=== PATIENT | female | born 1995 | race Caucasian/White ===

== ENCOUNTER 2023-10-18 13:50 | Outpatient (REF) | payer MEDICAID, SELFPAY ==
[2023-10-18 14:55] LABS: Abs Immature Grans 0.14 10^3/uL (0.0-0.06); Absolute Basophil Count 0.05 10^3/uL (0.0-0.2); Absolute Eosinophil Count 0.24 10^3/uL (0.0-0.7); Absolute Lymphocyte Count 2.06 10^3/uL (1.2-3.4); Absolute Monocyte Count 0.42 10^3/uL (0.1-0.8); Absolute Neutrophil Count 3.86 10^3/uL (1.2-6.7); Basophils % 0.7; Eosinophils % 3.5; HCT 40.3 % (36.0-46.0); HGB 13.1 g/dL (11.2-15.7); Immature Grans % 2.1; Lymphocytes % 30.4; MCH 28.1 pg (27.0-33.0); MCHC 32.5 % (32.0-36.0); MCV 86 fL (80-95); MPV 10.6 fL (8.0-11.0); Monocytes % 6.2; Neutrophils % 57.1; Platelet Count 255 10^3/uL (130-400); RBC 4.67 10^6/uL (3.93-5.22); RDW 13.3 % (11.7-14.6); RDW-SD 41.4 fL; WBC 6.77 10^3/uL (4.4-10.8)
[2023-10-18 15:30] LABS: ALT 28 U/L (14-59); AST 14 U/L (15-37); Albumin 3.7 g/dL (3.4-5.0); Alkaline Phosphatase 90 U/L (46-116); Anion Gap 14.3 mmol/L (3-11); BUN 15 mg/dL (7-18); Bilirubin, Total 0.5 mg/dL (0.2-1.0); CO2 19.7 mmol/L (21.0-32.0); CREATININE 0.8 mg/dL (0.55-1.02); Calcium 8.7 mg/dL (8.5-10.1); Chloride 107 mmol/L (98-107); Estimated GFR 104.15 (mL/min/1.73m2); FREE T4 0.91 ng/dL (0.76-1.46); Glucose 108 mg/dL (74-106); Potassium 4.5 mmol/L (3.5-5.1); Sodium 141 mmol/L (136-145); TSH 1.89 uIU/Ml (0.36-3.74); Total Protein 7.5 g/dL (6.4-8.2)
[2023-10-18 15:52] LABS: Hemoglobin A1C 5.4 % (<5.7)
[2023-10-20 23:11] LABS: Anaplasma phagocytophilum Negative (Negative); B. miyamotoi PCR Negative (Negative); Babesia divergens/MO-1 Negative (Negative); Babesia duncani Negative (Negative); Babesia microti Negative (Negative); Ehrlichia chaffeensis Negative (Negative); Ehrlichia ewingii/canis Negative (Negative); Ehrlichia muris eauclairensis Negative (Negative)
[2023-10-21 11:24] LABS: Lyme Ab w Rflx to Lyme Confirm Negative (Negative)
== END 2023-10-18 13:51 | disposition home or self-care (01) ==
LOC: NCHCN 13:50
PROVIDERS: Referring Provider Student in an Organized Health Care Education/Training Program; Visit Provider Student in an Organized Health Care Education/Training Program
DX: R53.83 Other fatigue (principal); E66.8 Other obesity; Z68.41 Body mass index [BMI] 40.0-44.9, adult; R73.09 Other abnormal glucose
CPT/HCPCS: 80053; 87798; 83036; 84439; 84443; 85025; 86618

== ENCOUNTER → 2023-10-18 14:07 | Outpatient (CLI) | payer MEDICAID, SELFPAY ==
--- NOTE | 2023-10-18 13:45 | DI.RAD_ITS ---
Exam(s) XR CERVICAL SPINE COMP 4-5V EXAM: XR CERVICAL SPINE COMP 4-5V CLINICAL HISTORY: CERVICALGIA, m54.2. TECHNIQUE: 2D digital imaging was performed. Five views were performed. COMPARISON: No exams were available for comparison FINDINGS: BONES: No fracture or destructive lesion. Vertebral bodies are unremarkable. DISKS: Intervertebral disc spaces are maintained. ALIGNMENT: Cervical spinal alignment is within normal limits. The odontoid and atlantoaxial articulat ions are normal. SOFT TISSUE: Normal. The lung apices are clear. IMPRESSION: Unremarkable radiographs of the cervical spine. DATA REPOSITORY: RADIATION DOSE DELIVERED:
== END ==
PROVIDERS: Visit Provider Student in an Organized Health Care Education/Training Program
DX: M54.2 Cervicalgia (principal)
CPT/HCPCS: 72050

== ENCOUNTER 2023-11-10 15:30 | Emergency (ER) | payer MEDICAID, SELFPAY ==
[2023-11-10 15:35] VITALS: BP 152/95; PULSE 96; RESP 16; TEMP 37; O2SAT 99
--- NOTE | 2023-11-10 15:47 | W.ED.GENAD ---
Discharge Plan Disposition Patient Disposition: Home Discharge Details Clinical Impression: UTI (urinary tract infection) Primary Care Provider: Cody Galarza ED Provider: Luis Lundberg Home Meds and New Rx's Prescriptions: New cephalexin 500 mg capsule 500 mg PO QID 7 Days Qty: 28 0RF Discharge Instructions Instructions: Urinary Tract Infection in Women (ED) Additional Instructions: You were seen in the emergency department for urinary symptoms. We performed labs that were unremarkable. Your urine is consistent with a possible infection. We gave you a dose antibiotics here through your IV. You were okay for picking up your antibiotics tomorrow as these antibiotics will cover you overnight. Take Tylenol and ibuprofen per bottle directions for any discomfort. Please return to the emergency department for any worsening symptoms. Follow-up with your primary care doctor. HPI General Date/Time Provider Initiated Documentation: 11/10/23 15:38. HPI Narrative: 28-year-old female presents with urinary symptoms and flank pain. Started 3 days ago. Urinary frequency and dysuria. Bladder spasming. Now having pain in the left flank and left back. Constant in nature. Subjective fevers and chills and malaise. Some nausea and vomiting. Related Data Home Medications Medication Instructions Recorded Confirmed cephalexin 500 mg capsule 500 mg PO QID 7 days #28 caps 11/10/23 Previous Rx's Medication Instructions Recorded cephalexin 500 mg capsule 500 mg PO QID 7 days #28 caps 11/10/23 Allergies Allergy/AdvReac Type Severity Reaction Status Date / Time No Known Allergies Allergy Unverified 11/10/23 15:34 General Stated Complaint: Urinary KASSANDRA: 4 Review of Systems Constitutional Constitutional: Reports chills, Reports fatigue, Reports fever(s) and Reports malaise Eyes Eyes: Denies change in vision ENT Ears, Nose, Mouth, and Throat: Denies odynophagia Cardiovascular Cardiovascular: Denies chest pain and Denies dyspnea Respiratory Respiratory: Denies dyspnea Gastrointestinal Gastrointestinal: Denies abdominal pain, Denies diarrhea, Reports nausea, Denies odynophagia and Reports vomiting Genitourinary Genitourinary: Denies abnormal vaginal bleeding, Reports dysuria, Denies pelvic pain, Reports urinary urgency and Denies vaginal discharge Musculoskeletal Musculoskeletal: Denies myalgias Integumentary/Breasts Skin/Breast: Denies changing lesions Neurologic Neurologic: Denies behavioral changes Psychiatric Psychiatric: Denies behavioral changes Endocrine Endocrine: Reports fatigue and Denies heat intolerance Hematologic/Lymphatic Hematologic/Lymphatic: Denies lymphadenopathy Exam Const General: cooperative Nutritional Appearance: average body habitus Orientation: alert, awake and oriented x3 HENOH Head: normal to inspection Ears: external ears normal Mouth: moist mucous membranes Eyes Pupils: PERRL EOM: EOM intact bilaterally and No nystagmus Neck Neck: full ROM and no tracheal deviation Chest Chest: normal inspection of the chest Resp Auscultation: clear to auscultation bilaterally Cardio Rate: regular rate Rhythm: regular rhythm GI Inspection: normal to inspection Palpation: soft, no guarding, not rigid and nontender Other: Left CVA tenderness. Back/Spine/Pelvis Back: No no CVA tenderness Thoracic/Lumbar Spine: thoracic and lumbar spine normal to inspection Skin General skin exam: no rashes or lesions noted Neuro General: patient alert, patient awake and patient oriented x3 Cranial Nerves: CN's II-XI intact bilaterally, PERRL and no nystagmus Cognition: normal cognition Motor: muscle tone normal throughout and strength 5/5 throughout Sensory Exam: no sensory deficits noted Extrem General: normal to inspection Course Vital Signs Vital signs: Vital Signs Temperature 37.0 C 11/10/23 15:35 Pulse 96 H 11/10/23 15:35 Respiratory Rate 16 11/10/23 15:35 Blood Pressure 152/95 H 11/10/23 15:35 Pulse Oximetry 99 11/10/23 15:35 Temperature 37.0 C 11/10/23 15:35 Temperature Source Temporal Artery Scan 11/10/23 15:35 Pulse 96 H 11/10/23 15:35 Respiratory Rate 16 11/10/23 15:35 Respiratory Effort Normal, Non-Labored 11/10/23 15:36 Blood Pressure 152/95 H 11/10/23 15:35 Blood Pressure Position Sitting 11/10/23 15:35 Pulse Oximetry 99 11/10/23 15:35 Oxygen Delivery Method Room Air 11/10/23 15:35 Oxygen Flow Rate 0 11/10/23 15:35 Pain Level 8 11/10/23 15:35 Medical Decision Making 28-year-old female presents with urinary symptoms and left flank pain. Suspect UTI and possible pyelonephritis. Vital signs are stable but given the nausea and vomiting will check labs to look at renal function and electrolytes and give some IV fluids and nausea medications. Will give some antipyretics as well to see if this helps with the patient's general malaise. Will check urinalysis to look for UTI. Will check for . No abdominal tenderness to suggest intra-abdominal abscess presently. Will await initial testing and response to treatment and reevaluate. Reeval at 430pm Labs unremarkable. Urinalysis with possible UTI. Will treat with antibiotics. She feels better after medications here. Will discharge with return precautions. Lab Data Lab results reviewed: Yes I reviewed the patient's lab results. Labs: Labs unremarkable other than possible UTI Quality:SDOH Health Related Social Needs: No Data to Display FORMERLY [facility], [facility] All Active Problems (Updated 11/10/23 @ 16:28 by Luis Lundberg MD) UTI (urinary tract infection) (Acute) Social History Smoking/Tobacco Use Status: Never Smoking risk assessment performed?: Yes Alcohol Intake: current Alcohol Intake frequency: holidays/special occasions only Alcohol type: beer Drug use: Never Substance use type: does not use Housing: apartment Do you feel safe at home: Yes Do you feel safe in your relationship?: Yes
[2023-11-10 16:08] LABS: Bilirubin Negative (Negative); Blood Negative (Negative); Clarity Clear (Clear); Glucose Negative (Negative); Ketones Negative (Negative); Leukocyte Esterase Trace (Negative); Nitrite Negative (Negative); Specific Gravity 1.015 (1.005-1.025); Urobilinogen 0.2 mg/dL (Up to 0.2)
[2023-11-10 16:19] LABS: Bacteria Rare HPF (Negative); C & S Indicated? No; Crystals Negative HPF (Negative); Epithelial Cells Few HPF (Negative); Mucus Negative (Negative); RBC 0-2 HPF (0-2)
[2023-11-10] MEDS: Normal Saline 1,000 ML 1000 ML IV (16:24)
[2023-11-10] MEDS: Ondansetron 4 MG/2 ML VIAL IVP (16:24)
[2023-11-10] MEDS: Ketorolac 15 MG/ML VIAL IVP (16:24)
[2023-11-10 16:26] LABS: Abs Immature Grans 0.13 10^3/uL (0.0-0.06); Absolute Basophil Count 0.04 10^3/uL (0.0-0.2); Absolute Eosinophil Count 0.16 10^3/uL (0.0-0.7); Absolute Lymphocyte Count 2.18 10^3/uL (1.2-3.4); Absolute Monocyte Count 0.48 10^3/uL (0.1-0.8); Absolute Neutrophil Count 6.05 10^3/uL (1.2-6.7); Basophils % 0.4; Eosinophils % 1.8; HCT 42.9 % (36.0-46.0); HGB 13.9 g/dL (11.2-15.7); Immature Grans % 1.4; Lymphocytes % 24.1; MCH 27.6 pg (27.0-33.0); MCHC 32.4 % (32.0-36.0); MCV 85 fL (80-95); MPV 10.3 fL (8.0-11.0); Monocytes % 5.3; Platelet Count 233 10^3/uL (130-400); RBC 5.03 10^6/uL (3.93-5.22); RDW 13.2 % (11.7-14.6); RDW-SD 41.4 fL; WBC 9.04 10^3/uL (4.4-10.8)
[2023-11-10] MEDS: cefTRIAXone 2 GM/50 ML BAG IVPB (16:26)
[2023-11-10 16:39] LABS: ALT 39 U/L (14-59); AST 17 U/L (15-37); Albumin 4.1 g/dL (3.4-5.0); Alkaline Phosphatase 100 U/L (46-116); Anion Gap 13.8 mmol/L (3-11); BUN 10 mg/dL (7-18); Bilirubin, Total 0.6 mg/dL (0.2-1.0); CO2 23.2 mmol/L (21.0-32.0); CREATININE 0.7 mg/dL (0.55-1.02); Calcium 9.4 mg/dL (8.5-10.1); Chloride 105 mmol/L (98-107); Estimated GFR 122.25 (mL/min/1.73m2); Glucose 83 mg/dL (74-106); Potassium 3.8 mmol/L (3.5-5.1); Sodium 142 mmol/L (136-145); Total Protein 8.4 g/dL (6.4-8.2)
[2023-11-10 16:48] LABS: Lipase 38 U/L (16-77)
== END 2023-11-10 17:00 | disposition home or self-care (01) ==
LOC: ER 16:42
PROVIDERS: Emergency Provider Student in an Organized Health Care Education/Training Program; PCP Student in an Organized Health Care Education/Training Program
DX: N39.0 Urinary tract infection, site not specified (principal)
CPT/HCPCS: 80053; 83690; 96365; 96375; 99284; 81003; 81015; 85025; 99283; J0696; J1885; J2405

== ENCOUNTER 2023-11-21 19:50 | Emergency (ER) | payer MEDICAID, SELFPAY ==
[2023-11-21 19:53] VITALS: BP 140/82; PULSE 100; RESP 16; TEMP 36.8; O2SAT 97
--- NOTE | 2023-11-21 20:03 | ED.GENADUL_ITS ---
Discharge Plan Disposition Patient Disposition: Home Condition: Stable Discharge Details Clinical Impression: Nausea Primary Care Provider: Cody Galarza ED Provider: Semaj Lundberg Home Meds and New Rx's Prescriptions: New ondansetron 4 mg tablet,disintegrating 4 mg PO Q8H PRN (Reason: nausea and vomiting) Qty: 30 0RF Discharge Instructions Additional Instructions: Your lab work did not show any concerning findings at this time With your primary care provider if symptoms continue in a week Feel more ill, have severe abdominal pain or persistent vomiting return to the emergency department for reevaluation HPI General Mode of arrival: ambulatory . Date/Time Provider Initiated Documentation: 11/21/23 19:52 . Limitations to Documentation: no limitations . Information obtained by: patient . History of Present Illness 28 year old F presents to the emergency department with the chief complaint of Nausea, Patient started experiencing this week(s) (1) and it has been constant. No relieving factors improve symptom(s), No exacerbating factors reported . Patient notes denies chest pain, fever/chills and shortness of breath. Patient did receive the following treatments prior to arrival, none Related Data Home Medications Medication Instructions Recorded Confirmed ondansetron 4 mg disintegrating 4 mg PO Q8H PRN nausea and 11/21/23 tablet vomiting #30 tabs Previous Rx's Medication Instructions Recorded ondansetron 4 mg disintegrating 4 mg PO Q8H PRN nausea and 11/21/23 tablet vomiting #30 tabs Allergies Allergy/AdvReac Type Severity Reaction Status Date / Time No Known Allergies Allergy Unverified 11/21/23 19:59 General Stated Complaint: GenMedical KASSANDRA: 3 Review of Systems All systems reviewed & are unremarkable except as noted in HPI and below Constitutional Constitutional: Denies chills, Denies fever(s) and Denies weakness Cardiovascular Cardiovascular: Denies chest pain and Denies dyspnea Respiratory Respiratory: Denies cough and Denies dyspnea Gastrointestinal Gastrointestinal: Reports nausea and Denies vomiting Genitourinary Genitourinary: Denies dysuria Musculoskeletal Musculoskeletal: Denies joint swelling Integumentary/Breasts Skin/Breast: Denies rash Neurologic Neurologic: Denies weakness Psychiatric Psychiatric: Denies depression Endocrine Endocrine: Denies cold intolerance and Denies heat intolerance Allergic/Immunologic Allergic/Immunologic: Denies urticaria Exam Const General: no acute distress Orientation: alert HENMT Head: normal to inspection Ears: external ears normal General nose exam: external nose normal Mouth: moist mucous membranes Eyes General: appearance normal, both eyes and all related structures Neck Neck: normal visual inspection Resp Effort & Inspection: normal respiratory effort and able to speak in complete sentences Auscultation: clear to auscultation bilaterally Cardio Rate: regular rate Heart Sounds: no murmurs GI Palpation: soft and nontender Skin General skin exam: no rashes or lesions noted Neuro General: patient alert and patient oriented x3 Extrem General: normal to inspection Psych Mental Status: mental status grossly normal Course Vital Signs Vital signs: Vital Signs Temperature 36.8 C 11/21/23 19:53 Pulse 100 H 11/21/23 19:53 Respiratory Rate 16 11/21/23 19:53 Blood Pressure 140/82 11/21/23 19:53 Pulse Oximetry 97 11/21/23 19:53 Temperature 36.8 C 11/21/23 19:53 Pulse 100 H 11/21/23 19:53 Respiratory Rate 16 11/21/23 19:53 Respiratory Effort Normal 11/21/23 19:59 Blood Pressure 140/82 11/21/23 19:53 Pulse Oximetry 97 11/21/23 19:53 Oxygen Delivery Method Room Air 11/21/23 19:53 Oxygen Flow Rate 0 11/21/23 19:53 Pain Level 5 11/21/23 19:53 Medical Decision Making 28-year-old female who denies any chronic medical problems comes in with 1 week of feeling nausea, no vomiting, and subjective body aches. Did have an episode of light vaginal bleeding a week ago none since. Denies any chest pain, headaches, neck stiffness, cough, difficulty breathing. She is alert and oriented on arrival and appears well in no distress ambulating with normal gait. She is a soft abdomen no tenderness. No clear etiology for her nausea body aches, will check a CBC, CMP and lipase treat her symptoms with fluids and Z ofran and check an ECG. Lack of abdominal tenderness doubt surgical pathology and do not feel any acute imaging indicated. Labs unremarkable, Fluvid pending but patient requesting discharge feels better. Was given a dose of Toradol for some mild head pain she says she gets frequently. Advised to follow-up with her PCP and return precautions given Differential Diagnosis Differential Diagnosis: UTI, , viral illness Quality:SDOH Health Related Social Needs: No Data to Display PFSH All Active Problems (Updated 11/21/23 @ 20:52 by Semaj Lundberg MD) Nausea (Acute) UTI (urinary tract infection) (Acute) Social History Smoking/Tobacco Use Status: Never Smoking risk assessment performed?: Yes Alcohol Intake: current Alcohol Intake frequency: holidays/special occasions only Alcohol type: beer Drug use: Never Substance use type: does not use Housing: apartment Do you feel safe at home: Yes Do you feel safe in your relationship?: Yes
[2023-11-21] MEDS: Normal Saline 1,000 ML 1000 ML IV (20:25)
[2023-11-21] MEDS: Normal Saline Flush 10 ML SYR IVP (20:25)
[2023-11-21] MEDS: Ondansetron 4 MG/2 ML VIAL IVP (20:25)
[2023-11-21 20:27] LABS: Abs Immature Grans 0.14 10^3/uL (0.0-0.06); Absolute Basophil Count 0.05 10^3/uL (0.0-0.2); Absolute Eosinophil Count 0.29 10^3/uL (0.0-0.7); Absolute Lymphocyte Count 2.48 10^3/uL (1.2-3.4); Absolute Monocyte Count 0.46 10^3/uL (0.1-0.8); Absolute Neutrophil Count 4.95 10^3/uL (1.2-6.7); Basophils % 0.6; Eosinophils % 3.5; HCT 41.5 % (36.0-46.0); HGB 13.7 g/dL (11.2-15.7); Immature Grans % 1.7; Lymphocytes % 29.6; MCH 28.1 pg (27.0-33.0); MCV 85 fL (80-95); MPV 10.1 fL (8.0-11.0); Monocytes % 5.5; Neutrophils % 59.1; Platelet Count 232 10^3/uL (130-400); RBC 4.88 10^6/uL (3.93-5.22); RDW 13.2 % (11.7-14.6); RDW-SD 40.9 fL; WBC 8.37 10^3/uL (4.4-10.8)
[2023-11-21 20:33] LABS: Bilirubin Negative (Negative); Blood Negative (Negative); Clarity Clear (Clear); Glucose Negative (Negative); Ketones Negative (Negative); Leukocyte Esterase Negative (Negative); Nitrite Negative (Negative); Specific Gravity 1.025 (1.005-1.025); Urobilinogen 0.2 mg/dL (Up to 0.2)
[2023-11-21 20:46] LABS: ALT 34 U/L (14-59); AST 17 U/L (15-37); Albumin 3.9 g/dL (3.4-5.0); Alkaline Phosphatase 93 U/L (46-116); BUN 13 mg/dL (7-18); Bilirubin, Total 0.5 mg/dL (0.2-1.0); CREATININE 0.7 mg/dL (0.55-1.02); Chloride 106 mmol/L (98-107); Estimated GFR 122.25 (mL/min/1.73m2); Glucose 97 mg/dL (74-106); Lipase 44 U/L (16-77); Magnesium 2.1 mg/dL (1.8-2.4); Potassium 3.6 mmol/L (3.5-5.1); Sodium 141 mmol/L (136-145); Total Protein 8.4 g/dL (6.4-8.2)
[2023-11-21 20:47] LABS: HCG Qual (Serum) Negative
[2023-11-21] MEDS: Acetaminophen 500 MG TAB 1000 MG PO (21:14)
[2023-11-21 21:16] LABS: COVID-19 PCR Negative (Negative); Influenza A PCR Negative (Negative); Influenza B PCR Negative (Negative); RSV PCR Negative (Negative); Source NASOPHARYNX
== END 2023-11-21 21:15 | disposition home or self-care (01) ==
PROVIDERS: Emergency Provider Emergency Medicine; PCP Student in an Organized Health Care Education/Training Program
DX: R11.0 Nausea (principal); R51.9 Headache, unspecified; R10.84 Generalized abdominal pain; Z11.52 Encounter for screening for COVID-19
CPT/HCPCS: 36415; 80053; 83690; 87637; 96361; 96374; 99284; 81003; 83735; 84703; 85025; 99283; J2405

== ENCOUNTER 2024-01-07 14:56 | Outpatient (REF) | payer MEDICAID, SELFPAY ==
[2024-01-07 21:16] LABS: Epithelial Cells Many HPF (Negative); RBC 0-2 HPF (0-2); WBC 0-2 HPF (0-5)
[2024-01-07 21:17] LABS: Bacteria Many HPF (Negative); C & S Indicated? C&S Done As Ordered; Casts Negative LPF (Negative); Crystals Negative HPF (Negative); Mucus Negative (Negative)
== END 2024-01-07 14:57 | disposition home or self-care (01) ==
LOC: LBN 14:56
PROVIDERS: PCP Student in an Organized Health Care Education/Training Program; Visit Provider Physician Assistant Medical
DX: N39.0 Urinary tract infection, site not specified (principal)
CPT/HCPCS: 87077; 81015; 87086; 87186

== ENCOUNTER 2024-01-20 03:14 | Emergency (ER) | payer MEDICAID, SELFPAY ==
[2024-01-20 03:13] VITALS: BP 131/80; PULSE 80; RESP 16; TEMP 36.9; O2SAT 99
--- NOTE | 2024-01-20 03:14 | ED.GENADUL_ITS ---
Discharge Plan Disposition Patient Disposition: Home Condition: Good Discharge Details Clinical Impression: Bladder spasms Primary Care Provider: Cody Galarza ED Provider: Gerald Shah Meds and New Rx's Prescriptions: New ibuprofen 600 mg tablet 600 mg PO Q8H PRN (Reason: pain) Qty: 15 0RF phenazopyridine [Pyridium] 100 mg tablet 100 mg PO TID PRNQty: 10 0RF Continued ondansetron 4 mg tablet,disintegrating 4 mg PO Q8H PRN (Reason: nausea and vomiting) Qty: 30 0RF Discharge Instructions Additional Instructions: You came into the emergency department with bladder discomfort and pain, inability to urinate. Your laboratory studies are all reassuring and your urine is not infected at this time. Given that there was no urine in your bladder on arrival, symptoms were not related to urinary retention but most likely related to bladder spasm of unknown etiology. You improved with ibuprofen and phenazopyridine which I have provided prescriptions for to be used on a as needed basis. Please see your primary care physician this week for follow-up. Return to ED for any fever, vomiting, new or worsening pain, other concerns. HPI General Mode of arrival: EMS . Date/Time Provider Initiated Documentation: 01/20/24 03:21 . Limitations to Documentation: no limitations . Information obtained by: patient . HPI Narrative: Patient presents to ED by ambulance with complaint of lower abdominal pain and inability to urinate. Patient treated for UTI 2 weeks ago. She took a weeks worth of cephalexin. She had improvement. She developed dysuria again earlier today. She is unable to urinate at this time. She is having suprapubic pain which is described as sharp and cramping. She has had loss of appetite today. She has had no vomiting. She has had a few episodes of diarrhea. Has some discomfort in the lower back. Denies any vaginal discharge. She has not had a period in years because of Depo-Provera. Denies any fever. Related Data Home Medications Medication Instructions Recorded Confirmed ondansetron 4 mg disintegrating 4 mg PO Q8H PRN nausea and 11/21/23 01/20/24 tablet vomiting #30 tabs ibuprofen 600 mg tablet 600 mg PO Q8H PRN pain #15 tabs 01/20/24 phenazopyridine 100 mg tablet 100 mg PO TID PRN #10 tabs 01/20/24 (Pyridium) Previous Rx's Medication Instructions Recorded ondansetron 4 mg disintegrating 4 mg PO Q8H PRN nausea and 11/21/23 tablet vomiting #30 tabs ibuprofen 600 mg tablet 600 mg PO Q8H PRN pain #15 tabs 01/20/24 phenazopyridine 100 mg tablet 100 mg PO TID PRN #10 tabs 01/20/24 (Pyridium) Allergies Allergy/AdvReac Type Severity Reaction Status Date / Time amoxicillin Allergy Intermediate Skin Rash Unverified 01/20/24 03:21 General KASSANDRA: 3 Review of Systems Narrative: Per HPI Exam Narrative Exam Narrative: Const: WDWN female in NAD. VS per triage. HEENT: NC/AT. Normal facial exam. Neck: Supple. Trachea midline. Lungs: Normal respiratory effort. GI: Soft/ND/NT. Back: No CVAT Neuro: A+O x 3. Normal speech, mentation, gait. Cranial nerves II - XII grossly intact. No gross motor or sensory deficit. Ext: No C/C/E. Medical Decision Making Patient presenting to ED with suprapubic pain that is sharp and cramping in nature, inability to urinate. Treated for UTI couple weeks ago. Urine culture from that time shows pansensitive E. coli. She took 1 weeks worth of cephalexin. Had resolution of symptoms until today has had anorexia, dysuria. Now unable to urinate with increasing pain. Relatively benign abdomen on exam. Does not get a menstrual cycle because of Depo-Provera. Denies discharge. Will place IV and obtain labs. Will BladderScan and cath if evidence of retention. Patient declined ketorolac stating it made her feel anxious. She did take ibuprofen and Pyridium. Laboratory studies show a white count of 11.7 with normal hemoglobin, unremarkable chemistries with slightly low potassium at 3.4. Liver function and lipase are normal. Urine does not appear infected at this time. is negative. Patient with a bladder scan of 0 initially. With IV fluids she was able to urinate and had no pain with urination. Currently having no suprapubic pain or cramping. Suspect bladder spasm of unknown etiology causing patient's discomfort and urgency despite having no urine in her bladder. I do not suspect gynecological problem given description of symptoms and resolution with ibuprofen and Pyridium. Will plan discharge home to follow- up with primary care this week if continued symptoms. May use ibuprofen and Pyridium on a as needed basis if necessary. Return precautions provided. Medical Records Medical records reviewed: Yes I reviewed the patient's medical records. Medical records narrative: Outpatient urine culture results Lab Data Lab results reviewed: Yes I reviewed the patient's lab results. Quality:SDOH Health Related Social Needs: No Data to Display PFSH All Active Problems (Updated 01/20/24 @ 05:39 by Gerald Shah MD) Bladder spasms (Acute) Social History Smoking/Tobacco Use Status: Never Smoking risk assessment performed?: Yes Alcohol Intake: current Alcohol Intake frequency: holidays/special occasions only Alcohol type: beer Drug use: Never Substance use type: does not use Housing: apartment Do you feel safe at home: Yes Do you feel safe in your relationship?: Yes
[2024-01-20 03:24] VITALS: BP 131/80; PULSE 80; RESP 16; TEMP 36.9; O2SAT 99
[2024-01-20 03:48] LABS: Abs Immature Grans 0.14 10^3/uL (0.0-0.06); Absolute Basophil Count 0.06 10^3/uL (0.0-0.2); Absolute Lymphocyte Count 3.12 10^3/uL (1.2-3.4); Absolute Monocyte Count 0.67 10^3/uL (0.1-0.8); Basophils % 0.5 %; Eosinophils % 2.7 %; HCT 40.8 % (36.0-46.0); HGB 13.4 g/dL (11.2-15.7); Immature Grans % 1.2 %; Lymphocytes % 26.7 %; MCH 28.5 pg (27.0-33.0); MCHC 32.8 % (32.0-36.0); MCV 87 fL (80-95); MPV 9.7 fL (8.0-11.0); Monocytes % 5.7 %; Neutrophils % 63.2 %; Platelet Count 237 10^3/uL (130-400); RDW 13.2 % (11.7-14.6); RDW-SD 41.1 fL; WBC 11.67 10^3/uL (4.4-10.8)
[2024-01-20 03:49] LABS: Absolute Eosinophil Count 0.32 10^3/uL (0.0-0.7); Absolute Neutrophil Count 7.38 10^3/uL (1.2-6.7)
--- NOTE | 2024-01-20 03:49 | NUR.NOTE ---
Pt states unable to urinate, bladder scan reads 0 per SB RN, FPJ
[2024-01-20] MEDS: Phenazopyridine 100 MG TAB PO (04:03)
[2024-01-20] MEDS: Lactated Ringers 1,000 ML 1000 ML IV (04:03)
[2024-01-20] MEDS: Ibuprofen 600 MG TAB PO (04:10)
[2024-01-20 04:13] LABS: ALT 39 U/L (14-59); AST 19 U/L (15-37); Albumin 3.8 g/dL (3.4-5.0); Alkaline Phosphatase 77 U/L (46-116); Anion Gap 10.2 mmol/L (3-11); BUN 9 mg/dL (7-18); Bilirubin, Total 0.9 mg/dL (0.2-1.0); CO2 26.8 mmol/L (21.0-32.0); CREATININE 0.8 mg/dL (0.55-1.02); Calcium 9.3 mg/dL (8.5-10.1); Chloride 103 mmol/L (98-107); Estimated GFR 104.15 (mL/min/1.73m2); Glucose 110 mg/dL (74-106); Potassium 3.4 mmol/L (3.5-5.1); Sodium 140 mmol/L (136-145); Total Protein 7.9 g/dL (6.4-8.2)
[2024-01-20 05:14] LABS: Lipase 37 U/L (16-77)
[2024-01-20 05:15] LABS: Bilirubin Negative (Negative); Blood Trace-intact (Negative); Clarity Clear (Clear); Glucose Negative (Negative); Ketones Negative (Negative); Leukocyte Esterase Trace (Negative); Nitrite Negative (Negative); Urobilinogen 0.2 mg/dL (Up to 0.2); pH 5.5 (5-8)
[2024-01-20 05:24] LABS: Bacteria Rare HPF (Negative); C & S Indicated? No; Casts Negative LPF (Negative); Crystals Negative HPF (Negative); Epithelial Cells Rare HPF (Negative); Mucus Negative (Negative); RBC 0-2 HPF (0-2); WBC 0-2 HPF (0-5)
[2024-01-20 05:46] VITALS: BP 103/43; PULSE 68; RESP 18; O2SAT 97
[2024-01-20 06:00] VITALS: PULSE 68; RESP 18; O2SAT 97
== END 2024-01-20 06:00 | disposition home or self-care (01) ==
LOC: ER 06:24
PROVIDERS: Emergency Provider Emergency Medicine; PCP Student in an Organized Health Care Education/Training Program
DX: N32.89 Other specified disorders of bladder (principal)
CPT/HCPCS: 80053; 81025; 83690; 96361; 96374; 99284; 81003; 81015; 85025; 99283

== ENCOUNTER 2024-02-09 16:36 | Emergency (ER) | payer MEDICAID, SELFPAY ==
[2024-02-09] VITALS (13 sets, daily range): BP systolic 110–140; BP diastolic 61–98; PULSE 78–98; RESP 17–27; TEMP 36.9; O2SAT 96–99
--- NOTE | 2024-02-09 16:30 | RT.EKG_ITS ---
APPROVED REPORT Exam: Resting ECG Reason for Exam: dizzy Patient Location: E HR:88 bpm ECG Measurements Heart Rate 88 AXIS AL 147 P 23 QRSd 72 QRS 1 QT 340 T -7 QTc 412 Conclusion Sinus rhythm. 88 normal axis no stemi
[2024-02-09] MEDS: Normal Saline 1,000 ML 1000 ML IV (17:38)
[2024-02-09 17:41] LABS: Abs Immature Grans 0.11 10^3/uL (0.0-0.06); Absolute Basophil Count 0.05 10^3/uL (0.0-0.2); Absolute Eosinophil Count 0.19 10^3/uL (0.0-0.7); Absolute Monocyte Count 0.63 10^3/uL (0.1-0.8); Absolute Neutrophil Count 6.19 10^3/uL (1.2-6.7); Basophils % 0.5 %; Eosinophils % 2.1 %; HCT 40.4 % (36.0-46.0); HGB 13.5 g/dL (11.2-15.7); Immature Grans % 1.2 %; Lymphocytes % 21.8 %; MCH 28.9 pg (27.0-33.0); MCHC 33.4 % (32.0-36.0); MCV 87 fL (80-95); MPV 9.8 fL (8.0-11.0); Monocytes % 6.9 %; Neutrophils % 67.5 %; Platelet Count 242 10^3/uL (130-400); RBC 4.67 10^6/uL (3.93-5.22); RDW-SD 40.6 fL; WBC 9.17 10^3/uL (4.4-10.8)
[2024-02-09 17:42] LABS: Bilirubin Negative (Negative); Blood Negative (Negative); Clarity Clear (Clear); Glucose Negative (Negative); Ketones Negative (Negative); Leukocyte Esterase Negative (Negative); Nitrite Negative (Negative); Specific Gravity 1.015 (1.005-1.025); Urobilinogen 0.2 mg/dL (Up to 0.2)
[2024-02-09] MEDS: Meclizine 25 MG TAB PO (17:42)
[2024-02-09 17:58] LABS: ALT 30 U/L (14-59); AST 16 U/L (15-37); Albumin 3.8 g/dL (3.4-5.0); Alkaline Phosphatase 78 U/L (46-116); Anion Gap 9.6 mmol/L (3-11); BUN 10 mg/dL (7-18); Bilirubin, Total 0.44 mg/dL (0.2-1.0); CO2 25.4 mmol/L (21.0-32.0); CREATININE 0.8 mg/dL (0.55-1.02); Calcium 9.2 mg/dL (8.5-10.1); Chloride 106 mmol/L (98-107); Estimated GFR 104.15 (mL/min/1.73m2); Glucose 96 mg/dL (74-106); Sodium 141 mmol/L (136-145)
[2024-02-09 18:09] LABS: TSH 1.02 uIU/Ml (0.36-3.74)
[2024-02-09] MEDS: Acetaminophen 500 MG TAB 1000 MG PO (18:57)
[2024-02-09] MEDS: Ibuprofen 600 MG TAB PO (18:57)
--- NOTE | 2024-02-09 20:57 | ED.GENADUL_ITS ---
Discharge Plan Disposition Patient Disposition: Home Discharge Details Clinical Impression: Dizziness Primary Care Provider: Cody Galarza ED Provider: Miguel Burroughs Home Meds and New Rx's Prescriptions: No Action ibuprofen 600 mg tablet 600 mg PO Q8H PRN (Reason: pain) Qty: 15 0RF Discharge Instructions Instructions: Dizziness, Adult ED Additional Instructions: PLEASE FOLLOW UP WITH YOUR PCP THIS WEEK MAKE SURE YOU'RE DRINKING LOTS OF WATER HPI General Date/Time Provider Initiated Documentation: 02/09/24 16:42 . Limitations to Documentation: no limitations . HPI Narrative: 28-year-old female without significant past medical history presents for evaluation of dizziness. She reports that she has been sitting in her house when she had acute onset of dizziness. She reported it was associated with a mild headache. She states when she closes her eyes she sees some black dots. She measured her heart rate at home on her watch at 150. She called 911 for transfer to the hospital. She reports that she has been eating and drinking normally, denies any vomiting, denies any recent illness. Related Data Home Medications Medication Instructions Recorded Confirmed ibuprofen 600 mg tablet 600 mg PO Q8H PRN pain #15 tabs 01/20/24 02/09/24 Previous Rx's Medication Instructions Recorded ibuprofen 600 mg tablet 600 mg PO Q8H PRN pain #15 tabs 01/20/24 Allergies Allergy/AdvReac Type Severity Reaction Status Date / Time amoxicillin Allergy Intermediate Skin Rash Unverified 02/09/24 16:39 General Stated Complaint: Dizzy/Sync KASSANDRA: 3 Exam Narrative Exam Narrative: Review of Systems: All systems reviewed & are unremarkable except as noted in HPI and below Well-developed, no acute distress NCAT No nystagmus PERRL, normal conjunctiva Moist mucous membranes Bilateral TMs unremarkable without effusion or bulging Oropharynx clear, no tonsillar enlargement or exudate, no cervical adenopathy RRR no murmur Unlabored respiratory effort clear bilaterally Nondistended abdomen Extremities w/o deformity, no cyanosis, no edema No rashes or lesions. no focal neurologic deficits normal [id number], good strength and severe sensation throughout Appropriate mood and affect Course Vital Signs Vital signs: Vital Signs Temperature 36.9 C 02/09/24 16:36 Pulse 95 H 02/09/24 16:36 Respiratory Rate 18 02/09/24 16:36 Blood Pressure 140/98 H 02/09/24 16:36 Pulse Oximetry 99 02/09/24 16:36 Temperature 36.9 C 02/09/24 16:36 Temperature Source Temporal Artery Scan 02/09/24 16:36 Pulse 86 02/09/24 18:31 Pulse 89 02/09/24 18:40 Respiratory Rate 17 02/09/24 18:40 Respiratory Effort Normal 02/09/24 17:12 Respiratory Depth Normal 02/09/24 17:12 Respiratory Pattern Normal 02/09/24 17:12 Blood Pressure 117/61 02/09/24 18:31 Blood Pressure Mean 77 02/09/24 18:31 Blood Pressure Position Sitting 02/09/24 16:36 Pulse Oximetry 96 02/09/24 18:40 Oxygen Delivery Method Room Air 02/09/24 16:36 Oxygen Flow Rate 0 02/09/24 16:36 Pain Level 6 02/09/24 16:36 Lab/Test Results Lab/Test Results: Laboratory Tests Range/Units 02/09/24 17:30 WBC (4.4-10.8) 10^3/uL 9.17 RBC (3.93-5.22) 10^6/uL 4.67 Hgb (11.2-15.7) g/dL 13.5 Hct (36.0-46.0) % 40.4 MCV (80-95) fL 87 MCH (27.0-33.0) pg 28.9 MCHC (32.0-36.0) % 33.4 RDW (11.7-14.6) % 13.0 Plt Count (130-400) 10^3/uL 242 MPV (8.0-11.0) fL 9.8 Immature Gran % % 1.2 Neutrophils % % 67.5 Lymphocytes % % 21.8 Monocytes % % 6.9 Eosinophils % % 2.1 Basophils % % 0.5 Nucleated RBC % (0.0-0.3) % 0.0 Absolute Neutrophils (1.2-6.7) 10^3/uL 6.19 Absolute Lymphocytes (1.2-3.4) 10^3/uL 2.00 Absolute Monocytes (0.1-0.8) 10^3/uL 0.63 Absolute Eosinophils (0.0-0.7) 10^3/uL 0.19 Absolute Basophils (0.0-0.2) 10^3/uL 0.05 Sodium (136-145) mmol/L 141 Potassium (3.5-5.1) mmol/L 4.0 Chloride (98-107) mmol/L 106 Carbon Dioxide (21.0-32.0) mmol/L 25.4 Anion Gap (3-11) mmol/L 9.6 BUN (7-18) mg/dL 10 Creatinine (0.55-1.02) mg/dL 0.8 Est GFR (CKD-EPI 2020) (mL/min/1.73m2) 104.15 Glucose (74-106) mg/dL 96 Calcium (8.5-10.1) mg/dL 9.2 Magnesium (1.8-2.4) mg/dL 2.0 Total Bilirubin (0.2-1.0) mg/dL 0.44 AST (15-37) U/L 16 ALT (14-59) U/L 30 Alkaline Phosphatase (46-116) U/L 78 Total Protein (6.4-8.2) g/dL 8.0 Albumin (3.4-5.0) g/dL 3.8 TSH (0.36-3.74) uIU/Ml 1.02 Urine Color (Yellow) Yellow Urine Clarity (Clear) Clear Urine pH (5-8) 7.0 Ur Specific [place] (1.005-1.025) 1.015 Urine Protein (Neg-Trace) mg/dL Negative Urine Ketones (Negative) mg/dL Negative Urine Blood (Negative) Negative Urine Nitrite (Negative) Negative Urine Bilirubin (Negative) Negative Urine Urobilinogen (Up to 0.2) mg/dL 0.2 Ur Leukocyte Esterase (Negative) Negative Urine Glucose (Negative) mg/dL Negative Medical Decision Making Emergent evaluation of dizziness. The patient has a normal neurologic exam at this time. She is hemodynamically stable. She has no evidence of tachy dysrhythmia. I do not suspect intracranial causing her dizziness. Likely heat related. Will give IV fluids and check labs to reassess. Lab work reviewed. No leukocytosis or anemia. No electrolyte derangement. Renal function is within normal limits. Urinalysis does not show signs of dehydration or infection. The patient requested a COVID swab because she was sitting next to someone on the bus that coughed. At this time she is maintaining normal heart rate had no symptoms of dizziness. I have recommended that she follow-up closely with her primary care provider for any reassessment of ongoing symptoms. At this time there is no further emergent workup that needs to be continued. Medical Records Medical records reviewed: Yes I reviewed the patient's medical records. Lab Data Lab results reviewed: Yes I reviewed the patient's lab results. Quality:SDOH Health Related Social Needs: No Data to Display PFSH All Active Problems Dizziness (Acute) Bladder spasms (Acute) Social History Smoking/Tobacco Use Status: Never Smoking risk assessment performed?: Yes Alcohol Intake: current Alcohol Intake frequency: holidays/special occasions only Alcohol type: beer Drug use: Never Substance use type: does not use Housing: apartment Do you feel safe at home: Yes Do you feel safe in your relationship?: Yes
== END 2024-02-09 18:58 | disposition home or self-care (01) ==
PROVIDERS: Emergency Provider Emergency Medicine; PCP Student in an Organized Health Care Education/Training Program
DX: R42 Dizziness and giddiness (principal); R03.0 Elevated blood-pressure reading, without diagnosis of hypertension
CPT/HCPCS: 80053; 93005; 96360; 99284; 81003; 83735; 84443; 85025; 93010; 99283

== ENCOUNTER 2024-02-15 15:58 | Emergency (ER) | payer MEDICAID, SELFPAY ==
[2024-02-15 15:45] VITALS: BP 129/88; PULSE 95; RESP 14; TEMP 36.9; O2SAT 98
--- OUTSIDE RECORDS SUMMARY | 2024-02-15 16:04 | XMS_ITS | Data Portability ---
Author Organization [facility] Address [address] [place] [address] Assessment Encounter Date Assessment Date Assessment LastModified by Organization Details LastModified Time 12/27/2023 12/27/2023 LWOT - see triage note Not available 12/27/2023 19:08:21 Plan of Treatment Reminders Order Date Submit Date Provider Last Modified By Organization Details Last Modified Time Details Appointments None recorded. Lab tick-borne disease panel [address] [facility] (Registration ), [address] [place] [address] [place], [address], 4 08:07:14 CBC w/ auto diff 2023 024 [facility] (Registration ), [address] [place] [address] [place], [address], 4 15:08:49 TSH + free T4, serum [address] [facility] (Registration ), [address] [place] [address] [place], [address], 4 08:06:57 CMP, serum or plasma - 2 LAV, 1 SST 2023 024 [facility] (Registration ), [address] [place] [address] [place], [address], 4 15:33:56 HbA1c (hemoglobin A1c), blood 2023 024 [facility] (Registration ), [address] [place] [address] Dr [facility], [address], 4 08:07:14 urinalysis, dipstick 2023 024 [facility], [address], [address], [place], [address], 4 14:39:13 culture, urine + sensitivity 2023 024 [facility] (Registration ), [address] [place] [address] [facility], [address], 4 09:12:29 urinalysis, microscopic 2023 024 [facility] (Registration ), [address] [place] [address] [place], [address], 4 10:01:21 Referral psychiatris t referral [address] [facility], [address] [facility], [place], [address], 4 07:39:59 sleep medicine referral - Pt, 28-F, BMI 41, w/chronic daytime fatigue, Maddock score 13, Mallampati 4, sleeping currently 7-8 hours per night, and then 3-4 hours during the day. Pt. w/profound psych history of Bipolar, Borderline, Schizoaffec tive disorder, PTSD. 2023 024 [email or web address] [facility], [address] [place] [address] , [facility], [place], [address], 4 10:51:16 Procedures None recorded. Surgeries None recorded. Imaging XR, cervical spine, 4 or 5 view 2023 024 [facility], [address], [place], [address], 07:38:17 Medication Orders amitriptyli ne 10 mg tablet 2023 024 [facility], [address] [place], [address], 14:29:54 cephalexin 500 mg capsule 2023 024 [facility], [address] [place], [address], 14:48:28 Diflucan 150 mg tablet 2023 024 [facility], [address] [place], [address], 4 14:50:06 cephalexin 500 mg capsule 2023 024 [facility], [address] [place], [address], 15:13:49 Patient TargetsNo targets recorded. Patient Instructions Encounter Date Encounter Id Patient Instructions Last Modified By Organization Details Last Modified Time 10/18/2023 [id number] Eliminate added sugar Eliminate white flour Go to sleep consult Regular bedtime and regular rise time. Try not to nap. Start Amitriptyline. If any adverse reactions, please call. I will communicate via portal for labs. [email or web address] Not available 10/18/2023 12:46:48 12/27/2023 [id number] LWOT - see pee pina note Not available 12/27/2023 19:08:31 01/07/2024 [id number] 1. It does appea r you have a urinary tract infection that you were given your first dose of antibiotic while here and the remaining doses were sent to your pharmacy of choice. Please take this medication morning and evening for total of 7 days. 2. In the event that you also develop yeast infection I have sent for antifungal Diflucan you can take as needed. 3. Urine culture sent for additional testing will take 2 days to fully result. We will communicate those results to you on when we have them and check in to see how you are doing. 4. I do not expect you should have any significant sudden worsening. If so please seek reevaluation as needed. Not available 01/07/2024 14:49:21 Reason for Referral Sleep Medicine Referral for Snoring Pt, 28-F, BMI 41, w/chronic daytime fatigue, Maddock score 13, Mallampati 4, sleeping currently 7-8 hours per night, and then 3-4 hours during the day. Pt. w/profound psych history of Bipolar, Borderline, Schizoaffective disorder, PTSD. Referring Physician: Cody Galarza [facility], Encounter Date: 10/18/2023 Psychiatrist Referral for Bi polar disorder Referring Physician: Cody Galarza [facility], Encounter Date: 10/18/2023 Results Created Date Observation Date Name Description Value Unit Range Abnormal Flag LastModifiedBy Organization Detail LastModifiedTime 10/18/19 24 10/18/2023 COMPL ETE BLOOD COUNT W/DIF F WBC 6.77 10_3/ uL 4.4-10 .8 normal Not Available [address] [place], [address] 10/18/2023 15:08:49 10/18/19 24 10/18/2023 COMPL ETE BLOOD COUNT W/DIF F RBC 4.67 10_6/ uL 3.93-5 .22 normal Not Available [address] [place], [address] 10/18/2023 15:08:49 10/18/19 24 10/18/2023 COMPL ETE BLOOD COUNT W/DIF F HGB 13.1 g/dL 11.2-1 5.7 normal Not Available [address] [place], [address] 10/18/2023 15:08:49 10/18/19 24 10/18/2023 COMPL ETE BLOOD COUNT W/DIF F HCT 40.3 % 36.0-4 6.0 normal Not Available [address] [place], [address] 10/18/2023 15:08:49 10/18/19 24 10/18/2023 COMPL ETE BLOOD COUNT W/DIF F MCV 86 fL 80-95 normal Not Available [address] [place], [address] 10/18/2023 15:08:49 10/18/19 24 10/18/2023 COMPL ETE BLOOD COUNT W/DIF F MCH 28.1 pg 27.0-3 3.0 normal Not Available [address] [place], [address] 10/18/2023 15:08:49 10/18/19 24 10/18/2023 COMPL ETE BLOOD COUNT W/DIF F MCHC 32.5 % 32.0-3 6.0 normal Not Available [address] [place], [address] 10/18/2023 15:08:49 10/18/19 24 10/18/2023 COMPL ETE BLOOD COUNT W/DIF F RDW 13.3 % 11.7-1 4.6 normal Not Available [address] [place], [address] 10/18/2023 15:08:49 10/18/19 24 10/18/2023 COMPL ETE BLOOD COUNT W/DIF F platelet count 255 10_3/ uL 130-40 0 normal Not Available [address] [place], [address] 10/18/2023 15:08:49 10/18/19 24 10/18/2023 COMPL ETE BLOOD COUNT W/DIF F MPV 10.6 fL 8.0-11 .0 normal Not Available [address] [place], [address] 10/18/2023 15:08:49 10/18/19 24 10/18/2023 COMPL ETE BLOOD COUNT W/DIF F neutrophils % 57.1 Not Available [address] [place], [address] 10/18/2023 15:08:49 10/18/19 24 10/18/2023 COMPL ETE BLOOD COUNT W/DIF F lymphocytes % 30.4 Not Available [address] [place], [address] 10/18/2023 15:08:49 10/18/19 24 10/18/2023 COMPL ETE BLOOD COUNT W/DIF F monocytes % 6.2 Not Available [address] [place], [address] 10/18/2023 15:08:49 10/18/19 24 10/18/2023 COMPL ETE BLOOD COUNT W/DIF F eosinophils % 3.5 Not Available [address] [place], [address] 10/18/2023 15:08:49 10/18/19 24 10/18/2023 COMPL ETE BLOOD COUNT W/DIF F basophils % 0.7 Not Available [address] [place], [address] 10/18/2023 15:08:49 10/18/19 24 10/18/2023 COMPL ETE BLOOD COUNT W/DIF F immature grans % 2.1 Not Available [address] [place], [address] 10/18/2023 15:08:49 10/18/19 24 10/18/2023 COMPL ETE BLOOD COUNT W/DIF F nucleated RBC 0.0 % 0.0-0. 3 normal Not Available [address] [place], [address] 10/18/2023 15:08:49 10/18/19 24 10/18/2023 COMPL ETE BLOOD COUNT W/DIF F absolute neutrophil count 3.86 10_3/ uL 1.2-6. 7 normal Not Available [address] [place], [address] 10/18/2023 15:08:49 10/18/19 24 10/18/2023 COMPL ETE BLOOD COUNT W/DIF F absolute lymphocyte count 2.06 10_3/ uL 1.2-3. 4 normal Not Available [address] [place], [address] 10/18/2023 15:08:49 10/18/19 24 10/18/2023 COMPL ETE BLOOD COUNT W/DIF F absolute monocyte count 0.42 10_3/ uL 0.1-0. 8 normal Not Available [address] [place], [address] 10/18/2023 15:08:49 10/18/19 24 10/18/2023 COMPL ETE BLOOD COUNT W/DIF F absolute eosinophil count 0.24 10_3/ uL 0.0-0. 7 normal Not Available [address] [place], [address] 10/18/2023 15:08:49 10/18/19 24 10/18/2023 COMPL ETE BLOOD COUNT W/DIF F absolute basophil count 0.05 10_3/ uL 0.0-0. 2 normal Not Available [address] [place], [address] 10/18/2023 15:08:49 10/18/19 24 10/18/2023 COMPR EHENS MELODY METAB OLIC PANEL calcium 8.7 mg/dL 8.5-10 .1 normal Not Available [address] [place], [address] 10/18/2023 15:33:56 10/18/19 24 10/18/2023 COMPR EHENS MELODY METAB OLIC PANEL glucose 108 mg/dL 74-106 high Not Available [address] [place], [address] 10/18/2023 15:33:56 10/18/19 24 10/18/2023 COMPR EHENS MELODY METAB OLIC PANEL BUN 15 mg/dL 7-18 normal Not Available [address] [place], [address] 10/18/2023 15:33:56 10/18/19 24 10/18/2023 COMPR EHENS MELODY METAB OLIC PANEL creatinine 0.8 mg/dL 0.55-1 .02 normal Not Available [address] [place], [address] 10/18/2023 15:33:56 10/18/19 24 10/18/2023 COMPR EHENS MELODY METAB OLIC PANEL estimated GFR 104.15 mL/min /1.73m 2 Not Available [address] [place], [address] 10/18/2023 15:33:56 10/18/19 24 10/18/2023 COMPR EHENS MELODY METAB OLIC PANEL total protein 7.5 g/dL 6.4-8. 2 normal Not Available [address] [place], [address] 10/18/2023 15:33:56 10/18/19 24 10/18/2023 COMPR EHENS MELODY METAB OLIC PANEL albumin 3.7 g/dL 3.4-5. 0 normal Not Available [address] [place], [address] 10/18/2023 15:33:56 10/18/19 24 10/18/2023 COMPR EHENS MELODY METAB OLIC PANEL bilirubin, total 0.5 mg/dL 0.2-1. 0 normal Not Available [address] [place], [address] 10/18/2023 15:33:56 10/18/19 24 10/18/2023 COMPR EHENS MELODY METAB OLIC PANEL alk phos 90 U/L 46-116 normal Not Available [address] [place], [address] 10/18/2023 15:33:56 10/18/19 24 10/18/2023 COMPR EHENS MELODY METAB OLIC PANEL sodium 141 mmol/ L 136-14 5 normal Not Available [address] [place], [address] 10/18/2023 15:33:56 10/18/19 24 10/18/2023 COMPR EHENS MELODY METAB OLIC PANEL potassium 4.5 mmol/ L 3.5-5. 1 normal Not Available [address] [place], [address] 10/18/2023 15:33:56 10/18/19 24 10/18/2023 COMPR EHENS MELODY METAB OLIC PANEL chloride 107 mmol/ L 98-107 normal Not Available [address] [place], [address] 10/18/2023 15:33:56 10/18/19 24 10/18/2023 COMPR EHENS MELODY METAB OLIC PANEL CO2 19.7 mmol/ L 21.0-3 2.0 low Not Available [address] [place], [address] 10/18/2023 15:33:56 10/18/19 24 10/18/2023 COMPR EHENS MELODY METAB OLIC PANEL anion gap 14.3 mmol/ L 3-11 high Not Available [address] [place], [address] 10/18/2023 15:33:56 10/18/19 24 10/18/2023 COMPR EHENS MELODY METAB OLIC PANEL AST 14 U/L 15-37 low Not Available [address] [place], [address] 10/18/2023 15:33:56 10/18/19 24 10/18/2023 COMPR EHENS MELODY METAB OLIC PANEL ALT 28 U/L 14-59 normal Not Available [address] [place], [address] 10/18/2023 15:33:56 10/18/19 24 10/18/2023 TSH TSH 1.89 uIU/m L 0.36-3 .74 normal Not Available [address] [place], [address] 10/18/2023 15:33:57 10/18/19 24 10/18/2023 FREE T4 free T4 0.91 NG/dL 0.76-1 .46 normal Not Available [address] [place], [address] 10/18/2023 15:33:57 10/18/1910/18/2023 HEMOG LOBIN A1C hemoglobin A1C 5.4 % <5.7 Not Available [address] [place], [address] 10/18/2023 16:01:59 10/18/1910/21/2023 LYME AB W RFLX TO LYME CONFI RM lyme Ab W rflx to lyme confirm Negati ve negati ve Not Available [address] [place], [address] 10/21/2023 14:36:09 10/18/19 24 10/20/2023 TICK- BORNE DNA PANEL , PCR, B anaplasma phagocytophi lum Negati ve negati ve Not Available [address] [place], [address] 10/21/2023 14:36:10 10/18/19 24 10/20/2023 TICK- BORNE DNA PANEL , PCR, B ehrlichia chaffeensis Negati ve negati ve Not Available [address] [place], [address] 10/21/2023 14:36:10 10/18/19 24 10/20/2023 TICK- BORNE DNA PANEL , PCR, B ehrlichia ewingii/cani s Negati ve negati ve Not Available [address] [place], [address] 10/21/2023 14:36:10 10/18/19 24 10/20/2023 TICK- BORNE DNA PANEL , PCR, B ehrlichia muris eauclairensi s Negati ve negati ve Not Available [address] [place], [address] 10/21/2023 14:36:10 10/18/1910/20/2023 TICK- BORNE DNA PANEL , PCR, B babesia microti Negati ve negati ve Not Available [address] [place], [address] 10/21/2023 14:36:10 10/18/19 24 10/20/2023 TICK- BORNE DNA PANEL , PCR, B babesia duncani Negati ve negati ve Not Available [address] [place], [address] 10/21/2023 14:36:10 10/18/19 24 10/20/2023 TICK- BORNE DNA PANEL , PCR, B babesia divergens/MO -1 Negati ve negati ve Not Available [address] [place], [address] 10/21/2023 14:36:10 10/18/19 24 10/20/2023 TICK- BORNE DNA PANEL , PCR, B B. miyamotoi PCR Negati ve negati ve Not Available [address] [place], [address] 10/21/2023 14:36:10 11/10/19 24 11/10/2023 COMPR EHENS MELODY METAB OLIC PANEL calcium 9.4 mg/dL 8.5-10 .1 normal Not Available [address] [place], [address] 11/10/2023 16:52:56 11/10/19 24 11/10/2023 COMPR EHENS MELODY METAB OLIC PANEL glucose 83 mg/dL 74-106 normal Not Available [address] [place], [address] 11/10/2023 16:52:56 11/10/1911/10/2023 COMPR EHENS MELODY METAB OLIC PANEL BUN 10 mg/dL 7-18 normal Not Available [address] [place], [address] 11/10/2023 16:52:56 11/10/19 24 11/10/2023 COMPR EHENS MELODY METAB OLIC PANEL creatinine 0.7 mg/dL 0.55-1 .02 normal Not Available [address] [place], [address] 11/10/2023 16:52:56 11/10/19 24 11/10/2023 COMPR EHENS MELODY METAB OLIC PANEL estimated GFR 122.25 mL/min /1.73m 2 Not Available [address] [place], [address] 11/10/2023 16:52:56 11/10/19 24 11/10/2023 COMPR EHENS MELODY METAB OLIC PANEL total protein 8.4 g/dL 6.4-8. 2 high Not Available [address] [place], [address] 11/10/2023 16:52:56 11/10/19 24 11/10/2023 COMPR EHENS MELODY METAB OLIC PANEL albumin 4.1 g/dL 3.4-5. 0 normal Not Available [address] [place], [address] 11/10/2023 16:52:56 11/10/19 24 11/10/2023 COMPR EHENS MELODY METAB OLIC PANEL bilirubin, total 0.6 mg/dL 0.2-1. 0 normal Not Available [address] [place], [address] 11/10/2023 16:52:56 11/10/19 24 11/10/2023 COMPR EHENS MELODY METAB OLIC PANEL alk phos 100 U/L 46-116 normal Not Available [address] [place], [address] 11/10/2023 16:52:56 11/10/19 24 11/10/2023 COMPR EHENS MELODY METAB OLIC PANEL sodium 142 mmol/ L 136-14 5 normal Not Available [address] [place], [address] 11/10/2023 16:52:56 11/10/19 24 11/10/2023 COMPR EHENS MELODY METAB OLIC PANEL potassium 3.8 mmol/ L 3.5-5. 1 normal Not Available [address] [place], [address] 11/10/2023 16:52:56 11/10/19 24 11/10/2023 COMPR EHENS MELODY METAB OLIC PANEL chloride 105 mmol/ L 98-107 normal Not Available [address] [place], [address] 11/10/2023 16:52:56 11/10/19 24 11/10/2023 COMPR EHENS MELODY METAB OLIC PANEL CO2 23.2 mmol/ L 21.0-3 2.0 normal Not Available [address] [place], [address] 11/10/2023 16:52:56 11/10/19 24 11/10/2023 COMPR EHENS MELODY METAB OLIC PANEL anion gap 13.8 mmol/ L 3-11 high Not Available [address] [place], [address] 11/10/2023 16:52:56 11/10/19 24 11/10/2023 COMPR EHENS MELODY METAB OLIC PANEL AST 17 U/L 15-37 normal Not Available [address] [place], [address] 11/10/2023 16:52:56 11/10/19 24 11/10/2023 COMPR EHENS MELODY METAB OLIC PANEL ALT 39 U/L 14-59 normal Not Available [address] [place], [address] 11/10/2023 16:52:56 11/10/19 24 11/10/2023 LIPAS E lipase 38 U/L 16-77 normal Not Available [address] [place], [address] 11/10/2023 16:52:57 11/21/19 24 11/21/2023 COMPL ETE BLOOD COUNT W/DIF F WBC 8.37 10_3/ uL 4.4-10 .8 normal Not Available [address] [place], [address] 11/21/2023 20:32:07 11/21/19 24 11/21/2023 COMPL ETE BLOOD COUNT W/DIF F RBC 4.88 10_6/ uL 3.93-5 .22 normal Not Available [address] [place], [address] 11/21/2023 20:32:07 11/21/19 24 11/21/2023 COMPL ETE BLOOD COUNT W/DIF F HGB 13.7 g/dL 11.2-1 5.7 normal Not Available [address] [place], [address] 11/21/2023 20:32:07 11/21/19 24 11/21/2023 COMPL ETE BLOOD COUNT W/DIF F HCT 41.5 % 36.0-4 6.0 normal Not Available [address] [place], [address] 11/21/2023 20:32:07 11/21/19 24 11/21/2023 COMPL ETE BLOOD COUNT W/DIF F MCV 85 fL 80-95 normal Not Available [address] [place], [address] 11/21/2023 20:32:07 11/21/19 24 11/21/2023 COMPL ETE BLOOD COUNT W/DIF F MCH 28.1 pg 27.0-3 3.0 normal Not Available [address] [place], [address] 11/21/2023 20:32:07 11/21/19 24 11/21/2023 COMPL ETE BLOOD COUNT W/DIF F MCHC 33.0 % 32.0-3 6.0 normal Not Available [address] [place], [address] 11/21/2023 20:32:07 11/21/19 24 11/21/2023 COMPL ETE BLOOD COUNT W/DIF F RDW 13.2 % 11.7-1 4.6 normal Not Available [address] [place], [address] 11/21/2023 20:32:07 11/21/19 24 11/21/2023 COMPL ETE BLOOD COUNT W/DIF F platelet count 232 10_3/ uL 130-40 0 normal Not Available [address] [place], [address] 11/21/2023 20:32:07 11/21/19 24 11/21/2023 COMPL ETE BLOOD COUNT W/DIF F MPV 10.1 fL 8.0-11 .0 normal Not Available [address] [place], [address] 11/21/2023 20:32:07 11/21/19 24 11/21/2023 COMPL ETE BLOOD COUNT W/DIF F neutrophils % 59.1 Not Available [address] [place], [address] 11/21/2023 20:32:07 11/21/19 24 11/21/2023 COMPL ETE BLOOD COUNT W/DIF F lymphocytes % 29.6 Not Available [address] [place], [address] 11/21/2023 20:32:07 11/21/19 24 11/21/2023 COMPL ETE BLOOD COUNT W/DIF F monocytes % 5.5 Not Available Neyda loza [address] [place], [address] 11/21/2023 20:32:07 11/21/19 24 11/21/2023 COMPL ETE BLOOD COUNT W/DIF F eosinophils % 3.5 Not Available [address] [place], [address] 11/21/2023 20:32:07 11/21/19 24 11/21/2023 COMPL ETE BLOOD COUNT W/DIF F basophils % 0.6 Not Available Neyda [email or web address] [place], [address] 11/21/2023 20:32:07 11/21/19 24 11/21/2023 COMPL ETE BLOOD COUNT W/DIF F immature grans % 1.7 Not Available [address] [place], [address] 11/21/2023 20:32:07 11/21/19 24 11/21/2023 COMPL ETE BLOOD COUNT W/DIF F nucleated RBC 0.0 % 0.0-0. 3 normal Not Available [address] [place], [address] 11/21/2023 20:32:07 11/21/19 24 11/21/2023 COMPL ETE BLOOD COUNT W/DIF F absolute neutrophil count 4.95 10_3/ uL 1.2-6. 7 normal Not Available [address] [place], [address] 11/21/2023 20:32:07 11/21/19 24 11/21/2023 COMPL ETE BLOOD COUNT W/DIF F absolute lymphocyte count 2.48 10_3/ uL 1.2-3. 4 normal Not Available [address] [place], [address] 11/21/2023 20:32:07 11/21/19 24 11/21/2023 COMPL ETE BLOOD COUNT W/DIF F absolute monocyte count 0.46 10_3/ uL 0.1-0. 8 normal Not Available [address] [place], [address] 11/21/2023 20:32:07 11/21/19 24 11/21/2023 COMPL ETE BLOOD COUNT W/DIF F absolute eosinophil count 0.29 10_3/ uL 0.0-0. 7 normal Not Available [address] [place], [address] 11/21/2023 20:32:07 11/21/19 24 11/21/2023 COMPL ETE BLOOD COUNT W/DIF F absolute basophil count 0.05 10_3/ uL 0.0-0. 2 normal Not Available [address] [place], [address] 11/21/2023 20:32:07 11/21/19 24 11/21/2023 URINA LYSIS color Yellow yellow Not Available [address] [place], [address] 11/21/2023 20:37:08 11/21/19 24 11/21/2023 URINA LYSIS clarity Clear clear Not Available [address] [place], [address] 11/21/2023 20:37:08 11/21/19 24 11/21/2023 URINA LYSIS specific gravity 1.025 1.005- 1.025 normal Not Available [address] [place], [address] 11/21/2023 20:37:08 11/21/19 24 11/21/2023 URINA LYSIS pH 7.0 5-8 normal Not Available [address] [place], [address] 11/21/2023 20:37:08 11/21/19 24 11/21/2023 URINA LYSIS leukocyte esterase Negati ve negati ve Not Available [address] [place], [address] 11/21/2023 20:37:08 11/21/19 24 11/21/2023 URINA LYSIS nitrite Negati ve negati ve Not Available [address] [place], [address] 11/21/2023 20:37:08 11/21/19 24 11/21/2023 URINA LYSIS protein Negati ve mg/dL neg-tr galindo Not Available [address] [place], [address] 11/21/2023 20:37:08 11/21/19 24 11/21/2023 URINA LYSIS glucose Negati ve mg/dL negati ve Not Available [address] [place], [address] 11/21/2023 20:37:08 11/21/19 24 11/21/2023 URINA LYSIS ketones Negati ve mg/dL negati ve Not Available [address] [place], [address] 11/21/2023 20:37:08 11/21/19 24 11/21/2023 URINA LYSIS urobilinogen 0.2 mg/dL up to 0.2 Not Available [address] [place], [address] 11/21/2023 20:37:08 11/21/19 24 11/21/2023 URINA LYSIS bilirubin Negati ve negati ve Not Available [address] [place], [address] 11/21/2023 20:37:08 11/21/19 24 11/21/2023 URINA LYSIS blood Negati ve negati ve Not Available [address] [place], [address] 11/21/2023 20:37:08 11/21/19 24 11/21/2023 COMPR EHENS MELODY METAB OLIC PANEL calcium 9.0 mg/dL 8.5-10 .1 normal Not Available [address] [place], [address] 11/21/2023 20:49:20 11/21/19 24 11/21/2023 COMPR EHENS MELODY METAB OLIC PANEL glucose 97 mg/dL 74-106 normal Not Available [facility] [address] [place], [address] 11/21/2023 20:49:20 11/21/19 24 11/21/2023 COMPR EHENS MELODY METAB OLIC PANEL BUN 13 mg/dL 7-18 normal Not Available [facility] [address] [place], [address] 11/21/2023 20:49:20 11/21/19 24 11/21/2023 COMPR EHENS MELODY METAB OLIC PANEL creatinine 0.7 mg/dL 0.55-1 .02 normal Not Available [address] [place], [address] 11/21/2023 20:49:20 11/21/19 24 11/21/2023 COMPR EHENS MELODY METAB OLIC PANEL estimated GFR 122.25 mL/min /1.73M 2 Not Available [address] [place], [address] 11/21/2023 20:49:20 11/21/19 24 11/21/2023 COMPR EHENS MELODY METAB OLIC PANEL total protein 8.4 g/dL 6.4-8. 2 high Not Available [address] [place], [address] 11/21/2023 20:49:20 11/21/19 24 11/21/2023 COMPR EHENS MELODY METAB OLIC PANEL albumin 3.9 g/dL 3.4-5. 0 normal Not Available [address] [place], [address] 11/21/2023 20:49:20 11/21/19 24 11/21/2023 COMPR EHENS MELODY METAB OLIC PANEL bilirubin, total 0.5 mg/dL 0.2-1. 0 normal Not Available [address] [place], [address] 11/21/2023 20:49:20 11/21/19 24 11/21/2023 COMPR EHENS MELODY METAB OLIC PANEL alk phos 93 U/L 46-116 normal Not Available [address] [place], [address] 11/21/2023 20:49:20 11/21/19 24 11/21/2023 COMPR EHENS MELODY METAB OLIC PANEL sodium 141 mmol/ L 136-14 5 normal Not Available [address] [place], [address] 11/21/2023 20:49:20 11/21/19 24 11/21/2023 COMPR EHENS MELODY METAB OLIC PANEL potassium 3.6 mmol/ L 3.5-5. 1 normal Not Available [address] [place], [address] 11/21/2023 20:49:20 11/21/19 24 11/21/2023 COMPR EHENS MELODY METAB OLIC PANEL chloride 106 mmol/ L 98-107 normal Not Available [address] [place], [address] 11/21/2023 20:49:20 11/21/19 24 11/21/2023 COMPR EHENS MELODY METAB OLIC PANEL CO2 24.0 mmol/ L 21.0-3 2.0 normal Not Available [address] [place], [address] 11/21/2023 20:49:20 11/21/19 24 11/21/2023 COMPR EHENS MELODY METAB OLIC PANEL anion gap 11.0 mmol/ L 3-11 normal Not Available [address] [place], [address] 11/21/2023 20:49:20 11/21/19 24 11/21/2023 COMPR EHENS MELODY METAB OLIC PANEL AST 17 U/L 15-37 normal Not Available [address], [address] 11/21/2023 20:49:20 11/21/19 24 11/21/2023 COMPR EHENS MELODY METAB OLIC PANEL ALT 34 U/L 14-59 normal Not Available [address] [place], [address] 11/21/2023 20:49:20 11/21/19 24 11/21/2023 MAGNE SIUM magnesium 2.1 mg/dL 1.8-2. 4 normal Not Available [address] [place], [address] 11/21/2023 20:49:20 11/21/19 24 11/21/2023 LIPAS E lipase 44 U/L 16-77 normal Not Available [address] [place], [address] 11/21/2023 20:49:21 11/21/19 24 11/21/2023 HCG QUAL (SERU M) HCG qual (serum) Negati ve Not Available [address] [place], [address] 11/21/2023 20:50:14 11/21/19 24 11/21/2023 COVID /FLU/ RSV PCR source NASOPH ARYNX Not Available [address] [place], [address] 11/21/2023 21:19:25 11/21/19 24 11/21/2023 COVID /FLU/ RSV PCR covid-19 PCR Negati ve negati ve Not Available [address] [place], [address] 11/21/2023 21:19:25 11/21/19 24 11/21/2023 COVID /FLU/ RSV PCR influenza A PCR Negati ve negati ve Not Available [address] [place], [address] 11/21/2023 21:19:25 11/21/19 24 11/21/2023 COVID /FLU/ RSV PCR influenza B PCR Negati ve negati ve Not Available [address] [place], [address] 11/21/2023 21:19:25 11/21/19 24 11/21/2023 COVID /FLU/ RSV PCR RSV PCR Negati ve negati ve Not Available [address] [place], [address] 11/21/2023 21:19:25 01/07/20 24 01/07/2024 MICRO SCOPI C FINDI NGS WBC 0-2 hpf 0-5 Not Available [facility] (Registration ) [address] [place] [address] [place], [address], 01/07/2024 21:18:07 01/07/20 24 01/07/2024 MICRO SCOPI C FINDI NGS RBC 0-2 hpf 0-2 Not Available [facility] (Registration ) [address] [place] [address] [place], [address], 01/07/2024 21:18:07 01/07/20 24 01/07/2024 MICRO SCOPI C FINDI NGS epithelial cells Many hpf negati ve Not Available [facility] (Registration ) [address] [place] [address] [place], [address], 01/07/2024 21:18:07 01/07/20 24 01/07/2024 MICRO SCOPI C FINDI NGS bacteria Many hpf negati ve Not Available [facility] (Registration ) [address] [place] [address] [place], [address], 01/07/2024 21:18:07 01/07/20 24 01/07/2024 MICRO SCOPI C FINDI NGS crystals Negati ve hpf negati ve Not Available [facility] (Registration ) [address] [place] [address] [place], [address], 01/07/2024 21:18:07 01/07/20 24 01/07/2024 MICRO SCOPI C FINDI NGS mucus Negati ve negati ve Not Available [facility] (Registration ) [address] [place] [address] [place], [address], 01/07/2024 21:18:07 01/07/20 24 01/07/2024 MICRO SCOPI C FINDI NGS casts Negati ve lpf negati ve Not Available [facility] (Registration ) [address] [place] [address] [place], [address], 01/07/2024 21:18:07 01/07/20 24 01/07/2024 MICRO SCOPI C FINDI NGS C S indicated? C S Done As Ordere d Not Available [facility] (Registration ) [address] [place] [address] [place], [address], 01/07/2024 21:18:07 01/07/20 24 01/09/2024 URINE CULTU RE urine culture Not Available [facility] (Registration ) [address] [place] [address] [place], [address], 01/09/2024 09:09:34 01/07/20 24 01/09/2024 URINE CULTU RE urine culture colon ies/m L Not Available [facility] (Registration ) [address] [place] [address] , [place], [address], 01/09/2024 09:09:34 01/07/20 24 01/10/2024 URINE CULTU RE urine culture Not Available [facility] (Registration ) [address] [place] [address] [place], [address], 01/10/2024 08:24:07 01/07/20 24 01/10/2024 URINE CULTU RE urine culture colon ies/m L Not Available [facility] (Registration ) [address] [place] [address] [place], [address], 01/10/2024 08:24:07 01/07/20 24 01/07/2024 urina lysis , dipst ick Leukocytes Modera te Not Available [address] [address], [place], [address], 01/07/2024 14:28:49 01/07/20 24 01/07/2024 urina lysis , dipst ick Nitrite positi ve Not Available [address] [address], [place], [address], 01/07/2024 14:28:49 01/07/20 24 01/07/2024 urina lysis , dipst ick Urobilinogen .2 Not Available [address] [address], [place], [address], 01/07/2024 14:28:49 01/07/20 24 01/07/2024 urina lysis , dipst ick Protein Negati ve Not Available [address] [address], [place], [address], 01/07/2024 14:28:49 01/07/20 24 01/07/2024 urina lysis , dipst ick pH 7.5 Not Available [address], [place], [address], 01/07/2024 14:28:49 01/07/20 24 01/07/2024 urina lysis , dipst ick Blood Non-He molyze d: Modera te Not Available [address], [place], [address], 01/07/2024 14:28:49 01/07/20 24 01/07/2024 urina lysis , dipst ick Specific [place] 1.010 Not Available [address], [place], [address], 01/07/2024 14:28:49 01/07/20 24 01/07/2024 urina lysis , dipst ick Ketone Negati ve Not Available [address], [place], [address], 01/07/2024 14:28:49 01/07/20 24 01/07/2024 urina lysis , dipst ick Bilirubin Negati ve Not Available [address], [place], [address], 01/07/2024 14:28:49 01/07/20 24 01/07/2024 urina lysis , dipst ick Glucose Negati ve Not Available [address], [place], [address], 01/07/2024 14:28:49 01/07/20 24 01/07/2024 urina lysis , dipst ick Appearance Turbid Not Available [address], [place], [address], 01/07/2024 14:28:49 01/07/20 24 01/07/2024 urina lysis , dipst ick Color Dark Yellow Not Available [address], [place], [address], 01/07/2024 14:28:49 01/20/20 24 01/20/2024 COMPL ETE BLOOD COUNT W/DIF F WBC 11.67 10_3/ uL 4.4-10 .8 high Not Available [address] [place], [address] 01/20/2024 03:52:04 01/20/20 24 01/20/2024 COMPL ETE BLOOD COUNT W/DIF F RBC 4.70 10_6/ uL 3.93-5 .22 normal Not Available [address] [place], [address] 01/20/2024 03:52:04 01/20/20 24 01/20/2024 COMPL ETE BLOOD COUNT W/DIF F HGB 13.4 g/dL 11.2-1 5.7 normal Not Available [address] [facility] [place], [address] 01/20/2024 03:52:04 01/20/20 24 01/20/2024 COMPL ETE BLOOD COUNT W/DIF F HCT 40.8 % 36.0-4 6.0 normal Not Available [address] [facility] [place], [address] 01/20/2024 03:52:04 01/20/20 24 01/20/2024 COMPL ETE BLOOD COUNT W/DIF F MCV 87 fL 80-95 normal Not Available [address] [facility] [place], [address] 01/20/2024 03:52:04 01/20/20 24 01/20/2024 COMPL ETE BLOOD COUNT W/DIF F MCH 28.5 pg 27.0-3 3.0 normal Not Available [address] [place], [address] 01/20/2024 03:52:04 01/20/20 24 01/20/2024 COMPL ETE BLOOD COUNT W/DIF F MCHC 32.8 % 32.0-3 6.0 normal Not Available [address] [place], [address] 01/20/2024 03:52:04 01/20/20 24 01/20/2024 COMPL ETE BLOOD COUNT W/DIF F RDW 13.2 % 11.7-1 4.6 normal Not Available [address] [place], [address] 01/20/2024 03:52:04 01/20/20 24 01/20/2024 COMPL ETE BLOOD COUNT W/DIF F platelet count 237 10_3/ uL 130-40 0 normal Not Available [address] [place], [address] 01/20/2024 03:52:04 01/20/20 24 01/20/2024 COMPL ETE BLOOD COUNT W/DIF F MPV 9.7 fL 8.0-11 .0 normal Not Available [address] [place], [address] 01/20/2024 03:52:04 01/20/20 24 01/20/2024 COMPL ETE BLOOD COUNT W/DIF F neutrophils % 63.2 % Not Available [address] [place], [address] 01/20/2024 03:52:04 01/20/20 24 01/20/2024 COMPL ETE BLOOD COUNT W/DIF F lymphocytes % 26.7 % Not Available [address] [place], [address] 01/20/2024 03:52:04 01/20/20 24 01/20/2024 COMPL ETE BLOOD COUNT W/DIF F monocytes % 5.7 % Not Available Neyda [address] [place], [address] 01/20/2024 03:52:04 01/20/20 24 01/20/2024 COMPL ETE BLOOD COUNT W/DIF F eosinophils % 2.7 % Not Available [address] [place], [address] 01/20/2024 03:52:04 01/20/20 24 01/20/2024 COMPL ETE BLOOD COUNT W/DIF F basophils % 0.5 % Not Available Neyda [facility]ellalawrence [address] [place], [address] 01/20/2024 03:52:04 01/20/20 24 01/20/2024 COMPL ETE BLOOD COUNT W/DIF F immature grans % 1.2 % Not Available [address] [place], [address] 01/20/2024 03:52:04 01/20/20 24 01/20/2024 COMPL ETE BLOOD COUNT W/DIF F nucleated RBC 0.0 % 0.0-0. 3 normal Not Available [address] [place], [address] 01/20/2024 03:52:04 01/20/20 24 01/20/2024 COMPL ETE BLOOD COUNT W/DIF F absolute neutrophil count 7.38 10_3/ uL 1.2-6. 7 high Not Available [address] [place], [address] 01/20/2024 03:52:04 01/20/20 24 01/20/2024 COMPL ETE BLOOD COUNT W/DIF F absolute lymphocyte count 3.12 10_3/ uL 1.2-3. 4 normal Not Available [address] [place], [address] 01/20/2024 03:52:04 01/20/20 24 01/20/2024 COMPL ETE BLOOD COUNT W/DIF F absolute monocyte count 0.67 10_3/ uL 0.1-0. 8 normal Not Available [address] [place], [address] 01/20/2024 03:52:04 01/20/20 24 01/20/2024 COMPL ETE BLOOD COUNT W/DIF F absolute eosinophil count 0.32 10_3/ uL 0.0-0. 7 normal Not Available [address] [place], [address] 01/20/2024 03:52:04 01/20/20 24 01/20/2024 COMPL ETE BLOOD COUNT W/DIF F absolute basophil count 0.06 10_3/ uL 0.0-0. 2 normal Not Available [address] [place], [address] 01/20/2024 03:52:04 01/20/20 24 01/20/2024 COMPR EHENS MELODY METAB OLIC PANEL calcium 9.3 mg/dL 8.5-10 .1 normal Not Available [address] [place], [address] 01/20/2024 05:19:09 01/20/20 24 01/20/2024 COMPR EHENS MELODY METAB OLIC PANEL glucose 110 mg/dL 74-106 high Not Available [address] [place], [address] 01/20/2024 05:19:09 01/20/20 24 01/20/2024 COMPR EHENS MELODY METAB OLIC PANEL BUN 9 mg/dL 7-18 normal Not Available [address] [place], [address] 01/20/2024 05:19:09 01/20/20 24 01/20/2024 COMPR EHENS MELODY METAB OLIC PANEL creatinine 0.8 mg/dL 0.55-1 .02 normal Not Available [address] [place], [address] 01/20/2024 05:19:09 01/20/20 24 01/20/2024 COMPR EHENS MELODY METAB OLIC PANEL estimated GFR 104.15 mL/min /1.73m 2 Not Available [address] [place], [address] 01/20/2024 05:19:09 01/20/20 24 01/20/2024 COMPR EHENS MELODY METAB OLIC PANEL total protein 7.9 g/dL 6.4-8. 2 normal Not Available [address] [place], [address] 01/20/2024 05:19:09 01/20/20 24 01/20/2024 COMPR EHENS MELODY METAB OLIC PANEL albumin 3.8 g/dL 3.4-5. 0 normal Not Available [address] [place], [address] 01/20/2024 05:19:09 01/20/20 24 01/20/2024 COMPR EHENS MELODY METAB OLIC PANEL bilirubin, total 0.9 mg/dL 0.2-1. 0 normal Not Available [address] [place], [address] 01/20/2024 05:19:09 01/20/20 24 01/20/2024 COMPR EHENS MELODY METAB OLIC PANEL alk phos 77 U/L 46-116 normal Not Available [address] [place], [address] 01/20/2024 05:19:09 01/20/20 24 01/20/2024 COMPR EHENS MELODY METAB OLIC PANEL sodium 140 mmol/ L 136-14 5 normal Not Available [address] [place], [address] 01/20/2024 05:19:09 01/20/20 24 01/20/2024 COMPR EHENS MELODY METAB OLIC PANEL potassium 3.4 mmol/ L 3.5-5. 1 low Not Available [address] [place], [address] 01/20/2024 05:19:09 01/20/20 24 01/20/2024 COMPR EHENS MELODY METAB OLIC PANEL chloride 103 mmol/ L 98-107 normal Not Available [address] [place], [address] 01/20/2024 05:19:09 01/20/20 24 01/20/2024 COMPR EHENS MELODY METAB OLIC PANEL CO2 26.8 mmol/ L 21.0-3 2.0 normal Not Available [address] [place], [address] 01/20/2024 05:19:09 01/20/20 24 01/20/2024 COMPR EHENS MELODY METAB OLIC PANEL anion gap 10.2 mmol/ L 3-11 normal Not Available [address] [place], [address] 01/20/2024 05:19:09 01/20/20 24 01/20/2024 COMPR EHENS MELODY METAB OLIC PANEL AST 19 U/L 15-37 normal Not Available [address] [place], [address] 01/20/2024 05:19:09 01/20/20 24 01/20/2024 COMPR EHENS MELODY METAB OLIC PANEL ALT 39 U/L 14-59 normal Not Available [address] [place], [address] 01/20/2024 05:19:09 01/20/20 24 01/20/2024 LIPAS E lipase 37 U/L 16-77 normal Not Available [address] [place], [address] 01/20/2024 05:19:10 01/20/20 24 01/20/2024 URINA LYSIS color Yellow yellow Not Available [address] [place], [address] 01/20/2024 05:20:09 01/20/20 24 01/20/2024 URINA LYSIS clarity Clear clear Not Available [address] [place], [address] 01/20/2024 05:20:09 01/20/20 24 01/20/2024 URINA LYSIS specific gravity 1.020 1.005- 1.025 normal Not Available [address] [place], [address] 01/20/2024 05:20:09 01/20/20 24 01/20/2024 URINA LYSIS pH 5.5 5-8 normal Not Available [address] [place], [address] 01/20/2024 05:20:09 01/20/20 24 01/20/2024 URINA LYSIS leukocyte esterase Trace negati ve abnormal Not Available [address] [place], [address] 01/20/2024 05:20:09 01/20/20 24 01/20/2024 URINA LYSIS nitrite Negati ve negati ve Not Available [address] [place], [address] 01/20/2024 05:20:09 01/20/20 24 01/20/2024 URINA LYSIS protein Negati ve mg/dL neg-tr galindo Not Available [address] [place], [address] 01/20/2024 05:20:09 01/20/20 24 01/20/2024 URINA LYSIS glucose Negati ve mg/dL negati ve Not Available [address] [place], [address] 01/20/2024 05:20:09 01/20/20 24 01/20/2024 URINA LYSIS ketones Negati ve mg/dL negati ve Not Available [address] [place], [address] 01/20/2024 05:20:09 01/20/20 24 01/20/2024 URINA LYSIS urobilinogen 0.2 mg/dL up to 0.2 Not Available [address] [place], [address] 01/20/2024 05:20:09 01/20/20 24 01/20/2024 URINA LYSIS bilirubin Negati ve negati ve Not Available [address] [place], [address] 01/20/2024 05:20:09 01/20/20 24 01/20/2024 URINA LYSIS blood Trace- intact negati ve abnormal Not Available [address] [place], [address] 01/20/2024 05:20:09 01/20/20 24 01/20/2024 URINA LYSIS color Yellow yellow Not Available Zackery bravo [address] [place], [address] 01/20/2024 05:27:10 01/20/20 24 01/20/2024 URINA LYSIS clarity Clear clear Not Available [facility] [address] [place], [address] 01/20/2024 05:27:10 01/20/20 24 01/20/2024 URINA LYSIS specific gravity 1.020 1.005- 1.025 normal Not Available [address] [place], [address] 01/20/2024 05:27:10 01/20/20 24 01/20/2024 URINA LYSIS pH 5.5 5-8 normal Not Available Zackery bravo [address] [place], [address] 01/20/2024 05:27:10 01/20/20 24 01/20/2024 URINA LYSIS leukocyte esterase Trace negati ve abnormal Not Available [address] [place], [address] 01/20/2024 05:27:10 01/20/20 24 01/20/2024 URINA LYSIS nitrite Negati ve negati ve Not Available [address] [place], [address] 01/20/2024 05:27:10 01/20/20 24 01/20/2024 URINA LYSIS protein Negati ve mg/dL neg-tr galindo Not Available [address] [place], [address] 01/20/2024 05:27:10 01/20/20 24 01/20/2024 URINA LYSIS glucose Negati ve mg/dL negati ve Not Available [address] [place], [address] 01/20/2024 05:27:10 01/20/20 24 01/20/2024 URINA LYSIS ketones Negati ve mg/dL negati ve Not Available [address] [place], [address] 01/20/2024 05:27:10 01/20/20 24 01/20/2024 URINA LYSIS urobilinogen 0.2 mg/dL up to 0.2 Not Available [address] [place], [address] 01/20/2024 05:27:10 01/20/20 24 01/20/2024 URINA LYSIS bilirubin Negati ve negati ve Not Available [address] [place], [address] 01/20/2024 05:27:10 01/20/20 24 01/20/2024 URINA LYSIS blood Trace- intact negati ve abnormal Not Available [address] [place], [address] 01/20/2024 05:27:10 01/20/20 24 01/20/2024 MICRO SCOPI C FINDI NGS WBC 0-2 hpf 0-5 Not Available Zackery lawrence [address], [address] 01/20/2024 05:27:10 01/20/20 24 01/20/2024 MICRO SCOPI C FINDI NGS RBC 0-2 hpf 0-2 Not Available [facility] [address] [place], [address] 01/20/2024 05:27:10 01/20/20 24 01/20/2024 MICRO SCOPI C FINDI NGS epithelial cells Rare hpf negati ve Not Available [address] [place], [address] 01/20/2024 05:27:10 01/20/20 24 01/20/2024 MICRO SCOPI C FINDI NGS bacteria Rare hpf negati ve Not Available [address] [place], [address] 01/20/2024 05:27:10 01/20/20 24 01/20/2024 MICRO SCOPI C FINDI NGS crystals Negati ve hpf negati ve Not Available [address] [place], [address] 01/20/2024 05:27:10 01/20/20 24 01/20/2024 MICRO SCOPI C FINDI NGS mucus Negati ve negati ve Not Available [address] [place], [address] 01/20/2024 05:27:10 01/20/20 24 01/20/2024 MICRO SCOPI C FINDI NGS casts Negati ve lpf negati ve Not Available [address] [place], [address] 01/20/2024 05:27:10 01/20/20 24 01/20/2024 MICRO SCOPI C FINDI NGS C S indicated? No Not Available [address] [place], [address] 01/20/2024 05:27:10 02/09/20 24 02/09/2024 COMPL ETE BLOOD COUNT W/DIF F WBC 9.17 10_3/ uL 4.4-10 .8 normal Not Available [address] [place], [address] 02/09/2024 17:45:41 02/09/20 24 02/09/2024 COMPL ETE BLOOD COUNT W/DIF F RBC 4.67 10_6/ uL 3.93-5 .22 normal Not Available [address] [place], [address] 02/09/2024 17:45:41 02/09/20 24 02/09/2024 COMPL ETE BLOOD COUNT W/DIF F HGB 13.5 g/dL 11.2-1 5.7 normal Not Available [address] [place], [address] 02/09/2024 17:45:41 02/09/20 24 02/09/2024 COMPL ETE BLOOD COUNT W/DIF F HCT 40.4 % 36.0-4 6.0 normal Not Available [address] [place], [address] 02/09/2024 17:45:41 02/09/20 24 02/09/2024 COMPL ETE BLOOD COUNT W/DIF F MCV 87 fL 80-95 normal Not Available [address] [place], [address] 02/09/2024 17:45:41 02/09/20 24 02/09/2024 COMPL ETE BLOOD COUNT W/DIF F MCH 28.9 pg 27.0-3 3.0 normal Not Available [address] [place], [address] 02/09/2024 17:45:41 02/09/20 24 02/09/2024 COMPL ETE BLOOD COUNT W/DIF F MCHC 33.4 % 32.0-3 6.0 normal Not Available [address] [place], [address] 02/09/2024 17:45:41 02/09/20 24 02/09/2024 COMPL ETE BLOOD COUNT W/DIF F RDW 13.0 % 11.7-1 4.6 normal Not Available [address] [place], [address] 02/09/2024 17:45:41 02/09/20 24 02/09/2024 COMPL ETE BLOOD COUNT W/DIF F platelet count 242 10_3/ uL 130-40 0 normal Not Available [address] [place], [address] 02/09/2024 17:45:41 02/09/20 24 02/09/2024 COMPL ETE BLOOD COUNT W/DIF F MPV 9.8 fL 8.0-11 .0 normal Not Available [address] [place], [address] 02/09/2024 17:45:41 02/09/20 24 02/09/2024 COMPL ETE BLOOD COUNT W/DIF F neutrophils % 67.5 % Not Available [address] [place], [address] 02/09/2024 17:45:41 02/09/20 24 02/09/2024 COMPL ETE BLOOD COUNT W/DIF F lymphocytes % 21.8 % Not Available [address] [place], [address] 02/09/2024 17:45:41 02/09/20 24 02/09/2024 COMPL ETE BLOOD COUNT W/DIF F monocytes % 6.9 % Not Available [address] [place], [address] 02/09/2024 17:45:41 02/09/20 24 02/09/2024 COMPL ETE BLOOD COUNT W/DIF F eosinophils % 2.1 % Not Available [address] [place], [address] 02/09/2024 17:45:41 02/09/20 24 02/09/2024 COMPL ETE BLOOD COUNT W/DIF F basophils % 0.5 % Not Available [address] [place], [address] 02/09/2024 17:45:41 02/09/20 24 02/09/2024 COMPL ETE BLOOD COUNT W/DIF F immature grans % 1.2 % Not Available [address] [place], [address] 02/09/2024 17:45:41 02/09/20 24 02/09/2024 COMPL ETE BLOOD COUNT W/DIF F nucleated RBC 0.0 % 0.0-0. 3 normal Not Available [address] [place], [address] 02/09/2024 17:45:41 02/09/20 24 02/09/2024 COMPL ETE BLOOD COUNT W/DIF F absolute neutrophil count 6.19 10_3/ uL 1.2-6. 7 normal Not Available [address] [place], [address] 02/09/2024 17:45:41 02/09/20 24 02/09/2024 COMPL ETE BLOOD COUNT W/DIF F absolute lymphocyte count 2.00 10_3/ uL 1.2-3. 4 normal Not Available [address] [place], [address] 02/09/2024 17:45:41 02/09/20 24 02/09/2024 COMPL ETE BLOOD COUNT W/DIF F absolute monocyte count 0.63 10_3/ uL 0.1-0. 8 normal Not Available [address] [place], [address] 02/09/2024 17:45:41 02/09/20 24 02/09/2024 COMPL ETE BLOOD COUNT W/DIF F absolute eosinophil count 0.19 10_3/ uL 0.0-0. 7 normal Not Available [address] [place], [address] 02/09/2024 17:45:41 02/09/20 24 02/09/2024 COMPL ETE BLOOD COUNT W/DIF F absolute basophil count 0.05 10_3/ uL 0.0-0. 2 normal Not Available [address] [place], [address] 02/09/2024 17:45:41 02/09/20 24 02/09/2024 URINA LYSIS color Yellow yellow Not Available [address] [place], [id number] 02/09/2024 17:45:43 02/09/20 24 02/09/2024 URINA LYSIS clarity Clear clear Not Available [address] [place], [address] 02/09/2024 17:45:43 02/09/20 24 02/09/2024 URINA LYSIS specific gravity 1.015 1.005- 1.025 normal Not Available [address] [place], [address] 02/09/2024 17:45:43 02/09/20 24 02/09/2024 URINA LYSIS pH 7.0 5-8 normal Not Available [address] [place], [address] 02/09/2024 17:45:43 02/09/20 24 02/09/2024 URINA LYSIS leukocyte esterase Negati ve negati ve Not Available [address] [place], [address] 02/09/2024 17:45:43 02/09/20 24 02/09/2024 URINA LYSIS nitrite Negati ve negati ve Not Available [address] [place], [address] 02/09/2024 17:45:43 02/09/20 24 02/09/2024 URINA LYSIS protein Negati ve mg/dL neg-tr galindo Not Available [address] [place], [address] 02/09/2024 17:45:43 02/09/20 24 02/09/2024 URINA LYSIS glucose Negati ve mg/dL negati ve Not Available [address] [place], [address] 02/09/2024 17:45:43 02/09/20 24 02/09/2024 URINA LYSIS ketones Negati ve mg/dL negati ve Not Available [address] [place], [address] 02/09/2024 17:45:43 02/09/20 24 02/09/2024 URINA LYSIS urobilinogen 0.2 mg/dL up to 0.2 Not Available [address] [place], [address] 02/09/2024 17:45:43 02/09/20 24 02/09/2024 URINA LYSIS bilirubin Negati ve negati ve Not Available [address] [place], [address] 02/09/2024 17:45:43 02/09/20 24 02/09/2024 URINA LYSIS blood Negati ve negati ve Not Available [address] [place], [address] 02/09/2024 17:45:43 02/09/20 24 02/09/2024 COMPR EHENS MELODY METAB OLIC PANEL calcium 9.2 mg/dL 8.5-10 .1 normal Not Available [address] [place] [place], [address] 02/09/2024 18:01:44 02/09/20 24 02/09/2024 COMPR EHENS MELODY METAB OLIC PANEL glucose 96 mg/dL 74-106 normal Not Available [address], [address] 02/09/2024 18:01:44 02/09/20 24 02/09/2024 COMPR EHENS MELODY METAB OLIC PANEL BUN 10 mg/dL 7-18 normal Not Available [address] [place], [address] 02/09/2024 18:01:44 02/09/20 24 02/09/2024 COMPR EHENS MELODY METAB OLIC PANEL creatinine 0.8 mg/dL 0.55-1 .02 normal Not Available [address] [place], [address] 02/09/2024 18:01:44 02/09/20 24 02/09/2024 COMPR EHENS MELODY METAB OLIC PANEL estimated GFR 104.15 mL/min /1.73m 2 Not Available [address] [place], [address] 02/09/2024 18:01:44 02/09/20 24 02/09/2024 COMPR EHENS MELODY METAB OLIC PANEL total protein 8.0 g/dL 6.4-8. 2 normal Not Available [address] [place], [address] 02/09/2024 18:01:44 02/09/20 24 02/09/2024 COMPR EHENS MELODY METAB OLIC PANEL albumin 3.8 g/dL 3.4-5. 0 normal Not Available [address] [place], [address] 02/09/2024 18:01:44 02/09/20 24 02/09/2024 COMPR EHENS MELODY METAB OLIC PANEL bilirubin, total 0.44 mg/dL 0.2-1. 0 normal Not Available [address] [place], [address] 02/09/2024 18:01:44 02/09/20 24 02/09/2024 COMPR EHENS MELODY METAB OLIC PANEL alk phos 78 U/L 46-116 normal Not Available [address] [place], [address] 02/09/2024 18:01:44 02/09/20 24 02/09/2024 COMPR EHENS MELODY METAB OLIC PANEL sodium 141 mmol/ L 136-14 5 normal Not Available [address] [place], [address] 02/09/2024 18:01:44 02/09/20 24 02/09/2024 COMPR EHENS MELODY METAB OLIC PANEL potassium 4.0 mmol/ L 3.5-5. 1 normal Not Available [address] [place], [address] 02/09/2024 18:01:44 02/09/20 24 02/09/2024 COMPR EHENS MELODY METAB OLIC PANEL chloride 106 mmol/ L 98-107 normal Not Available [address] [place], [address] 02/09/2024 18:01:44 02/09/20 24 02/09/2024 COMPR EHENS MELODY METAB OLIC PANEL CO2 25.4 mmol/ L 21.0-3 2.0 normal Not Available [address] [place], [address] 02/09/2024 18:01:44 02/09/20 24 02/09/2024 COMPR EHENS MELODY METAB OLIC PANEL anion gap 9.6 mmol/ L 3-11 normal Not Available [address] [place], [address] 02/09/2024 18:01:44 02/09/20 24 02/09/2024 COMPR EHENS MELODY METAB OLIC PANEL AST 16 U/L 15-37 normal Not Available [address] [place], [address] 02/09/2024 18:01:44 02/09/20 24 02/09/2024 COMPR EHENS MELODY METAB OLIC PANEL ALT 30 U/L 14-59 normal Not Available [address] [place], [address] 02/09/2024 18:01:44 02/09/20 24 02/09/2024 MAGNE SIUM magnesium 2.0 mg/dL 1.8-2. 4 normal Not Available [address] [place], [address] 02/09/2024 18:01:44 02/09/20 24 02/09/2024 TSH TSH 1.02 uIU/m L 0.36-3 .74 normal Not Available [address] [place], [address] 02/09/2024 18:12:56 10/18/19 24 10/18/2023 XR, cervi ezequiel spine , 4 or 5 view Patien t Name: Paty Chiang se Unit #: [id number] Loc: DI Orderi ng Provid er: Jennifer Galarza Accoun t #: [id number] Status : REG CLI Primar y Care Provid er: Unknow n,Unkn own Date of Exam: Sex: F Admiss ion Date: : 1994 Age: 28 Exam(s ) XR CERVIC AL SPINE COMP 4-5V EXAM: XR CERVIC AL SPINE COMP 4-5V CLINIC AL HISTOR Y: CERVIC ALGIA, m54.2. TECHNI QUE: 2D digita l imagin g was perfor med. Five views were perfor med. COMPAR JUAN: No exams were availa ble for compar juan FINDIN GS: BONES: No fractu re or destru ctive lesion . Verteb ral bodies are unrema rkable . DISKS: Interv ertebr al disc spaces are mainta ined. ALIGNM ENT: Cervic al spinal alignm ent is within normal limits . The odonto id and atlant oaxial articu lation s are normal . SOFT TISSUE : Normal . The lung apices are clear. IMPRES TATA: Unrema rkable radiog raphs of the cervic al spine. DATA REPOSI TORY: RADIAT ION DOSE DELIVE RED: Ordere d By: Jennifer Galarza CC: ------ ------ ------ ------ ------ ------ ------ ------ ------ ------ ------ ------ - Dictat ed By: Joy Mendoza 1501 1501 Transc ribed By: Ratna Goldman 1501 This is privil eged, confid ential inform ation intend ed only for the provid er named. Any use or distri bution by any person other than this provid er is strict ly prohib ited. If you receiv e this report in error, please notify us immedi ately at [phone] and return the origin al report to us at the addres s above. Thank- you. [facility] [address] , [place], [address] 10/25/2023 07:38:17 Result Notes None recorded. Problems Name Status Onset Date Resolution Date Notes Provider Name and Address Organization Details Recorded Time Anxiety Active 09/23/19 24 OZ DEMARCO [facility], [place] - [facility]. 09/23/2023 14:23:24 Snoring Active 10/18/[address], [place], [address], [facility] 10/18/2023 12:11:01 Migraine with aura Active 10/18/[address], [place], [address], [facility] 10/18/2023 12:20:06 Fatigue Active 10/18/[address], [facility] [address], [facility] 10/18/2023 12:22:03 Bipolar disorder Active 10/18/[address], [facility] [address], [facility] 10/18/2023 12:33:11 Borderline personality disorder Active 10/18/[address], [facility] [address], [facility] 10/18/2023 12:33:19 Posttraumatic stress disorder Active 10/18/[address], [facility] [address], [facility] 10/18/2023 12:33:27 Tobacco dependence caused by cigarettes Active 10/18/[address], [place], [address], [facility] 10/18/2023 12:33:37 Neck pain Active 10/21/[address], [place], [address], [facility] 10/21/2023 15:47:20 Headache Active 10/21/[address], [place], [address], [facility] 10/21/2023 16:07:50 Blurring of visual image Active 10/21/[address], [place], [address], [facility] 10/21/2023 16:08:18 Fear of medical treatment Active 11/18/[address], [facility] [address], [facility] 11/18/2023 12:33:29 Fear associated with healthcare Active 11/20/[address], [facility] [address], [facility] 11/20/2023 15:47:32 Acute urinary tract infection Active 01/07/[address], [facility] [address], [facility] 01/07/2024 14:52:23 Problem Notes None recorded. Procedures Surgical History None recorded. Imaging Results Imaging Date Name Status LastModified by Organiz ation Details LastModified Time 10/18/2023 XR, cervical spine, 4 or 5 view completed [facility] [address], [facility] [address] 10/25/2023 07:38:17 Procedure Notes None recorded. Medical Equipment None Reported. Allergies Allergen ID Allergen Name Allergen Category Reaction Reaction Severity Criticality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
--- OUTSIDE RECORDS SUMMARY | 2024-02-15 16:04 | XMS_ITS | Encounter Summary ---
Author Organization [facility] Address [address] [place] [address] Care Team Providers Care Superintendent Board Mill Name Role Phone None, Provider Primary Care Provider Unavailabl e Encounter Details Date Type Department Care Team (Late st Contact Info) Description 09/13/2023 - 09/13/2023 15:01 EST Emergency [facility] Emergency Department [address] [place] [address] Discharge Disposition: ED Dismiss - Diverted Elsewhere Social History Tobacco Use Types Packs/Day Years Used Date Smoking Tobacco: Every Day Cigarettes 0.5 4.6 Started: 06/22/2019 Smokeless Tobacco: Never Alcohol Use Standard Drinks/Week Comments Not Currently 0 (1 standard drink = 0.6 oz pur e alcohol) [place] Depression Scale Answer Date Recorded [place] Depression Scale Total 9 04/02/2023 The thought of harming myself has occurred to me . Never 04/02/2023 Sex and Gender Information Value Date Recorded Sex Assigned at Not on file Gender Identity Not on file Sexual Orientation Not on file documented as of this encounter Functional Status Functional Status Response Date of Assess ment Are you deaf or do you have serious difficulty h earing? No 08/05/2023 documented as of this encounter Medications at Time of Discharge Medication Sig Dispensed Refills Start Date End Date acetaminophen (TYLENOL) 325 mg tablet Take 2 Tablets by mouth every 6 hours as needed for Pain. 30 Tablet 1 03/31/2023 Cholecalciferol, Vitamin D3, 25 mcg (1,000 unit) capsule Take by mouth daily. 09/14/2022 pantoprazole (PROTONIX) 40 mg tablet 1 tablet twice per day for 2 weeks, then once per day thereafter 60 Tablet 06/22/2023 documented as of this encounter Discharge Disposition Disposition Code Departure Means Destination ED Dismiss - Diverted Elsewhere documented in this encounter Plan of Treatment Not on file documented as of this encounter Visit Diagnoses Not on filedocumented in this encounter Care Teams Superintendent [employer] Relationship Specialty Start Date End Date None, Provider PCP - General 04/05/22 documented as of this encounter
--- OUTSIDE RECORDS SUMMARY | 2024-02-15 16:04 | XMS_ITS | Encounter Summary ---
Author Organization [facility] Address [address] [place] [address] Care Team Providers Care Linoleum Layer Apprentice Name Role Phone None, Provider Primary Care Provider Unavailabl e Encounter Details Date Type Department Care Team (Latest Contact Info) Description 08/05/2023 Travel Social History Tobacco Use Types Packs/Day Years Used Date Smoking Tobacco: Every Day Cigarettes 0.5 4.6 Started: 06/22/2019 Smokeless Tobacco: Never Alcohol Use Standard Drinks/Week Comments Not Currently 0 (1 standard drink = 0.6 oz pur e alcohol) [place] Depression Scale Answer Date Recorded [place] Depression Scale Total 9 04/02/2023 The thought [...] No 08/05/2023 documented as of this encounter Plan of Treatment Not on file documented as of this encounter Visit Diagnoses Not on filedocumented in this encounter Additional Health Concerns Infection Onset Date Last Indicated Resolved Time R/O COVID-19 08/05/2023 08/05/2023 08/05/2023 20:0 1 EST documented as of this encounter Care Teams Linoleum Layer Apprentice Relationship Specialty Start Date End Date None, Provider PCP - General 04/05/22 documented as of this encounter
--- OUTSIDE RECORDS SUMMARY | 2024-02-15 16:04 | XMS_ITS | Encounter Summary ---
Author Organization [facility] Address [address] [place] [address] Care Team Providers Care Personnel Interviewer Name Role Phone None, Provider Primary Care Provider Unavailabl e Reason for Visit * Reason Comments Nausea Shortness of Breath Pt states her husban d just got over pneumonia and she started experiencing nausea and difficulty breathing about an hour ago Encounter Details Date Type Department Care Team (Late st Contact Info) Description 08/05/2023 17:41 EST - 08/05/2023 20:37 EST Emergency [facility] Emergency Department [address] [place] [address] Shortness of breath (Primary Dx) Discharge Disposition: Home or Self Care Social History Tobacco Use Types Packs/Day Years Used Date Smoking Tobacco: Every Day Cigarettes 0.5 4.6 Started: 06/22/2019 Smokeless Tobacco: Never Alcohol Use Standard Drinks/Week Comments Not Currently 0 (1 standard drink = 0.6 oz pur e alcohol) [place] Depression Scale Answer Date Recorded [place] Depression Scale Total 9 04/02/2023 The thought of harming myself has occurred to me . Never 04/02/2023 Sex and Gender Information Value Date Recorded Sex Assigned at Not on file Gender Identity Not on file Sexual Orientation Not on file documented as of this encounter Last Filed Vital Signs Vital Sign Reading Time Taken Comments Blood Pressure 112/82 08/05/2023 1959 EST Pulse 77 08/05/2023 1732 EST Temperature 36.7 ??C (98.1 ??F) 08/05/2023 1732 EST Respiratory Rate 16 08/05/2023 1732 EST Oxygen Saturation 95% 08/05/2023 1800 EST Inhaled Oxygen Concentration - - Weight 103.4 kg (228 lb) 08/05/2023 1732 EST Height - - Body Mass Index 39.14 04/02/2023 1400 EDT documented in this encounter Functional Status Functional Status Response Date of Assess ment Are you deaf or do you have serious difficulty h earing? No 08/05/2023 documented as of this encounter Discharge Instructions * Discharge Instructions* Semaj Dugan PA-C - 08/05/2023 20:25 EST You were seen today for shortness of breath and dizziness. Your EKG was similar to your previous EKG. Your other labs were reassuring. Your urine does not appear infected. Your lung sounds were clear, it is unlikely you have pneumonia. Follow up with your pcp. They may want to do a holter monitor because of the episodes of shortness of breath you have been having recently. Return to the ED for new or worsening symptoms. documented in this encounter Medications at Time of Discharge [...] Discharge Disposition Disposition Code Departure Means Destination Comment s Home or Self Residential documented in this encounter ED Notes * Alka Subramanian - 08/05/2023 1833 EST 12 Lead EKG Performed by ALKA SUBRAMANIAN and shown to Anival Dugan * Semaj Dugan PA-C - 08/05/2023 1726 EST Emergency Department Visit Medical Decision Making 28-year-old female presents for evaluation after she had dizzy spell today just prior to arrival lasting about 15 minutes, where it felt that she was unsteady on her feet. This was associated with anepisode of shortness of breath. She reports having frequent episodes of shortness of breath similarto this without dizziness over the past week since having an upper respiratory infection. Her coughand runny nose have improved. Denies current difficulty breathing, palpitations, dizziness, weakness, chest pain, vomiting, or dysuria. On exam she is in no acute distress with stable vitals. Lungs are clear. Abdomen is soft nontender. Urine not suggestive of infection. Urine test negative. Flu, COVID, RSV swabs negative. EKG sinus rhythm Rate 75 with T wave inversions in lead III and aVF, these were present on prior EKG on 05/29/2023. Unclear exactly what caused her symptoms. It is possible she has been having brief episodes of an arrhythmia causing her shortness of breath. Low suspicion for ACS, PE. She has an appointment coming up with her new PCP in about 2 weeks. Stable for discharge home. Encouraged follow-up with her PCP. Discussed that she may want to have her PCP order a Holter monitor. Return precautions reviewed. Case discussed w/ Dr. Culver, who was in agreement with assessment and plan. An EKG was obtained and independently interpreted.Laboratory data was reviewed. Medical Decision Making Problems Addressed: Shortness of breath: complicated acute illness or injury Amount and/or Complexity of Data Reviewed Labs: ordered. Final diagnoses: Shortness of breath Disposition: Discharged Chief complaint: Episode of shortness of breath and dizziness HPI Eleni Rain is a 28 y.o. female who presents to the ED for evaluation after she had an episodeof dizziness where she felt unsteady on her feet that lasted about 15 minutes with associated shortness of breath and palpitations. She states she has had intermittent episodes of shortness of breathsimilar to this without the dizziness over the past week since she had an upper respiratory infection. Her cough and runny nose have improved, however today she developed a sore throat. Denies current difficulty breathing, current palpitations, dizziness, weakness, chest pain, vomiting, dysuria. Her was recently diagnosed with pneumonia, and she is concerned she may have developed pneumonia as well. History was provided by: Patient Records reviewed include: None Patient's pertinent PMH, FH, SH were reviewed and edited as necessary. Nursing notes reviewed. A medical screening exam was performed. Physical Exam BP 112/82 Pulse 77 Temp 36.7 ??C (98.1 ??F) (Oral) Resp 16 Wt (!) 103.4 kg (228 lb) SpO2 95% BMI 39.14 kg/m?? Physical Exam Vitals and nursing note reviewed. Constitutional: General: She is not in acute distress. Appearance: Normal appearance. HENT: Head: Normocephalic and atraumatic. Right Ear: External ear normal. Left Ear: External ear normal. Nose: Nose normal. Mouth/Throat: Mouth: Mucous membranes are moist. Eyes: General: No visual field deficit. Extraocular Movements: Extraocular movements intact. Pupils: Pupils are equal, round, and reactive to light. Cardiovascular: Rate and Rhythm: Normal rate and regular rhythm. Heart sounds: Normal heart sounds. Pulmonary: Effort: Pulmonary effort is normal. Breath sounds: Normal breath sounds. No decreased breath sounds, wheezing, rhonchi or rales. Abdominal: Palpations: Abdomen is soft. There is no mass. Tenderness: There is no abdominal tenderness. Musculoskeletal: General: No swelling or deformity. Normal range of motion. Cervical back: Normal range of motion and neck supple. Skin: General: Skin is warm and dry. Neurological: General: No focal deficit present. Mental Status: She is alert and oriented to person, place, and time. Cranial Nerves: Cranial nerves 2-12 are intact. Sensory: No sensory deficit. Motor: No weakness or pronator drift. Coordination: Coordination normal. Eyhueh-Iqom-Adtngr Test and Heel to Hewitt Test normal. Rapid alternating movements normal. Gait: Gait normal. Psychiatric: Mood and Affect: Mood normal. Behavior: Behavior normal. Procedures Procedures documented in this encounter Plan of Treatment Not on file documented as of this encounter Procedures Procedure Name Priority Date/Time Associated Diagnosis Comments ECG REPORT - SCANNED 08/06/2023 19:31 EST POCT URINE DIPSTICK, VISUAL READ STAT 08/05/2023 18:49 EST POCT TEST, VISUAL READ STAT 08/05/2023 18:49 EST ZZCOVID-19 [facility] (TESTING ONLY) STAT 08/05/2023 18:39 EST COVID-19 TESTING STAT 08/05/2023 18:3 9 EST ZZHN INFLUENZA A AND B, RSV PCR STAT 08/05/2023 18:39 EST EKG 12-LEAD STAT 08/05/2023 18:31 EST documented in this encounter Results * ECG REPORT - SCANNED (08/06/2023 19:31 EST) 08/06/2023 19:3 1 EST Scan 2 Rn Practitioner PROCEDURE/MINOR DEEP GICAL ORDERABLES * POCT URINE DIPSTICK, VISUAL READ (08/05/2023 18:49 EST) Color, UA Yellow Yellow, Colorless Clarity, UA Clear Clear Glucose, UA Negative Negative mg/dL Bilirubin, UA Negative Negative Ketones, UA Negative Negative mg/dL Spec Grav, UA 1.015 1.001 - 1.030 Blood, UA Negative Negative pH, UA 7.0 8.5 Protein, UA Negative Negative mg/dL Urobilinogen, UA 0.2 0.2 - 1.0 E.U./dL Nitrite, UA Negative Negative Leuk Esterase Negative Negative Comment Urine URINE SPECIMEN OBTAINED BY CLEAN CATCH PROCEDURE / Unknown 08/05/2023 18:49 EST Semaj Dugan PA-C POINT OF CARE TEST O RDERAKANE * POCT TEST, VISUAL READ (08/05/2023 18:49 EST) Test, Urine, POC Negative Negative Control Line Present Yes Background Clear? Yes Urine URINE SPECIMEN OBTAINED BY CLEAN CATCH PROCEDURE / Unknown 08/05/2023 18:49 EST Semaj Dugan PA-C POINT OF CARE TEST O RDERABLES * COVID-19 [facility] (TESTING ONLY) (08/05/2023 18:39 EST) Swab NASOPHARYNGEAL STRUCTURE / Unknown Swab / Unknown 08/05/2023 18:39 EST 08/05/2023 18:42 EST Semaj Dugan PA-C MICROBIOLOGY - GENER AL ORDERABLES Performing Organization Address [facility] Co de Phone Number [facility] [address] [place] [phone] * COVID-19 TESTING (08/05/2023 18:39 EST) COVID-19 rt-PCR Result Negative Negative 08/05/2023 20:01 EST [facility] Performing Lab Cepheid GeneXpert [facility] 08/05/2023 20:01 EST [facility] Swab NASOPHARYNGEAL STRUCTURE / Unknown Swab / Unknown 08/05/2023 18:39 EST 08/05/2023 18:42 EST Semaj Dugan PA-C MICROBIOLOGY - GENER AL ORDERABLES Performing Organization Address [facility] Co de Phone Number [facility] [address] [place] [phone] * INFLUENZA A AND B,RSV PCR (08/05/2023 18:39 EST) FLU A RNA Result (FLARES) Negative Negative 08/05/2023 20:01 [facility] FLU B RNA Result (FLBRES) Negative Negative 08/05/2023 20:01 EST [facility] RSV RNA Result (RSVRES) Negative Negative 08/05/2023 20:01 EST [facility] Swab NASOPHARYNGEAL STRUCTURE / Unknown Swab / Unknown 08/05/2023 18:39 EST 08/05/2023 18:42 EST Semaj Dugan PA-C MICROBIOLOGY - GENER AL ORDERABLES Performing Organization Address [facility]/ZIP Co de Phone Number [facility] [address] [place] [phone] * EKG 12-LEAD (08/05/2023 18:31 EST) 08/05/2023 18:3 1 EST Narrative [facility] - 08/06/2023 12:13 EST ? [facility] ? Test Date: ?2023-08-05 Pat Name: ? ELENIMATTHIEU RAIN ? Department: ? Room: ? C01 Gender: ? Female ? Aging Room Operator: ?? LMA : ?1995 ? Requested By: CHIVO Morales Order Number: [id number] ? Reading MD: ?? GEETHA GARCIA MD ? Measurements Intervals ?Cement ? Rate: ? 75 ? P: ?12 [place]: ? 146 ?QRS: ?16 QRSD: ? 82 ? T: ?-5 QT: ? 370 ? QTc: ?413 ? Interpretive Statements Normal sinus rhythm T wave abnormality, consider ischemia Compared to ECG 05/29/2023 15:55:18 T-wave abnormality still present I reviewed the tracing and have either agreed or edited the findings in this report. Electronically Signed On 08-06-2023 12:13:46 EST by GEETHA GARCIA MD. Procedure Note Geetha Garcia MD - 08/06/2023 [facility] Test Date: 2023-08-05 Pat Name: ELENI RAIN Department: Room: C01 Gender: Female Aging Room Operator: LINDSEY : 1995 Requested By: CHIVO Morales Order Number: [id number] Reading MD: GEETHA GARCIA MD Measurements Intervals Cement Rate: 75 P: 12 [place]: 146 QRS: 16 QRSD: 82 T: -5 QT: 370 QTc: 413 Interpretive Statements Normal sinus rhythm T wave abnormality, consider ischemia Compared to ECG 05/29/2023 15:55:18 T-wave abnormality still present I reviewed the tracing and have either agreed or edited the findings inthis report. Electronically Signed On 08-06-2023 12:13:46 EST by GEETHA THORNTON. Semaj Dugan PA-C CARDIAC ECG ORDERABL ES [facility] documented in this encounter Visit Diagnoses Diagnosis Shortness of breath- Primary documented in this encounter Additional Health Concerns Infection Onset Date Last Indicated Resolved Time R/O COVID-19 08/05/2023 08/05/2023 08/05/2023 20:0 1 EST documented as of this encounter Care Teams Personnel Interviewer Relationship Specialty Start Date End Date None, Provider PCP - General 04/05/22 documented as of this encounter
--- OUTSIDE RECORDS SUMMARY | 2024-02-15 16:04 | XMS_ITS | Encounter Summary ---
Author Organization [facility] Address [address] [place] [address] Care Team Providers Care Hangar Attendant Name Role Phone None, Provider Primary Care Provider Unavailabl e Reason for Visit * Reason Onset Date Comments Groin Injury 09/13/2023 Pt having uterin e pain Encounter Details Date Type Department Care Team (Late st Contact Info) Description 09/13/2023 Telephone [facility] [address] [place] [address] Bianca Duarte DNP [facility] [address] [facility], [address] [place] [address] Groin Injury (Pt having uterine pain) Social History Tobacco Use Types Packs/Day Years Used Date Smoking Tobacco: Every Day Cigarettes 0.5 4.6 Started: 06/22/2019 Smokeless Tobacco: Never Alcohol Use Standard Drinks/Week Comments Not Currently 0 (1 standard drink = 0.6 oz pur e alcohol) [place] Depression Scale Answer Date Recorded [place] Depression Scale Total 9 04/02/2023 The thought [...] No 08/05/2023 documented as of this encounter Miscellaneous Notes * Telephone Encounter - Chel Aguilar RN - 09/13/2023 1459 EST I reached Eleni. She was updated with message per Dr. Gordillo's note. She was scheduled with CG on09/16/23 at 1020. * Telephone Encounter - Stephenie Gordillo MD - 09/13/2023 1453 EST We can offer 40 minute urgent with CG on Saturday09/16/2023. Other option is ED here, however likely will do similar workup as to [facility] Gordillo MD (she/her) Obstetrics and Gynecology [facility] * Telephone Encounter - Larissa Vega - 09/13/2023 1419 EST Patient called again. Is hoping for a call. * Telephone Encounter - Chel Aguilar RN - 09/13/2023 1340 EST Chart reviewed. Patient had 03/2023. Last seen in this office during nurse visit for Depo 07/02/23. Next dose due between 09/10 and 10/08/2023. I called 's phone as instructed. She is having constant extreme pain in my uterus for past two days. Describes bilateral pelvic pain 8/10 on pain scale. No periods on Depo. No vaginal bleeding at this time. States nothing alleviates this pain. She states she has been to ED in [facility] today and said they did nothing. They advised her to follow up with her DIRECTOR EQUIPMENT. She and partner are in vehicle with poor cell service during our conversation and I am unable to hear everything they say or get complete details. They would like to drive here and be seen. I advised that I would consult with MD validation engineer and get back in touch with them. To Dr. Gordillo * Telephone Encounter - Ondina Davis - 09/13/2023 0989 EST Please call [phone]- her 's phone, her's isn't working Pt is having sharp uterine pain. documented in this encounter Plan of Treatment Not on file documented as of this encounter Visit Diagnoses Not on filedocumented in this encounter Care Teams Hangar Attendant Relationship Specialty Start Date End Date None, Provider PCP - General 04/05/22 documented as of this encounter
--- OUTSIDE RECORDS SUMMARY | 2024-02-15 16:04 | XMS_ITS | Continuity of Care Document ---
Author Organization [place] - [facility], [facility]., [facility] Address [address] [place] [address] [address] [place] [address] Assessment No assessment recorded. Plan of Treatment Reminders Order Date Submit Date Provider Last Modified By Organization Details Last Modified Time Details Appointments None recorded. Lab urinalysis, dipstick 2023 024 [facility], [address] [place] [address], [address], [place], [address], 14:39:13 culture, urine + sensitivity 2023 024 [facility] (Registration ), [address] [place] [address] [place], [address], 4 09:12:29 urinalysis, microscopic 2023 024 [facility] (Registration ), [address] [place] [address] [place], [address], 10:01:21 Referral None recorded. Procedures None recorded. Surgeries None recorded. Imaging None recorded. Medication Orders cephalexin 500 mg capsule 2023 024 [facility], [address] [place], [address], 14:48:28 Diflucan 150 mg tablet 2023 024 [facility], [address] [place], [address], 14:50:06 cephalexin 500 mg capsule 2023 024 [facility], [address] [facility], [place], [address], 15:13:49 Patient TargetsNo targets recorded. Patient Instructions Encounter Date Encounter Id Patient Instructions Last Modified By Organization Details Last Modified Time 01/07/2024 [id number] 1. It does appea r you have [...] Pt, 28-F, BMI 41, w/chronic daytime fatigue, [place] score 13, Mallampati 4, sleeping currently 7-8 hours per night, and then 3-4 hours during the day. Pt. w/profound psych history of Bipolar, Borderline, Schizoaffective disorder, PTSD. Referring Physician: Krista Galarza, Family Medicine, Encounter Date: 10/18/2023 Psychiatrist Referral for Bi polar disorder Referring Physician: Krista Galarza, Family Medicine, Encounter Date: 10/18/2023 Results Created Date Observation Date Name Description Value Unit Range Abnormal Flag LastModifiedBy Organization Detail LastModifiedTime 01/07/20 24 01/07/2024 urina lysis , dipst ick Leukocytes Modera te Not Available [address], [place], [address], 01/07/2024 14:28:49 01/07/20 24 01/07/2024 urina lysis , dipst ick Nitrite positi ve Not Available [address], [place], [address], 01/07/2024 14:28:49 01/07/20 24 01/07/2024 urina lysis , dipst ick Urobilinogen .2 Not Available [facility] [address], [place], [address], 01/07/2024 14:28:49 01/07/20 24 01/07/2024 urina lysis , dipst ick Protein Negati ve Not Available [address], [place], [address], 01/07/2024 14:28:49 01/07/20 24 01/07/2024 urina lysis , dipst ick pH 7.5 Not Available [address], [place], [address], 01/07/2024 14:28:49 01/07/20 24 01/07/2024 urina lysis , dipst ick Blood Non-He molyze d: Modera te Not Available [address], [place], [address], 01/07/2024 14:28:49 01/07/20 24 01/07/2024 urina lysis , dipst ick Specific [place] 1.010 Not Available [address], [place], [address], 01/07/2024 14:28:49 01/07/20 24 01/07/2024 urina lysis , dipst ick Ketone Negati ve Not Available [address], [place], [address], 01/07/2024 14:28:49 01/07/20 24 01/07/2024 urina lysis , dipst ick Bilirubin Negati ve Not Available [address], [place], [address], 01/07/2024 14:28:49 01/07/20 24 01/07/2024 urina lysis , dipst ick Glucose Negati ve Not Available [address], [place], [address], 01/07/2024 14:28:49 01/07/20 24 01/07/2024 urina lysis , dipst ick Appearance Turbid Not Available [address], [place], [address], 01/07/2024 14:28:49 01/07/20 24 01/07/2024 urina lysis , dipst ick Color Dark Yellow Not Available [address], [place], [address], 01/07/2024 14:28:49 Result Notes None recorded. Problems Name Status Onset Date Resolution Date Notes Provider Name and Address Organization Details Recorded Time Anxiety Active 09/23/19 24 OZ DEMAR[address] MA null, [facility] 09/23/2023 14:23:24 Snoring Active 10/18/[address], [place], [address], [facility] 10/18/2023 12:11:01 Migraine with aura Active 10/18/[address], [place], [address], [facility] 10/18/2023 12:20:06 Fatigue Active 10/18/19 24 [address], [place], [address], [facility] 10/18/2023 12:22:03 Bipolar disorder Active 10/18/19 24 [address], [place], [address], [facility] 10/18/2023 12:33:11 Borderline personality disorder Active 10/18/19 24 [address], [place], [address], [facility] 10/18/2023 12:33:19 Posttraumatic stress disorder Active 10/18/19 24 [address], [place], [address], [facility] 10/18/2023 12:33:27 Tobacco dependence caused by cigarettes Active 10/18/19 24 [address], [place], [address], [facility] 10/18/2023 12:33:37 Neck pain Active 10/21/[address], [place], [address], [facility] 10/21/2023 15:47:20 Headache Active 10/21/19 24 [address], [place], [address], [facility] 10/21/2023 16:07:50 Blurring of visual image Active 10/21/[address], [place], [address], [facility] 10/21/2023 16:08:18 Fear of medical treatment Active 11/18/[address], [place], [address], [facility] 11/18/2023 12:33:29 Fear associated with healthcare Active 11/20/[address], [facility] [address], [facility] 11/20/2023 15:47:32 Acute urinary tract infection Active 01/07/[address], [facility] [address], [facility] 01/07/2024 14:52:23 Problem Notes None recorded. Medical Equipment None Reported. Allergies Allergen ID Allergen Name Allergen Category Reaction Reaction Severity Criticality Documentation Date Start Date Code Code System Note Provider Name and Address Organization Details Recorded Time 41427 amoxicill in medicatio n Not available Not available low 12/27/2023 723 RxNorm Alanna hammonds, [facility] 14:29:23 Medications Name Sig Start Date [...] and Address Organization Details Last Updated DateTime 162.18 cm 39.7 kg/m2 320628. 25 g 99.9 [degF] 18 /min 97 % 97 % 120 /min 137 mm[Hg] 82 mm[Hg] Lore Kerns RN [facility] 14:14:27 Social History Question Answer Notes LastModified by Organizat ion Details LastModified Time Tobacco Smoking Status Current Every Day Smoker Alanna hammonds, [facility] 12/27/2023 14:30:59 Would You Say That, In [...] Encounter Closed Date Diagnosis/Indication Diagnosis SNOMED-CT Code [id number] KARINA CORTEZ PA-C [address] [address] [place] [address] 12/27/2023 13:44:22 12/27/2023 15:50:44 [id number] KARINA CORTEZ PA-C [address] [place] [address] 01/07/2024 12:53:14 01/07/2024 14:59:34 Acute urinary tract infection [id number] Health Concerns Section Related Observation LastModified by Organization Detai ls LastModified Time None Recorded Concern Status LastModified by Organization Details LastModified Time None Recorded Payers Encounter Date Sequence Insurance Name Policy Number Policy Wick Covered Member ID Wick Member ID Guarantor Name 01/07/2024 1 [facility] (MEDICAID) Eleni Rain [id number] Eleni Rain Notes Date Note Type Note Provider Name and Address Organization Details Recorded Time 01/07/2024 text/html HPI Notes: Eleni is a [...] think that she got better from that. [address], [place], [address], [facility], [facility]. 01/07/2024 15:13:46 OBGyn Episode No OBEpisode recorded.
--- OUTSIDE RECORDS SUMMARY | 2024-02-15 16:04 | XMS_ITS | Continuity of Care Document ---
Author Organization [facility] Address [address] [place] [address] Assessment Encounter Date Assessment Date Assessment LastModified by Organization Details LastModified Time 12/27/2023 12/27/2023 LWOT - see triage note Not available 12/27/2023 19:08:21 Plan of Treatment Reminders Order Date Submit Date Provider Last Modified By Organization Details Last Modified Time Details Appointments None record ed. Lab None record ed. Referral None record ed. Procedures None record ed. Surgeries None record ed. Imaging None record ed. Medication Orders None record ed. Patient TargetsNo targets recorded. Patient Instructions Encounter Date Encounter Id Patient Instructions Last Modified By Organization Details Last Modified Time 12/27/2023 [id number] LWOT - see triag e note Not available 12/27/2023 19:08:31 Reason for Referral Sleep Medicine Referral for Snoring Pt, 28-F, BMI 41, w/chronic daytime fatigue, Tol[place] score 13, Mallampati 4, sleeping currently 7-8 hours per night, and then 3-4 hours during the day. Pt. w/profound psych history of Bipolar, Borderline, Schizoaffective disorder, PTSD. Referring Physician: [facility], Encounter Date: 10/18/2023 Psychiatrist Referral for Bi polar disorder Referring Physician: [facility], Encounter Date: 10/18/2023 Problems Name Status Onset Date Resolution Date Notes Provider Name and Address Organization Details Recorded Time Anxiety Active 09/23/19 ESPERANZA DORSEY[facility] 09/23/2023 14:23:24 Snoring Active 10/18/19 [address], [place], [address], [facility] 10/18/2023 12:11:01 Migraine with aura Active 10/18/19 24 [address], [place], [address], [facility] 10/18/2023 12:20:06 Fatigue Active 10/18/19 24 [address], [place], [address], [facility] 10/18/2023 12:22:03 Bipolar disorder Active 10/18/19 24 [address], [place], [address], [facility] 10/18/2023 12:33:11 Borderline personality disorder Active 10/18/19 24 [address], [place], [address], [facility] 10/18/2023 12:33:19 Posttraumatic stress disorder Active 10/18/19 24 [address], [place], [address], [facility] 10/18/2023 12:33:27 Tobacco dependence caused by cigarettes Active 10/18/19 24 [address], [place], [address], [facility] 10/18/2023 12:33:37 Neck pain Active 10/21/[address], [place], [address], [facility] 10/21/2023 15:47:20 Headache Active 10/21/[address], [facility] [address], [facility] 10/21/2023 16:07:50 Blurring of visual image Active 10/21/[address], [facility] [address], [facility] 10/21/2023 16:08:18 Fear of medical treatment Active 11/18/[address], [facility] [id number] [place] [address] 11/18/2023 12:33:29 Fear associated with healthcare Active 11/20/[address], [facility] [id number] [place] [address] 11/20/2023 15:47:32 Acute urinary tract infection Active 01/07/[address], [facility] [address], [facility] 01/07/2024 14:52:23 Problem Notes None recorded. Medical Equipment None Reported. Allergies Allergen ID Allergen Name Allergen Category Reaction Reaction Severity Criticality Documentation Date Start Date Code Code System Note Provider Name and Address Organization Details Recorded Time 53411 amoxicill in medicatio n Not available Not available low 12/27/2023 723 RxNorm Alanna hammonds, [facility] 14:29:23 Medications Name Sig Start [...] lable Vitals Date Recorded Body height Body temperature Oxygen saturation Oxygen saturation in Arterial blood by Pulse oximetry Heart rate Respiratory rate Body mass index (BMI) Body weight Systolic blood pressure Diastolic blood pressure Provider Name and Address Organization Details Last Updated DateTime 162.18 cm 98.7 [degF] 98 % 98 % 98 /min 15 /min 39.7 kg/m2 055395. 25 g 126 mm[Hg] 79 mm[Hg] Alanna Samuel [facility] 14:28:35 Social History Question Answer Notes LastModified by Organizat ion Details LastModified Time Tobacco Smoking Status Current Every Day Smoker Alanna Samuel [facility], [facility] 12/27/2023 14:30:59 Would You Say [...] Encounter Closed Date Diagnosis/Indication Diagnosis SNOMED-CT Code [id number] KARINA CORTEZ PA-C [address],[facility] [address] [place] [address] 12/27/2023 13:44:22 12/27/2023 15:50:44 Health Concerns Section Related Observation LastModified by Organization Detai ls LastModified Time None Recorded Concern Status LastModified by Organization Details LastModified Time None Recorded Payers Encounter Date Sequence Insurance Name Policy Number Policy Wick Covered Member ID Wick Member ID Guarantor Name 12/27/2023 1 [facility] (MEDICAID) Eleni Rain [id number] Eleni Kelley Rain Notes Date Note Type Note Provider Name and Address Organization Details Recorded Time 12/27/2023 text/html HPI Notes: LWOT - see triage note KARINA CORTEZ PA-C [address], [place], [address], [facility]. 12/27/2023 19:08:52 OBGyn Episode No OBEpisode recorded.
--- OUTSIDE RECORDS SUMMARY | 2024-02-15 16:04 | XMS_ITS | Encounter Summary ---
Author Organization [facility] Address [address] [place] [address] Care Team Providers Care Interpreter For The Deaf Name Role Phone None, Provider Primary Care Provider Unavailabl e Encounter Details Date Type Department Care Team (Late st Contact Info) Description 10/18/2023 Lab Requisition [facility] Pathology & Laboratory Medicine - [facility] [address] [place] [address] Outr Resulting Lab, Provider Social History Tobacco Use Types Packs/Day Years Used Date Smoking Tobacco: Never Assessed Tilly Depression Scale Answer Date Recorded Tilly Depression Scale Total 9 04/02/2023 The thought [...] Procedure Name Priority Date/Time Associated Diagnosis Comments LYME AB Routine 10/18/2023 12:37 EDT documented in this encounter Results * LYME AB (10/18/2023 12:37 EDT) Lyme Ab Negative Negative 10/21/2023 11:19 EDT [facility] Blood VENOUS BLOOD / Unknown 10/18/2023 12:37 EDT 10/18/2023 21:20 EDT Provider Outr Resulting Lab IMMUNOLOGY A ND SEROLOGY ORDERABLES [facility] [address] [place] [address] documented in this encounter Visit Diagnoses Not on filedocumented in this encounter Care Teams Interpreter For The Deaf Relationship Specialty Start Date End Date None, Provider PCP - General 04/05/22 documented as of this encounter
--- OUTSIDE RECORDS SUMMARY | 2024-02-15 16:04 | XMS_ITS | Referral Summary ---
Author Organization [facility] Address [address] [place] [address] Care Team Providers Care Esol Teacher Name Role Phone None, Provider Primary Care Provider Unavailabl e Allergies No known active allergies Medications Medication Sig Dispensed Refills Start Date End Date Status Cholecalciferol, Vitamin D3, 25 mcg (1,000 unit) capsule Take by mouth daily. 09/14/2022 Active acetaminophen (TYLENOL) 325 mg tablet Take 2 Tablets by mouth every 6 hours as needed for Pain. 30 Tablet 1 03/31/2023 Active pantoprazole (PROTONIX) 40 mg tablet 1 tablet twice per day for 2 weeks, then once per day thereafter 60 Tablet 06/22/2023 Active Additional Information Patient not taking.Reported on 08/05/2023 Hospital, Clinic, or Other Facility Administered Medication Ordered Dose Route Frequency Start Date End Date Status medroxyPROGESTERone (DEPO-PROVERA) syringe 150 mg 150 mg IM EVERY 3 MONTHS 04/02/2023 06/30/2024 Active Active Problems Patient Care Coordination No te Formatting of this note migh t be different from the original. Patient has given permission for [facility] to verbally discuss the following information with (Family Member or NO ONE) who has the following relationship to the patient: (Relationship to Patient) (Appt's Only or Everything) Permission remains in effect until the patient elects to revoke it. COGS Okay to leave detailed message: YES Problem Noted Date Diagnosed Date Encounter for initial prescr iption of injectable contraceptive 04/02/2023 Overview: Depo #1 given 04/02/2023 at [facility] women's health Limited care, antepartum 03/19/2023 Obesity affecting , antepartum 03/19/20 Urinary tract infection in m other during third trimester of 03/19/2023 At increased risk for intimate partner violence 01/28/2023 Overview: See L&D triage note 01/28 Code 8 called on L&D Screen for safety at EVERY visit , supervision, high-risk, third trimest er 01/14/2023 Overview: Dating: Dating: SAVANNAH 03/27/2023 by 6w US (scan in care everywhere - [facility]) Issues: 1) Began care at [facility], CARIE to [facility] at 29 wks, then to [facility] as of 38 wks, limited care 2) Partner, nguyen Gardiner - Code 8 called, during triage on L&D 01/28 at [facility]. Discuss behavior contract, screen patient for IPV (neg as of 38 wks) 3) DCF Report made by [facility] Case # [id number] 4) BMI 40 at 38 wks 5) Symphisis pubis dysfunction 6) UTI at 38 wks - never filled the Abx. Started on amoxicillin 500 mg TID while inpatient (liquid) and will need RX sent upon d/c home x 5 more days. [ ] CARIE at 2 wk visit 7) Bat bite - receiving post-exposure rabies vaccines. Day 0 given in ER, day 3 on [place] 03/30. [facility] Day 7 (on 04/03 ) and then Day 14 (on 04/10) [] COVID vaccine: [] Flu vaccine (Jun-December): [x] PreE risks reviewed: BMI, nullip First Trim Labs Result Comments Blood Type B positive Ab Screen neg Hgb 11.5 Hct 35.1 Ferritin 7 Plts 171 HIV neg RPR neg Hep B Surf Ag neg Hep C neg Gonorrhea neg Chlamydia neg Varicella immune Rubella immune Urine Cx neg Last Pap 1 hr GTT n/a Genetic Screen CF DNA testing Carrier Testing Obstetric US: Growth & Anatomy US: [x] [facility] Results: normal 22 wk US at [facility] for anatomy scan - see care everywhere. 3 VC, normal cord insertion. [ x ] 31 wk US growth ([facility]) - EFW 43% and AC 76%, placenta right lateral [ x ] 38 week US growth ([facility]) - EFW 3428 g - 67%, AC 81%, NATALIE normal, vertex 24 wk: [] 24 wk education completed [] [facility] Brochure given 28 Week Labs Result Comments 1 hr GTT 3 hr GTT Hgb / Plts T&S/Rhogam Tdap Given 01/14/23 at [facility] 28 wk: [x] planning booklet & education [x] Home health reviewed [] accepted & faxed [] declined 36 Week Labs Result Comments POCT Hgb 11.5 by CBC CBC normal at 38 wks GBS neg GC/CT neg/neg Trich also neg [] Hemorrhage risk assessed @ 36 wks - BMI [] Labor & preferences discussed - supports, Abdifatah Garcia partner, Nitrous ?epidural [] AMTSL discussed - [] Peds plans and care - plans to breastfeed, Pediatric Primary Care, unsure of circumcision [] PP contraceptive plan - depo [x] Yeung care management, pt has- [ XX ] WIC, [ XX] [address] [place] [address], [employer] [employer] -Dating: SAVANNAH 03/27/2023 by 6w US (scan in care everywhere - [facility]) CARIE @ 29w #Partner, nguyen Gardiner - Code 8 called, during triage on L&D 01/28. Discuss behavior contract, screen patient for IPV DCF Report made by [facility] Case # [id number] [facility] notes: First visit: [o] PN Labs: Rh / Rubella / Varicella / HepB / HepC / HIV / RPR [x] Pap - NILM 09/2022 [x] G/C - in [place] per pt [x] UCx - neg [x] Flu (Jun-December) - 04/2022 [ ] UDS [ ] WHI/MAT referral [ ] COVID vaccine series 12-16w: [ ] CF/SMA [ ] Ultrascreen/Quad [ ] CFFDNA --> [ ] AFP @ 16-18wks [ ] EPDS 20w: [o] Anatomy scan (routine or detailed) - 22w0d US wnl in care everywhere at [facility] 24-28w: [o] GTT/CBC [o] Rhogam/T&S - ordered profile given no records [x] TDAP 32-36w: [X] Growth scan - 03/14/23 [?] testing - BMI 40 [X ] GBS - negative [ ] HSV [ ] Contraception [ ] GC/CT, HIV re-testing for high risk 36-40w: [ ] elective IOL scheduling [ ] PEC labs wkly PP: [X ] [ ] Circumcision [ ] Contraception [ ] Pap [ ] EPDS [ ] HPV Vaccine series Last Assessment & Plan: - sending profile, HCV, urine cx - pt has not faxed records and is not sure she will be able to - TDAP today - 1hr GTT ordered - growth scan ordered, not yet scheduled - possibly qualifies for testing at 34w given BMI 40, w f/u after US at [facility] Cessation of tobacco use in previous 12 months 0 01/14/2023 Resolved Problems Problem Noted Date Diagnosed Date Resolved Date Encounter for induction of labor 03/28/2023 04/02/2023 , delivered 023 Immunizations Name Administration Dates Next Due Rabies Vaccine IM (RABAVERT) 03/30/2023,03/27/20 23 Tdap Vaccine =>7YO IM 01/14/2023 Social History Tobacco Use Types Packs/Day Years Used Date Smoking Tobacco: Every Day Cigarettes 0.5 4.6 Started: 06/22/2019 Smokeless Tobacco: Never Tobacco Cessation:Ready to Q uit: Not Asked; Counseling Given: Not Answered Alcohol Use Standard Drinks/Week Comments Not Currently 0 (1 standard drink = 0.6 oz pur e alcohol) [place] Depression Scale Answer Date Recorded [place] Depression Scale Total 9 04/02/2023 The thought of harming myself has occurred to me . Never 04/02/2023 Sex and Gender Information Value Date Recorded Sex Assigned at Not on file Gender Identity Not on file Sexual Orientation Not on file Last Filed Vital Signs Vital Sign Reading Time Taken Comments Blood Pressure 112/82 08/05/2023 1959 EST Pulse 77 08/05/2023 1732 EST Temperature 36.7 ??C (98.1 ??F) 08/05/2023 1732 EST Respiratory Rate 16 08/05/2023 1732 EST Oxygen Saturation 95% 08/05/2023 1800 EST Inhaled Oxygen Concentration - - Weight 103.4 kg (228 lb) 08/05/2023 1732 EST Height 162.6 cm (5' 4) 04/02/2023 1400 EDT Body Mass Index 39.14 04/02/2023 1400 EDT Functional Status Functional Status Response Date of Assess ment Are you deaf or do you have serious difficulty h earing? No 08/05/2023 Plan of Treatment Not on file Procedures Procedure Name Priority Date/Time Associated Diagnosis Comments HEPATITIS C AB W REFLEX TO HCV RNA BY PCR Add-On 03/13/2023 13:34 EDT care in third trimester from Last 3 Months or Most Recently Relevant to Health Maintenance Results * HEPATITIS C AB W REFLEX TO HCV RNA BY PCR (03/13/2023 13:34 EDT) Hep C Antibody Negative Negative 03/14/2023 11:58 EDT [facility] Blood VENOUS BLOOD / Unknown Venipuncture / Unknown 03/13/2023 13:34 EDT 03/13/2023 13:44 EDT Bianca Duarte DNP CNMeenakshi CHEMISTRY & BLOOD GAS ORDERABLES [facility] [address] [place] [address] from Last 3 Months or Most Recently Relevant to Health Maintenance Advance Directives For more information, please contact: [phone] * Full Code (Latest Code Status on File) Date Activated Date Inactivated Comments 03/28/2023 7:13 03/31/2023 14:23 Question Answer Comments When the patient has NO PULSE: Full Code / CPR Who Made the Decision? Default/Not Discussed Care Teams Esol Teacher Relationship Specialty Start Date End Date None, Provider PCP - General 04/05/22
--- OUTSIDE RECORDS SUMMARY | 2024-02-15 16:04 | XMS_ITS | Clinical Summary ---
Author Organization [facility] Address [address] [place] [address] Care Team Providers Care Laboratory Sample Carrier Name Role Phone None, Provider Primary Care [...] the original. Patient has given permission for [facility] to verbally discuss the [...] 04/02/2023 Overview: Depo #1 given 04/02/2023 at [facility] women's health Limited care, antepartum 03/19/2023 Obesity [...] 6w US (scan in care everywhere - [facility]) Issues: 1) Began care at [facility], CARIE to [facility] at 29 wks, then to [facility] as of 38 wks, limited care 2) Partner, nguyen Gardiner - Code 8 called, during triage on L&D 01/28 at [facility]. Discuss behavior contract, screen patient for IPV (neg as of 38 wks) 3) DCF Report made by [facility] Case # [id number] 4) BMI 40 at 38 wks 5) [...] Obstetric US: Growth & Anatomy US: [x] [facility] Results: normal [address] [facility] for anatomy scan - see care everywhere. 3 VC, normal cord insertion. [ x ] 31 wk US growth ([facility]) - EFW 43% and AC 76%, placenta right lateral [ x ] 38 week US growth ([facility]) - EFW 3428 g - 67%, AC 81%, NATALIE normal, vertex 24 wk: [] 24 wk education completed [] [facility] Brochure given 28 Week Labs Result Comments 1 hr GTT 3 hr GTT Hgb / Plts T&S/Rhogam Tdap Given 01/14/23 at [facility] 28 wk: [x] planning booklet & education [...] has- [ XX ] WIC, [ XX] [address] [place] [address], [employer], [employer] -Dating: SAVANNAH 03/27/2023 by 6w US (scan in care everywhere - [facility]) CARIE @ 29w #Partner, nguyen Gardiner - Code 8 called, during triage on L&D 01/28. Discuss behavior contract, screen patient for IPV DCF Report made by [facility] Case # [id number] [facility] notes: First visit: [o] PN Labs: Rh [...] 22w0d US wnl in care everywhere at [facility] 24-28w: [o] GTT/CBC [o] Rhogam/T&S - [...] BMI 40, w f/u after US at [facility] Cessation of tobacco use in previous 12 months 0 01/14/2023 Resolved Problems Problem Noted Date Diagnosed Date Resolved Date Encounter for induction of labor 03/28/2023 04/02/2023 , delivered 023 Immunizations Name Administration Dates Next Due Rabies Vaccine IM (RABAVERT) 03/30/2023,03/27/20 Tdap Vaccine =>7YO IM 01/14/2023 Social History Tobacco Use Types Packs/Day Years Used Date Smoking Tobacco: Every Day Cigarettes 0.5 4.6 Started: 06/22/2019 Smokeless Tobacco: Never Tobacco Cessation:Ready to Q uit: Not Asked; Counseling Given: Not Answered Alcohol Use Standard Drinks/Week Comments Not Currently 0 (1 standard drink = 0.6 oz pur e alcohol) [place] Depression Scale Answer Date Recorded [place] Depression Scale Total 9 04/02/2023 The thought of harming myself has occurred to me . Never 04/02/2023 Sex and Gender Information Value Date Recorded Sex Assigned at Not on file Gender Identity Not on file Sexual Orientation Not on file Obstetrics History Para Term AB IAB SAB Ectopic Multiple Livin g Live Births 1 1 1 0 1 1 Date Outcome GA Total Labor Labor/2nd/3rd Weight Sex Type Anes PTL Nena A1 A5 Name Clin 023 Term 40w 2d 0h 05m 0h 05m 3520 g (7 lb 12.2 oz) M Livin g 8 11 OCTOBER Reina COTTRELL Caroli ne K, MD Delivery Location:[facility] [place] ([facility]) Comments:multiple stor k bites in multiple places Last Filed Vital Signs Vital Sign Reading [...] Body Mass Index 39.14 04/02/2023 1400 EDT Plan of Treatment Health Maintenance Due Date Last Done Comments Pneumococcal Immunization (1 of 2 - PCV) 2003 Hepatitis B Vaccine (1 of 3 - 19+ 3-dose series) 02/24 COVID-19 Vaccine (2022- season) 2023 Hepatitis C Screen Completed 03/13/2023 Procedures Procedure Name Priority Date/Time Associated Diagnosis Comments HEPATITIS C AB W REFLEX TO HCV RNA BY PCR Add-On 03/13/2023 13:34 EDT care in third trimester from Last 3 Months or Most Recently Relevant to Health Maintenance Results * HEPATITIS C AB W REFLEX TO HCV RNA BY PCR (03/13/2023 13:34 EDT) Hep C Antibody Negative Negative 03/14/2023 11:58 EDT [facility] Blood VENOUS BLOOD / Unknown Venipuncture / Unknown 03/13/2023 13:34 EDT 03/13/2023 13:44 EDT Bianca Duarte DNP CNM CHEMISTRY & BLOOD GAS ORDERABLES [facility] [address] [place] [address] from Last 3 Months or Most Recently Relevant to Health Maintenance Advance Directives For more information, please contact: [phone] * Full Code (Latest Code Status on File) Date Activated Date Inactivated Comments 03/28/2023 7:13 03/31/2023 14:23 Question Answer Comments When the patient has NO PULSE: Full Code / CPR Who Made the Decision? Default/Not Discussed Care Teams Laboratory Sample Carrier Relationship Specialty Start Date End Date None, Provider PCP - General 04/05/22
--- OUTSIDE RECORDS SUMMARY | 2024-02-15 16:05 | XMS_ITS | Encounter Summary ---
Author Organization [facility] Address [address] [place] [address] Care Team Providers Care Airplane Tester Name Role Phone None, Provider Primary Care Provider Unavailabl e Reason for Visit * Reason Comments Headache Patient reports head ache with an episode of feeling as though she was going to pass out. Encounter Details Date Type Department Care Team (Late st Contact Info) Description 05/29/2023 15:39 EDT - 05/29/2023 17:01 EDT [facility] Emergency Department [address] [place] [address] Pancho Pinedo, PAJermainC [address] [place] [address] Acute nonintractable headache, unspecified headache type (Primary Dx) Discharge Disposition: Home or Self Care Social History Tobacco Use Types Packs/Day Years Used Date Smoking Tobacco: Former Cigarettes Smokeless Tobacco: Never Alcohol Use Standard Drinks/Week Comments Not Currently 0 (1 standard drink = 0.6 oz pur e alcohol) [place] Depression Scale Answer Date Recorded [place] Depression Scale Total 9 04/02/2023 The thought of harming myself has occurred to me . Never 04/02/2023 Sex and Gender Information Value Date Recorded Sex Assigned at Not on file Gender Identity Not on file Sexual Orientation Not on file documented as of this encounter Last Filed Vital Signs Vital Sign Reading Time Taken Comments Blood Pressure 123/86 05/29/2023 1639 EDT Pulse 81 05/29/2023 1529 EDT Temperature 36.2 ??C (97.1 ??F) 05/29/2023 1529 EDT Respiratory Rate 16 05/29/2023 1639 EDT Oxygen Saturation 99% 05/29/2023 1639 EDT Inhaled Oxygen Concentration - - Weight 126.1 kg (278 lb) 05/29/2023 1529 EDT Height - - Body Mass Index 47.72 04/02/2023 1400 EDT documented in this encounter Functional Status Functional Status Response Date of Assess ment Are you deaf or do you have serious difficulty h earing? No 05/29/2023 documented as of this encounter Discharge Instructions * Discharge Instructions* Pancho Pinedo PA-C - 05/29/2023 16:36 EDT You were seen in the emergency department with a headache and facial pain and pressure. Your EKG does not show any abnormalities. You should try to obtain a primary care provider, you can call the [facility] at [phone]. You can also try [facility] in [place] at [phone]. Return to the emergency department if your symptoms significantly worsen or change. documented in this encounter Medications at Time of Discharge Medication Sig Dispensed Refills Start Date End Date acetaminophen (TYLENOL) 325 mg tablet Take 2 Tablets by mouth every 6 hours as needed for Pain. 30 Tablet 1 03/31/2023 Cholecalciferol, Vitamin D3, 25 mcg (1,000 unit) capsule Take by mouth daily. 09/14/2022 ibuprofen (MOTRIN) 600 mg tablet Take 1 Tablet by mouth every 6 hours as needed for Pain. 60 Tablet 03/31/2023 07/02/2023 multivitamin vit-iron fumarate-FA (WESTAB PLUS) 27 mg iron- 1 mg tablet tablet Take 1 Tablet by mouth daily. 90 Tablet 3 01/28/2023 07/02/2023 omega-3s/dha/epa/fish oil (OMEGA 3 ORAL) Take 1 Capsule by mouth daily. 07/02/2023 documented as of this encounter Discharge Disposition Disposition Code Departure Means Destination Comment s Home or Self Half-Way documented in this encounter ED Notes * Pancho Pinedo PA-C - 05/29/2023 1701 EDT Emergency Department Visit Medical Decision Making 28-year-old female 2 months presents to the emergency department with chief complaint ofheadache, was driving in the car with her , she describes onset of presyncopal symptoms withslowly progressive headache similar to previous headaches. On exam she is well-appearing, afebrile, vital signs are reassuring, nonfocal neurologic exam. EKG obtained and is without arrhythmia. Offered Toradol for headache which patient declined, she did except Tylenol. Patient admits struggling to try to find a PCP, was given some suggestions in her discharge instructions. From review of notes it appears she missed her 1 month visit, she reports that she has lost custody of her child, currently trying to re-obtain custody, denies any vaginal bleeding, feels that she has recovered from her delivery, has had a Depo-Provera injection since time of delivery. See discharge instructions for patient education/return precautions An EKG was obtained and independently interpreted. Medical Decision Making Acute nonintractable headache, unspecified headache type: acute illness or injury Risk OTC drugs. Final diagnoses: Acute nonintractable headache, unspecified headache type Disposition: Discharged Chief complaint: Headache DEBORA Knowles is a 28-year-old female 2 months who presents to the emergency department with chief complaint of headache, she reports that she was driving in the car with her when she had a frontal headache and dizziness, she describes a sensation like she was going to pass out. She has experienced headaches similar to this in the past, feels that this is more intense than previous. Denies neck pain or back pain, Symptoms began slowly while sitting in the car, she denies any type of stress or argument at time of symptom onset. Severance well prior to symptom onset. She denies chest pain or shortness of breath at any time during this episode. She does admit to a persistent headache History was provided by: Patient Records reviewed include: N/A Patient's pertinent PMH, FH, SH were reviewed and edited as necessary. Nursing notes reviewed. A medical screening exam was performed. Physical Exam BP 123/86 Pulse 81 Temp 36.2 ??C (97.1 ??F) (Oral) Resp 16 Wt (!) 126.1 kg (278 lb) SpO2 99% BMI 47.72 kg/m?? Physical Exam Constitutional: Appearance: Normal appearance. HENT: Head: Normocephalic and atraumatic. Mouth/Throat: Mouth: Mucous membranes are moist. Eyes: Conjunctiva/sclera: Conjunctivae normal. Cardiovascular: Heart sounds: Normal heart sounds. No murmur heard. Pulmonary: Effort: Pulmonary effort is normal. Breath sounds: Normal breath sounds. Abdominal: General: Abdomen is flat. Palpations: Abdomen is soft. Tenderness: There is no abdominal tenderness. Neurological: General: No focal deficit present. Mental Status: She is alert and oriented to person, place, and time. Comments: Normal gait, normal heel-to-toe walking, moving all extremities, cranial nerves intact observation Psychiatric: Mood and Affect: Mood normal. Behavior: Behavior normal. Procedures Procedures documented in this encounter Plan of Treatment Not on file documented as of this encounter Procedures Procedure Name Priority Date/Time Associated Diagnosis Comments ECG REPORT - SCANNED 05/29/2023 22:34 EDT EKG 12-LEAD STAT 05/29/2023 15:55 EDT documented in this encounter Results * ECG REPORT - SCANNED (05/29/2023 22:34 EDT) 05/29/2023 22:3 4 EDT Scan 2 Medical Biller/Coder PROCEDURE/MINOR DEEP GICAL ORDERABLES * EKG 12-LEAD (05/29/2023 15:55 EDT) 05/29/2023 15:5 5 EDT Narrative [facility] - 05/29/2023 22:25 EDT ? CV ? Test Date: ?2023-05-29 Pat Name: ? ELENI RAIN ? Department: ? Room: ? A07 Gender: ? Female ? 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 Requested By: BASIL Doherty Order Number: [id number] ? Reading MD: ?? WILLA MATA MD ? Measurements Intervals ?[place] ? Rate: ? 83 ? P: ?14 WI: ? 148 ?QRS: ?1 QRSD: ? 76 ? T: ?-6 QT: ? 362 ? QTc: ?425 ? Interpretive Statements Normal sinus rhythm Nonspecific T wave abnormality Compared to ECG 04/20/2022 14:55:24 No significant changes I reviewed the tracing and have either agreed or edited the findings in this report. Electronically Signed On 05-29-2023 22:25:33 EDT by WILLA MATA MD. Procedure Note Willa Mata MD - 05/29/2023 [facility] [place]: 2023-05-29 Pat Name: ELENI RAIN Department: Room: 7 Gender: Female Plywood Stock Grader: GALEN : 1995 Requested By: BASIL Doherty Order Number: [id number] Yaya MD: WILLA MATA MD Measurements Intervals [place] Rate: 83 P: 14 WI: 148 QRS: 1 QRSD: 76 T: -6 QT: 362 QTc: 425 Interpretive Statements Normal sinus rhythm Nonspecific T wave abnormality Compared to ECG 04/20/2022 14:55:24 No significant changes I reviewed the tracing and have either agreed or edited the findings inthis report. Electronically Signed On 05-29-2023 22:25:33 EDT by ALECIA PHAM. Pancho Pinedo PA-C CARDIAC ECG ORDERAB LES [facility] documented in this encounter Visit Diagnoses Diagnosis Acute nonintractable headache, unspecified headache type- Primary documented in this encounter Administered Medications Inactive Administered Medications - up to 3 most recent administrations Medication Order MAR Action Action Date Dose Rate Site acetaminophen (TYLENOL) tablet 975 mg 975 mg, oral, NOW X1, 1 dose, On Sat05/29/23 at 1700, Routine Given 05/29/2023 16:36 EDT 975 mg documented in this encounter Active and Recently Administered Medications Times are shown in EDT. Scheduled Medication Order 05/27/2023 05/28/2023 05/29/2023 acetaminophen (TYLENOL) tablet 975 mg (COMPLETED) 975 mg, oral, NOW X1, 1 dose, On Sat05/29/23 at 1700, Routine 1636 (Given - Provid er: Leif Aguilar RN) documented in this encounter Orders Medications Ordered That Lex ht Not Have Been Administered Count Last Ordered Date First Ordered Date acetaminophen (TYLENOL) tablet 975 mg 1 documented in this encounter Care Teams Airplane Tester Relationship Specialty Start Date End Date None, Provider PCP - General 04/05/22 documented as of this encounter
--- OUTSIDE RECORDS SUMMARY | 2024-02-15 16:05 | XMS_ITS | Encounter Summary ---
Author Organization [facility] Address [address] [place] [address] Care Team Providers Care Customer Assistance Associate Name Role Phone None, Provider Primary Care Provider Unavailabl e Encounter Details Date Type Department Care Team (Latest Contact Info) Description 03/14/2023 Travel Social History Tobacco Use Types Packs/Day Years Used Date Smoking Tobacco: Former Cigarettes Smokeless Tobacco: Never Alcohol Use Standard Drinks/Week Comments Not Currently 0 (1 standard drink = 0.6 oz pur e alcohol) Comments Yes Sex and Gender Information Value Date Recorded Sex Assigned at Not on file Gender Identity Not on file Sexual Orientation Not on file documented as of this encounter Functional Status Functional Status Response Date of Assess ment Are you deaf or do you have serious difficulty h earing? No 01/01/2023 documented as of this encounter Plan of Treatment Not on file documented as of this encounter Visit Diagnoses Not on filedocumented in this encounter Care Teams Customer Assistance Associate Relationship Specialty Start Date End Date None, Provider PCP - General 04/05/22 documented as of this encounter
--- OUTSIDE RECORDS SUMMARY | 2024-02-15 16:05 | XMS_ITS | Encounter Summary ---
Author Organization [facility] Address [address] [place] [address] Care Team Providers Care Underwriting Director Name Role Phone None, Provider Primary Care Provider Unavailabl e Reason for Visit * Reason Comments Pelvic Pain Back and lower abdom inal pain Encounter Details Date Type Department Care Team (Latest Contact Info) Description 03/13/2023 12:36 EDT - 03/13/2023 14:10 EDT Hospital Encounter [facility] Labor & Delivery [address] [place] [address] Bianca Duarte DNP [facility] [address] [facility], [address] [place] [id number] Stephenie Gordillo MD [address] [facility], [address] [place] [address] Limited care in third trimester (Primary Dx); 38 weeks gestation of ; High-risk in third trimester; Pelvic pressure in ; care in third trimester Discharge Disposition: Home or Self Care Social History Tobacco Use Types Packs/Day Years Used Date Smoking Tobacco: Every Day Smokeless Tobacco: Never Comments Yes Sex and Gender Information Value Date Recorded Sex Assigned at Not on file Gender Identity Not on file Sexual Orientation Not on file documented as of this encounter Last Filed Vital Signs Vital Sign Reading Time Taken Comments Blood Pressure 123/73 03/13/2023 1300 EDT Pulse - - Temperature 36.9 ??C (98.5 ??F) 03/13/2023 1300 EDT Respiratory Rate 18 03/13/2023 1300 EDT Oxygen Saturation 99% 03/13/2023 1300 EDT Inhaled Oxygen Concentration - - Weight - - Height 162.6 cm (5' 4) 03/13/2023 1257 EDT Body Mass Index - - documented in this encounter Functional Status Functional Status Response Date of Assess ment Are you deaf or do you have serious difficulty h earing? No 01/01/2023 documented as of this encounter Medications at Time of Discharge Medication Sig Dispensed Refills Start Date End Date Cholecalciferol, Vitamin D3, 25 mcg (1,000 unit) capsule Take by mouth daily. 09/14/2022 multivitamin vit-iron fumarate-FA (WESTAB PLUS) 27 mg iron- 1 mg tablet tablet Take 1 Tablet by mouth daily. 90 Tablet 3 01/28/2023 07/02/2023 omega-3s/dha/epa/fish oil (OMEGA 3 ORAL) Take 1 Capsule by mouth daily. 07/02/2023 documented as of this encounter Discharge Disposition Disposition Code Departure Means Destination Home or Self Senior Care documented in this encounter Progress Notes * Bianca Duarte, ITA - 03/13/2023 1410 EDT Labor & Delivery Triage Note [facility] [place] [place] [facility] Subjective: Eleni Rain is a 28 y.o. @ 38w0d that presents to r/o ROM and pelvic pressure. [facility]. Diagnosed with symphsis pubis dysfunction . Was prescribed hydroxyzine for muscle relief, but did not take. States that she has not been getting cre and wanted to make sure everything was ok with the baby. Was living in a hotel with her partner, but now they have an apartment. When partner stepped out of room I asked her if she was safe and she stated yes. States her partner is a very good . She did make numerous comments while we were talking that he was interrupting there and to let her talk. Feels an increase in back pressure. States baby is active. Denies vaginal bleeding. Does not have any labs listed. Will collect parental labs and GBS culture today. States now that she live in [place] she will deliver at [facility] [place] [place]. Set up for an initial NOB visit in the office tomorrow. Objective: BP 123/73 (BP Cuff Location: Left arm, BP Patient Position: Semi fowlers) Temp 36.9 ??C (98.5 ??F) (Oral) Resp 18 Ht 162.6 cm (64) Wt (!) 107.5 kg (237 lb) SpO2 99% BMI 40.68 kg/m?? NAD Breathing unlabored Abd - gravid, NT Dry perineum Neg nitrazine Neg fern No fluid noted at cervical OS when patient coughed several time Normal white discharge noted No clue cells or hyphae noted on slide SVE: closed/thick/-3/vertex NST Report Baseline Heart Rate: 125 Variability: Moderate Accelerations: present Movement: present Decelerations: absent Contractions: absent Interpretation: reactive Assessment/Plan: Eleni Rain is a 28 y.o. @ 38w0d presenting with clear discharge and pelvic pressure Category 1 tracing. Late to Care Limited care Discharged to home with plan for follow up tomorrow at women's health for an initial visit Labor signs and warning signs discussed Call or see sooner PRN Bianca Duarte CNM 03/13/2023 16:36 * Ana Paula Stark RN - 03/13/2023 1306 EDT Pt arrived for NST/triage due to no care since January at [facility] in [place] and wants to makesure everything is okay. Pt and her partner recently moved to [place]. , Estimated Date of Delivery: 03/27/23 current gestational 38w0d. Weight and clean catch urine specimen collected upon arrival. [place]/EFM placed. Pt reports- bleeding: none, contractions: Comment: patient has been having lower abdominal, vaginal, and back pain off and on. movement: present. Pre-E symptoms: vision changes/disturbancespatient states she has white spots sometimes but not now. POCT Urine performed. Blood pressure obtained after 10 minutes of rest. 1323 Shanta Duarte CNM at bedside. 1342 EFM placed on standby. Sterile spec exam and then SVE. GBS collected and sent to lab. Nitrazine neg. No pooling of fluid noted. Cervix closed. Routine labs collected by phlebotomy. 1410 visit scheduled for tomorrow at 10:30. Pt given routine written discharge instructions. documented in this encounter Miscellaneous Notes * Result Encounter Note - Shavonne Perkins RN - 03/13/2023 1410 EDT Pt notified. See te. * Hospital Course - Bianca Duarte CNM - 03/13/2023 1406 EDT Labor & Delivery Triage Note [facility] [place] [place] [facility] Subjective: Eleni Rain is a 28 y.o. @ 38w0d by a wk U/S Objective: BP 123/73 (BP Cuff Location: Left arm, BP Patient Position: Semi fowlers) Temp 36.9 ??C (98.5 ??F) (Oral) Resp 18 Ht 162.6 cm (64) SpO2 99% BMI 40.68 kg/m?? NAD Breathing unlabored Abd - gravid, NT SVE: 0/0/-3 Bedside U/S: NST Report Baseline Heart Rate: 125 Variability: Moderate Accelerations: {DESC; PRESENT/ABSENT:69730::present} Movement: {DESC; PRESENT/ABSENT:95603::present} Decelerations: {DESC; PRESENT/ABSENT:61227::absent} Contractions: {FA AMB OB NST CONTRACTIONS:83193::absent} Interpretation: {FA AMB OB NST INTERPRETATION:10815::reactive} Assessment/Plan: Eleni Rain is a 28 y.o. @ 38w0d presenting with Category tracing. Discharged to home with plan for follow up at next scheduled routine AP visit Call or see sooner PRN Bianca Duarte CNM 03/13/2023 14:06 documented in this encounter Plan of Treatment Not on file documented as of this encounter Procedures Procedure Name Priority Date/Time Associated Diagnosis Comments GROUP B STREP PCR Routine 03/13/2023 13: 58 EDT BACTERIAL CULTURE, URINE Routine 03/13/2023 13:39 EDT SYPHILIS RPR SCREEN W/REFLEX STAT 03/13/2023 13:34 EDT DIFFERENTIAL MANUAL Today 03/13/2023 1 3:34 EDT BB STUDY STAT 03/13/2023 13: 34 EDT PROFILE AND VARICELLA STAT 03/13/2023 13:34 EDT HEPATITIS C AB W REFLEX TO HCV RNA BY PCR Add-On 03/13/2023 13:34 EDT care in third trimester RUBELLA IGG ANTIBODY STAT 03/13/2023 13:34 EDT HEPATITIS B SURFACE ANTIGEN STAT 03/13/2023 13:34 EDT COMPLETE BLOOD COUNT AND DIFFERENTIAL STAT 03/13/2023 13:34 EDT VARICELLA IGG ANTIBODY STAT 03/13/2023 13:34 EDT HEMOGLOBIN A1C STAT 03/13/2023 13:34 EDT FERRITIN Add-On 03/13/2023 13:34 EDT care in third trimester POCT URINALYSIS Routine 03/13/2023 12:58 EDT documented in this encounter Results * GROUP B STREP PCR (03/13/2023 13:58 EDT) Group B Strep PCR Negative Negative 03/14/2023 10:38 EDT [facility] Swab POOLED SPECIMEN FROM VAGINAL INTROITUS AND RECTAL SWAB / Unknown Swab / Unknown 03/13/2023 13:58 EDT 03/13/2023 14:19 EDT Bianca Duarte [facility] MICROBIOLOG Y - GENERAL ORDERABLES Performing Organization Address City/[facility]/ZIP Co de Phone Number [facility] [address] [place] [address] * (ABNORMAL) BACTERIAL CULTURE, URINE (03/13/2023 13:39 EDT) [facility] Organism ID Greater than 100,000 CFU/ml Enterococcus faecalis(A) VITEK SUSCEPTIBILITY 03/15/2023 7:56 EDT [facility] Comment: Penicillin is the drug of choice for treating Enterococcus infections (including VRE) limited to the lower urinary tract. Penicillin susceptible isolates are also susceptible to ampicillin, ampicillin-sulbactam, amoxicillin, amoxicillin- clavulanate and piperacillin-tazobactam Urine URINE SPECIMEN COLLECTION, CLEAN CATCH / Unknown Urine Collect / Unknown 03/13/2023 13:39 EDT 03/13/2023 14:20 EDT Narrative Organism Antibiotic Method Susceptibility Enterococcus faecalis Benzylpenicillin VITEK SUSCEPTIB ILITY 4 ug/mL: Susceptible Enterococcus faecalis Nitrofurantoin VITEK SUSCEPTIBIL ITY <=16 ug/mL: Susceptible Enterococcus faecalis Tetracycline VITEK SUSCEPTIBILIT Y >=16 ug/mL: Resistant Bianca Duarte [facility] MICROBIOLOG Y - GENERAL ORDERABLES Performing Organization Address City/[facility]/ZIP Co de Phone Number [facility] [address] [place] [address] * (ABNORMAL) FERRITIN (03/13/2023 13:34 EDT) [facility] Ferritin 7(L) 11 - 264 ng/mL 03/14/2023 12:49 EDT [facility] Blood VENOUS BLOOD / Unknown Venipuncture / Unknown 03/13/2023 13:34 EDT 03/13/2023 13:44 EDT Narrative [facility] - 03/14/2023 12:49 EDT The results of this assay can be falsely lowered due to the consumption of Biotin. Bianca Duarte [facility] CHEMISTRY & BLOOD GAS ORDERABLES Performing Organization Address City/[facility] Co de Phone Number [facility] [address] [place] [address] * HEPATITIS C AB W REFLEX TO HCV RNA BY PCR (03/13/2023 13:34 EDT) [facility] Hep C Antibody Negative Negative 03/14/2023 11:58 EDT [facility] Blood VENOUS BLOOD / Unknown Venipuncture / Unknown 03/13/2023 13:34 EDT 03/13/2023 13:44 EDT Bianca Heather Geraldcasper [facility] CHEMISTRY & BLOOD GAS ORDERABLES Performing Organization Address City/[facility] Co de Phone Number [facility] [address] [place] [address] * (ABNORMAL) DIFFERENTIAL MANUAL (03/13/2023 13:34 EDT) [facility] % Neutrophils 69.0 % 03/13/2023 14:05 [facility] % Lymphocytes 19.0 % 03/13/2023 14:05 [facility] % Monocytes 11.0 % 03/13/2023 14:05 [facility] % Eosinophils 1.0 % 03/13/2023 14:05 [facility] Absolute Neutrophils 6.64 2.20 - 8.85 K/cmm 03/13/2023 14:05 [facility] Absolute Lymphocytes 1.83 1.09 - 3.30 K/cmm 03/13/2023 14:05 [facility] Absolute Monocytes 1.06(H) 0.10 - 0.80 K/cmm 03/13/2023 14:05 [facility] Absolute Eosinophils 0.10 0.03 - 0.61 K/cmm 03/13/2023 14:05 EDT [facility] Blood VENOUS BLOOD / Unknown Venipuncture / Unknown 03/13/2023 13:34 EDT 03/13/2023 13:44 EDT Bianca Duarte DNP CNM HEMATOLOGY & PF4 ORDERABLES [facility] [address] [place] [address] * BB STUDY (03/13/2023 13:34 EDT) ABO B 03/13/2023 14:41 EDT [facility] Rh Factor Positive 03/13/2023 14:41 EDT [facility] Antibody Screen Negative 03/13/2023 14:41 EDT [facility] Specimen Expires: 03/16/2023 @ 23:59 03/13/2023 14:41 EDT [facility] Blood VENOUS BLOOD / Unknown Venipuncture / Unknown 03/13/2023 13:34 EDT 03/13/2023 13:52 EDT Bianca Duarte DNP M BLOOD BANK TESTS Performing Organization Address City/[facility]/ZIP Co de Phone Number [facility] [address] [place] [address] * VARICELLA IGG ANTIBODY (03/13/2023 13:34 EDT) Varicella IgG Ab Positive See Note 03/15/2023 2:48 EDT [facility] Blood VENOUS BLOOD / Unknown Venipuncture / Unknown 03/13/2023 13:34 EDT 03/13/2023 13:44 EDT Bianca Duarte DNP CN IMMUNOLOGY AND SEROLOGY ORDERABLES [facility] [address] [place] [address] * SYPHILIS RPR SCREEN W/REFLEX (03/13/2023 13:34 EDT) Rapid Plasma Reagin Screen (RPR) Nonreactive Nonreactive 03/14/2023 8:28 EDT [facility] Blood VENOUS BLOOD / Unknown Venipuncture / Unknown 03/13/2023 13:34 EDT 03/13/2023 13:44 EDT Bianca JEAN BAPTISTE IMMUNOLOGY AND SEROLOGY ORDERABLES Performing Organization Address [facility] Co de Phone Number [facility] [address] [place] [address] * HEPATITIS B SURFACE ANTIGEN (03/13/2023 13:34 EDT) [facility] Hep B Surface Ag Negative Negative 03/13/20 14:34 EDT [facility] Comment: Expected values: Negative The results of this assay can be falsely lowered due to the consumption of Biotin. Blood VENOUS BLOOD / Unknown Venipuncture / Unknown 03/13/2023 13:34 EDT 03/13/2023 13:44 EDT Bianca Duarte DNP [facility] CHEMISTRY & BLOOD GAS ORDERABLES Performing Organization Address [facility] Phone Number [facility] [address] [place] [address] * (ABNORMAL) COMPLETE BLOOD COUNT AND DIFFERENTIAL (03/13/2023 13:34 EDT) [facility] WBC 9.62 4.00 - 12.40 K/cmm 03/13/2023 14:05 [facility] RBC 3.95 3.86 - 5.04 M/cmm 03/13/2023 14:05 [facility] Hemoglobin 11.5(L) 11.6 - 15.2 g/dL 03/13/2023 14:05 [facility] HCT 35.1 34.9 - 44.4 % 03/13/2023 14:05 [facility] MCV 89 81 - 98 fL 03/13/2023 14:05 [facility] MCH 29.1 26.7 - 33.3 pg 03/13/2023 [facility] MCHC 32.8 32.1 - 35.9 g/dL 03/13/2023 14:05 [facility] RDW-CV 13.8 <14.7 % 03/13/2023 14:05 [facility] RDW-SD 44.4 <50.4 fl 03/13/2023 14:05 [facility] PLT 172 141 - 377 K/cmm 03/13/2023 14:05 [facility] MPV 10.9 9.5 - 12.7 fL 03/13/2023 14:05 [facility] Type of Differential: Manual 03/13/2023 14:05 [facility] Blood VENOUS BLOOD / Unknown Venipuncture / Unknown 03/13/2023 13:34 EDT 03/13/2023 13:44 EDT Bianca JEAN BAPTISTE PACKAGES & DNA PROBE ORDERABLES Performing Organization Address City/[facility] Co de Phone Number [facility] [address] [place] [address] * RUBELLA IGG ANTIBODY (03/13/2023 13:34 EDT) Pathologist [facility] Rubella IgG Ab Positive See Note 03/13/2023 14:32 EDT [facility] Comment:The presence of Rube lla IgG suggests immunity against Rubella. Blood VENOUS BLOOD / Unknown Venipuncture / Unknown 03/13/2023 13:34 EDT 03/13/2023 13:44 EDT Bianca Duarte DNP CNM CHEMISTRY & BLOOD GAS ORDERABLES [facility] [address] [place] [address] * HEMOGLOBIN A1C (03/13/2023 13:34 EDT) Hemoglobin A1c 5.1 <5.7 % 03/13/2023 20:22 EDT [facility] Comment: Glycemic Status References: Normal: ??<5.7% Pre-Diabetes: ??5.7% - 6.4% Diagnostic of Diabetes: ??> or = 6.5% (if confirmed) Est Avg Glucose 100 mg/dL 20:22 EDT [facility] Comment:The eAG represents t he A1c result expressed as average glucose in mg/dL. Blood VENOUS BLOOD / Unknown Venipuncture / Unknown 03/13/2023 13:34 EDT 03/13/2023 13:44 EDT Bianca Duarte DNP, CNM CHEMISTRY & BLOOD GAS ORDERABLES Performing Organization Address City/State/[facility] Co de Phone Number [facility] [address] [place] [address] * (ABNORMAL) POCT URINALYSIS (03/13/2023 12:58 EDT) Color, UA Dark Yellow Clarity, UA Cloudy Glucose, UA Negative . mg/dL Bilirubin, UA Negative Negative Ketones, UA Negative . mg/dL Spec Grav, UA 1.015 1.005 - 1.030 Blood, UA Negative Negative pH, UA 7.5 4.6 - 8.0 Protein, UA 1+(A) . mg/dL Urobilinogen, UA 0.2 0.2 - 1.0 E.U./dL Nitrite, UA Negative Screen . Leuk Esterase 3+(A) Negative Comment Urine URINE SPECIMEN COLLECTION, CLEAN CATCH / Unknown 03/13/2023 12:58 EDT Bianca Duarte DNP, CNM POINT OF CA RE TEST ORDERABLES documented in this encounter Visit Diagnoses Diagnosis Limited care in third trimester- Primary 38 weeks gestation of state, incidental High-risk in third trimester Pelvic pressure in Other specified complication, antepartum care in third trimester documented in this encounter Care Teams Underwriting Director Relationship Specialty Start Date End Date None, Provider PCP - General 04/05/22 documented as of this encounter
--- OUTSIDE RECORDS SUMMARY | 2024-02-15 16:05 | XMS_ITS | Encounter Summary ---
Author Organization [facility] Address [address] [place] [address] Care Team Providers Care Shim Plug Cutter Name Role Phone None, Provider Primary Care Provider Unavailabl e Encounter Details Date Type Department Care Team (Late st Contact Info) Description 04/24/2023 13:00 EDT Community Health Team [facility] [address] [place] [id number] [facility], [facility] Social History Tobacco Use Types Packs/Day Years Used Date Smoking Tobacco: Former Cigarettes Smokeless Tobacco: Never Alcohol Use Standard Drinks/Week Comments Not Currently 0 (1 standard drink = 0.6 oz pur e alcohol) [place] Depression Scale Answer Date Recorded [place] Depression Scale Total 9 04/02/2023 The thought [...] No 01/01/2023 documented as of this encounter Progress Notes * Saúl Mendoza - 04/24/2023 1300 EDT [facility] Outpatient Gynecology/Midwifery/Obstetrics - [facility] Behavioral Health Progress Note Date of Service: 04/24/2023 Primary Care Provider: Provider None Present Patient, Spouse/Partner [place] [facility] Today's visit was provided via telephone audio only. The location of the patient: Home The location of the provider: Office Verbal consent: The concept of ???Telemedicine?? has been described to the patient. Patient has been informed of the anticipated benefits and possible risks. Patient understands the information provided regarding telemedicine, has had the opportunity to ask questions about this information, and all questions havebeen answered to patient's satisfaction. Patient consents for the use of telemedicine in his/her medical care and authorizes the transmission of any relevant medical information to providers and their staff involved in patient's medical or mental health care. Verbal consent obtained by myself or auxiliary staff: yes. I have determined that an audio-only visit is appropriate due to: Physical exam not indicated based on available information Subjective: Clinician called Eleni as she did not present for her scheduled in-person [facility] wellness visit; Eleni answered the phone; clinician identified self and role, Eleni indicated this was an ok time to talk, clinician began with routine welcoming of her baby/asking baby's name at which point Reji yelling into the phone, asking who the clinician was, that this clinician should not be asking about the baby as the baby has his own bridge mechanic, questioning why this clinician was calling, clinician worked to re-identify and explain this as a routine call, Abdifatah interrupted this clinician, yelling that Eleni is not crazy, that she does not need this appointment, at whichpoint the phone connection was disconnected. *Clinician will rodriguez supervision/clinical consultation around potential need for other safety/next support steps. Objective: Appearance: could not discern via telephone Behavior: could not discern via telephone Thought Process: Coherent Thought Content: Appropriate Risk: No suicidal, homicidal or violent ideations, No plan and No intent Speech: Normal Mood: Euthymic Affect: Broad Judgement: Good Insight: Appropriate Cognition: Normal Assessment: Continued concerns around power and control/IPV for Eleni and her . Treatment Goals: No current goal setting. Treatment: None, see above. Plan: *Clinician will rodriguez supervision/clinical consultation around potential need for other safety/next support steps. Duration of Session: 5 Minutes Follow up appointment: 05/14/2023 documented in this encounter Plan of Treatment Not on file documented as of this encounter Visit Diagnoses Not on filedocumented in this encounter Care Teams Shim Plug Cutter Relationship Specialty Start Date End Date None, Provider PCP - General 04/05/22 documented as of this encounter
--- OUTSIDE RECORDS SUMMARY | 2024-02-15 16:05 | XMS_ITS | Encounter Summary ---
Author Organization [facility] Address [address] [place] [address] Care Team Providers Care Hunter Guide Name Role Phone None, Provider Primary Care Provider Unavailabl e Encounter Details Date Type Department Care Team (Late st Contact Info) Description 04/02/2023 15:20 EDT Phlebotomy Only [facility] - Outpatient Phlebotomy Drawing [address] [place] [address] Lab, [facility] Op Phlebotomy care and examination Social History Tobacco Use Types Packs/Day Years Used Date Smoking Tobacco: Former Cigarettes Smokeless Tobacco: Never Alcohol Use Standard Drinks/Week Comments Not Currently 0 (1 standard drink = 0.6 oz pur e alcohol) [place] Depression Scale Answer Date Recorded [place] Depression Scale Total 9 04/02/2023 The [...] Procedure Name Priority Date/Time Associated Diagnosis Comments DIFFERENTIAL MANUAL Today 04/02/2023 1 5:22 EDT care and examination COMPLETE BLOOD COUNT AND DIFFERENTIAL STAT 04/02/2023 15:22 EDT care and examination COMPREHENSIVE METABOLIC PANEL (CMP) STAT 04/02/2023 15:22 EDT care and examination documented in this encounter Results * DIFFERENTIAL MANUAL (04/02/2023 15:22 EDT) % Neutrophils 64.0 % 04/02/2023 16:32 [facility] % Bands 5.0 % 04/02/2023 16:32 [facility] % Lymphocytes 23.0 % 04/02/2023 16:32 [facility] % Monocytes 2.0 % 04/02/2023 16:32 [facility] % Eosinophils 2.0 % 04/02/2023 16:32 [facility] % Metamyelocytes 4.0 % 04/02/20 16:32 [facility] Absolute Neutrophils 6.56 2.20 - 8.85 K/cmm 04/02/2023 16:32 [facility] Absolute Bands 0.51 K/cmm 04/02/2023 16:32 [facility] Absolute Lymphocytes 2.36 1.09 - 3.30 K/cmm 04/02/2023 16:32 [facility] Absolute Monocytes 0.21 0.10 - 0.80 K/cmm 04/02/2023 16:32 [facility] Absolute Eosinophils 0.21 0.03 - 0.61 K/cmm 04/02/2023 16:32 [facility] Absolute Metamyelocytes 0.41 K/cmm 04/02/2023 16:32 [facility] Blood VENOUS BLOOD / Unknown Venipuncture / Unknown 04/02/2023 15:22 EDT 04/02/2023 15:25 EDT Jyothi Marine BUSTOS CNMeenakshi HEMATOLOGY & PF4 ORDERABLES [facility] [address] [place] [address] * (ABNORMAL) COMPREHENSIVE METABOLIC PANEL (CMP) (04/02/2023 15:22 ED) Sodium 140 136 - 145 mmol/L 04/02/2023 15:52 [facility] Potassium 4.3 3.5 - 5.0 mmol/L 04/02/2023 15:52 [facility] Chloride 106 96 - 110 mmol/L 04/02/2023 15:52 [facility] CO2 Total 22 22 - 32 mmol/L 04/02/2023 15:52 [facility] Glucose 91 70 - 99 mg/dl 04/02/2023 15:52 [facility] BUN 16 10 - 26 mg/dL 04/02/2023 15:52 [facility] Creatinine 0.58 0.52 - 1.04 mg/dL 04/02/2023 15:52 [facility] eGFR 128 >60 mL/min/1.7 3m2 04/02/2023 15:52 [facility] Total Protein 6.8 6.3 - 8.2 g/dL 04/02/2023 15:52 [facility] Albumin 3.6 3.4 - 4.9 g/dL 04/02/2023 15:52 [facility] Alkaline Phosphatase 102 38 - 126 U/L 04/02/2023 15:52 [facility] AST 38 15 - 46 U/L 04/02/2023 15:52 [facility] ALT 41(H) <35 U/L 04/02/2023 15:52 [facility] Bilirubin, Total 0.5 <1.4 mg/dL 04/02/20 15:52 [facility] Calcium 9.2 8.5 - 10.5 mg/dL 04/02/2023 15:52 [facility] Albumin/Globulin Ratio 1.1 1.0 - 2.5 g/dL 04/02/2023 15:52 [facility] Anion Gap 12 5 - 14 mmol/L 04/02/2023 15:52 [facility] Blood VENOUS BLOOD / Unknown Venipuncture / Unknown 04/02/2023 15:22 EDT 04/02/2023 15:25 EDT Jyothi Hawthorne NP CNM CHEMISTRY & BLOO D GAS ORDERABLES [facility] [address] [place] [address] * (ABNORMAL) COMPLETE BLOOD COUNT AND DIFFERENTIAL (04/02/2023 15:22 EDT) WBC 10.25 4.00 - 12.40 K/cmm 04/02/2023 16:32 [facility] RBC 3.81(L) 3.86 - 5.04 M/cmm 04/02/2023 16:32 [facility] Hemoglobin 11.2(L) 11.6 - 15.2 g/dL 04/02/2023 16:32 [facility] HCT 34.2(L) 34.9 - 44.4 % 04/02/2023 16:32 [facility] MCV 90 81 - 98 fL 04/02/2023 16:32 [facility] MCH 29.4 26.7 - 33.3 pg 04/02/2023 16:32 [facility] MCHC 32.7 32.1 - 35.9 g/dL 04/02/2023 16:32 [facility] RDW-CV 14.0 <14.7 % 04/02/2023 16:32 [facility] RDW-SD 45.5 <50.4 fl 04/02/2023 16:32 [facility] PLT 206 141 - 377 K/cmm 04/02/2023 16:32 [facility] MPV 10.2 9.5 - 12.7 fL 04/02/2023 16:32 [facility] Type of Differential: Manual 04/02/2023 16:32 [facility] Blood VENOUS BLOOD / Unknown Venipuncture / Unknown 04/02/2023 15:22 EDT 04/02/2023 15:25 EDT Jyothi Mairne BUSTOS CNM PACKAGES & DNA P ROBE ORDERABLES Performing Organization Address City/State/[facility] Co de Phone Number [facility] [address] [phone] documented in this encounter Visit Diagnoses Diagnosis care and examination Routine follow-up documented in this encounter Care Teams Hunter Guide Relationship Specialty Start Date End Date None, Provider PCP - General 04/05/22 documented as of this encounter
--- OUTSIDE RECORDS SUMMARY | 2024-02-15 16:05 | XMS_ITS | Encounter Summary ---
Author Organization [facility] Address [address] [place] [address] Care Team Providers Care Vocational Rehabilitation Supervisor Name Role Phone None, Provider Primary Care Provider Unavailabl e Reason for Visit * Reason Onset Date Comments Post-Delivery 04/05/2023 Encounter Details Date Type Department Care Team (Late st Contact Info) Description 04/05/2023 Telephone [facility] [address] [place] [address] Nette Gregg MD [address] [facility] [place] [address] Post-Delivery Social History Tobacco Use Types Packs/Day Years Used Date Smoking Tobacco: Former Cigarettes Smokeless Tobacco: Never Alcohol Use Standard Drinks/Week Comments Not Currently 0 (1 standard drink = 0.6 oz pur e alcohol) [place] Depression Scale Answer Date Recorded [place] Depression Scale Total 9 04/02/2023 The thought [...] No 01/01/2023 documented as of this encounter Miscellaneous Notes * Telephone Encounter - Lisa Holloway RN - 04/05/2023 1437 EDT LM for pt to call back If gets msg after 4:45 pm; then recommendation is to call transformation lead provider or go to ER over the weekend for concerns. * Telephone Encounter - Jessy Kenny MD - 04/05/2023 1410 EDT Numerous non-specific complaints and none that likely require urgent evaluation today. Recommend that we get her scheduled for a long office visit (40min) early next week to review concerns with a provider. Concerned that PP anxiety and/or need for more PP education may be helpful. IF she has acutenew or worsening symptoms over the weekend she should call or come to ER for evaluation; if they are similar symptoms or resolve spontaneously, we will plan to have her address them early next week. Thanks, Isabella Kenny MD (she/her) Family Medicine with [facility] * Telephone Encounter - Lisa Holloway RN - 04/05/2023 1324 EDT Spoke with pt at time of call (~ 10+ min) a lot of background noise on the phone. Each time I wouldattempt to end call, pt had another concern to add. PP pt - delivered 03/29/23 (eIOL at term) Seen in office on 04/02/23 for [place] for BP check (and seen by EV - see Note) d/t severe MACIAS (no MACIAS today) 1) I've been taking my antibiotics, but reports still having urethra pain; states I had a tear in my urethra at delivery - has a stabbing pain when urinating. Didn't take a abelino bottle home with her. 2) Dark urine sometimes if I hold my pee for too long. Wonders if she has blood in her urine; can't tell if it's vaginal blood or not. When asked about fluid intake: probably not enough - at least a 2-3 bottles of water (16.9 oz), had 1/2 bottle of flavored water yesterday. Urine is clearer when she drinks more. States appetite is better now; eating normally. Attempted multiple times to discuss that increased fluid intake would = increased urine output and clearer urine, as well as decreased pain. Pt did not seem to take this in. Unsure of fever - doesn't have a thermometer ; no chills 3) Pain in her lower left abdomen - last time was last night. It is a burning pain. A bit yesterdayafter getting home from errands. Doesn't happen all the time. Has not had it today at all 4) Occasional foot swelling - better right now. Last night one foot was more swollen than the other. They are both good right now. 5) Cramping is better; bleeding is like a normal period. 6) Yesterday felt like she was trembling when she got up to walk. It happened twice yesterday. She had been out and busy all day. Discussed could have been exhaustion; pt states, but I was fine whenI first got home 7) feels like sometimes my BP is raising my pulse was weak yesterday when I felt it on my wrist- HR was fine when I calculated it though Told pt I would send a message to the transformation lead team with her concerns and we will call back with a plan. Pt verbalized understanding . * Telephone Encounter - Larissa Vega - 04/05/2023 1322 EDT Patient delivered a few days ago. She complains about swollen feet, pain in her side and dark urine. documented in this encounter Plan of Treatment Not on file documented as of this encounter Visit Diagnoses Not on filedocumented in this encounter Care Teams Vocational Rehabilitation Supervisor Relationship Specialty Start Date End Date None, Provider PCP - General 04/05/22 documented as of this encounter
--- OUTSIDE RECORDS SUMMARY | 2024-02-15 16:05 | XMS_ITS | Encounter Summary ---
Author Organization [facility] Address [address] [place] [address] Care Team Providers Care Machine Deicer Element Winder Name Role Phone None, Provider Primary Care Provider Unavailabl e Reason for Visit * Reason Onset Date Comments Coordination Of Care 04/22/2023 Encounter Details Date Type Department Care Team (Late st Contact Info) Description 04/22/2023 Telephone [facility] [address] [place] [address] Елена Mendoza [address] [place] [address] [address] [place] [address] Coordination Of Care Social History Tobacco Use Types Packs/Day Years Used Date Smoking Tobacco: Former Cigarettes Smokeless Tobacco: Never Alcohol Use Standard Drinks/Week Comments Not Currently 0 (1 standard drink = 0.6 oz pur e alcohol) [place] Depression Scale Answer Date Recorded [place] Depression Scale Total 9 04/02/2023 The thought [...] encounter Miscellaneous Notes * Telephone Encounter - Елена Mendoza - 04/22/2023 1153 EDT Елена Beck here, reaching out as we did not reach you for your 2 week visit by phone the other day. Below and attached please find some resources I send to everyone: [facility]: [email or web address] You are scheduled here for your [address] Gordillo at 10:40 and then with me afterwards. We hope to see you then. Please know you can reach out before if you like or need. Warmly, Елена Mendoza MA, [facility], BC-DMT (Board Certified Dance/Movement Therapist) Pronouns: she/her/hers Community Health Team [facility] Mental Health and Mental Health Clinician [facility] , (to leave a voicemail) [email or web address] documented in this encounter Plan of Treatment Not on file documented as of this encounter Visit Diagnoses Not on filedocumented in this encounter Care Teams Machine Deicer Element Winder Relationship Specialty Start Date End Date None, Provider PCP - General 04/05/22 documented as of this encounter
--- OUTSIDE RECORDS SUMMARY | 2024-02-15 16:05 | XMS_ITS | Encounter Summary ---
Author Organization [facility] Address [address] [place] [address] Care Team Providers Care Physical Metallurgist Name Role Phone None, Provider Primary Care Provider Unavailabl e Reason for Visit * Auth/Cert (Routine) Specialty Diagnoses / [facility] Contact Diagnoses Encounter for induction of labor Referral ID Status Reason Start Date Expiration Date Visits Re quested Visits Authorized [id number] 1 1 Encounter Details Date Type Department Care Team (Late st Contact Info) Description 03/28/2023 23:59 EDT Anesthesia Event [facility] Anesthesia [address] [place] [address] Ed Jay MD [address] [place] [id number] Anesthesia Record Procedure Summary Procedure Name Responsible Anesthesiologist Anesthesia Start Time Anesthesia Stop Time LABOR CONSULT Events No events on file. Meds * Agents No agents on file. * Blood No blood administrations on file. Lines, Drains, and Airways No LDAs on file. documented in this encounter Social History Tobacco Use Types Packs/Day Years [...] on filedocumented in this encounter Care Teams Physical Metallurgist Relationship Specialty Start Date End Date None, Provider PCP - General 04/05/22 documented as of this encounter
--- OUTSIDE RECORDS SUMMARY | 2024-02-15 16:05 | XMS_ITS | Encounter Summary ---
Author Organization [facility] Address [address] [place] [address] Care Team Providers Care Rock Mason Name Role Phone None, Provider Primary Care Provider Unavailabl e Reason for Visit * Reason Comments Abdominal Pain Pt arrives with c/o epigastric abdominal pain which started yesterday morning around 10am. She reports pain has gotten worse. Intermittent nausea, currently mild. Reports it hurts to eat. Encounter Details Date Type Department Care Team (Late st Contact Info) Description 06/22/2023 5:03 EST - 06/22/2023 16:08 EST Emergency [facility] Emergency Department [address] [place] [address] Saúl Mcgraw DO [address] [phone] Frederick Argueta MD [address] [place] [address] Epigastric abdominal pain (Primary Dx) Discharge Disposition: Home or Self Care Social History Tobacco Use Types Packs/Day Years Used Date Smoking Tobacco: Every Day Cigarettes 0.5 4.6 Started: 06/22/2019 Smokeless Tobacco: Never Tobacco Cessation:Ready to Q uit: Not Asked; Counseling Given: Not Answered Alcohol Use Standard Drinks/Week Comments Not Currently 0 (1 standard drink = 0.6 oz pur e alcohol) P[place]mont Depression Scale Answer Date Recorded [place] Depression Scale Total 9 04/02/2023 The thought of harming myself has occurred to me . Never 04/02/2023 Sex and Gender Information Value Date Recorded Sex Assigned at Not on file Gender Identity Not on file Sexual Orientation Not on file documented as of this encounter Last Filed Vital Signs Vital Sign Reading Time Taken Comments Blood Pressure 92/58 06/22/2023 1400 EST Pulse 78 06/22/2023 1550 EST Temperature 36.8 ??C (98.2 ??F) 06/22/2023 0508 EST Respiratory Rate 16 06/22/2023 1209 EST Oxygen Saturation 97% 06/22/2023 1550 EST Inhaled Oxygen Concentration - - Weight - - Height - - Body Mass Index - - documented in this encounter Functional Status Functional Status Response Date of Assess ment Are you deaf or do you have serious difficulty h earing? No 05/29/2023 documented as of this encounter Discharge Instructions * Discharge Instructions* Frederick Argueta MD - 06/22/2023 15:50 EST Begin pantoprazole 40 mg twice per day for 2 weeks, followed by once per day for 4 weeks. This is an acid mer medication that should help your discomfort. Return here if your symptoms worsen. documented in this encounter Medications at Time [...] once per day thereafter 60 Tablet 06/22/2023 ibuprofen (MOTRIN) 600 mg tablet Take 1 Tablet by mouth every 6 hours as needed for Pain. 60 Tablet 03/31/2023 07/02/2023 multivitamin vit-iron fumarate-FA (WESTAB PLUS) 27 mg iron- 1 mg tablet tablet Take 1 Tablet by mouth daily. 90 Tablet 3 01/28/2023 07/02/2023 omega-3s/dha/epa/fish oil (OMEGA 3 ORAL) Take 1 Capsule by mouth daily. 07/02/2023 documented as of this encounter Ordered Prescriptions Prescription Sig Dispensed Refills Start Date End Da te pantoprazole (PROTONIX) 40 mg tablet 1 tablet twice per day for 2 weeks, then once per day thereafter 60 Tablet 06/22/2023 documented in this encounter Discharge Disposition Disposition Code Departure Means Destination Comment s Home or Self [facility]it[facility] documented in this encounter ED Notes * Eleni Maloney RN - 06/22/2023 1109 EST Pt currently sleeping. No needs at this time. * Saúl Mcgraw DO - 06/22/2023 0500 EST Emergency Department Visit Assessment and ED Course Eleni Rain is a 28 y.o. female who presents to the ED for epigastric abdominal pain which started 1 day ago around 10 AM. Urinalysis is positive for nitrates, 0-2 red blood cells, 4-9 white blood cells, many squamous cells, and many bacteria. Urine test is negative. CBC is unremarkable. ALT is minimally elevated at 46 and similar to Blood work from 2 months ago. The remainder of her CMP is unremarkable. Lipase is normal. Patient's care signed out to Dr. Argueta at change of shift. Patient is awaiting the results of her CT scan and reevaluation. Final diagnoses: None Disposition: No disposition on file Chief complaint: Abdominal pain HPI Eleni Rain is a 28 y.o. female who presents to the ED for epigastric abdominal pain which started 1 day ago around 10 AM. Patient reports he has taken Tylenol and ibuprofen without any improvement of her pain. Pain is described as sharp and stabbing and constant without radiation. Patient reports intermittent nausea but no vomiting. Pain is worse with eating, taking a deep breath, and movement. Patient denies ever having similar pain. Patient reports decreased p.o. intake due to the pain.Patient denies any history of gallbladder or pancreatic problems. Patient reports smoking half a pack of cigarettes daily. Patient denies drinking alcohol. Patient denies any dysuria, hematuria, urinary frequency, or urinary urgency. History was provided by: Patient Patient's pertinent PMH, FH, SH were reviewed and edited as necessary. Physical Exam BP 116/72 Temp 36.8 ??C (98.2 ??F) (Oral) Resp 18 SpO2 99% A medical screening exam was performed. Physical Exam Vitals and nursing note reviewed. Constitutional: General: She is not in acute distress. Appearance: She is well-developed and well-nourished. HENT: Right Ear: External ear normal. Left Ear: External ear normal. Nose: Nose normal. Mouth/Throat: Mouth: Mucous membranes are dry. Pharynx: Oropharynx is clear. Eyes: Conjunctiva/sclera: Conjunctivae normal. Pupils: Pupils are equal, round, and reactive to light. Cardiovascular: Rate and Rhythm: Normal rate and regular rhythm. Pulses: Intact distal pulses. Pulmonary: Effort: Pulmonary effort is normal. Comments: Normal work of breathing, able to speak in full sentences, no audible wheezing, no cough Abdominal: General: There is no distension. Palpations: Abdomen is soft. Tenderness: There is abdominal tenderness in the epigastric area. There is no guarding. Musculoskeletal: General: Normal range of motion. Cervical back: Normal range of motion and neck supple. Skin: General: Skin is warm and dry. Capillary Refill: Capillary refill takes less than 2 seconds. Neurological: General: No focal deficit present. Mental Status: She is alert and oriented to person, place, and time. Psychiatric: Mood and Affect: Mood and affect normal. Laboratory results independently reviewed. Procedures Procedures * Frederick Argueta MD - 06/22/20[address] Mcgraw at change of shift. Labs reviewed, patient examined. Still complains of considerable epigastric pain and is tender there on palpation, although without peritoneal signs. She declined offer of ketorolac, did except a GI cocktail, which improved her discomfort somewhat. Given a dose of parenteral pantoprazole. CT showed: FINDINGS: Liver: Normal. No mass. Gallbladder and bile ducts: Normal. No calcified stones. No ductal dilation. Pancreas: There is questionable trace fluid in the pancreaticoduodenal groove, image 46 of series 201 which may be indicative of very early pancreatitis. No peripancreatic inflammation seen.Pancreas appears otherwise unremarkable. No ductal dilatation. Spleen: Normal. No splenomegaly. Adrenal glands: Normal. No mass. Kidneys and ureters: Kidneys enhance symmetrically. No renal stones or hydronephrosis. Stomach and bowel: Unremarkable. No obstruction. No mucosal thickening. Appendix: No evidence of appendicitis. ?? Intraperitoneal space: Unremarkable. No free air. No significant fluid collection. Vasculature: Unremarkable. No abdominal aortic aneurysm. Lymph nodes: Unremarkable. No enlarged lymph nodes. Urinary bladder: Unremarkable as visualized. Reproductive: Unremarkable as visualized. Bones/joints: Unremarkable. No acute fracture. Soft tissues: Tiny fat containing umbilical hernia.. ?? IMPRESSION ?? There is questionable trace fluid in the pancreaticoduodenal groove which may be indicative of very early pancreatitis. Pancreas is otherwise unremarkable. Suggest correlation with pancreatic enzymes. Rest of exam is unremarkable. Although she is tender in the epigastrium, doubt acute pancreatitis given normal lab work and fluids seen on only [address] 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 Patient of actually fell asleep, was allowed to sleep for several hours. Reported feeling better onawakening. Keeping ann bere down with no increased discomfort prior to discharge. Discharged on course of pantoprazole. Indicates understanding of return precautions. documented in this encounter Plan of Treatment Not on file documented as of this encounter Procedures Procedure Name Priority Date/Time Associated Diagnosis Comments CT ABDOMEN PELVIS W CONTRAST STAT 06/22/2023 6:46 EST COMPLETE BLOOD COUNT AND DIFFERENTIAL STAT 06/22/2023 6:09 EST LIPASE STAT 06/22/2023 6:09 EST COMPREHENSIVE METABOLIC PANEL (CMP) STAT 06/22/2023 6:09 EST URINE CHEMICAL (DIP) & SEDIMENT (MICRO) WITH REFLEX TO CULTURE STAT 06/22/2023 5:22 EST POCT URINE DIPSTICK, VISUAL READ STAT 06/22/2023 5:20 EST POCT TEST, VISUAL READ STAT 06/22/2023 5:19 EST documented in this encounter Results * CT ABDOMEN PELVIS W CONTRAST (06/22/2023 6:46 EST) Anatomical Region Laterality Modality Body, Abdomen, Pelvis, Abdomen and Pelvis Computed Tomography 06/22/2023 6:18 EST Impressions 06/22/2023 7:50 EST There is questionable trace fluid in the pancreaticoduodenal groove which may be indicative of very early pancreatitis. Pancreas is otherwise unremarkable. Suggest correlation with pancreatic enzymes. ??Rest of exam is unremarkable. THIS DOCUMENT HAS BEEN ELECTRONICALLY SIGNED BY SAÚL AMARAL MD FOR ANY QUESTIONS OR CONCERNS REGARDING THIS REPORT PLEASE CALL [facility] AT [phone] Narrative 06/22/2023 7:50 EST PROCEDURE INFORMATION: Exam: CT Abdomen And Pelvis With Contrast Exam date and time: 06/22/2023 6:18 AM Age: 28 years old Clinical indication: Abdominal pain; Epigastric; Additional info: Epigastric abd pain TECHNIQUE: Imaging protocol: Computed tomography of the abdomen and pelvis with contrast. Radiation optimization: All CT scans at this facility use at least one of these dose optimization techniques: automated exposure control; mA and/or kV adjustment per patient size (includes targeted exams where dose is matched to clinical indication); or iterative reconstruction. Contrast material: OMNIPAQUE; Contrast volume: 100 ml; Contrast route: INTRAVENOUS (IV); ?? REPORTING DATA: Count of CT and Cardiac NM exams in prior 12 months: This patient has received 0 known CTs and 0 known cardiac nuclear medicine studies in the 12 months prior to the current study. COMPARISON: US OB FOLLOWUP 03/14/2023 10:28 AM FINDINGS: Liver: Normal. No mass. Gallbladder and bile ducts: Normal. No calcified stones. No ductal dilation. Pancreas: ??There is questionable trace fluid in the pancreaticoduodenal groove, image 46 of series 201 which may be indicative of very early pancreatitis. ??No peripancreatic inflammation seen.Pancreas appears otherwise unremarkable. No ductal dilatation. Spleen: Normal. No splenomegaly. Adrenal glands: Normal. No mass. Kidneys and ureters: Kidneys enhance symmetrically. No renal stones or hydronephrosis. Stomach and bowel: Unremarkable. No obstruction. No mucosal thickening. Appendix: No evidence of appendicitis. Intraperitoneal space: Unremarkable. No free air. No significant fluid collection. Vasculature: Unremarkable. No abdominal aortic aneurysm. Lymph nodes: Unremarkable. No enlarged lymph nodes. Urinary bladder: Unremarkable as visualized. Reproductive: Unremarkable as visualized. Bones/joints: Unremarkable. No acute fracture. Soft tissues: ??Tiny fat containing umbilical hernia.. Procedure Note Saúl Amaral MD - 06/22/2023 PROCEDURE INFORMATION: Exam: CT Abdomen And Pelvis With Contrast Exam date and time: 06/22/2023 6:18 AM Age: 28 years old Clinical indication: Abdominal pain; Epigastric; Additional info: Epigastric abd pain TECHNIQUE: Imaging protocol: Computed tomography of the abdomen and pelvis with contrast. Radiation optimization: All CT scans at this facility use at least one of these dose optimization techniques: automated exposure control; mA and/or kV adjustment per patient size (includes targeted exams where dose is matched to clinical indication); or iterative reconstruction. Contrast material: OMNIPAQUE; Contrast volume: 100 ml; Contrast route: INTRAVENOUS (IV); REPORTING DATA: Count of CT and Cardiac NM exams in prior 12 months: This patient has received 0 known CTs and 0 known cardiac nuclear medicine studies in the 12 months prior to the current study. COMPARISON: US OB FOLLOWUP 03/14/2023 10:28 AM FINDINGS: Liver: Normal. No mass. Gallbladder and bile ducts: Normal. No calcified stones. No ductal dilation. Pancreas: There is questionable trace fluid in the pancreaticoduodenal groove, image 46 of series 201 which may be indicative of very early pancreatitis. No peripancreatic inflammation seen.Pancreas appears otherwise unremarkable. No ductal dilatation. Spleen: Normal. No splenomegaly. Adrenal glands: Normal. No mass. Kidneys and ureters: Kidneys enhance symmetrically. No renal stones or hydronephrosis. Stomach and bowel: Unremarkable. No obstruction. No mucosal thickening. Appendix: No evidence of appendicitis. Intraperitoneal space: Unremarkable. No free air. No significant fluid collection. Vasculature: Unremarkable. No abdominal aortic aneurysm. Lymph nodes: Unremarkable. No enlarged lymph nodes. Urinary bladder: Unremarkable as visualized. Reproductive: Unremarkable as visualized. Bones/joints: Unremarkable. No acute fracture. Soft tissues: Tiny fat containing umbilical hernia.. IMPRESSION There is questionable trace fluid in the pancreaticoduodenal groove which may be indicative of very early pancreatitis. Pancreas is otherwise unremarkable. Suggest correlation with pancreatic enzymes. Rest of exam is unremarkable. THIS DOCUMENT HAS BEEN ELECTRONICALLY SIGNED BY SAÚL AMARAL MD FOR ANY QUESTIONS OR CONCERNS REGARDING THIS REPORT PLEASE CALL [facility] [phone] Saúl Mcgraw DO IMG CT ORDERABLE S * LIPASE (06/22/2023 6:09 EST) Lipase 128 <251 U/L 06/22/2023 6:2 8 [facility] Blood VENOUS BLOOD / Unknown Venipuncture / Unknown 06/22/2023 6:09 EST 06/22/2023 6:12 EST Saúl Mcgraw DO CHEMISTRY & BLOO D GAS ORDERABLES [facility] [address] [place] [address] * (ABNORMAL) COMPREHENSIVE METABOLIC PANEL (CMP) (06/22/2023 6:09 EST) Sodium 142 136 - 145 mmol/L 06/22/2023 6:28 [facility] Potassium 4.0 3.5 - 5.0 mmol/L 06/22/2023 6:28 [facility] Chloride 111(H) 96 - 110 mmol/L 06/22/2023 6:28 [facility] CO2 Total 22 22 - 32 mmol/L 06/22/2023 6:28 [facility] Glucose 94 70 - 99 mg/dl 06/22/2023 6:28 [facility] BUN 11 10 - 26 mg/dL 06/22/2023 6:28 [facility] Creatinine 0.61 0.52 - 1.04 mg/dL 06/22/2023 6:28 [facility] eGFR 126 >60 mL/min/1.7 3m2 06/22/2023 6:28 [facility] Total Protein 7.2 6.3 - 8.2 g/dL 06/22/2023 6:28 [facility] Albumin 3.9 3.4 - 4.9 g/dL 06/22/2023 6:28 [facility] Alkaline Phosphatase 66 38 - 126 U/L 06/22/2023 6:28 [facility] AST 26 15 - 46 U/L 06/22/2023 6:28 [facility] ALT 46(H) <35 U/L 06/22/2023 6:28 [facility] Bilirubin, Total 0.5 <1.4 mg/dL 06/22/20 6:28 [facility] Calcium 8.9 8.5 - 10.5 mg/dL 06/22/2023 6:28 [facility] Albumin/Globulin Ratio 1.2 1.0 - 2.5 g/dL 06/22/2023 6:28 [facility] Anion Gap 9 5 - 14 mmol/L 06/22/2023 6:28 [facility] Blood VENOUS BLOOD / Unknown Venipuncture / Unknown 06/22/2023 6:09 EST 06/22/2023 6:12 EST Saúl Mcgraw DO CHEMISTRY & BLOO D GAS ORDERABLES Performing Organization Address City/State/[facility] Co de Phone Number [facility] [address] [place] [address] * (ABNORMAL) COMPLETE BLOOD COUNT AND DIFFERENTIAL (06/22/2023 6:09 EST) WBC 8.12 4.00 - 12.40 K/cmm 06/22/2023 6:15 [facility] RBC 4.28 3.86 - 5.04 M/cmm 06/22/2023 6:15 [facility] Hemoglobin 12.0 11.6 - 15.2 g/dL 06/22/2023 6:15 [facility] HCT 36.8 34.9 - 44.4 % 06/22/2023 6:15 [facility] MCV 86 81 - 98 fL 06/22/2023 6:15 [facility] MCH 28.0 26.7 - 33.3 pg 06/22/2023 6:15 [facility] MCHC 32.6 32.1 - 35.9 g/dL 06/22/2023 6:15 [facility] RDW-CV 13.3 <14.7 % 06/22/2023 6:15 [facility] RDW-SD 41.5 <50.4 fl 06/22/2023 6:15 [facility] PLT 235 141 - 377 K/cmm 06/22/2023 6:15 [facility] MPV 10.1 9.5 - 12.7 fL 06/22/2023 6:15 [facility] % Neutrophils 56.4 % 06/22/2023 6:15 [facility] % Lymphocytes 28.8 % 06/22/2023 6:15 [facility] % Monocytes 8.3 % 06/22/2023 6:15 [facility] % Eosinophils 3.9 % 06/22/2023 6:15 [facility] % Basophils 0.5 % 06/22/2023 6:15 [facility] % Immature Grans 2.1 % 06/22/20 6:15 [facility] Absolute Neutrophils 4.58 2.20 - 8.85 K/cmm 06/22/2023 6:15 [facility] Absolute Lymphocytes 2.34 1.09 - 3.30 K/cmm 06/22/2023 6:15 [facility] Absolute Monocytes 0.67 0.10 - 0.80 K/cmm 06/22/2023 6:15 [facility] Absolute Eosinophils 0.32 0.03 - 0.61 K/cmm 06/22/2023 6:15 [facility] ABS Basophils 0.04 0.01 - 0.11 K/cmm 06/22/2023 6:15 [facility] Absolute Immature Grans 0.17(H) 0.00 - 0.06 K/cmm 06/22/2023 6:15 [facility] Type of Differential: Auto 06/22/2023 6:15 [facility] Blood VENOUS BLOOD / Unknown Venipuncture / Unknown 06/22/2023 6:09 EST 06/22/2023 6:12 EST Saúl Henao Dwayneparth DO PACKAGES & DNA P ROBE ORDERABLES [facility] [address] [place] [address] * (ABNORMAL) UA CHEMICAL & SEDIMENT + REFLEX TO CULTURE (06/22/2023 5:22 EST) Color UA Yellow Colorless, Yellow 06/22/2023 5:42 [facility] Clarity UA Cloudy(A) Clear 06/22/2023 5:42 [facility] Glucose UA Negative Negative mg/dL 06/22/2023 5:42 [facility] Bilirubin UA 1+(A) Negative 06/22/2023 5:42 [facility] Ketones UA Trace(A) Negative 06/22/2023 5:42 [facility] Specific [place], Urine 1.025 1.001 - 1.030 06/22/2023 5:42 [facility] Blood UA Negative Negative 06/22/2023 5:42 [facility] Nitrite UA Positive(A) Negative 06/22/2023 5:42 [facility] Leukocyte Esterase UA Negative Negative 06/22/2023 5:42 [facility] Protein UA Negative Negative mg/dL 06/22/2023 5:42 [facility] pH, UA 6.5 <8.5 06/22/2023 5:42 [facility] Urine RBC Count, Manual 0 - 2 0 - 2 Cells/HPF 06/22/2023 5:42 [facility] Urine WBC Count 4 - 9(A) 0 - 3 Cells/HPF 06/22/2023 5:42 [facility] Urine Squamous Count, Manual Many(A) None Seen Cells/HPF 06/22/2023 5:42 [facility] Urine Hyaline Cast Count, Manual <=10 <=10 Casts/LPF 06/22/2023 5:[address] [facility] Urine Bacteria Count, Manual Many(A) None Seen Bacteria/HP F 06/22/2023 5:[address] [facility] Urobilinogen UA 1.0 0.2-1.0 mg/dL mg/dL 06/22/2023 5:[address] [facility] Urine URINE SPECIMEN OBTAINED BY CLEAN CATCH PROCEDURE / Unknown Urine Collect / Unknown 06/22/2023 5:22 EST 06/22/2023 5:28 EST [facility] - 06/22/2023 5:42 EST Specimen contaminated. Please collect clean catch sample, if a culture is indicated. Urine Sediment Analysis results are unreliable on urines that are unrefrigerated for >2 hrs or refrigerated >8 hrs. NOTE: Reflex to Urine Culture test is not indicated based on Urine Sediment Analysis results. Saúl Mcgraw DO URINALYSIS ORDER [facility]ID [facility] [address] [place] [address] * (ABNORMAL) POCT URINE DIPSTICK, VISUAL READ (06/22/2023 5:20 EST) Color, UA Yellow Yellow, Colorless Clarity, UA Cloudy(A) Clear Glucose, UA Negative Negative mg/dL Bilirubin, UA 1+(A) Negative Ketones, UA Negative Negative mg/dL Spec Grav, UA >=1.030(A) 1.001 - 1.030 Blood, UA Negative Negative pH, UA 6.0 8.5 Protein, UA 1+(A) Negative mg/dL Urobilinogen, UA 1.0 0.2 - 1.0 E.U./dL Nitrite, UA Positive(A) Negative Leuk Esterase Trace(A) Negative Comment Urine URINE SPECIMEN OBTAINED BY CLEAN CATCH PROCEDURE / Unknown 06/22/2023 5:20 EST Saúl Mcgraw DO POINT OF CARE TE ST ORDERABLES * POCT TEST, VISUAL READ (06/22/2023 5:19 EST) Test, Urine, POC Negative Negative Control Line Present Yes Background Clear? Yes Urine URINE SPECIMEN OBTAINED BY CLEAN CATCH PROCEDURE / Unknown 06/22/2023 5:19 EST Saúl C Lucien DO POINT OF CARE TE ST ORDERABLES documented in this encounter Visit Diagnoses Diagnosis Epigastric abdominal pain- Primary Abdominal pain, epigastric documented in this encounter Administered Medications Inactive Administered Medications - up to 3 most recent administrations Medication Order MAR Action Action Date Dose Rate Site acetaminophen (OFIRMEV) IV solution 1,000 mg 1,000 mg, intravenous, NOW X1, 1 dose, On 06/22/23 at 0630, STAT Given 06/22/2023 6:15 EST 1,000 mg aluminum & magnesium hydroxide-simethicone (MAALOX PLUS) 200-200-20 mg/5 mL suspension 30 mL 30 mL, oral, NOW X1, 1 dose, On 06/22/23 at 0745, STAT Given 06/22/2023 7:29 EST 30 mL iohexoL (OMNIPAQUE 350) solution 100 mL 100 mL, intravenous, Once in imaging, 1 dose, Starting on 06/22/23 at 0627, Until 06/22/23 at 0646, Routine Given 06/22/2023 6:46 EST 100 mL lidocaine (XYLOCAINE) 2 % viscous solution 10 mL 10 mL, oral, NOW X1, 1 dose, On 06/22/23 at 0745, Routine Given 06/22/2023 7:29 EST 10 mL pantoprazole (PROTONIX) injection 40 mg 40 mg, intravenous, NOW X1, 1 dose, On 06/22/23 at 0915, Routine Given 06/22/2023 8:56 EST 40 mg sodium chloride 0.9 % BOLUS 1,000 mL 1,000 mL, intravenous, NOW X1, 1 dose, On 06/22/23 at 0615, STAT New Bag 06/22/2023 6:09 EST 1,000 mL documented in this encounter Active and Recently Administered Medications Times are shown in EST. Scheduled Medication Order 06/20/2023 06/21/2023 06/22/2023 acetaminophen (OFIRMEV) IV solution 1,000 mg (COMPLETED) 1,000 mg, intravenous, NOW X1, 1 dose, On 06/22/23 at 0630, STAT 0615 (Given - Provid er: Mary Jane Perez RN)0638 (Completed - Provider: Mary Jane Perez RN) aluminum & magnesium hydroxide-simethicone (MAALOX PLUS) 200-200-20 mg/5 mL suspension 30 mL (COMPLETED) 30 mL, oral, NOW X1, 1 dose, On 06/22/23 at 0745, STAT 0729 (Given - Provid er: Leif Aguilar RN) iohexoL (OMNIPAQUE 350) solution 100 mL (COMPLETED) 100 mL, intravenous, Once in imaging, 1 dose, Starting on 06/22/23 at 0627, Until 06/22/23 at 0646, Routine 0646 (Given - Provid er: Abel Goodwin) ketOROLAC (TORADOL) injection 15 mg 15 mg, intravenous, NOW X1, 1 dose, On 06/22/23 at 0615, Routine 0611 (Not Given - Pr ovider: Mary Jane Perez RN - Reason: Patient/family refused) lidocaine (XYLOCAINE) 2 % viscous solution 10 mL (COMPLETED) 10 mL, oral, NOW X1, 1 dose, On 06/22/23 at 0745, Routine 0729 (Given - Provid er: Leif Aguilar RN) pantoprazole (PROTONIX) injection 40 mg (COMPLETED) 40 mg, intravenous, NOW X1, 1 dose, On 06/22/23 at 0915, Routine 0856 (Given - Provid er: Leif Aguilar RN) sodium chloride 0.9 % BOLUS 1,000 mL (COMPLETED) 1,000 mL, intravenous, NOW X1, 1 dose, On 06/22/23 at 0615, STAT 0609 (New Bag - Prov ider: Mary Jane Perez RN)0910 (Completed - Provider: Eleni Maloney RN) documented in this encounter Orders Medications Ordered That Lex ht Not Have Been Administered Count Last Ordered Date First Ordered Date ketOROLAC (TORADOL) injection 15 mg 1 06/22 documented in this encounter Care Teams Rock Mason Relationship Specialty Start Date End Date None, Provider PCP - General 04/05/22 documented as of this encounter
--- OUTSIDE RECORDS SUMMARY | 2024-02-15 16:05 | XMS_ITS | Encounter Summary ---
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 03/29/2023 0708 EDT Labor & Delivery Progress Note Subjective: Reports painful contractions Objective: BP 95/59 Temp 36.7 ??C (98.1 ??F) (Oral) Resp 18 Wt (!) 108.4 kg (239 lb) SpO2 98% BMI 41.02 kg/m?? BP: (91-129)/(54-81) 95/59 (03/29/23 0628) FHR: Baseline: 125 Variability: moderate Accels: present Decels: variables Contractions: q 2-3 on 4 milliunits/min of pitocin, now spacing out since pitocin turned off per patient request Cervical exam: 6-7/80/-3/soft/BBOW Assessment: 28 y.o. at 40w2d undergoing induction of labor 1. FHR: Category two; overall reassuring 2. GBS neg 3. Hemorrhage risk: medium due to induction and BMI Plan: 1. Epidural; then resume pitocin; to consider amniotomy Laura Villavicencio MD 03/29/2023 7:08 * Laura Villavicencio MD - 03/28/20232236 EDT Labor Progress Note CRB removed per pt request due to cramping. Suspect cervix is about 4cm dilated based on diameter balloon was inflated to in order to be removed. Laura Villavicencio MD * Sonya Cai RN - 03/28/20232121 EDT 2119-Dr. Villavicencio at bedside 2120-placed on EFM/TOCO monitoring for cervical glynn placement 2122-positioned for cervical glynn placement. 70/-3 2124-cervical glynn placed 80cc in uterus 40 cc in vagina 2155-patient to come off EFM/TOCO monitoring per Dr. Villavicencio 2234-patient requesting MD to deflate and remove cervical glynn. Removed by Dr Villavicencio 8-patient placed back on EFM and TOCO 0450-oxytocin started 0620-patient called out requesting to use nitrous 0628-nitrous started 0636-patient requesting epidural, bolus started 0643-maternal tracing 0644-oxytocin turned off per patient request, Dr. Villavicencio notified * Sonya Cai RN - 03/28/20232001 EDT Eleni Rain Is a with an Estimated Date of Delivery: 03/27/23 admitted to - on 03/28/2023 6:30. BP 129/72 Temp 36.8 ??C (98.2 ??F) (Axillary) Resp 18 Wt (!) 108.4 kg (239 lb) SpO2 98% BMI 41.02 kg/m?? Patient's support person Sebas here with her on admission. Central Monitoring documentation initiated. * Laura Villavicencio MD - 03/28/2023 1813 EDT Labor & Delivery Progress Note Subjective: mild cramping with misoprostol Objective: BP 126/81 Temp 36.8 ??C (98.3 ??F) (Oral) Resp 18 Wt (!) 108.4 kg (239 lb) SpO2 97% BMI 41.02 kg/m?? BP: (110-137)/(57-81) 126/81 (03/28/23 1709) FHR: Baseline: 120 Variability: moderate Accels: present Decels: absent Contractions: irreg Cervical exam: 3/60/-3/soft: Maurer's 6 Assessment: 28 y.o. at 40w1d here for induction of labor 1. FHR: Category one 2. GBS neg 3. Hemorrhage risk: medium due to BMI and IOL Plan: 1. Good efficacy with misoprostol so far. Discussed another dose versus cervical balloon. She is interested in a balloon in hopes of avoiding continuous monitoring overnight. Laura Villavicencio MD 03/28/2023 18:13 * Jyothi Hawthorne APRN - 03/28/2023 1343 EDT Labor & Delivery Progress Note Subjective: Resting comfortably in bed Sebas at bedside sleeping Feeling random cramps, no contractions No LOF no VB, +FM Feeling less concerned about the process. Interested in CRB overnight if less monitoring possible! Options reviewed for CX ripening. Desires repeat miso dose and prefers vaginal given efficacy Objective: BP 110/57 Temp 36.9 ??C (98.4 ??F) (Oral) Resp 16 Wt (!) 108.4 kg (239 lb) SpO2 98% BMI 41.02 kg/m?? FHR: 120 Baseline, moderate variability, positive accels, no late or variable decels Contractions: +irritability, less than 3 possible contractions in 10 min SVE: deferred; 25 mcg miso placed at 1340 by CNM Assessment: 28 y.o. at 40w1d here for eIOL at term - CX ripening in process, 2nd dose of miso 25 mcg administered 1. FHR: Category 1 by cEFM 2. B positive Blood type / GBS neg / rubella immune 3. Hemorrhage risk: 2 medium risks - BMI and IOL; type and screen done ?? Plan: 1. Open to likely CRB overnight, especially if less monitoring needed. Second dose of misoprostol placed at 1340 PM. Plan cEFM per protocol. Will defer next steps to ongoing overnight provider as of 1730. 2. Options for pain management in labor reviewed. Likely interested in nitrous, may eventually wantan epidural. Anticipate continued progress in labor 3. Reassess SVE this evening, sooner as clinically indicated 4. Dr. Villavicencio was in to see patient earlier and completed H&P. Will update her PRN. Jyothi Hawthorne CNM, FUEL CELL SYSTEMS ENGINEER Certified Nurse Medical Front Desk Specialist & Family Nurse Practitioner * Jyothi Hawthorne APRN - 03/28/2023 0845 EDT Labor & Delivery Progress Note Subjective: Assuming care of this client from Dr. Villavicencio. Here today for eIOL at term, accompanied by Abdifatah. Transferred to our care after moving to the area at 38 wks. Received early care at [facility], notes in care everywhere and then some care at [facility]. Prefers no medical student involvement/shadowing. Endorses good FM No LOF or bleeding Objective: BP 137/77 Temp 36.4 ??C (97.5 ??F) (Oral) Resp 18 Wt (!) 108.4 kg (239 lb) SpO2 100% BMI 41.02 kg/m?? FHR: 140 Baseline, moderate variability, positive accels, no late or variable decels, + dropout dueto maternal positioning Contractions: irregular, rare SVE: 50 / -3, posterior, medium consistency Maurer Score of 3 25 mcg misoprostol placed at 925 AM Assessment: 28 y.o. at 40w1d here for eIOL at term, Maurer Score of 3 - CX ripening indicated 1. FHR: Category 1 by cEFM 2. B positive Blood type / GBS neg / rubella immune 3. Hemorrhage risk: 2 medium risks - BMI and IOL Plan: 1. Reviewed IOL process and framework for ripening optimally with serial methods prior to generating contractions. Options reviewed for ripening. Prefers miso today, and open to likely CRB overnight with or without additional miso or IV pitocin. First dose placed at 925 AM. Plan cEFM per protocol. Consider rpt dose in 4 hrs. 2. Options for pain management in labor reviewed. Likely interested in nitrous, may eventually wantan epidural. Anticipate continued progress in labor 3. Reassess SVE this evening, sooner as clinically indicated 4. Dr. Villavicencio was in to see patient earlier and completed H&P. Will update her PRN. Jyothi Hawthorne CNM, FUEL CELL SYSTEMS ENGINEER Certified Nurse Medical Front Desk Specialist & Family Nurse Practitioner * Cristy Underwood RN - 03/28/2023 0820 EDT Eleni Rain Is a with an Estimated Date of Delivery: 03/27/23 admitted to on 03/28/2023 6:30. BP 137/77 Temp 36.4 ??C (97.5 ??F) (Oral) Resp 18 Wt (!) 108.4 kg (239 lb) SpO2 100% BMI 41.02 kg/m?? Patient's support person Sebas here with her on admission. Routine admission done. Patient oriented to the room and process. Central Monitoring documentation initiated. * Cristy Underwood, GRACE - 03/28/2023 0633 EDT 0630-Pt arrived on unit 0636-Pt placed on FHM, pt denies any LOF, reports scant amount of brown discharge, denies headache and RUQ/epigastric pain, reports very mild blurred vision. Reports movement to be normal. 0710- Patient requesting a bath before the induction begins. Patient OOB to bathroom, to bathe 0800- Dr. Villavicencio and ITAM Marine at bedside 0828- EFM possibly tracing maternal rate 1004- Patient sitting up in bed eating breakfast 1008- EFM tracing maternal HR due to patient position/activity 1041- RN at bedside readjusting US. Patient in left lateral position at this time 1050- RN at bedside, readjusting US and toco. Patient want to be laying left lateral/ prone 1111- Patient switched from left lateral to right lateral position. 1115- Patient attempting to sleep 1142- RN at bedside, US/toco readjusted. Patient remains in right lateral position 1235- CNM Gillesrt at bedside 1318- RN at bedside readjusting US. 1322- Patient OOB to bathroom, voiding 1335- CNM Gillesrt at bedside 1409- tracing maternal pulse due to movement 1500- Patient sitting up eating lunch 1513- Dr. Jay at bedside 1545- Patient remains sitting up in bed eating a second lunch tray 1630- Patient OOB to bathroom 1705- Patient leaning forward in bed, EFM tracing maternal HR. RN at bedside adjusting US 1740- OK to take patient off EFM per CNMeenakshi Hawthorne. 1800- Dr. Villavicencio at bedside documented in this encounter H&P Notes * Laura Villavicencio MD - 03/28/2023 0725 EDT History and Physical CV - [facility] HPI: Eleni Rain is a 28 y.o. at 40w1d per Estimated Date of Delivery: 03/27/23 based on 7week 6 day ultrasound who presents today for scheduled elective induction of labor. Just got out ofhot bath and feeling a little lightheaded. Good FM. Irregular contractions. Not sure about LOF - some wetness this morning and brown discharge that has not recurred. (membranes swept yesterday). Of note, received rabies vaccine and immunoglobulin yesterday after suspected bat bite. Also of note, was advised to take aspririn during for preeclampsia risk reduction due to nulliparity and elevated BMI. She did not continue this due to stomach upset from the aspirin. course: : Sotelo sex: Male Support person: Beulah Heath Delivery Plans Planned delivery method: Vaginal Planned delivery location: [facility] Post-Delivery Plans Feeding intentions: Breast Milk Patient Active Problem List Diagnosis Date Noted ??? Encounter for induction of labor 03/28/2023 Priority: Medium ??? Limited care, antepartum 03/19/2023 Priority: Medium ??? Obesity affecting , antepartum 03/19/2023 Priority: Medium ??? Urinary tract infection in mother during third trimester of 03/19/2023 Priority: Medium ??? Cessation of tobacco use in previous 12 months 01/14/2023 Priority: Medium ??? At increased risk for intimate partner violence 01/28/2023 See L&D triage note 01/28 Code 8 called on L&D Screen for safety at EVERY visit ??? , supervision, high-risk, third trimester 01/14/2023 Dating: Dating: SAVANNAH 03/27/2023 by 6w US (scan in care everywhere - [facility]) Issues: 1) Began care at [facility], CARIE to [facility] at 29 wks, then to [facility] as of 38 wks, limited care 2) Partner, doug Gardinertee - Code 8 called, during triage on L&D 01/28 at [facility]. Discuss behavior contract, screen patient for IPV (neg as of 38 wks) 3) DCF Report made by [facility] Case # [id number] 4) BMI 40 at 38 wks 5) Hasn't completed GTT as of 38 wks 6) Symphisis pubis dysfunction 7) UTI at 38 wks - treated with amoxicillin [ ] CARIE at next AP visit [] COVID vaccine: [] Flu vaccine (Jun-December): [...] Obstetric US: Growth & Anatomy US: [x] [facility] Results: normal 22 wk US at [facility] for anatomy scan - see care everywhere. 3 VC, normal cord insertion. [ x ] 31 wk US growth ([facility]) - EFW 43% and AC 76%, placenta right lateral [ x ] 38 week US growth ([facility]) - EFW 3428 g - 67%, AC 81%, NATALIE normal, vertex 24 wk: [] 24 wk education completed [] [facility] Brochure given 28 Week Labs Result Comments 1 hr GTT 3 hr GTT Hgb / Plts T&S/Rhogam Tdap Given 01/14/23 at [facility] 28 wk: [x] planning booklet & education [...] has- [ XX ] WIC, [ XX] [address] [place] [address], [employer], [employer] -Dating: SAVANNAH 03/27/2023 by 6w US (scan in care everywhere - [facility]) CARIE @ 29w #Partner, nguyen Gardiner - Code 8 called, during triage on L&D 01/28. Discuss behaviorcontract, screen patient for IPV DCF Report made by [facility] Case # [id number] [facility] notes: First visit: [o] PN Labs: Rh [...] 22w0d US wnl in care everywhere at [facility] 24-28w: [o] GTT/CBC [o] Rhogam/T&S - ordered [...] ] EPDS [ ] HPV Vaccine series OB History Para Term AB Living 1 SAB IAB Ectopic Multiple Live Births # Outcome Date GA Lbr Atif/2nd Weight Sex Delivery Anes PTL Lv 1 Current No past medical history on file. No past surgical history on file. Medications Prior to Admission Medication Sig ??? Cholecalciferol, Vitamin D3, 25 mcg (1,000 unit) capsule Take by mouth daily. ??? multivitamin vit-iron fumarate-FA (WESTAB PLUS) 27 mg iron- 1 mg tablet tablet Take 1 Tablet by mouth daily. ??? omega-3s/dha/epa/fish oil (OMEGA 3 ORAL) Take 1 Capsule by mouth daily. Current Facility-Administered Medications: ??? carboprost (HEMABATE) intramuscular injection 250 mcg, 250 mcg, intramuscular, Once PRN FOLLOWED BY [START ON 03/29/2023] loperamide (IMODIUM) capsule 2 mg, 2 mg, oral, QID PRN, Bianca Duarte CNM ??? lidocaine 1 % injection 20 mL, 20 mL, intradermal, PRN, Bianca Duarte CNM ??? methylergonovine (METHERGINE) injection 200 mcg, 200 mcg, intramuscular, Once PRN, Bianca Duarte CNM ??? miSOPROStol (CYTOTEC) tablet 1,000 mcg, 1,000 mcg, rectal, PRN, Gerald, Seligman Heather, CNM ??? miSOPROStol (CYTOTEC) tablet 25 mcg, 25 mcg, cervical, Once (NO Time Specified), Gerald, Seligman Heather, CNM ??? oxytocin (PITOCIN) injection 10 Units, 10 Units, intramuscular, Once PRN, Gerald, Bianca Heather, CNM ??? oxytocin in 0.9 % sodium chloride (PITOCIN) IVPB premade bag 30 units/500 mL, 95-334 bernice-units/min, intravenous, Continuous PRN, Gerald, Bianca Heather, CNM ??? tranexamic acid (CYKLOKAPRON) injection 1,000 mg, 1 g, intravenous, PRN, Gerald, Bianca Heather,CNM No Known Allergies Social History Occupational History ??? Not on file Tobacco Use ??? Smoking status: Former Types: Cigarettes ??? Smokeless tobacco: Never Substance and Sexual Activity ??? Alcohol use: Not Currently ??? Drug use: Never ??? Sexual activity: Yes Partners: Male Physical exam: BP 137/77 Temp 36.4 ??C (97.5 ??F) (Oral) Resp 18 Wt (!) 108.4 kg (239 lb) SpO2 100% BMI 41.02 kg/m?? General: NAD Heart: Regular rate and rhythm Lungs: Clear to auscultation Abdomen: gravid, NT, EFW: 3800 by leopolds (3428g/67%ile by ultrasound at 38 weekks) Speculum exam: def Cervix: def FHR: BL 120 Accelerations Yes, Decelerations No Tocometer: irregular Presentation vertex by bedside ultrasound Assessment and Plan: 28 y.o. at 40w1d being admitted for induction of labor FHT category one GBS negative Hemorrhage risk medium due to IOL and BMI CNM now taking over to discuss options for cervical ripening Laura Villavicencio MD documented in this encounter Procedure Notes * Laura Villavicencio MD - 03/28/2023 6651 EDTProcedure(s): VA INSERTION CERVICAL DILATOR SEPARATE PROCEDURE Pre-Procedure Diagnose(s): Encounter for elective induction of labor Post-Procedure Diagnose(s): Encounter for elective induction of labor Procedure Note Cervical Ripening Balloon Catheter Placement Use of a cervical ripening balloon catheter for cervical ripening as part of the induction of laborprocess was reviewed in detail with Eleni Rain and her labor support. We reviewed the risks/benefits and she provided verbal consent for the procedure. EGA: 40w1d FHR: cat 1 EFW: 3800g Cervical exam: /-3 The patient was placed in the dorsal lithotomy position. A digital cervical exam was performed and the balloon catheter was guided through cervix. The internal uterine balloon was inflated with sterile water to 80cc. Speculum removed. The vaginal balloon was inflated with sterile water to 40cc. Patient and fetus tolerated the procedure well. Laura Villavicencio MD 21:41 documented in this encounter Miscellaneous Notes * Note - Mercedez Talbert RN - 03/31/2023 1209 EDT This note was copied from a baby's chart. Eleni is using a spectra pump to pump and provide expressed milk for . She does not have any questions or concerns at this time. Reviewed option for support after discharge. * Plan of Care - Rosa Shi RN - 03/31/2023 1200 EDT Estimated Date of Delivery: 03/27/23 Admitted on 03/28/2023 6:30 to - for IOL Rubella immune, Fluid clear, delivered on 03/29/23 at 1106 With perineum other (bilateral periurethral) Recovery and post- course uncomplicated. Discharge teaching done and patient verbalizes understanding, denies any questions. Mother has signed the discharge sheets and the sheets were given to her at the time of discharge. Patient demonstrates understanding of teaching. formula feeding the , but expresses the desire to pump and feed EBM upon going home. Given contact information. Appears comfortable with the process and verbalizes understanding. Bonding with infant and handles appropriately. identification bracelet matched to mother's bracelet. Mother acknowledges that bracelets match. Discharged home with accompanied by . * Plan of Care - Rolly Pisano RN - 03/30/2023 0933 EDT Problem: Safety: Goal: Will remain free from falls Outcome: Ongoing Goal: Will remain free from infection Outcome: Ongoing Problem: Pain: Goal: Pain level will decrease Outcome: Ongoing Problem: Infection: Goal: Signs and symptoms of infection will decrease Outcome: Ongoing Problem: Nutritional: Goal: Ability to attain and maintain optimal nutritional status will improve Outcome: Ongoing Goal: Mother's verbalization of satisfaction/ comfort with will improve Outcome: Ongoing Problem: Activity: Goal: Ability to tolerate increased activity will improve Outcome: Ongoing Problem: Lifecycle: : Goal: Chance of risk for complications during the period will decrease Outcome: Ongoing Problem: Coping: Goal: Patient's and family's ability to cope will improve Outcome: Ongoing Goal: Level of anxiety will decrease Outcome: Ongoing Problem: Role Relationship: Goal: Ability to interact appropriately with will improve Outcome: Ongoing Goal: Ability to demonstrate an understanding of parental responsibilities will improve Outcome: Ongoing Goal: Ability to identify and utilize available resources and services will improve Outcome: Ongoing Patient's VS BP 129/62 Temp 37 ??C (98.6 ??F) (Oral) Resp 16 Wt (!) 108.4 kg (239 lb) SpO2 96% Unknown BMI 41.02 kg/m?? Pain is controlled with ibuprofin. Fundus firm, Lochia scant. Patient is breast and formula feeding . Activity ad francisco Plan of care reviewed with patient and needs reinforcement Patient's questions answered. See DI screen for more information. * Plan of Care - Rolly Pisano RN - 03/29/2023 1337 EDT Problem: Daily Care Plan Goals Goal: Care Plan Documentation Outcome: Met This Shift Problem: Safety: Goal: Will remain free from falls Outcome: Met This Shift Problem: Pain: Goal: Relief or control of pain from uterine contractions will improve Outcome: Met This Shift Problem: Nutritional: Goal: Maintenance of adequate nutrition will be supported Outcome: Met This Shift Problem: Lifecycle: Labor & Delivery: Goal: Ability to maintain clinical measurements within normal limits will improve Outcome: Met This Shift * L&D Delivery Note - Bridger Kenny MD - 03/29/2023 1203 EDT Delivery Information Eleni Rain is a 28 y.o. at 40w2d delivered by Spontaneous Vaginal Delivery . BBEleni Rain [phone] at Gestational Age: 40w2d, Delivered by Spontaneous Vaginal Delivery , Weighed 3520 g (7 lb 12.2 oz), 8 /9 , Sent to With parent after delivery. Maternal: Delivery Plan Outcome Planned home ? Not planned External cephalic version attempt indicated? Not indicated Delivery as waterbirth? No LIDYA after : Not applicable Delivery Indications Maternal Indications for delivery/comments: No medical indication Other (Comment) Elective Indications for delivery/comments: Not applicable Intrapartum Medication Intrapartum preeclampsia: No Intrapartum Mg: No Intrapartum Mg Indication: N/A Labor Labor onset: Induced Cervical ripening/induction agent: Balloon;Misoprostol;Oxytocin;AROM Labor augmentation: None Augmentation indication/comments: N/A Sepsis Risk Scores (based on [facility] incidence of 0.12/999 live births) Calculated Risk at Score: 0.06 Adjusted Score (Well Appearing): 0.03 Adjusted Score (Equivocal): 0.32 Adjusted Score (Clinical Illness): 1.34 Sepsis Risk Factors used in score calculation Gestational Age: 40w, 2d Mother's max temp within 12 hours prior to delivery: 36.8 ??C (98.2 ??F) Length of Rupture of Membranes: 2.5 Hours Maternal GBS Status: Negative Intrapartum Antibiotics: No Antibiotics, or Any antibiotics < 2 Hours prior to Other Intrapartum Infection Factors PROM >= 18 Hours: N/A Maternal Fever >= 38 C: N/A Maternal Tachycardia > 100 bpm: N/A Tachycardia > 160 bpm: N/A Uterine Tenderness: N/A Foul Odor of Amniotic Fluid: N/A Intra-Amniotic Infection N/A HIV Status/Treatment: Not indicated Hepatitus B Surface Antigen: Negative Syphilis: Negative Assessment monitoring: Contiunous - External heart rate characteristics/comments: Cat 1 Cat 2 demise: N/A Anesthesia Labor analgesia: None Delivery anesthesia: None Adjunctive analgesia: None Anesthetic complications: None Additional comments: Maternal Delivery Delivery type: Spontaneous Vaginal Delivery Presentation: Vertex Position: ALETHEA indication: Forceps Attempted: No Vacuum Attempted: No Operative Vaginal Delivery Indication: N/A Station - Initial Application: N/A Details of Shoulder Dystocia (if applicable) Dystocia Present? No Maneuvers Performed (if applicable) Placenta Delivered: 03/29/2023 11:11 Delivery method: Spontaneous Morphology: Other Borderline velamentous Disposition: Lab Cord Details Vessels: 3 Vessels Complications: Nuchal Nuchal intervention: Reduced Nuchal cord description: loose Cord around: shoulders left upper extremity neck Number of loops: Gases Sent? No Cord Blood Sent: Stem cell collection (by )? Comments: Borderline velamentous, will send for pathology Lacerations/Episiotomy Laceration Repaired? Perineal: None Periurethral: bilateral No Labial: Sulcus: Vaginal: Cervical: Episiotomy: None Indication: Repair suture: None Procedures Additional Procedures: None Hemorrhage (if applicable) hemorrhage: None Blood Loss Mother: Eleni Rain #[id number] Start of Mother's Information Delivery Blood Loss 03/28/23 2306 - 03/29/23 1258 [facility] Hospital Encounter 350 mL Total 350 mL End of Mother's Information Mother: Eleni Rain #[id number] Uterotonics/PPH Procedures: Uterine massage, Oxytocin, Blood Products Transfused: (if applicable) Labor Length Duration of 1st Stage: hours minutes Duration of 2nd Stage: hours minutes Duration of 3rd Stage: 0 hours 5 minutes Duration of Cord Clamp Delay: 60 seconds Precipitous Labor (<3 hours): No Prolonged Labor (>20 hours): No [place]: Date of : 03/29/2023 Time of : 1106 Sex: male Weight (grams): 3520 g (7 lb 12.2 oz) Length (in): 21 Head circumference (in): 5.315 Observed anomalies, comments: multiple stork bites in multiple places Meconium Present at Delivery: No (<37 wks): No Late (34-37 wks): No Steroid Course: Not indicated Indication: N/A PPROM Gestational Age: N/A APGARS Living Status: Living Totals: /-/-/- Resuscitation Resuscitation: None Delivery Personnel Delivering Clinician: BRIDGER KENNY Additional Personnel: SWAPNIL GORDILLO;ROLLY PISANO;ELENI SIU;CRISTY UNDERWOOD ROM Duration: (Delivered) 2h 32m Induction Duration (if applicable): 6 hours 16 minutes Labor and Delivery comments: Delivery Summary: Eleni Rain is a 28 y.o. at 40w2d who presented to the [facility] at [facility] for eIOL. Labor progressed and she delivered a vigorous by . See below for details. She had an uncomplicated first stage of labor. She was induced with misoprostol, CRB, pitocin and augmented with AROM. Spontaneous maternal pushing urges resulted in the vaginal of a male . Total length of second stage was 3 minutes. heartrate was monitored via continuous external monitoring. Head was born direct OA and restituted to ALETHEA and rotated to ROT. There was a nuchal cord around neck and upper extremity. Anterior and posterior shoulders delivered with ease and baby was placed on the mother's abdomen and remained with her throughout transition. Mother was in a semi-cox's position. Cord clamping was delayed and cut by father of the baby. Active management of the third stage was initiated after baby's delivery with IV Pitocin per protocol; initially was clamped and had brief brisk bleeding, clamped tube noted and correct, and pitocin wide open with quick resolution of bleedingand firm fundus. The placenta delivered spontaneously with gentle cord traction The length of the third stage of labor was 8 minutes. The placenta and membranes were complete with a 3-vessel cord. EBL was 350mL. Fundus firm with scant lochia rubra. The perineal exam revealed no perineal laceration but 2 periurethral abrasions present, hemostatic and no repaired. A vigorous male required no resuscitative measures beyond drying and stimulation. Apgars were 8 / 9. Weight was pending at the time of the note. Assessment & Plan: 1. Mother and baby stable at this time and have initiated 2. Anticipate normal recovery and transition. Usual care 3. Anticipate 48 hour stay 4. Cord blood no collected 5. Hemorrhage risk: med d/t BMI and induction Bridger Kenny MD [facility] Women[facility] * Note - Sonya Hernandez RN - 03/29/2023 1145 EDT This note was copied from a baby's chart. 1140: born just after 11am to a first time mom. Vaginal delivery with a rapid 2nd stage after elective IOL at 40+2/7. Mom sitting upright in bed, baby in swaddled in dad's arms. She states that she is not ready to initiate right now. Assisted to place baby skin to skin on dad'schest and rationale for skin to skin holding reviewed. belly to belly with dad, head turned to side and covered with a receiving blanket. Eleni denies questions at this time, encouraged to call for support when she is ready. Emotional care provided to mom. 1330: Per RN, mom did consent to try , baby self attached with a great latch and audible swallows, but mom requested feeding end after only a few moments, and after some discussion askedfor formula. Then FOB Abdifatah insisted baby not have any formula. As I entered the room Abdifatah was hand expressing Eleni, collecting colostrum in a 5oz bottle. There appeared to be a few ml's of colostrum in the bottle and he then attached a nipple and fed this to the baby. Discussed Eleni's options for feeding with her and Sebas. Discussed benefits of , alsodiscussed that formula is a perfectly acceptable option to feed baby if they choose that as well that combo feeding is another option. Sebas insists that baby not be fed formula and they argue briefly about this. They have a second hand Spectra pump, but do not have the parts for it. Discussed thatI can assist them to get a pump today through their insurance, Eleni is eager for this and asks Can you get it right now, I want it now. As we are talking Sebas comes over in an effort to hand express her more, she covers her breasts with both hands and says I don't want you to that!. I ask Sebas to respect her request that her body not be touched without permission, to which she replies thathe can touch my breasts as much as he wants, it's not that, its just that if I can use an electricpump it will be easier. 1415: Spectra S2 pump provided, [employer] purchase agreement completed, signed and faxed. Reviewed pump use, functions, settings and cleaning. Handout given on pump settings. Had mom repeat back pumpsettings. Handout given on feeding amounts and reviewed with both parents. Handout of breastmilk handling and storage given and reviewed. She was able to pump 22ml of colostrum, which was placed in the fridge in their room. Pumping and feeding plan reviewed and written on the white board. Reinforced importance of proper milk handling and cleaning of pump parts. [place] and dish soap provided to waspump parts and bottles. Praised Eleni for the large amount of colostrum she was able to express andshe reports that Sebas has been hand expressing her at home for weeks in anticipation of baby's arrival. As we are talking Sebas was working on completing the certificate, Eleni asked to see it prior to it getting handed in and he refused to let her see it. I did offer to go retrieve it for her, ensured her that she could see it before it is submitted and told her that this is her baby too and she does have many rights as his mother. Sebas then did allow her to see the paperwork. * Plan of Care - Sonya Cai RN - 03/28/20232000 EDT Problem: Daily Care Plan Goals Goal: Care Plan Documentation Outcome: Ongoing documented in this encounter Plan of Treatment Scheduled Referrals Name Type Priority Associated Diagnoses Order Schedule PROVIDER FOLLOW-UP INSTRUCTIONS Outpatient Referral Routine Ordered: 03/31/2023 PROVIDER FOLLOW-UP INSTRUCTIONS Outpatient Referral Routine Ordered: 03/31/2023 AMB CONS/FOLLOW UP GYNECOLOGY Outpatient Referral Routine/Next Available , delivered (spontaneous vaginal delivery) Expected: 04/15/2023 (Approximate), Expires: 03/31/2024 documented as of this encounter Procedures Procedure Name Priority Date/Time Associated Diagnosis Comments COMPLETE BLOOD COUNT STAT 03/28/2023 8:49 EDT TYPE AND SCREEN Today 03/28/2023 8:49 EDT BACTERIAL CULTURE, URINE Routine 03/28/2023 8:08 EDT documented in this encounter Results * TYPE AND SCREEN (03/28/2023 8:49 EDT) ABO B 03/28/2023 11:44 EDT [facility] Rh Factor Positive 03/28/2023 11:44 EDT [facility] Antibody Screen Negative 03/28/2023 11:44 EDT [facility] Specimen Expires: 03/31/2023 @ 23:59 03/28/2023 11:44 [facility] Blood VENOUS BLOOD / Unknown Venipuncture / Unknown 03/28/2023 8:49 EDT 03/28/2023 10:41 EDT Bianca Duarte DNP, CNM BLOOD BANK TESTS Performing Organization Address City/State/[facility] Co de Phone Number [facility] [address] [place] [address] * COMPLETE BLOOD COUNT (03/28/2023 8:49 EDT) WBC 10.17 4.00 - 12.40 K/cmm 03/28/2023 9:27 EDT [facility] RBC 3.98 3.86 - 5.04 M/cmm 03/28/2023 9:27 [facility] Hemoglobin 11.9 11.6 - 15.2 g/dL 03/28/2023 9:27 EDT [facility] HCT 35.5 34.9 - 44.4 % 03/28/2023 9:27 [facility] MCV 89 81 - 98 fL 03/28/2023 9:27 [facility] MCH 29.9 26.7 - 33.3 pg 03/28/2023 9:27 [facility] MCHC 33.5 32.1 - 35.9 g/dL 03/28/2023 9:27 [facility] RDW-CV 14.1 <14.7 % 03/28/2023 9:27 [facility] RDW-SD 45.5 <50.4 fl 03/28/2023 9:27 [facility] PLT 169 141 - 377 K/cmm 03/28/2023 9:27 [facility] MPV 11.1 9.5 - 12.7 fL 03/28/2023 9:27 [facility] Blood VENOUS BLOOD / Unknown Venipuncture / Unknown 03/28/2023 8:49 EDT 03/28/2023 9:25 EDT Bianca Duarte DNP CNM HEMATOLOGY & PF4 ORDERABLES [facility] [address] [place] [address] * (ABNORMAL) BACTERIAL CULTURE, URINE (03/28/2023 8:08 EDT) Organism ID Greater than 100,000 CFU/ml Enterococcus faecalis(A) VITEK SUSCEPTIBILITY 03/30/2023 7:29 [facility] Comment: Penicillin is the drug of choice for treating Enterococcus infections (including VRE) limited to the lower urinary tract. Penicillin susceptible isolates are also susceptible to ampicillin, ampicillin-sulbactam, amoxicillin, amoxicillin- clavulanate and piperacillin-tazobactam Organism ID 10, 000 to 100,000 CFU/ml VITEK SUSCEPTIBILITY 03/30/2023 7:29 [facility] Comment: Usual urogenital candace. Urine URINE SPECIMEN OBTAINED BY CLEAN CATCH PROCEDURE / Unknown Urine Collect / Unknown 03/28/2023 8:08 EDT 03/28/2023 9:25 EDT Narrative Organism Antibiotic Method Susceptibility Enterococcus faecalis Benzylpenicillin VITEK SUSCEPTIB ILITY 2 ug/mL: Susceptible Enterococcus faecalis Nitrofurantoin VITEK SUSCEPTIBIL ITY <=16 ug/mL: Susceptible Enterococcus faecalis Tetracycline VITEK SUSCEPTIBILIT Y >=16 ug/mL: Resistant Bianca Duarte YAEL CNMeenakshi MICROBIOLOG Y - GENERAL ORDERABLES Performing Organization Address City/State/[facility] Co de Phone Number [facility] [address] [place] [address] documented in this encounter Visit Diagnoses Diagnosis Encounter for induction of labor- Primary , delivered Encounter for induction of labor History of psychosocial problem Abnormal umbilical cord Fetus or affected by other and unspecified conditions of umbilical cord symptom Unspecified disorder of , unspecified as to episode of care (spontaneous vaginal delivery) Normal delivery , delivered , supervision, high-risk, third trimester Limited care, antepartum Urinary tract infection in mother during third trimester of At increased risk for intimate partner violence Obesity affecting , antepartum documented in this encounter Admitting Diagnoses Diagnosis Encounter for induction of labor documented in this encounter Administered Medications Inactive Administered Medications - up to 3 most recent administrations Medication Order MAR Action Action Date Dose Rate Site acetaminophen (TYLENOL) 325 mg tablet 1 dose, Starting on Sat03/29/23 at 1849, Until 03/30/23 at 0822 acetaminophen (TYLENOL) tablet 650 mg 650 mg, oral, EVERY 6 HOURS PRN, Starting on Ginna 03/28/23 at 2146, Until Sat03/29/23 at 1516, Pain, Routine Given 03/29/2023 11:43 EDT 650 mg acetaminophen (TYLENOL) tablet 650 mg 650 mg, oral, EVERY 6 HOURS PRN, Starting on Sat03/29/23 at 1842, Until 03/31/23 at 1418, Pain, Routine Given 03/31/2023 9:39 EDT 650 mg Given 03/30/2023 21:56 EDT 650 mg Given 03/30/2023 16:21 EDT 650 mg amoxicillin (AMOXIL) 250 mg/5 mL suspension 500 mg 500 mg, oral, EVERY 8 HOURS, 21 doses, First dose on 03/30/23 at 1100, Last dose on 04/06/23 at 0600, Routine Given 03/31/2023 7:31 EDT 500 mg Given 03/30/2023 21:57 EDT 50 mg Given 03/30/2023 14:15 EDT 500 mg calcium carbonate (TUMS) tablet 500 mg (200 mg elemental calcium) 1 Tablet 1 Tablet, oral, 4 TIMES DAILY PRN, Starting on Sat03/28/23 at 0842, Until Sat03/29/23 at 1516, Heartburn, Routine Given 03/28/2023 9:13 EDT 1 Tablet famotidine (PEPCID) tablet 20 mg 20 mg, oral, 2 TIMES DAILY PRN, Starting on Sat03/28/23 at 0843, Until Sat03/29/23 at 1516, Other, heartburn, Routine Given 03/28/2023 21:38 EDT 20 mg Given 03/28/2023 9:16 EDT 20 mg famotidine (PEPCID) tablet 20 mg 20 mg, oral, AT BEDTIME, First dose on Sat03/29/23 at 2100, Until Discontinued, Routine Given 03/31/2023 2:09 EDT 20 mg Given 03/29/2023 23:01 EDT 20 mg ibuprofen (MOTRIN) tablet 600 mg 600 mg, oral, EVERY 6 HOURS PRN, Starting on Sat03/29/23 at 1147, Until Sat03/31/23 at 1418, Pain, Routine, Release Given 03/31/2023 9:39 EDT 600 mg Given 03/30/2023 21:56 EDT 600 mg Given 03/30/2023 16:21 EDT 600 mg lactated ringers (LR) infusion at 125 mL/hr, intravenous, CONTINUOUS, Starting on Sat03/28/23 at 1415, Until Sat03/28/23 at 2033, Routine New Bag 03/29/2023 9:30 EDT 125 mL/hr New Bag 03/28/2023 13:45 EDT 125 mL/hr IV lactated ringers (LR) infusion at 75 mL/hr, intravenous, CONTINUOUS, Starting on Sat03/29/23 at 0400, Until Sat03/29/23 at 1516, Routine New Bag 03/29/2023 4:47 EDT 75 mL/hr lactated ringers BOLUS 500 mL 500 mL, intravenous, at 1,000 mL/hr, PRN, 4 doses, Starting on Ginna 03/28/23 at 0841, Until Sat03/29/23 at 1516, Other, Pre-delivery, abelino-epidural placement, hypotension, dehydration, non-reassuring assessment; post delivery: dehydration, hypotension., Routine, Release Subsequent Bag 03/29/2023 6:36 EDT 500 mL 1000 mL/hr New Bag 03/28/2023 8:50 EDT 500 mL 1000 mL/hr IV miSOPROStol (CYTOTEC) 100 mcg tablet 1 dose, Starting on 03/30/23 at 2234, Until 03/31/23 at 1418 miSOPROStol (CYTOTEC) tablet 25 mcg 25 mcg, cervical, Once (Without Time Specified), 1 dose, Starting on Ginna 03/28/23 at 0713, Until Ginna 03/28/23 at 0925, Routine, Pre-Delivery Given 03/28/2023 9:25 EDT 25 mcg miSOPROStol (CYTOTEC) tablet 25 mcg 25 mcg, cervical, Once (Time Specified), 1 dose, On Ginna 03/28/23 at 1415, Routine Given 03/28/2023 13:40 EDT 25 mcg oxytocin in 0.9 % sodium chloride (PITOCIN) IVPB premade bag 30 units/500 mL 95-334 bernice-units/min (95-334 mL/hr), intravenous, Continuous PRN, Starting on Ginna 03/28/23 at 0713, Until Sat03/29/23 at 1516, Routine, Release New Bag 03/29/2023 11:07 EDT 334 bernice-units/min 334 mL/hr oxytocin in 0.9 % sodium chloride (PITOCIN) IVPB premade bag 30 units/500 mL 1-30 bernice-units/min (1-30 mL/hr), intravenous, CONTINUOUS, Starting on Sat03/29/23 at 0400, Until Sat03/29/23 at 1516, Routine Rate Change-ICU/L&D Only 03/29/2023 5:55 EDT 4 bernice-units/min 4 mL/hr Rate Change-ICU/L&D Only 03/29/2023 5:20 EDT 2 bernice-units /min 2 mL/hr New Bag 03/29/2023 4:50 EDT 1 bernice-units/min 1 mL/hr rabies vaccine (PCEC) (RABAVERT) intramuscular injection 1 mL 1 mL, intramuscular, NOW X1, 1 dose, On 03/30/23 at 1500, Routine Given 03/30/2023 15:28 EDT 1 mL Left Deltoid sodium chloride 0.9 % (flush) flush 5 mL 5 mL, intravenous, EVERY 8 HOURS, First dose on Sat03/29/23 at 1600, Until Discontinued, Routine, Release Given 03/29/2023 23:06 EDT 5 mL witch kashif (TUCKS) 50 % pad 1 Pad 1 Pad, topical, PRN, Starting on Sat03/29/23 at 1147, Until 03/31/23 at 1418, Hemorrhoids, Routine, Release Given 03/29/2023 14:30 EDT 1 Pad documented in this encounter Discontinued Medications Medication Sig Discontinue Reason Start Date End Da te ibuprofen (MOTRIN) 600 mg tablet Take 1 Tablet by mouth every 6 hours as needed for Pain. Reorder 03/31/2023 03/31/2023 documented as of this encounter Active and Recently Administered Medications Times are shown in EDT. Scheduled Medication Order 03/29/2023 03/30/2023 03/31/2023 amoxicillin (AMOXIL) 250 mg/5 mL suspension 500 mg 500 mg, oral, EVERY 8 HOURS, 21 doses, First dose on 03/30/23 at 1100, Last dose on 04/06/23 at 0600, Routine 1415 (Given - Provider: Monica Looney RN)2157 (Given - Provider: Елена Nunes RN) 0731 (Given - Provider: Елена Nunes RN - Comment: pt sleeping)1400 (Canceled Entry - Provider: Batch Job User Admin - Comment: Automatically canceled at discontinue of medication order) famotidine (PEPCID) tablet 20 mg 20 mg, oral, AT BEDTIME, First dose on Sat03/29/23 at 2100, Until Discontinued, Routine 2301 (Given - Provider: Елена Nunes RN) 2218 (Not Given - Provider: Елена Nunes RN - Reason: Patient/family refused) 0209 (Given - Provider: Елена Nunes RN) medroxyPROGESTERone (DEPO-PROVERA) syringe 150 mg 150 mg, intramuscular, NOW X1, 1 dose, On 03/30/23 at 1430, Routine 1430 (Due) rabies vaccine (PCEC) (RABAVERT) intramuscular injection 1 mL (COMPLETED) 1 mL, intramuscular, NOW X1, 1 dose, On 03/30/23 at 1500, Routine 1528 (Given - Provider: Rolly Pisano, GRACE) senna (SENOKOT) tablet 2 Tablet 2 Tablet, oral, AT BEDTIME, First dose on Sat03/29/23 at 2100, Until Discontinued, Routine, 2317 (Not Given - Provider: Елена Nunes RN - Reason: Patient/family refused) 2218 (Not Given - Provider: Елена Nunes RN - Reason: Patient/family refused) sodium chloride 0.9 % (flush) flush 5 mL (CANCELED)(Linked Group 1) 5 mL, intravenous, EVERY 8 HOURS, First dose on Sat03/29/23 at 1600, Until Discontinued, Routine, Release 1600 (Due)2306 (Given - Provider: Елена Nunes RN) 0800 (Due)1600 (Due) 0225 (Not Given - Provider: Елена Nunes RN - Reason: Loss of IV access) Continuous Medication Order 03/29/2023 03/30/2023 03/31/2023 lactated ringers (LR) infusion (CANCELED) at 125 mL/hr, intravenous, CONTINUOUS, Starting on Ginna 03/28/23 at 1415, Until Ginna 03/28/23 at 203, Routine 0930 (New Bag - Provider: Rolly Pisano, GRACE) lactated ringers (LR) infusion (CANCELED) at 75 mL/hr, intravenous, CONTINUOUS, Starting on Sat03/29/23 at 0400, Until Sat03/29/23 at 1516, Routine 0447 (New Bag - Provider: Sonya Cai RN)1415 (IV Stopped - Provider: Rolly Pisano, GRACE) oxytocin in 0.9 % sodium chloride (PITOCIN) IVPB premade bag 30 units/500 mL (CANCELED) 1-30 bernice-units/min (1-30 mL/hr), intravenous, CONTINUOUS, Starting on Sat03/29/23 at 0400, Until 03/29/23 at 1516, Routine 0450 (New Bag - Provider: Sonya Cai, RN)0520 (Rate Change-ICU/L&D Only - Provider: Sonya Cai RN)0555 (Rate Change-ICU/L&D Only - Provider: Sonya Cai RN)0643 (IV Stopped - Provider: Sonya Cai RN) PRN Medication Order 03/29/2023 03/30/2023 03/31/2023 acetaminophen (TYLENOL) tablet 650 mg (CANCELED) 650 mg, oral, EVERY 6 HOURS PRN, Starting on Ginna 03/28/23 at 2146, Until 03/29/23 at 1516, Pain, Routine 1143 (Given - Provider: Rolly Pisano RN) acetaminophen (TYLENOL) tablet 650 mg 650 mg, oral, EVERY 6 HOURS PRN, Starting on 03/29/23 at 1842, Until 03/31/23 at 1418, Pain, Routine 2002 (Given - Provider: Елена Nunes RN) 821 (Given - Provider: Rolly Pisano RN)1620 (Given - Provider: Rolly Pisano RN)2155 (Given - Provider: Елена Nunes RN) 0939 (Given - Provider: Rosa Shi RN) benzocaine-menthol (DERMOPLAST) 20-0.5 % aerosol spray topical, EVERY 6 HOURS PRN, Starting on 03/29/23 at 1147, Until 03/31/23 at 1418, Pain, Release calcium carbonate (TUMS) tablet 500 mg (200 mg elemental calcium) 2 Tablet 2 Tablet, oral, EVERY 2 HOURS PRN, Starting on Sat03/29/23 at 1516, Until 03/31/23 at 1418, Heartburn, Indigestion, Routine, ibuprofen (MOTRIN) tablet 600 mg 600 mg, oral, EVERY 6 HOURS PRN, Starting on 03/29/23 at 1147, Until 03/31/23 at 1418, Pain, Routine, Release 1154 (Given - Provider: Rolly Pisano RN)2002 (Given - Provider: Елена Nunes RN) 822 (Given - Provider: Rolly Pisano RN)1621 (Given - Provider: Rolly Pisano RN)2156 (Given - Provider: Елена Nunes, GRACE) 0939 (Given - Provider: Rosa Shi RN) lactated ringers BOLUS 500 mL (CANCELED) 500 mL, intravenous, at 1,000 mL/hr, PRN, 4 doses, Starting on Ginna 03/28/23 at 0841, Until 03/29/23 at 1516, Other, Pre-delivery, abelino-epidural placement, hypotension, dehydration, non-reassuring assessment; post delivery: dehydration, hypotension., Routine, Release 0636 (Subsequent Bag - Provider: Sonya Cai RN) lanolin ([id number]-K-[id number]) cream topical, PRN, Starting on Sat03/29/23 at 1516, Until 03/31/23 at 1418, Irritation, , oxytocin in 0.9 % sodium chloride (PITOCIN) IVPB premade bag 30 units/500 mL (CANCELED) 95-334 bernice-units/min (95-334 mL/hr), intravenous, Continuous PRN, Starting on Ginna 03/28/23 at 0713, Until 03/29/23 at 1516, Routine, Release 1107 (New Bag - Provider: Rolly Pisano RN)1315 (IV Stopped - Provider: Rolly Pisano RN) polyethylene glycol 3350 (MIRALAX) packet 17 g 17 g, oral, 2 TIMES DAILY PRN, Starting on Sat03/29/23 at 1516, Until 03/31/23 at 1418, Constipation, Routine, simethicone (MYLICON) chewable tablet 80 mg 80 mg, oral, 4 TIMES DAILY PRN, Starting on Sat03/29/23 at 1516, Until 03/31/23 at 1418, Flatulence, Cramping, Routine, witch kashif (TUCKS) 50 % pad 1 Pad 1 Pad, topical, PRN, Starting on Sat03/29/23 at 1147, Until 03/31/23 at 1418, Hemorrhoids, Routine, Release 1430 (Given - Provider: Rolly Pisano RN - Comment: entire container in pt bathroom) No Frequency Medication Order 03/29/2023 03/30/2023 03/31/2023 miSOPROStol (CYTOTEC) 100 mcg tablet 1 dose, Starting on 03/30/23 at 2234, Until 03/31/23 at 1418 Linked Groups Order Group 1: Change IV to Saline Lock (CANCELED) Routine, ONE TIME, On Sat03/29/23 at 1145, For 1 occurrence, Once PO intake tolerated and oxytocin infusion complete., Release And sodium chloride 0.9 % (flush) flush 5 mL (CANCELED)Jump to med 5 mL, intravenous, EVERY 8 HOURS, First dose on Sat03/29/23 at 1600, Until Discontinued, Routine, Release documented in this encounter Orders Medications Ordered That Lex ht Not Have Been Administered Count Last Ordered Date First Ordered Date medroxyPROGESTERone (DEPO-VA OVERA) syringe 150 mg 1 03/30/2023 miSOPROStol (CYTOTEC) 100 mcg tablet 1 03/06 acetaminophen (TYLENOL) tablet 650 mg benzocaine-menthol (DERMOPLA ST) 20-0.5 % aerosol spray 1 03/29/2023 bupivacaine-fentaNYL in NS 0 .1 %-2 mcg/mL epidural 1 03/29/2023 bupivacaine-fentaNYL in NS 0 .1-2 %-mcg/mL epidural 1 03/29/2023 calcium carbonate (TUMS) tab let 500 mg (200 mg elemental calcium) 2 Tablet 1 03/29/2023 lanolin ([id number]) cream 1 03/29/2023 lidocaine (PF) 10 mg/mL (1 % ) injection 2 mg 1 03/29/2023 multivitamin-iron fumarate-F A (THERA-M PLUS) 9 mg iron-400 mcg tablet 1 Tablet 1 03/29/2023 polyethylene glycol 3350 (NV RALAX) packet 17 g 1 03/29/2023 senna (SENOKOT) tablet 2 Tablet 1 simethicone (MYLICON) chewab le tablet 80 mg 1 03/29/2023 carboprost (HEMABATE) intram uscular injection 250 mcg 1 03/28/2023 hydrOXYzine (ATARAX) tablet 50 mg 1 023 lidocaine 1 % injection 20 mL 1 03/28/2023 loperamide (IMODIUM) capsule 2 mg 1 023 methylergonovine (METHERGINE ) injection 200 mcg 1 03/28/2023 miSOPROStol (CYTOTEC) tablet 1,000 mcg 1 ondansetron (PF) (ZOFRAN) injection 4 mg 1 03/28/2023 oxytocin (PITOCIN) injection 10 Units 1 tranexamic acid (CYKLOKAPRON ) injection 1,000 mg 1 03/28/2023 Diet Count Last Ordered Date First Orde red Date DISCHARGE DIET 1 03/31/2023 Nursing Count Last Ordered Date First Orde red Date ACTIVITY INSTRUCTIONS 2 03/31/2023 BATHING INSTRUCTIONS 1 03/31/2023 Admission Count Last Ordered Date First Orde red Date ADMIT TO INPATIENT 1 03/28/2023 Transfer Count Last Ordered Date First Orde red Date TRANSFER PATIENT 2 03/29/2023 Discharge Count Last Ordered Date First Orde red Date DISCHARGE PATIENT 1 03/31/2023 Legal Count Last Ordered Date First Orde red Date MISCELLANEOUS DISCHARGE INSTRUCTIONS 8 03/06 Equipment Count Last Ordered Date First Orde red Date GENERIC DME ORDER 1 03/31/2023 documented in this encounter Care Teams Pie Filling Mixer Relationship Specialty Start Date End Date None, Provider PCP - General 04/05/22 documented as of this encounter
--- OUTSIDE RECORDS SUMMARY | 2024-02-15 16:05 | XMS_ITS | Encounter Summary ---
Author Organization [facility] Address [address] [place] [address] Care Team Providers Care Artists' Model Name Role Phone None, Provider Primary Care Provider Unavailabl e Encounter Details Date Type Department Care Team (Late st Contact Info) Description 03/15/2023 Orders Only [facility] - [facility] Womens [address] [id number] Bianca Duarte DNP [facility] [address] [facility] [address], [address] [place] [address] Social History Tobacco Use Types Packs/Day Years [...] No 01/01/2023 documented as of this encounter Ordered Prescriptions Prescription Sig Dispensed Refills Start Date End Da te amoxicillin (AMOXIL) 875 mg tablet Take 1 Tablet by mouth 2 times daily for 4 days. 8 Tablet 03/15/2023 03/19/2023 documented in this encounter Plan of Treatment Not on file documented as of this encounter Visit Diagnoses Not on filedocumented in this encounter Additional Health Concerns Infection Onset Date Last Indicated Resolved Time R/O COVID-19 08/05/2023 08/05/2023 08/05/2023 20:0 1 EST documented as of this encounter Care Teams Artists' Model Relationship Specialty Start Date End Date None, Provider PCP - General 04/05/22 documented as of this encounter
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
--- OUTSIDE RECORDS SUMMARY | 2024-02-15 16:05 | XMS_ITS | Encounter Summary ---
Author Organization [facility] Address [address] [place] [address] Care Team Providers Care Furniture Duster Name Role Phone None, Provider Primary Care Provider Unavailabl e Reason for Visit * Reason Onset Date Comments Advice Only 03/06/2023 Encounter Details Date Type Department Care Team (Late st Contact Info) Description 03/06/2023 Telephone [facility] Women's Services - [facility] [address] [place], [place] [id number] Dev Zuniga MD [address] [place] [address] Advice Only Social History Tobacco Use Types Packs/Day Years [...] encounter Miscellaneous Notes * Telephone Encounter - Dev Zuniga MD - 03/06/2023 0739 EDT TC from Eleni Rain who is a 28 yo at 37w0d with very limited care, calling in with bilateral lower extremity swelling that she says makes it difficult to get out of bed. She has been elevating her feet and laying on her left side, which seems to help a little bit. She says one leg might be more swollen than the other, but denies redness, tenderness or warmth in either leg. Is also noticing significant fatigue and horrible back pain, which also limits her ability to getout of bed. Is using an abdominal binder, but says that it helps her back but is often too tight onher abdomen. - Recommend trial of compression stockings, continuing to elevate legs with position changes. Call if noticing redness, tenderness, or warmth of either extremity - Labor precautions reviewed - Recommend patient be seen in clinic this week to catch up on care. She is amenable - says that she has had difficulties coming to appts because of her low back pain and difficulty getting out of bed - Message routed to [facility] RN and [facility] staff to assist with expedited scheduling - Advised heating pad, tylenol, warm baths PRN. Continue using abdominal/hip binder for support as needed. Suggested trying a different size in abdominal binder. Dev Zuniga MD PGY-4 Obstetrics and Gynecology Pager # [phone] 03/06/23 7:52 documented in this encounter Plan of Treatment Not on file documented as of this encounter Visit Diagnoses Not on filedocumented in this encounter Care Teams Furniture Duster Relationship Specialty Start Date End Date None, Provider PCP - General 04/05/22 documented as of this encounter
--- OUTSIDE RECORDS SUMMARY | 2024-02-15 16:05 | XMS_ITS | Encounter Summary ---
Author Organization [facility] Address [address] [place] [address] Care Team Providers Care Insulator Tester Name Role Phone None, Provider Primary Care Provider Unavailabl e Reason for Visit * Reason Onset Date Comments Appointment Related 03/08/2023 Encounter Details Date Type Department Care Team (Late st Contact Info) Description 03/08/2023 Telephone [facility] Women's Services - [facility] [address] [place] [address] Nadeen Mcelroy MD [address] [place], [place] [address] Appointment Related Social History Tobacco Use Types Packs/Day Years [...] encounter Miscellaneous Notes * Telephone Encounter - Myrna Garcia RN - 03/11/2023 1006 EDT TC to patient, she agrees to an appointment if it is after noon. She said that she can make any day, but requests telehealth. Per Dr. Zuniga, patient needs in- person visit. Patient scheduled for 03/[address] Zuniga, extended visit, in-person. She understands thatthis is an in-person visit. Will route to scheduling to look for something sooner. * Telephone Encounter - Shaila Hernández - 03/08/2023 1053 EDT Are you calling for gynecological, obstetric, or reproductive care? Obstetric Have you been seen here before? Yes If yes, who do you see? [facility] Reason for Call as described by patient: Patient missed her [employer] televideo this morning-- slept in. She had reportedly received a call from Dr. Mcelroy to call back-- she would like to know if she canstill speak with Dr. Mcelroy today. Declined to reschedule for next available on 03/18. What is the best phone number for us to reach you back at? [phone] Does this number have a voicemail, is it ok to leave a detailed message? Yes Shaila Hernández 03/08/2023 10:54 documented in this encounter Plan of Treatment Not on file documented as of this encounter Visit Diagnoses Not on filedocumented in this encounter Care Teams Insulator Tester Relationship Specialty Start Date End Date None, Provider PCP - General 04/05/22 documented as of this encounter
--- OUTSIDE RECORDS SUMMARY | 2024-02-15 16:05 | XMS_ITS | Encounter Summary ---
Author Organization [facility] Address [address] [place] [address] Care Team Providers Care Commission Agent Livestock Name Role Phone None, Provider Primary Care Provider Unavailabl e Reason for Visit * Reason Onset Date Comments No Show 04/23/2023 Encounter Details Date Type Department Care Team (Late st Contact Info) Description 04/23/2023 Telephone [facility] - [address] [address] Shavonne Perkins, RN No Show Social History Tobacco Use Types Packs/Day Years Used Date Smoking Tobacco: Former Cigarettes Smokeless Tobacco: Never Alcohol Use Standard Drinks/Week Comments Not Currently 0 (1 standard drink = 0.6 oz pur e alcohol) [place] Depression Scale Answer Date Recorded [place] Depression Scale Total 9 04/02/2023 The thought [...] encounter Miscellaneous Notes * Telephone Encounter - Shavonne Perkins RN - 04/23/2023 1532 EDT Called pt for her 2 week pp follow-up RN Telemed visit. L/M for pt, if she gets this message to call back and we will try to do her appointment today. documented in this encounter Plan of Treatment Not on file documented as of this encounter Visit Diagnoses Not on filedocumented in this encounter Care Teams Commission Agent Livestock Relationship Specialty Start Date End Date None, Provider PCP - General 04/05/22 documented as of this encounter
--- OUTSIDE RECORDS SUMMARY | 2024-02-15 16:05 | XMS_ITS | Encounter Summary ---
Author Organization [facility] Address [address] [place] [id number] Care Team Providers Care Piece Goods Packer Name Role Phone None, Provider Primary Care Provider Unavailabl e Reason for Visit * Reason Comments Animal Bite Bat bite on left arm 4 days ago // patient is 40 weeks Encounter Details Date Type Department Care Team (Late st Contact Info) Description 03/27/2023 15:36 EDT - 03/27/2023 20:16 EDT Emergency [facility] Emergency Department [address] [place] [address] Dana Aguilar PA-C [address] [place] [address] Rabies exposure (Primary Dx) Discharge Disposition: Home or Self [...] Sign Reading Time Taken Comments Blood Pressure 125/77 03/27/2023 192 EDT Pulse 91 03/27/20231927 EDT Temperature 36.8 ??C (98.2 ??F) 03/27/2023 1659 EDT Respiratory Rate 18 03/27/20231927 EDT Oxygen Saturation 98% 03/27/2023 1928 EDT Inhaled Oxygen Concentration - - Weight 108.4 kg (239 lb) 03/27/2023 1534 EDT Height 162.6 cm (5' 4) 03/27/2023 1534 EDT Body Mass Index 41.02 03/27/2023 1534 EDT documented in this encounter Functional Status Functional Status Response Date of Assess ment Are you deaf or do you have serious difficulty h earing? No 01/01/2023 documented as of this encounter Discharge Instructions * Discharge Instructions* Dana Aguilar PA-C - 03/27/2023 18:31 EDT You are seen in the ER for rabies prevention. You got a one-time dose of immunoglobulin in the arm at the site of the bite. You also received your first rabies vaccine. This will need to be repeated on day 3, 5 7 and 14. I have reached out to our care management team to see if we can create a follow-up plan for AC do not have to return to the emergency department for the remaining vaccines. However, if you are unable tomake a follow-up plan with them you may need to return to the ER for the vaccines. Return to the ER as needed. Follow-up with your PCP and OB. * Attachments The following attachments cannot be sent through Care Everywhere. * Rabies Vaccine: VIS (Tristanian) documented in this encounter Medications at Time [...] needed for Pain. 60 Tablet 03/31/2023 03/31/2023 ibuprofen (MOTRIN) 600 mg tablet Take [...] Means Destination Comment s Home or Self Assisted documented in this encounter ED Notes * Dana Aguilar PA-C - 03/27/20232015 EDT Emergency Department Visit Medical Decision Making 28 y.o. female currently 40 weeks who presents to the ED for evaluation after she suspectsshe was bitten by a bat 4 days ago requesting postexposure prophylaxis. I spoke with Dr. Mcpherson, BUSINESS SPECIALIST, reports that there are no contraindications to receiving the IVIG order vaccination in . She was given her first vaccination. She was given an infiltration of 9 cc the IVIG close to the bite wound with the remainder given IM in the left deltoid. There was some swelling and itching after the administration, improved with ice. Return precautions reviewed. Follow-up plan with express care for the remainder of her vaccination series. Medical Decision Making Rabies exposure: complicated acute illness or injury Risk Prescription drug management. Final diagnoses: Rabies exposure Disposition: Discharged Chief complaint: Bat bite, rabies prophylaxis HPI Eleni Rain is a 28 y.o. female currently 40 weeks who presents to the ED for evaluation after she suspects she was bitten by a bat 4 days ago. Patient reports that she woke up with 2 bite garcia in the left forearm 4 days ago. They ended up finding a live bat in the room. The partner killed the bat and disposed of it. They did not bring it in for testing. She has decided that she would like postexposure prophylaxis. She has not received rabies vaccination previously. Reports that the bite site is itchy. She feels otherwise well. She has notified her OB providers. She is scheduled for induction tomorrow. History was provided by: Patient Records reviewed include: None Patient's pertinent PMH, FH, SH were reviewed and edited as necessary. Nursing notes reviewed. A medical screening exam was performed. Physical Exam BP 125/77 Pulse 91 Temp 36.8 ??C (98.2 ??F) (Skin) Resp 18 Ht 162.6 cm (64) Wt (!) 108.4kg (239 lb) SpO2 98% BMI 41.02 kg/m?? Physical Exam Constitutional: General: She is not in acute distress. Appearance: Normal appearance. She is not ill-appearing. HENT: Head: Normocephalic and atraumatic. Mouth/Throat: Mouth: Mucous membranes are moist. Cardiovascular: Rate and Rhythm: Normal rate. Pulmonary: Effort: Pulmonary effort is normal. Musculoskeletal: General: Normal range of motion. Skin: General: Skin is warm and dry. Comments: 2 small erythematous round [id number] wounds on the dorsum of the left forearm, one with excoriation. No surrounding erythema Neurological: General: No focal deficit present. Mental Status: She is alert. Psychiatric: Mood and Affect: Mood normal. Procedures Procedures * Claire Muñoz RN - 03/27/2023 1857 EDT PT's left forearm wrapped and heat applied d/t increased swelling at wound/injection site. PA awareand discharge on hold. documented in this encounter Plan of Treatment Not on file documented as of this encounter Visit Diagnoses Diagnosis Rabies exposure- Primary Contact with or exposure to rabies documented in this encounter Administered Medications Inactive Administered Medications - up to 3 most recent administrations Medication Order MAR Action Action Date Dose Rate Site rabies immune globulin 150 unit/mL injection 2,175 Units 2,175 Units (rounded from 2,168 Units = 20 Units/kg ? 108.4 kg), intramuscular, NOW X1, 1 dose, On Sat03/27/23 at 1730, Routine, Release Given by Other 03/27/2023 19:07 EDT 2,175 Units documented in this encounter Active and Recently Administered Medications Times are shown in EDT. Scheduled Medication Order 03/25/2023 03/26/2023 03/27/2023 rabies immune globulin 150 unit/mL injection 2,175 Units (COMPLETED) 2,175 Units (rounded from 2,168 Units = 20 Units/kg ? 108.4 kg), intramuscular, NOW X1, 1 dose, On 03/27/23 at 1730, Routine, Release 1907 (Given by Other - Provider: Jerzy Camejo RN - Comment: administered) documented in this encounter Orders Nursing Count Last Ordered Date First Orde red Date CALL PHYSICIAN SPECIALTY CONSULT 1 03/27/20 23 documented in this encounter Care Teams Piece Goods Packer Relationship Specialty Start Date End Date None, Provider PCP - General 04/05/22 documented as of this encounter
--- OUTSIDE RECORDS SUMMARY | 2024-02-15 16:05 | XMS_ITS | Encounter Summary ---
Author Organization [facility] Address [address] [place] [address] Care Team Providers Care Corporate Giving Manager Name Role Phone None, Provider Primary Care Provider Unavailabl e Reason for Visit * Reason Comments Routine Visit Encounter Details Date Type Department Care Team (Late st Contact Info) Description 03/19/2023 16:00 EDT Routine [facility] - [address] [address] Jyothi Hawthorne NP [facility] [address] [facility] [address] [place] [address] [place]: [id number] Social History Tobacco Use Types Packs/Day Years [...] Sign Reading Time Taken Comments Blood Pressure 116/72 03/19/2023 1620 EDT Pulse - - Temperature - - Respiratory Rate - - Oxygen Saturation - - Inhaled Oxygen Concentration - - Weight 109.5 kg (241 lb 8 oz) 03/19/2023 1620 ED T Height 162.6 cm (5' 4.02) 03/19/2023 1620 EDT Body Mass Index 41.43 03/19/2023 1620 EDT documented in this encounter Functional Status Functional Status Response Date of Assess ment Are you deaf or do you have serious difficulty h earing? No 01/01/2023 documented as of this encounter Progress Notes * Jyothi Hawthorne APRN - 03/19/2023 1600 EDT 28 y.o. at 38w6d here today for a routine visit. Patient endorses good FM. Denies VB, LOF. Denies s/sxs of preE. Concerns: Reviewed labs None, doing well Met with FRAN DAVIS today Today is last day of ABx for UTI - will need CARIE at next AP O: Vitals: BP: 116/72 Height: 162.6 cm (64.02) Weight : (!) 109.5 kg (241 lb 8 oz) BMI: 41.519 Fundal Height (cm): 39 cm Heart Rate: 125 Movement: Present Presentation: Vertex A/P: 28 y.o. at 38w6d - Concerns Addressed: As above Finish Abx Term precautions How to get ahold of fire information officer provider after hours - both put number into phone - Routine Care: Term precautions reviewed Follow-up for AP visit in 1 week, sooner [facility] Jyothi Hawthorne CNM, DYNAMOMETER TESTER Certified Nurse Flight Test Supervisor & Family Nurse Practitioner documented in this encounter Plan of Treatment Not on file documented as of this encounter Visit Diagnoses Diagnosis , supervision, high-risk, third trimester- Primary Limited care, antepartum Obesity affecting , antepartum 38 weeks gestation of state, incidental documented in this encounter Care Teams Corporate Giving Manager Relationship Specialty Start Date End Date None, Provider PCP - General 04/05/22 documented as of this encounter
--- OUTSIDE RECORDS SUMMARY | 2024-02-15 16:05 | XMS_ITS | Encounter Summary ---
Author Organization [facility] Address [address] [place] [address] Care Team Providers Care Stripper Soft Plastic Name Role Phone None, Provider Primary Care Provider Unavailabl e Reason for Visit * Reason Onset Date Comments Follow-up 04/12/2023 Encounter Details Date Type Department Care Team (Late st Contact Info) Description 04/12/2023 Telephone [facility] [address] [place], [place] [id number] Елена Mendoza [address] [place] [address] [address] [place] [address] Follow-up Social History Tobacco Use Types Packs/Day Years Used Date Smoking Tobacco: Former Cigarettes Smokeless Tobacco: Never Alcohol Use Standard Drinks/Week Comments Not Currently 0 (1 standard drink = 0.6 oz pur e alcohol) Vulcan Depression Scale Answer Date Recorded Vulcan Depression Scale Total 9 04/02/2023 The thought [...] * Telephone Encounter - Елена Mendoza - 04/12/2023 0139 EDT Call to pt for 2 week pp mh wellness, no ans, lm for pt to contact clinician as needed, confirmed 6week pp medical and mh appts; clinician will work to reach pt before 05/14/23 appts. documented in this encounter Plan of Treatment Not on file documented as of this encounter Visit Diagnoses Not on filedocumented in this encounter Care Teams Stripper Soft Plastic Relationship Specialty Start Date End Date None, Provider PCP - General 04/05/22 documented as of this encounter
--- OUTSIDE RECORDS SUMMARY | 2024-02-15 16:05 | XMS_ITS | Encounter Summary ---
Author Organization [facility] Address [address] [place] [address] Care Team Providers Care Data Analysis Manager Name Role Phone None, Provider Primary Care Provider Unavailabl e Reason for Referral * Consult (Routine/Next Available) - Closed Specialty Diagnoses / Procedures Referred By Contac t Referred To Contact Obstetrics & Gynecology Diagnoses care in third trimester Bianca Duarte DNP CNM [address] [facility] [place] [address] Martha Dong Referral ID Status Reason Start Date Expiration Date V isits Requested Visits Authorized [id number] Closed Specialty Services Required 03/14/2023 1 1 Question Answer Nutrition/certified adapted physical educator/Education: nutrition * Consult (Routine/Next Available) - Specialty Report Received Specialty Diagnoses / Procedures Referred By Contac t Referred To Contact Obstetrics & Gynecology Diagnoses care in third trimester Bianca Duarte DNP CNM [address] [facility] [place] [address] Елена Mendoza [address] [facility] [address] [place] [address] Referral ID Status Reason Start Date Expiration Date Visits Requested Visits Authorized [id number] Specialty Report Received Specialty Services Required 03/14/2023 1 1 Question Answer Behavioral Health: Trauma, Interpersonal conflict Comments Pt was seen for IVAP at 38 w. Pt was seen at [facility] and a mat laguerre called on partner. DCF report filed by [facility] Reason for Visit * Reason Comments Initial Visit Encounter Details Date Type Department Care Team (Late st Contact Info) Description 03/14/2023 10:00 EDT Initial [facility] [address] [place] [address] Bianca Duarte DNP [facility] [address] [facility], [address] [place] [address] GA: [id number] Social History Tobacco Use Types Packs/Day Years [...] Sign Reading Time Taken Comments Blood Pressure 104/68 03/14/2023 1054 EDT Pulse - - Temperature - - Respiratory Rate - - Oxygen Saturation - - Inhaled Oxygen Concentration - - Weight 107.1 kg (236 lb 3.2 oz) 03/14/2023 1054 EDT Height 162.6 cm (5' 4.02) 03/14/2023 1054 EDT Body Mass Index 40.52 03/14/2023 1054 EDT documented in this encounter Functional Status Functional Status Response Date of Assess ment Are you deaf or do you have serious difficulty h earing? No 01/01/2023 documented as of this encounter Progress Notes * Bianca Duarte CNM - 03/14/2023 1000 EDT [facility] Women's Health - Initial Visit Subjective: Eleni Rain is a 28 y.o. No LMP recorded. Patient is . Here to establish care. Was seen in triage yesterday on [facility] for leaking fluid and lower pelvic pressure. PROM and labor ruled out. Was seen at [facility] and had an intital US at when she was 7 weeks. She states she was then seen in [facility] for a visit. She aso had an initital visit at [facility] on 01/14/23 with a follow up on 01/28/23 for symphis pubis dysfunction - Please read that visit note. Plans on . Wants to use nitrous for pain control. This is is desired. Partner is involved? Yes - - states she is in a safe space and he is a good when asked when he was not in room Outpatient Medications Marked as Taking for the 03/14/23 encounter (Initial ) with Bianca Duarte CNM Medication Sig ??? Cholecalciferol, Vitamin D3, 25 mcg (1,000 unit) capsule Take by mouth daily. ??? multivitamin vit-iron fumarate-FA (WESTAB PLUS) 27 mg iron- 1 mg tablet tablet Take 1 Tablet by mouth daily. ??? omega-3s/dha/epa/fish oil (OMEGA 3 ORAL) Take 1 Capsule by mouth daily. Other medications/substances since LMP: None No Known Allergies OB History 1 Para Term AB Living SAB IAB Ectopic Multiple Live Births History reviewed. No pertinent past medical history.: History reviewed. No pertinent surgical history.: History reviewed. No pertinent family history. Social History Occupational History ??? Not on file Tobacco Use ??? Smoking status: Former Types: Cigarettes ??? Smokeless tobacco: Never Substance and Sexual Activity ??? Alcohol use: Not Currently ??? Drug use: Never ??? Sexual activity: Yes Partners: Male Objective: BP 104/68 Ht 162.6 cm (64.02) Wt (!) 107.1 kg (236 lb 3.2 oz) BMI 40.52 kg/m?? See physical Assessment: 28 y.o. year old for IVAP visit Now 38.1 wks by US 1. care in third trimester US OB FOLLOWUP HEPATITIS C AB W REFLEX TO HCV RNA BY PCR CHLAMYDIA/N. GONORRHOEAE AMPLIFIED RNA TRICHOMONAS VAGINALIS PCR - [facility] FERRITIN CHLAMYDIA/N. GONORRHOEAE AMPLIFIED RNA TRICHOMONAS VAGINALIS PCR - [facility] Plan 1. care: labs ordered 2. Has all community supports in place - they have their own apartment and not living in a hotel any longer 3. CHT referral 7. Education: Oriented to practice, IVAP packet reviewed with client by RN & handouts given 8. Third trimester precautions reviewed 9. Added to Epic Due List Yes 10. Discussed plan 11. Discussed IOL a 41 weeks 12. Gained possibly 75 pounds in - stated she was 165 before AP visit in 4 weeks, call or see sooner PRN * Luz Dwyer, GRACE - 03/14/2023 1000 EDT COVID-19 vaccine? 4 doses Social History: Do you have stable housing? Apartment Do you have transportation to get to appointments? Yes Do you have any financial concerns or food insecurities and do you use any services at this time? Do you use any services (ie WIC, [employer], Reach Up)? [employer], Reach up, WIC/ Eco services Do you work with any case workers or care managers?NA Do you have a PCP?NA documented in this encounter Plan of Treatment Scheduled Referrals Name Type Priority Associated Diagnoses Order Schedule AMB CONS/FOLLOW UP TOBACCO CESSATION & BEHAVIORAL HEALTH Outpatient Referral Routine/Next Available care in third trimester Expected: 03/21/2023 (Approximate), Expires: 03/14/2024 AMB CONS/FOLLOW UP PROJECT ADMINISTRATOR, SUPERVISOR IRRIGATION AND NUTRITION Outpatient Referral Routine/Next Available care in third trimester Expected: 03/21/2023 (Approximate), Expires: 03/14/2024 documented as of this encounter Procedures Procedure Name Priority Date/Time Associated Diagnosis Comments TRICHOMONAS VAGINALIS PCR - [facility] Routine 03/14/2023 11:58 EDT care in third trimester CHLAMYDIA/N. GONORRHOEAE AMPLIFIED NUCLEIC ACID Routine 03/14/2023 11:58 EDT care in third trimester documented in this encounter Results * TRICHOMONAS VAGINALIS PCR - [facility] (03/14/2023 11:58 EDT) Trichomonas Vaginalis, PCR Not Detected Not Detected 03/14/2023 20:16 EDT [facility] Comment:Xpert TV assay perfo rmance has not been evaluated in women or in patients with a history of hysterectomy. Urine URINE / Unknown Urine Collect / Unknown 03/14/2023 11:58 EDT 03/14/2023 11:58 EDT Bianca JEAN BAPTISTE MICROBIOLOG Y - GENERAL ORDERABLES Performing Organization Address [facility]/ZIP Co de Phone Number [facility] [address] [place] [address] * CHLAMYDIA/N. GONORRHOEAE AMPLIFIED RNA (03/14/2023 11:58 EDT) Neisseria gonorrhoeae Result Negative Negative 03/14/2023 20:36 EDT [facility] Chlamydia trachomatis Result Negative Negative 03/14/2023 20:36 EDT [facility] Urine URINE / Unknown Urine Collect / Unknown 03/14/2023 11:58 EDT 03/14/2023 11:58 EDT Narrative [facility] - 03/14/2023 20:36 EDT A first catch urine specimen is acceptable for detection of Gonorrhea and Chlamydia, but might detect up to 10% fewer infections when compared with vaginal and endocervical swab samples. ? ? Xpert CT/NG Assay performance has not been evaluated in patients less than 14 years of age. ? ? Xpert CT/NG Assay performance has not been evaluated in women, or in patients with a history of hysterectomy. Bianca JEAN BAPTISTE MICROBIOLOG Y - GENERAL ORDERABLES Performing Organization Address City/[facility]/ZIP Co de Phone Number [facility] [address] [place] [address] * US OB FOLLOWUP (03/14/2023 10:48 EDT) Anatomical Region Laterality Modality Pelvis Ultrasound Narrative 03/15/2023 19:39 EDT Indication ======== Late care/ Care at [facility]/ Needs growth Dx: care in third trimester [Z34.93 (ICD-10-CM)] Dating ====== ? Date ?Details ? Gest. age ?? SAVANNAH LMP ?06/20/2022 ?38 w + 1 d ??03/27/2023 U/S ?03/14/2023 ?? based upon AC, BPD, Femur, HC ? 37 w + 6 d ??03/29/2023 Assigned dating ?based on the LMP, selected on 03/14/2023 ? 38 w + 1 d 03/27/2023 General Evaluation Cardiac activity present. FHR 145 bpm. movements: visualized. Presentation: cephalic Placenta: anterior Umbilical cord: normal Amniotic fluid: MVP 5.7 cm. NATALIE 16.7 cm. Q1 5.6 cm, Q2 5.7 cm, Q3 4.9 cm, Q4 0.4 cm normal amount Anatomy The following structures appear normal: Head / Neck ?Head shape. Lateral ventricles. Midline falx. Heart / Thorax 4-chamber view. Abdomen ?Stomach. Kidneys. Bladder. Biometry BPD ?91.2 ?mm ??37w 0d ??43% Hadlock HC ? 329.6 ?? mm ??37w 4d ??18% Hadlock AC ? 347.9 ?? mm ??38w 5d ??81% Hadlock Femur ?74.5 ?mm ??38w 1d ??53% Hadlock Humerus ?66.5 ?mm ?85% Meneses HC / AC ?0.95 ?21% Nicolaides Weight Calculation: EFW ?3,428 ?? g ? 67% Gonzales EFW (lb,oz) ?7 lb 9 ??oz EFW by Hadlock ([id number]) Head / Face / Neck Biometry: Elementary Teacher ? 2.1 ? mm Extremities / Bony Struc Biometry: FL / BPD ? 0.82 FL / HC ?0.23 FL / AC ?0.21 Growth Overview Exam date ??GA ??BPD (mm) ?HC (mm) AC (mm) FL (mm) HL (mm) EFW (g) 03/14/2023 38w 1d ??91.2 ?43% 329.6 ?? 18% 347.9 ?? 81% 74.5 ?53% 66.5 ?85% 3428 ?67% Technique ======== [facility] [id number]. View: Transabdominal Impression ========= [id number] Follow-up obstetrical ultrasound This is a osorio gestation. biometry is consistent with prior dating. Except where noted above, the anatomy was not reviewed in detail as this is a follow-up study and the anatomy was previously assessed. Normal fluid and movement are noted. Follow-up ======== Follow-up as clinically indicated. Procedure Note Mariann Maloney MD - 03/15/2023 Indication ======== Late care/ Care at [facility]/ Needs growth Dx: care in third trimester [Z34.93 (ICD-10-CM)] Dating ====== Date Details Gest. age SAVANNAH LMP 06/20/2022 38 w + 1 d 03/27/2023 U/S 03/14/2023 based upon AC, BPD, Femur, HC 37 w + 6 03/29/2023 Assigned dating based on the LMP, selected on 03/14/2023 38 w +1 d 03/27/2023 General Evaluation Cardiac activity present. FHR 145 bpm. movements: visualized.Presentation: cephalic Placenta: anterior Umbilical cord: normal Amniotic fluid: MVP 5.7 cm. NATALIE 16.7 cm. Q1 5.6 cm, Q2 5.7 cm, Q3 4.9 cm,Q4 0.4 cm normal amount Anatomy The following structures appear normal: Head / Neck Head shape. Lateral ventricles. Midline falx. Heart / Thorax 4-chamber view. Abdomen Stomach. Kidneys. Bladder. Biometry BPD 91.2 mm 37w 0d 43% Hadlock HC 329.6 mm 37w 4d 18% Hadlock AC 347.9 mm 38w 5d 81% Hadlock Femur 74.5 mm 38w 1d 53% Hadlock Humerus 66.5 mm 85% Meneses HC / AC 0.95 21% Nicolaides Weight Calculation: EFW 3,428 g 67% Gonzales EFW (lb,oz) 7 lb 9 oz EFW by Hadlock ([id number]) Head / Face / Neck Biometry: Elementary Teacher 2.1 mm Extremities / Bony Struc Biometry: FL / BPD 0.82 FL / HC 0.23 FL / AC 0.21 Growth Overview Exam date GA BPD (mm) HC (mm) AC (mm) FL (mm) HL (mm) EFW (g) 03/14/2023 38w 1d 91.2 43% 329.6 18% 347.9 81% 74.5 53% 66.585% 3428 67% Technique ======== [facility] [id number]. View: Transabdominal Impression ========= [id number] Follow-up obstetrical ultrasound This is a osorio gestation. biometry is consistent with prior dating. Except where noted above, the anatomy was not reviewed in detail asthis is a follow-up study and the anatomy was previously assessed. Normal fluid and movement are noted. Follow-up ======== Follow-up as clinically indicated. Bianca JEAN BAPTISTE IMG US OB O RDERABLES * (ABNORMAL) FERRITIN (03/13/2023 13:34 EDT) Pathologist [facility] Ferritin 7(L) 11 - 264 ng/mL 03/14/2023 12:49 EDT [facility] Blood VENOUS BLOOD / Unknown Venipuncture / Unknown 03/13/2023 13:34 EDT 03/13/2023 13:44 EDT Narrative [facility] - 03/14/2023 12:49 EDT The results of this assay can be falsely lowered due to the consumption of Biotin. Bianca Duarte DNP [facility] CHEMISTRY & BLOOD GAS ORDERABLES Performing Organization Address [facility] Co de Phone Number [facility] [address] [place] [address] * HEPATITIS C AB W REFLEX TO HCV RNA BY PCR (03/13/2023 13:34 EDT) Pathologist [facility] Hep C Antibody Negative Negative 03/14/2023 11:58 EDT [facility] Blood VENOUS BLOOD / Unknown Venipuncture / Unknown 03/13/2023 13:34 EDT 03/13/2023 13:44 EDT Bianca Duarte DNP [facility] CHEMISTRY & BLOOD GAS ORDERABLES Performing Organization Address City/[facility]/ZIP Co de Phone Number [facility] [address] [place] [address] documented in this encounter Visit Diagnoses Diagnosis care in third trimester- Primary documented in this encounter Historical Medications * This list may reflect changes made after this encounter. Medication Sig Dispensed Refills Start Date End Date Cholecalciferol, Vitamin D3, 25 mcg (1,000 unit) capsule Take by mouth daily. 09/14/2022 added in this encounter Care Teams Data Analysis Manager Relationship Specialty Start Date End Date None, Provider PCP - General 04/05/22 documented as of this encounter
--- OUTSIDE RECORDS SUMMARY | 2024-02-15 16:05 | XMS_ITS | Encounter Summary ---
Author Organization [facility] Address [address] [place] [address] Care Team Providers Care Aviation Project Engineer Name Role Phone None, Provider Primary Care Provider Unavailabl e Reason for Visit * Reason Onset Date Comments Post- Care 04/02/2023 Has had a heada jimenez since she delivered 03/29/2023 Encounter Details Date Type Department Care Team (Late st Contact Info) Description 04/02/2023 Telephone [facility] [address] [place] [address] Laura Villavicencio MD [address] [facility], [address] [place] [address] Post- Care (Has had a headache since she delivered 03/29/2023 ) Social History Tobacco Use Types Packs/Day Years Used Date Smoking Tobacco: Former Cigarettes Smokeless Tobacco: Never Alcohol Use Standard Drinks/Week Comments Not Currently 0 (1 standard drink = 0.6 oz pur e alcohol) Hamlin Depression Scale Answer Date Recorded [place] Depression Scale Total 9 04/02/2023 The thought [...] encounter Miscellaneous Notes * Telephone Encounter - Jyothi Hawthorne APRN - 04/02/2023 1343 EDT Agree with plan. There is a RX that was sent to her pharmacy for tylenol on d/c from the hospital. Just FYI. Jyothi Hawthorne CNM, HEALTH POLICY MANAGER Certified Nurse Crane Mechanic & Family Nurse Practitioner * Telephone Encounter - Lisa Holloway RN - 04/02/2023 1135 EDT Spoke with Jyothi. Have pt also take 650 mg of tylenol now. Caffeine/hydrate/rest. Please come in for NV this afternoon for BP check Pt states no tylenol at home. States understanding of plan; will hydrate and rest. Accepts NV for BP check today. Would like to discuss control as well. Discussed this would not be the focus oftoday's appt. Pt instructed to come to ER if she begins feeling worse prior to appt. Pt agrees with instructions * Telephone Encounter - Lisa Holloway RN - 04/02/2023 1104 EDT Delivered: 03/28/23 for E IOL - Discharged: 03/31/23 - no mention of MACIAS; no BP issues F/u appt - RN TM & CHT: 04/12/23 PP appt: 05/14/23 Spoke with pt - states that MACIAS started mid day yesterday (NOT since delivery). Taking ibuprofen as needed - 400 mg don't like to take too much and it's not helping. Just took some now. Last took last night before bed. (so not taking regularly) Tried resting to see if it would go away; it was still there when she woke up this morning. Pt reports - it feels like my legs are dragging when I walk, and it's like I can feel my blood pressure in my feet; they feel warm, numb, tingly- this started yesterday ; no swelling noted in either leg. Legs are the same size. No redness in either leg / calf. Reports leg cramps as well has been going on since she got home - legs, thighs, hips. Some nausea yesterday; no vomiting. Able to eat today, but no appetite yesterday. my forehead has felt warm - doesn't have a thermometer. Trying to drink - had a couple of 16 oz bottles of water yesterday; one so far today. Discussed needs to increase fluids. Pumping and feeding; supplementing with formula. Trying to rest as much as possible. Bleeding is better - more like a normal period - changing pad every time she goes to the restroom (not soaked). Only cramping when pumping. Told pt I will discuss all of the above with consulting marine engineer team and call her back with a plan; recommended pt increase po hydration and try to rest until we call back. Pt verbalized understanding * Telephone Encounter - Ondina Davis - 04/02/2023 1055 EDT PPE pt has had a headache since she delivered on 03/29/2023 documented in this encounter Plan of Treatment Not on file documented as of this encounter Visit Diagnoses Not on filedocumented in this encounter Care Teams Aviation Project Engineer Relationship Specialty Start Date End Date None, Provider PCP - General 04/05/22 documented as of this encounter
--- OUTSIDE RECORDS SUMMARY | 2024-02-15 16:05 | XMS_ITS | Encounter Summary ---
Author Organization [facility] Address [address] [place] [address] Care Team Providers Care Scoop Operator Name Role Phone None, Provider Primary Care Provider Unavailabl e Reason for Visit * Reason Onset Date Comments Other 04/24/2023 Encounter Details Date Type Department Care Team (Late st Contact Info) Description 04/24/2023 Telephone [facility] [address] [place] [address] Stephenie Gordillo MD [address] [facility], [address] [place] [address] Other Social History Tobacco Use Types Packs/Day Years Used Date Smoking Tobacco: Former Cigarettes Smokeless Tobacco: Never Alcohol Use Standard Drinks/Week Comments Not Currently 0 (1 standard drink = 0.6 oz pur e alcohol) Liberty Depression Scale Answer Date Recorded Liberty Depression Scale Total 9 04/02/2023 The thought [...] Telephone Encounter - Lisa Holloway RN - 04/25/2023 1551 EDT Spoke with pt; relayed information. Discussed possible sooner appt. Looked for sooner appt; none. Discussed wait list; pt upset; suggested PCP; pt states no PCP; repeated my msg out loud, then a malevoice was on the phone, demanding more information. I asked twice who I was speaking to - he said the spouse. I reviewed the same information as above. Discussed waiting list x 2; asked for her to remain on waiting list for sooner appt. Her spouse asked if any medical provider could write the letter. Discussed that would be up to whomever she sees. He verbalized understanding. Call ended. * Telephone Encounter - Jyothi Hawthorne APRN - 04/25/2023 1530 EDT Her d/c paperwork from [facility] on [facility] states may return to work in 6 wks. I recommend that she wait until then. Also welcome her to schedule a visit sooner with a provider to chat about the risks/benefits of sooner return. Jyothi Hawthorne CNM, TRACK MOVING MACHINE OPERATOR Certified Nurse Molding Technician & Family Nurse Practitioner * Telephone Encounter - Lisa Holloway RN - 04/25/2023 1208 EDT Delivered: 03/29/23 Last appt: 04/02/23 PP ext visit for MACIAS Presented to [facility] 04/06/23 For MACIAS - PEC r/o and pt instructed to f/u with our office NS for RN TM appt on 04/23/23; NS for in office visit on 04/12/23 Next appt: PP visit with MF 05/14/23 Spoke with pt. States feeling fine. No more MACIAS's, no visual changes. No more bleeding. 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 Pt reticent to answering questions. Explained I was trying to help and get the information needed for providers to make decision. Pt states I feel fine; I should be able to go back to work. Told pt I would speak with the industrial organization manager providers and call her back when we have a update. Pt verbalized understanding. * Telephone Encounter - Abyb Soto MA - 04/25/2023 1153 EDT Pt called back would like a Dr's note to go back to work. Said she received a call to call the office back. Pt stated she feels fine and wants a letter saying she can go back today. * Telephone Encounter - Shavonne Perkins RN - 04/24/2023 1405 EDT L/M for pt stating I got the message she needs a letter, please call the office back, we need to doa couple things but then we can likely be able to get her letter for her soon. Pt needs to come in tomorrow or soon, for at least a nurse visit to be seen, BP done and routine care. * Telephone Encounter - Telma Shah - 04/24/2023 1230 EDT PAS Message: Would like a return to work letter, is ready to go back to work and employer needs a letter to confirm. documented in this encounter Plan of Treatment Not on file documented as of this encounter Visit Diagnoses Not on filedocumented in this encounter Care Teams Scoop Operator Relationship Specialty Start Date End Date None, Provider PCP - General 04/05/22 documented as of this encounter
--- OUTSIDE RECORDS SUMMARY | 2024-02-15 16:05 | XMS_ITS | Encounter Summary ---
Author Organization [facility] Address [address] [place] [address] Care Team Providers Care Paper Coating Supervisor Name Role Phone None, Provider Primary Care Provider Unavailabl e Encounter Details Date Type Department Care Team (Latest Contact Info) Description 05/29/2023 Travel Social History Tobacco Use Types Packs/Day Years Used Date Smoking Tobacco: Former Cigarettes Smokeless Tobacco: Never Alcohol Use Standard Drinks/Week Comments Not Currently 0 (1 standard drink = 0.6 oz pur e alcohol) Shaw[place] Depression Scale Answer Date Recorded [place] Depression Scale Total 9 04/02/2023 The thought [...] No 05/29/2023 documented as of this encounter Plan of Treatment Not on file documented as of this encounter Visit Diagnoses Not on filedocumented in this encounter Care Teams Paper Coating Supervisor Relationship Specialty Start Date End Date None, Provider PCP - General 04/05/22 documented as of this encounter
--- OUTSIDE RECORDS SUMMARY | 2024-02-15 16:05 | XMS_ITS | Encounter Summary ---
Author Organization [facility] Address [address] [place] [address] Care Team Providers Care Shampooer Name Role Phone None, Provider Primary Care Provider Unavailabl e Reason for Visit * Reason Onset Date Comments Follow-up 04/12/2023 Encounter Details Date Type Department Care Team (Late st Contact Info) Description 04/12/[address] [facility] [address] [place], [place] [id number] Елена Mendoza [address] [place] [address] [address] [place] [address] Follow-up Social History Tobacco Use Types Packs/Day Years Used Date Smoking Tobacco: Former Cigarettes Smokeless Tobacco: Never Alcohol Use Standard Drinks/Week Comments Not Currently 0 (1 standard drink = 0.6 oz pur e alcohol) [place] Depression Scale Answer Date Recorded [place] Depression Scale Total 9 04/02/2023 The thought [...] Telephone Encounter - Елена Mendoza - 04/12/2023 1421 EDT Call to pt for f/u from 2 wk pp mh visit no show, spoke with pt who could not talk at this time, agreement to change visit to telephone and for clinician to call back at 3:19. documented in this encounter Plan of Treatment Not on file documented as of this encounter Visit Diagnoses Not on filedocumented in this encounter Care Teams Shampooer Relationship Specialty Start Date End Date None, Provider PCP - General 04/05/22 documented as of this encounter
--- OUTSIDE RECORDS SUMMARY | 2024-02-15 16:05 | XMS_ITS | Encounter Summary ---
Author Organization [facility] Address [address] [place] [address] Care Team Providers Care County Superintendent Of Schools Name Role Phone None, Provider Primary Care Provider Unavailabl e Encounter Details Date Type Department Care Team (Latest Contact Info) Description 03/27/2023 Travel Social History Tobacco Use Types Packs/Day [...] on filedocumented in this encounter Care Teams County Superintendent Of [employer] Relationship Specialty Start Date End Date None, Provider PCP - General 04/05/22 documented as of this encounter
--- OUTSIDE RECORDS SUMMARY | 2024-02-15 16:05 | XMS_ITS | Encounter Summary ---
Author Organization [facility] Address [address] [place] [address] Care Team Providers Care Gear Room Keeper Name Role Phone None, Provider Primary Care Provider Unavailabl e Encounter Details Date Type Department Care Team (Latest Contact Info) Description 03/13/2023 Travel Social History Tobacco Use Types Packs/Day [...] on filedocumented in this encounter Care Teams Gear Room Keeper Relationship Specialty Start Date End Date None, Provider PCP - General 04/05/22 documented as of this encounter
--- OUTSIDE RECORDS SUMMARY | 2024-02-15 16:05 | XMS_ITS | Encounter Summary ---
Author Organization [facility] Address [address] [place] [address] Care Team Providers Care Visual Designer Name Role Phone None, Provider Primary Care Provider Unavailabl e Encounter Details Date Type Department Care Team (Latest Contact Info) Description 03/19/2023 Travel Social History Tobacco Use Types Packs/Day [...] on filedocumented in this encounter Care Teams Visual Designer Relationship Specialty Start Date End Date None, Provider PCP - General 04/05/22 documented as of this encounter
--- OUTSIDE RECORDS SUMMARY | 2024-02-15 16:05 | XMS_ITS | Encounter Summary ---
Author Organization [facility] Address [address] [place] [address] Care Team Providers Care Supervisor Paint Roller Covers Name Role Phone None, Provider Primary Care Provider Unavailabl e Reason for Referral * (Routine/Next Available) - New Request Specialty Diagnoses / Procedures Referred By [facility] t Referred To Contact Diagnoses , supervision, high-risk, third trimester Procedures INDUCTION OF LABOR Bianca Duarte DNP CN [address] [facility], [address] [place] [address] Referral ID Status Reason Start Date Expiration Date V isits Requested Visits Authorized [id number] New Request 03/27/2023 1 1 Reason for Visit * Reason Comments Routine Visit Encounter Details Date Type Department Care Team (Late st Contact Info) Description 03/27/2023 13:20 EDT Routine [facility] [address] [place] [address] Bianca Duarte DNP [facility] [address] [facility], [address] [place] [address] GA: [id number] Social History Tobacco Use Types Packs/Day Years [...] Sign Reading Time Taken Comments Blood Pressure - - Pulse - - Temperature - - Respiratory Rate 16 03/27/2023 1337 EDT Oxygen Saturation - - Inhaled Oxygen Concentration - - Weight 108.4 kg (239 lb) 03/27/2023 1337 EDT Height 162.6 cm (5' 4) 03/27/2023 1337 EDT Body Mass Index 41.02 03/27/2023 1337 EDT documented in this encounter Functional Status Functional Status Response Date of Assess ment Are you deaf or do you have serious difficulty h earing? No 01/01/2023 documented as of this encounter Progress Notes * Bianca Duarte CNM - 03/27/2023 1320 EDT G 1, P 0 Gestational Age 40 W, 0 D Blood Type B POS Immunizations: [n/a] Flu [X] Tdap [N/A] Rhogam [x] Covid vaccine Movement yes Vag bleeding no Fluid Loss: ?leak watery fluid last week ?incontinent Over 28 weeks gestation: Headache no Vision Changes no RUQ/Epigastric pain no Chest Pain no SOB no Edema no Today's Teaching/Test To Do's this visit: Global Checklist Updated * Bianca Duarte CNM - 03/27/2023 1320 EDT 28 y.o. at 40w0d here today for a routine visit. Patient endorses good FM. Denies VB, LOF. Denies s/sxs of preE. Concerns: O: Vitals: Height: 162.6 cm (64) Weight : (!) 108.4 kg (239 lb) BMI: 41.11 Fundal Height (cm): 39 cm Heart Rate: 125 Movement: Present Presentation: Vertex Dilation: 1 Effacement (%): 40 Station: -3 A/P: 28 y.o. at 40w0d - Concerns Addressed: Eleni states she is really uncomfortable and wants to be induced States she was having contractions all night, but they stopped this morning Discussed and consented for membrane sweep today - tolerated well Discussed that she is technically an elective induction and could possibly be bumped if unit has spontaneous labors come in. Discussed process of induction and timing. Discussed misoprostol as my recommendation for ripening.Her and partner verbalized understanding. Discussed date for induction and waiting until next week, but patient wants to be induced this week. IOL form sent. Handout given. Talked with Melissa Ruiz on [facility] and offered the soonest as tomorrow at 0600. Patient was happy with that timing. US on 03/14/23 shows EFW 3428 67% - AC 81% - NATALIE 16.7 Never completed ordered GTT, but HGB A1C was 5.1 on 03/13/23 Negative GBS - Routine Care: Term precautions reviewed IOL scheduled for tomorrow at 0600 documented in this encounter Plan of Treatment Scheduled Orders Name Type Priority Associated Diagnoses Orde r Schedule INDUCTION OF LABOR OB Routine , supervision, high-risk, third trimester 1 Occurrences starting 03/27/2023 until 03/27/2024 documented as of this encounter Visit Diagnoses Diagnosis , supervision, high-risk, third trimester- Primary Limited care, antepartum Obesity affecting , antepartum Urinary tract infection in mother during third trimester of documented in this encounter Care Teams Supervisor Paint Roller Covers Relationship Specialty Start Date End Date None, Provider PCP - General 04/05/22 documented as of this encounter
--- OUTSIDE RECORDS SUMMARY | 2024-02-15 16:05 | XMS_ITS | Encounter Summary ---
Author Organization [facility] Address [address] [place] [address] Care Team Providers Care Medical Supervisor Name Role Phone None, Provider Primary Care Provider Unavailabl e Reason for Visit * Reason Onset Date Comments Results 03/15/2023 Encounter Details Date Type Department Care Team (Late st Contact Info) Description 03/15/2023 Telephone [facility] - [address] [address] Shavonne Perkins, RN Results Social History Tobacco Use Types Packs/Day Years [...] Telephone Encounter - Shavonne Perkins RN - 03/15/2023 2006 EDT Pt told she does have a UTI and YVON Womack sent in a prescription for amoxicillin for her. Pt needs script transferred to [facility] in [place]. Pt given instructions to call [facility] in [facility] and let them know and they can arrange for the prescription to be transferred. Pt stated understanding and agrees w/plan. documented in this encounter Plan of Treatment Not on file documented as of this encounter Visit Diagnoses Not on filedocumented in this encounter Care Teams Medical Supervisor Relationship Specialty Start Date End Date None, Provider PCP - General 04/05/22 documented as of this encounter
--- OUTSIDE RECORDS SUMMARY | 2024-02-15 16:05 | XMS_ITS | Encounter Summary ---
Author Organization [facility] Address [address] [place] [address] Care Team Providers Care Mail Truck Driver Name Role Phone None, Provider Primary Care Provider Unavailabl e Reason for Visit * Reason Onset Date Comments Appointment Related 03/06/2023 Encounter Details Date Type Department Care Team (Late st Contact Info) Description 03/06/2023 Telephone [facility] Women's Services - [facility] [address] [place] [address] Myrna Garcia RN Appointment Related Social History Tobacco Use Types [...] Telephone Encounter - Myrna Garcia RN - 03/08/2023 0803 EDT TC to patient, no answer, busy signal with no option to LVM. Repeat TC to patient, no answer, LVM asking her to call. Patient does not have active [employer] account. * Telephone Encounter - Myrna Garcia RN - 03/07/2023 1431 EDT TC to patient, no answer, LVM asking her to call. Intending to switch MyChart video visit to in-person. Patient has not yet activated MyChart. * Telephone Encounter - Myrna Garcia RN - 03/07/2023 0828 EDT Images from the original note were not included. Dev Zuniga MD Cook, Clare, RN Sorry for the double message - in my initial message, I meant to say I would prefer that she not have a telemedicine appt. Would like her to be seen in person. Sorry for the confusion. Dev TC to patient, no answer, LVM asking her to call. Intending to switch MyChart video visit to in-person. Patient has not yet activated MyChart. * Telephone Encounter - Myrna Garcia RN - 03/06/2023 0809 EDT TC to patient, she agrees to an appointment but states that she is not able to do an appointment tomorrow. She is able to do telehealth appointment on Saturday; scheduled in open slot with Dr. Mcelroy. Patient would like [employer] sign-up sent to [email or web address]. Sent. Will send video visit instructions when MyChart is active. * Telephone Encounter - Myrna Garcia RN - 03/06/2023 0755 EDT ----- Message from Dev Zuniga MD sent at 03/06/2023 7:45 EDT ----- Regarding: Needs appt Hi all, This patient called in with lower extremity swelling and low back pain - sounds like typical aches and pains of though Eleni has had very limited care and ideally, I would like herto get in this week to be seen. There is an opening in Joann's schedule tmrw afternoon that we can offer her. I would prefer a telemed appt since she needs a lot of care to be updated. I'gregorio looped inPSS, but if an OB RN could also call her and help coordinate scheduling to expedite this, I would really appreciate it. Thanks all, Dev documented in this encounter Plan of Treatment Not on file documented as of this encounter Visit Diagnoses Not on filedocumented in this encounter Care Teams Mail Truck Driver Relationship Specialty Start Date End Date None, Provider PCP - General 04/05/22 documented as of this encounter
--- OUTSIDE RECORDS SUMMARY | 2024-02-15 16:05 | XMS_ITS | Encounter Summary ---
Author Organization [facility] Address [address] [place] [address] Care Team Providers Care Diabetologist Name Role Phone None, Provider Primary Care Provider Unavailabl e Reason for Visit * Reason Comments Social Work Encounter Details Date Type Department Care Team (Late st Contact Info) Description 01/29/[address] [facility] Women's Services - [facility] [address] [place] [address] Saúl Perez Social History Tobacco Use Types Packs/Day Years Used Date Smoking Tobacco: Every Day Smokeless Tobacco: Never Comments Yes Sex and Gender Information Value Date Recorded Sex Assigned at Not on file Gender Identity Not on file Sexual Orientation Not on file COVID-19 Exposure Response Date Recorded In the last 10 days, have yo u been in contact with someone who was confirmed or suspected to have Coronavirus/COVID-19? No / Unsure 01/07/2023 11:39 EDT documented as of this encounter Functional Status Functional Status Response Date of Assess ment Are you deaf or do you have serious difficulty h earing? No 01/01/2023 documented as of this encounter Progress Notes * Saúl Perez - 01/29/2023 0954 EDT Community Health Team Metal Fabricating Shop Helper Encounter SW called Eleni (pt) for SW intake appt - talked briefly. Pt forgot about appt and would like her (who's working) to join. Rescheduled to Jeremy 02/26 at 3 via ph. SAÚL PEREZ 01/29/2023 13:09 documented in this encounter Plan of Treatment Not on file documented as of this encounter Visit Diagnoses Not on filedocumented in this encounter Care Teams Diabetologist Relationship Specialty Start Date End Date None, Provider PCP - General 04/05/22 documented as of this encounter
--- OUTSIDE RECORDS SUMMARY | 2024-02-15 16:05 | XMS_ITS | Encounter Summary ---
Author Organization [facility] Address [address] [place] [address] Care Team Providers Care Energy Technician Name Role Phone None, Provider Primary Care Provider Unavailabl e Reason for Visit * Reason Comments Injections Encounter Details Date Type Department Care Team (Late st Contact Info) Description 07/02/2023 13:40 EST Nurse Only [facility] [address] [place] [address] Nurse, [facility] Encounter for Depo-Provera contraception (Primary Dx) Social History Tobacco Use Types Packs/Day Years Used Date Smoking Tobacco: Every Day Cigarettes 0.5 4.6 Started: 06/22/2019 Smokeless Tobacco: Never Alcohol Use Standard Drinks/Week Comments Not Currently 0 (1 standard drink = 0.6 oz pur e alcohol) [place] Depression Scale Answer Date Recorded [place] Depression Scale Total 9 04/02/2023 The thought of harming myself has occurred to me . Never 04/02/2023 Sex and Gender Information Value Date Recorded Sex Assigned at Not on file Gender Identity Not on file Sexual Orientation Not on file documented as of this encounter Last Filed Vital Signs Vital Sign Reading Time Taken Comments Blood Pressure 108/60 07/02/2023 1344 EST Pulse - - Temperature - - Respiratory Rate - - Oxygen Saturation - - Inhaled Oxygen Concentration - - Weight 102.5 kg (226 lb) 07/02/2023 1344 EST Height - - Body Mass Index 38.79 04/02/2023 1400 EDT documented in this encounter Functional Status Functional Status Response Date of Assess ment Are you deaf or do you have serious difficulty h earing? No 05/29/2023 documented as of this encounter Progress Notes * Chel Aguilar RN - 07/02/2023 1340 EST Pt here with partner today for nurse visit - depo injection. Patient requests tests as she has been vomiting for past 3 days. She also reports she atesome bad turkey. UPT negative. Update to Dr. Villavicencio who states OK to give Depo injection as scheduled. Order current, see OV notes from EV on 04/02/23. Last dose given 04/02/23 - verified that today's dose is within appropriate timeframe per office protocol. Today's dose is patients 2nd dose of current prescription - see MAR for administration details. Pt reports no concerns today. Overall happy with this method of control. Next depo injection due in 12 weeks, around 09/24/2023 or between 09/10/23 and 10/08/23. Pt is aware when next depo is due and was advised to schedule appointment, card provided with appropriate time frame written. Pt denies further questions or concerns, verbalized understanding and is agreeable to plan. documented in this encounter Plan of Treatment Not on file documented as of this encounter Procedures Procedure Name Priority Date/Time Associated Diagnosis Comments POCT TEST, VISUAL READ Routine 07/02/2023 Encounter for Depo-Provera contraception documented in this encounter Results * POCT TEST, VISUAL READ (07/02/2023) Test, Urine, POC Negative Negative [facility] POINT OF CARE Control Line Present Yes [facility] POINT OF CARE Background Clear? Yes [facility] POINT OF CARE Urine URINE / Unknown 07/02/2023 Laura Villavicencio MD POINT OF CARE TEST O RDERABLES [facility] POINT OF CARE documented in this encounter Visit Diagnoses Diagnosis Encounter for Depo-Provera contraception- Primary Surveillance of other previously prescribed contraceptive method documented in this encounter Administered Medications Active [...] 15:15 EDT 150 mg Righ t Deltoid documented in this encounter Discontinued Medications Medication Sig Discontinue Reason Start Date End Da te multivitamin vit-iron fumarate-FA (WESTAB PLUS) 27 mg iron- 1 mg tablet tablet Take 1 Tablet by mouth daily. Patient Stopped Taking 01/28/2023 07/02/2023 ibuprofen (MOTRIN) 600 mg tablet Take 1 Tablet by mouth every 6 hours as needed for Pain. Therapy completed 03/31/2023 07/02/2023 omega-3s/dha/epa/fish oil (OMEGA 3 ORAL) Take 1 Capsule by mouth daily. Patient Stopped Taking 07/02/2023 documented as of this encounter Care Teams Energy Technician Relationship Specialty Start Date End Date None, Provider PCP - General 04/05/22 documented as of this encounter
--- OUTSIDE RECORDS SUMMARY | 2024-02-15 16:05 | XMS_ITS | Encounter Summary ---
Author Organization [facility] Address [address] [place] [address] Care Team Providers Care Global Consumer Sector Vice President Name Role Phone None, Provider Primary Care Provider Unavailabl e Reason for Visit * Reason Onset Date Comments Coordination Of Care 03/19/2023 Encounter Details Date Type Department Care Team (Late st Contact Info) Description 03/19/2023 Telephone [facility] [address] [place] [address] Елена Mendoza [address] [place] [address] [address] [place] [address] Coordination Of Care Social History [...] * Telephone Encounter - Елена Mendoza - 03/19/2023 1652 EDT Eleni, It was good to meet you today. Below are the links to websites where you can look to find childcareand possibly get help paying for childcare: Hotel Reservation Agent Referral Family [facility] ([email or web address]) [facility] ([email or web address]) Please let me know if there is anything else I can do to support you and also we???ll talk in your time. Warmly, Елена Mendoza MA, [facility], BC-DMT (Board Certified Dance/Movement Therapist) Pronouns: she/her/hers Community Health Team [facility] Mental Health and Mental Health Clinician [facility] , (to leave a voicemail) [email or web address] documented in this encounter Plan of Treatment Not on file documented as of this encounter Visit Diagnoses Not on filedocumented in this encounter Care Teams Global Consumer Sector Vice President Relationship Specialty Start Date End Date None, Provider PCP - General 04/05/22 documented as of this encounter
--- OUTSIDE RECORDS SUMMARY | 2024-02-15 16:05 | XMS_ITS | Encounter Summary ---
Author Organization [facility] Address [address] [place] [address] Care Team Providers Care Flute Teacher Name Role Phone None, Provider Primary Care Provider Unavailabl e Encounter Details Date Type Department Care Team (Late st Contact Info) Description 03/19/2023 16:40 EDT Community Health Team [facility] [address] [place] [address] [facility] [place] Social History Tobacco Use Types Packs/Day Years Used Date Smoking Tobacco: Former Cigarettes Smokeless Tobacco: Never Alcohol Use Standard Drinks/Week Comments Not Currently 0 (1 standard drink = 0.6 oz pur e alcohol) [place] Depression Scale Answer Date Recorded [place] Depression Scale Total 9 04/02/2023 The thought of harming myself has occurred to me . Never 04/02/2023 Comments Yes Sex and Gender Information Value Date Recorded Sex Assigned at Not on file Gender Identity Not on file Sexual Orientation Not on file documented as of this encounter Functional Status Functional Status Response Date of Assess ment Are you deaf or do you have serious difficulty h earing? No 01/01/2023 documented as of this encounter Progress Notes * Saúl Mendoza - 03/19/2023 1640 EDT [facility] Gynecology/Midwifery/Obstetrics - [facility] Progress Note Date of Service: 03/19/2023 Primary Care Provider: Provider None Present Patient, Spouse/Partner HPI Subjective: [place] presented for their ap m[facility] wellness visit, clinician shared overview of role/offerings. Review of PMADs: Eleni shared no outstanding mood concerns at this time, aware of pmh changes, sister had ppd but got through it, confident if she had depression symptoms she could get through it; Abdifatah offered his awareness around care from his experience in his family of origin. Review of social/community supports: Eleni has WIC, [employer], [employer], housing, part-time work - interested in getting childcare resources, agreement for clinician to send. Objective: Appearance: Appropriate Behavior: Appropriate Thought Process: Coherent Thought Content: Appropriate Risk: No suicidal, homicidal or violent ideations, No plan and No intent Speech: Normal Mood: Euthymic Affect: Broad Judgement: Good Insight: Appropriate Cognition: Normal Assessment: Pt moves closer to her due date, cannot comment on mood concerns outside of pt report. Treatment Goals: No current goal setting. Treatment: supportive counseling, connection to community supports. Plan: Clinician will send resources discussed in session; pt will contact this clinician as needed. Duration of Session: 15 Minutes Follow up appointment: Visit date not found documented in this encounter Plan of Treatment Not on file documented as of this encounter Visit Diagnoses Not on filedocumented in this encounter Care Teams Flute Teacher Relationship Specialty Start Date End Date None, Provider PCP - General 04/05/22 documented as of this encounter
--- OUTSIDE RECORDS SUMMARY | 2024-02-15 16:05 | XMS_ITS | Encounter Summary ---
Author Organization [facility] Address [address] [place] [address] Care Team Providers Care Consumer Relations Specialist Name Role Phone None, Provider Primary Care Provider Unavailabl e Reason for Visit * Reason Onset Date Comments Follow Up 04/02/2023 Encounter Details Date Type Department Care Team (Late st Contact Info) Description 04/02/2023 Telephone Health system [facility] [address] [place], [place] [id number] Mercedez Talbert, RN [address] [facility] 2nd Floor, [place] [address] Follow Up Social History Tobacco Use Types Packs/Day Years Used Date Smoking Tobacco: Former Cigarettes Smokeless Tobacco: Never Alcohol Use Standard Drinks/Week Comments Not Currently 0 (1 standard drink = 0.6 oz pur e alcohol) [place] Depression Scale Answer Date Recorded [place] Depression Scale Total 9 04/02/2023 The [...] documented as of this encounter Care Teams Consumer Relations Specialist Relationship Specialty Start Date End Date None, Provider PCP - General 04/05/22 documented as of this encounter
--- OUTSIDE RECORDS SUMMARY | 2024-02-15 16:05 | XMS_ITS | Encounter Summary ---
Author Organization [facility] Address [address] [place] [address] Care Team Providers Care Cvir Tech Name Role Phone None, Provider Primary Care Provider Unavailabl e Reason for Visit * Reason Comments Social Work Encounter Details Date Type Department Care Team (Late st Contact Info) Description 02/26/2023 Community Health Team [facility] - [facility] [address] [place] [address] Saúl Webb Social History Tobacco Use Types Packs/Day Years [...] of this encounter Progress Notes * Saúl Webb - 02/26/2023 1437 EDT Community Health Team Education Intern Encounter SW called Eleni (pt) for rescheduled SW intake appt (from 01/29) - talked briefly. Pt forgot about appt. Reintroduced SW role and supports. Pt's then joined call, said they no longer need SW support, are moving to [place], and abruptly ended call. SW unable to ask about transfer of care. SW will copy GRACE Garcia and Dr. Milton Mmcanus who referred pt to f/u. Referral closed. SAÚL WEBB 02/26/2023 15:06 documented in this encounter Plan of Treatment Not on file documented as of this encounter Visit Diagnoses Not on filedocumented in this encounter Care Teams Cvir Tech Relationship Specialty Start Date End Date None, Provider PCP - General 04/05/22 documented as of this encounter
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
--- OUTSIDE RECORDS SUMMARY | 2024-02-15 16:05 | XMS_ITS | Encounter Summary ---
Author Organization [facility] Address [address] [place] [address] Care Team Providers Care Medical Technologist Prn Name Role Phone None, Provider Primary Care Provider Unavailabl e Reason for Visit * Reason Onset Date Comments Post-Delivery 04/09/2023 Encounter Details Date Type Department Care Team (Late st Contact Info) Description 04/09/2023 Telephone [facility] [address] [place] [address] Stephenie Gordillo MD [address] [facility], [address] [place] [address] Post-Delivery Social History Tobacco Use Types Packs/Day Years Used Date Smoking Tobacco: Former Cigarettes Smokeless Tobacco: Never Alcohol Use Standard Drinks/Week Comments Not Currently 0 (1 standard drink = 0.6 oz pur e alcohol) [place] Depression Scale Answer Date Recorded [place] Depression Scale Total 9 04/02/2023 The thought [...] encounter Miscellaneous Notes * Telephone Encounter - Larissa Vega - 04/09/2023 1509 EDT Adia from [facility] called. They closed the reference because patient declined being seen. * Telephone Encounter - Lisa Holloway RN - 04/09/2023 8197 EDT Chart reviewed HH referral was placed on 04/02/23 by EV to [facility] (after a PP visit here in office for PP issues) Notes in referral from EV: PP day 4 with new baby. support and routine PP support. Attempted to call pt - LM on VM (of note - pls see call from 04/05 as well) * Telephone Encounter - Larissa Vega - 04/09/2023 0203 EDT Patient and called. was upset that they had a visit from Home Health. He said that they did not ask for it and do not want it. They are hoping to get a call at [phone]. documented in this encounter Plan of Treatment Not on file documented as of this encounter Visit Diagnoses Not on filedocumented in this encounter Care Teams Medical Technologist Prn Relationship Specialty Start Date End Date None, Provider PCP - General 04/05/22 documented as of this encounter
--- OUTSIDE RECORDS SUMMARY | 2024-02-15 16:05 | XMS_ITS | Encounter Summary ---
Author Organization [facility] Address [address] [place] [address] Care Team Providers Care Registered Nurse Float Pool Name Role Phone None, Provider Primary Care Provider Unavailabl e Reason for Visit * Reason Onset Date Comments Results 04/11/2023 Encounter Details Date Type Department Care Team (Late st Contact Info) Description 04/11/2023 Telephone [facility] - [address] [address] Luz Dwyer RN Results Social History Tobacco Use Types Packs/Day Years Used Date Smoking Tobacco: Former Cigarettes Smokeless Tobacco: Never Alcohol Use Standard Drinks/Week Comments Not Currently 0 (1 standard drink = 0.6 oz pur e alcohol) [place] Depression Scale Answer Date Recorded [place] Depression Scale Total 9 04/02/2023 The thought [...] encounter Miscellaneous Notes * Telephone Encounter - Isabell Ahuja RN - 04/12/2023 1347 EDT Pt no showed for 2 week PP AP today. Attempted to contact pt to reschedule and discuss lab results but unable to reach. Left message requesting call back. * Telephone Encounter - Luz Dwyer RN - 04/11/2023 6894 EDT Pt was called and unable to reach she will have an appointment tomorrow on 04/12 and note to review labs on her appointment note. * Telephone Encounter - Luz Dwyer RN - 04/11/2023 2223 EDT ----- Message from Jyothi Hawthorne APRN sent at 04/02/2023 17:53 EDT ----- Please call Eleni and let her know labs are reassuring. No evidence of pre- eclampsia. Very slight elevation of one of her LFTs, but not at a level that is worrisome for preE. Call if persistent sxs -low threshold for repeat evaluation and labs in a few days if sxs persist or sooner if increase! Jyothi Silva documented in this encounter Plan of Treatment Not on file documented as of this encounter Visit Diagnoses Not on filedocumented in this encounter Care Teams Registered Nurse Float Pool Relationship Specialty Start Date End Date None, Provider PCP - General 04/05/22 documented as of this encounter
--- OUTSIDE RECORDS SUMMARY | 2024-02-15 16:05 | XMS_ITS | Encounter Summary ---
Author Organization [facility] Address [address] [place] [address] Care Team Providers Care Gyroscope Repairer Name Role Phone None, Provider Primary Care Provider Unavailabl e Reason for Visit * Reason Onset Date Comments Letter 01/29/2023 Encounter Details Date Type Department Care Team (Late st Contact Info) Description 01/29/2023 Telephone [facility] [address] [place], [place] [id number] Dev Zuniga MD [address] [place] [address] Letter Social History Tobacco Use Types Packs/Day Years [...] Miscellaneous Notes * Telephone Encounter - Shavonne Lainez RN - 01/30/2023 1046 EDT Letter written for pt * Telephone Encounter - Dana Giordano - 01/29/2023 1650 EDT Are you calling for gynecological, obstetric, or reproductive care? Obstetric Have you been seen here before? Yes If yes, who do you see (Refer to if cant remember)? [facility] Reason for Call as described by patient: Pt is requesting letter stating she is in her 3rd trimester so she can get certain benefits. Pt just needs letter made first and put in her mychart, she will call us with the fax once she's had a meeting and confirm where it will be sent. What is the best phone number for us to reach you back at? [phone], no call required yet, she will call us. Dana Giordano 01/29/2023 16:50 documented in this encounter Plan of Treatment Not on file documented as of this encounter Visit Diagnoses Not on filedocumented in this encounter Care Teams Gyroscope Repairer Relationship Specialty Start Date End Date None, Provider PCP - General 04/05/22 documented as of this encounter
--- OUTSIDE RECORDS SUMMARY | 2024-02-15 16:05 | XMS_ITS | Encounter Summary ---
Author Organization [facility] Address [address] [place] [address] Care Team Providers Care Reel Hooker Name Role Phone None, Provider Primary Care Provider Unavailabl e Reason for Visit * Reason Onset Date Comments No Show 05/14/2023 Encounter Details Date Type Department Care Team (Late st Contact Info) Description 05/14/2023 Telephone [facility] [address] [place] [address] Stephenie Gordillo MD [address] [facility], [address] [place] [address] No Show Social History Tobacco Use Types Packs/Day Years Used Date Smoking Tobacco: Former Cigarettes Smokeless Tobacco: Never Alcohol Use Standard Drinks/Week Comments Not Currently 0 (1 standard drink = 0.6 oz pur e alcohol) [place] Depression Scale Answer Date Recorded [place] Depression Scale Total 9 04/02/2023 The thought [...] encounter Miscellaneous Notes * Telephone Encounter - Stephenie Gordillo MD - 05/14/2023 9319 EDT Please reach out to patient to see if she would like to reschedule her visit. Thank you! Stephenie Gordillo MD (she/her) Obstetrics and Gynecology [facility] [place] [facility] * Telephone Encounter - Maria Dolores Mckinney MA - 05/14/2023 1133 EDT Pt no show for PP visit today. Please advise on any follow up needed. documented in this encounter Plan of Treatment Not on file documented as of this encounter Visit Diagnoses Not on filedocumented in this encounter Additional Health Concerns Infection Onset Date Last Indicated Resolved Time R/O COVID-19 08/05/2023 08/05/2023 08/05/2023 20:0 1 EST documented as of this encounter Care Teams Reel Hooker Relationship Specialty Start Date End Date None, Provider PCP - General 04/05/22 documented as of this encounter
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
--- OUTSIDE RECORDS SUMMARY | 2024-02-15 16:06 | XMS_ITS | Encounter Summary ---
Author Organization [facility] Address [address] [place] [address] Care Team Providers Care Skein Winding Operator Name Role Phone None, Provider Primary Care Provider Unavailabl e Reason for Referral * RADIATION ONCOLOGY MANAGER (Routine/Next Available) - Authorization Not Required Specialty Diagnoses / Procedures Referred By Contac t Referred To Contact Diagnoses Supervision of normal first , antepartum Procedures US OB ROUTINE (GREATER THAN 14 WEEKS) Mamie Valencia MD [address] [address] [facility] Referral ID Status Reason Start Date Expiration Date Visits Requested Visits Authorized [id number] Authorization Not Required 01/09/2023 1 1 * Referral (Routine/Next Available) - Authorization Not Required Specialty Diagnoses / Procedures Referred By Contac t Referred To Contact Multidisciplinary Diagnoses Tobacco smoking affecting , antepartum Stacie Mcmanus MD [address] [address] [facility] Community Health Team [address] [facility], [address] [place] [address] Referral ID Status Reason Start Date Expiration Date Visits Requested Visits Authorized [id number] Authorization Not Required Specialty Services Required 01/08/2023 1 1 Question Answer Reason for Request: Smoking cessation, * Consult (Routine/Next Available) - Denied Specialty Diagnoses / Procedures Referred By Contbrock t Referred To Contact Diagnoses Tobacco smoking affecting , antepartum Stacie Mcmanus MD [address] [facility], [facility], [address] [place] [address] [facility] Community Health Team [address] [facility], [address] [place] [address] Referral ID Status Reason Start Date Expiration Date V isits Requested Visits Authorized [id number] Denied Specialty Services Required 01/08/2023 1 0 Question Answer Reason for Request: , smoking, please inform pt of financial incentives through [place] Comeet line ([id number]) and can earn $220 in gift cards; can also sign up by texting [employer] [id number]. Reason for Visit * Reason Onset Date Comments 01/08/2023 Encounter Details Date Type Department Care Team (Late st Contact Info) Description 01/08/2023 Telephone [facility] - [address] [address] Letty Walker RN Social History Tobacco Use Types Packs/Day Years [...] as of this encounter Miscellaneous Notes * Addendum Note - Myrna Garcia RN - 01/09/2023 0812 EDTAddended by: MYRNA GARCIA on: 01/09/2023 08:12 Modules accepted: Orders * Telephone Encounter - Myrna Garcia RN - 01/09/2023 0812 EDT Repeat anatomy ordered per Dr. Mcelroy's orders. * Addendum Note - Myrna Garcia RN - 01/08/2023 1511 EDTAddended by: MYRNA GARCIA on: 01/08/2023 15:11 Modules accepted: Orders * Telephone Encounter - Myrna Garcia RN - 01/08/2023 1437 EDT Initial Appt Screening Form Best contact number: [phone] Message OK: Yes [facility] provider: YVON per pateint Primary care provider: None Previous [facility] O[facility] Patient: none Reason MFM patient: None Referring provider: Simona CAMERON, patient will have records faxed before ELIESER/CARIE. Fax number provided. She understands that she must follow up with Simona for any questions or concerns between now and CARIE. Records are available from OB US at [facility] in Care Everywhere, including dating and anatomy scans. Dating: LMP/Patient estimated gestational age: SAVANNAH 03/27/23 per patient per patient Height:64 inches Weight at LMP: 215 lbs Blood type: No results found for: BTYP . Patient is not aware of her blood type. US this (place and date): Yes, most recently two months ago Ectopic risk (for SENIOR PROJECT COORDINATOR US assessment KELECHI unless IUP has been confirmed): IUP confirmed on US at [facility] Hx ectopic: No Hx tubal infection (chlamydia, GC, TOA, endometriosis, tubal disease): No Current abdominal pain/bleeding: No Conceived with IUD in place: No Prior delivery (number): None Prior complications: (may need cervical length 16 weeks): No Preeclampsia (may need ASA 162 mg): No Other: None Medical history: Existing medical disease: None Current medications: PNV 1 capsule daily Davy 3 supplement 1 capsule daily COVID vaccination: Yes Substance use: Opioids (if yes, provide detail about treatment): No Stimulants (cocaine/amphetamine): No Cannabis (if yes provide type, recommend stop): No Smoking (if yes, refer to [place] Quit line): Yes, patient smokes only a couple of cigarettes daily, I am cutting back. Patient agrees to 802Quits referral, referral sent. Patient is aware. 802Quits information included in ELIESER packet. Vaping (if yes, ask substance and proceed as indicated: THC stop, nicotine Quit Line): No ETOH: No Follow-up: Ultrasound scheduled: Will route to [place] to ask about scheduling US. ELIESER scheduled: 01/14/[address] Nadeen Mcelroy Informed patient that we will be contacting their insurance for prior authorization of supplementaltests that the provider will discuss with them at their first visit. episode opened: Yes New patient packet mailed to confirmed address in [employer]: No, patient states that she does not yet have a permanent address in this area, she just moved. Packet left at front desk supervisor for patient pickup per her request. Patient verbalizes understanding and agrees to appointments above. Reviewed office location and visitor policy. Patient has no further questions at this time and understands that she can contact clinic via phone or MyChart for any questions or concerns. * Telephone Encounter - Letty Walker RN - 01/08/2023 1313 EDT Pt LVM, recently relocated to [place] and is looking to establish care. documented in this encounter Plan of Treatment Scheduled Referrals Name Type Priority Associated Diagnoses Order Schedule AMB CONS/FOLLOW UP SMOKING CESSATION PROGRAM Outpatient Referral Routine/Next Available Tobacco smoking affecting , antepartum Expected: 01/15/2023 (Approximate), Expires: 01/09/2024 AMB CONS/FOLLOW UP [facility]S [facility] Outpatient Referral Routine/Next Available Tobacco smoking affecting , antepartum Expected: 01/15/2023 (Approximate), Expires: 01/09/2024 documented as of this encounter Results * US OB ROUTINE (GREATER THAN 14 WEEKS) (01/23/2023 15:23 EDT) Anatomical Region Laterality Modality Pelvis Ultrasound 01/23/2023 14:4 8 EDT Narrative 01/23/2023 15:36 EDT Indication ======== Screening BMI 40.7 History ====== General History Height 163 cm Height (ft) ?5 ft Height (in) ?4 in Previous Outcomes ?1 Para ?? 0 Pregnancies delivered at term (T) ??0 Pregnancies delivered (P) ??0 Abortions (A) ??0 Living children (L) ?0 Maternal Assessment Height 163 cm Height (ft) ?5 ft Height (in) ?4 in Physical Exam Initial weight 108 kg Initial weight (lb) ?237 lb Initial BMI ?40.68 kg/m?? ========= Number of fetuses: 1 Dating ====== Method of dating: ??based on ultrasound Previous Ultrasound on: ?08/14/2022 Type of prior assessment: ??GA GA at prior assessment date ?7 w + 6 d GA by previous U/S 31 w + 0 d SAVANNAH by previous Ultrasound: ?03/27/2023 Ultrasound examination on: 01/23/2023 GA by U/S based upon: ??AC, BPD, Femur, HC GA by U/S ??31 w + 1 d SAVANNAH by U/S: ?03/26/2023 Assigned: ??based on ultrasound (GA), selected on 01/23/2023 Assigned GA ?31 w + 0 d Assigned SAVANNAH: ??03/27/2023 General Evaluation Cardiac activity Present. FHR 124 bpm. movements: visualized. Presentation: cephalic Placenta: right lateral Umbilical cord: Cord vessels: 3 vessel cord. Insertion site: placental insertion: normal Amniotic fluid: Amount of AF: normal. MVP 5.2 cm. NATALIE 12.8 cm. Q1 5.2 cm, Q2 1.2 cm, Q3 3.3 cm, Q4 3.2 cm Biometry Standard BPD ?78.4 mm 31w 3d 54% Hadlock OFD ?98.5 mm 31w 6d 72% Mahin HC 281.3 mm ?30w 0d 30% [place]ak Cerebellum tr ??41.2 mm 34w 0d 79% Guidry AC 279.6 mm ?32w 0d 76% Hadlock Femur ??59.2 mm 30w 6d 53% Mahin Humerus ?54.0 mm 31w 3d 66% Mahin HC / AC ?1.01 EFW ?1,778 g ??43% Gonzales EFW (lb) ?? 3 lb EFW (oz) ?? 15 oz EFW by: ?Hadlock ([id number]) Extended Machine Tack Puller 6.1 mm CM 11.2 mm ??>99% Nicolaides Head / Face / Neck Cephalic index 0.80 ? 52% Nicolaides Extremities / Bony Struc FL / BPD ?? 0.76 FL / HC ?0.21 FL / AC ?0.21 Other Structures FHR ?124 bpm Anatomy Cranium: ?? normal Lateral ventricles: ?normal Choroid plexus: ?normal Midline falx: ??normal Cavum septi pellucidi: normal Cerebellum: ?normal Cisterna magna: ?normal Lips: ??normal 4-chamber view: ?normal RVOT view: normal LVOT view: normal 3-vessel view: normal 2-[id number]-[id number] view: normal Cord insertion: ?normal Stomach: ?? normal Kidneys: ?? normal Bladder: ?? normal Abdomen Abdom. wall: ?? normal Cervical spine: ?normal Thoracic spine: ?normal Lumbar spine: ??normal Sacral spine: ??normal Arms: ??normal Legs: ??normal sex: unreported Wants to know sex: ?? no Maternal Structures Uterus / Cervix Uterus: ?Appears normal Cervix: ?Not visualized Ovaries / Tubes / Adnexa Rt ovary: ??Ovary not visualized, no adnexal abnormality seen Rt ovary D1 ?32.6 mm Rt ovary D2 ?25.4 mm Rt ovary D3 ?17.7 mm Rt ovary Vol ?? 7.7 cm cubed Lt ovary: ??Ovary not visualized, no adnexal abnormality seen Method ====== Voluson E10, Transabdominal ultrasound examination. View: Limited by maternal habitus Impression ========= [id number] Obstetrical ultrasound with and maternal evaluation This is a osorio gestation. Biometry is consistent with early ultrasound dating. Anatomy appears normal as noted above; however, ultrasound cannot detect all anomalies. There is trunk and extremity movement noted. The amniotic fluid volume appears normal. The cervix was poorly seen, but Ms. Rain had to leave due to a family emergency before she could be back-scanned. Follow-up ======== Follow-up as clinically indicated. DATE OF SERVICE: 01/23/2023 Procedure Note Victor Hugo Amaya MD - 01/23/2023 Indication ======== Screening BMI 40.7 History ====== General History Height 163 cm Height (ft) 5 ft Height (in) 4 in Previous Outcomes 1 Para 0 Pregnancies delivered at term (T) 0 Pregnancies delivered (P) 0 Abortions (A) 0 Living children (L) 0 Maternal Assessment Height 163 cm Height (ft) 5 ft Height (in) 4 in Physical Exam Initial weight 108 kg Initial weight (lb) 237 lb Initial BMI 40.68 kg/m?? ========= Number of fetuses: 1 Dating ====== Method of dating: based on ultrasound Previous Ultrasound on: 08/14/2022 Type of prior assessment: GA GA at prior assessment date 7 w + 6 d GA by previous U/S 31 w + 0 d SAVANNAH by previous Ultrasound: 03/27/2023 Ultrasound examination on: 01/23/2023 GA by U/S based upon: AC, BPD, Femur, HC GA by U/S 31 w + 1 d SAVANNAH by U/S: 03/26/2023 Assigned: based on ultrasound (GA), selected on 01/23/2023 Assigned GA 31 w + 0 d Assigned SAVANNAH: 03/27/2023 General Evaluation Cardiac activity Present. FHR 124 bpm. movements: visualized.Presentation: cephalic Placenta: right lateral Umbilical cord: Cord vessels: 3 vessel cord. Insertion site: placentalinsertion: normal Amniotic fluid: Amount of AF: normal. MVP 5.2 cm. NATALIE 12.8 cm. Q1 5.2 cm,Q2 1.2 cm, Q3 3.3 cm, Q4 3.2 cm Biometry Standard BPD 78.4 mm 31w 3d 54% Hadlock OFD 98.5 mm 31w 6d 72% Mahin HC 281.3 mm 30w 0d 30% Chervenak Cerebellum tr 41.2 mm 34w 0d 79% Guidry AC 279.6 mm 32w 0d 76% Hadlock Femur 59.2 mm 30w 6d 53% Mahin Humerus 54.0 mm 31w 3d 66% Mahin HC / AC 1.01 EFW 1,778 g 43% Gonzales EFW (lb) 3 lb EFW (oz) 15 oz EFW by: Hadlock ([id number]) Extended Machine Tack Puller 6.1 mm CM 11.2 mm >99% Nicolaides Head / Face / Neck Cephalic index 0.80 52% Nicolaides Extremities / Bony Struc FL / BPD 0.76 FL / HC 0.21 FL / AC 0.21 Other Structures FHR 124 bpm Anatomy Cranium: normal Lateral ventricles: normal Choroid plexus: normal Midline falx: normal Cavum septi pellucidi: normal Cerebellum: normal Cisterna magna: normal Lips: normal 4-chamber view: normal RVOT view: normal LVOT view: normal 3-vessel view: normal 4-rprutm-qvlkyqm view: normal Cord insertion: normal Stomach: normal Kidneys: normal Bladder: normal Abdomen Abdom. wall: normal Cervical spine: normal Thoracic spine: normal Lumbar spine: normal Sacral spine: normal Arms: normal Legs: normal sex: unreported Wants to know sex: no Maternal Structures Uterus / Cervix Uterus: Appears normal Cervix: Not visualized Ovaries / Tubes / Adnexa Rt ovary: Ovary not visualized, no adnexal abnormality seen Rt ovary D1 32.6 mm Rt ovary D2 25.4 mm Rt ovary D3 17.7 mm Rt ovary Vol 7.7 cm cubed Lt ovary: Ovary not visualized, no adnexal abnormality seen Method ====== Voluson E10, Transabdominal ultrasound examination. View: Limited bymaternal habitus Impression ========= [id number] Obstetrical ultrasound with and maternal evaluation This is a osorio gestation. Biometry is consistent with early ultrasound dating. Anatomy appears normal as noted above; however, ultrasound cannotdetect all anomalies. There is trunk and extremity movementnoted. The amniotic fluid volume appears normal. The cervix was poorly seen, but Ms. Rain had to leave due to a familyemergency before she could be back-scanned. Follow-up ======== Follow-up as clinically indicated. DATE OF SERVICE: 01/23/2023 Mamie Valencia MD [facility] OB ORDERABLES documented in this encounter Visit Diagnoses Diagnosis Tobacco smoking affecting , antepartum- Primary Supervision of normal first , antepartum Supervision of normal first , antepartum documented in this encounter Historical Medications * This list may reflect changes made after this encounter. Medication Sig Dispensed Refills Start Date End Date omega-3s/dha/epa/fish oil (OMEGA 3 ORAL) Take 1 Capsule by mouth daily. 07/02/2023 PNV no.95/ferrous fum/folic ac ( ORAL) Take 1 Capsule by mouth daily. 01/28/2023 added in this encounter Care Teams Skein Winding Operator Relationship Specialty Start Date End Date None, Provider PCP - General 04/05/22 documented as of this encounter
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
--- OUTSIDE RECORDS SUMMARY | 2024-02-15 16:06 | XMS_ITS | Encounter Summary ---
Author Organization [facility] Address [address] [place] [address] Care Team Providers Care Flight Kitchen Manager Name Role Phone None, Provider Primary Care Provider Unavailabl e Encounter Details Date Type Department Care Team (Late st Contact Info) Description 09/24/2022 Lab Requisition [facility] Pathology & Laboratory Medicine - [facility] [address], [place] [id number] Outr Resulting Lab, Provider Social History Tobacco Use Types Packs/Day Years Used Date Smoking Tobacco: Every Day Smokeless Tobacco: Never Sex and Gender Information Value Date Recorded Sex Assigned at Not on file Gender Identity Not on file Sexual Orientation Not on file documented as of this encounter Plan of Treatment Not on file documented as of this encounter Procedures Procedure Name Priority Date/Time Associated Diagnosis Comments HIV 1/2 ANTIGEN AND ANTIBODY, 4TH GENERATION Routine 09/24/2022 15:31 EST documented in this encounter Results * HIV 1/2 ANTIGEN AND ANTIBODY, 4TH GENERATION (09/24/2022 15:31 EST) HIV 1 and 2 Antibody/p24 Antigen, 4th Generation Negative Negative 09/26/2022 10:20 EST [facility] Comment:If acute HIV-1 infec tion is suspected in a high risk patient, submit plasma specimen for HIV-1 RNA quantitation test. Blood VENOUS BLOOD / Unknown 09/24/2022 15:31 EST 09/25/2022 20:56 EST Narrative [facility] - 09/26/2022 10:20 EST Fourth Generation assay performed on the Siemens Centaur XPT. Provider Outr Resulting Lab IMMUNOLOGY A ND SEROLOGY ORDERABLES Performing Organization Address City/State/[facility] Co de Phone Number [facility] [address] [place] [address] documented in this encounter Visit Diagnoses Not on filedocumented in this encounter Additional Health Concerns Infection Onset Date Last Indicated Resolved Time R/O COVID-19 08/05/2023 08/05/2023 08/05/2023 20:0 1 EST documented as of this encounter Care Teams Flight Kitchen Manager Relationship Specialty Start Date End Date None, Provider PCP - General 04/05/22 documented as of this encounter
--- OUTSIDE RECORDS SUMMARY | 2024-02-15 16:06 | XMS_ITS | Encounter Summary ---
Author Organization [facility] Address [address] [place] [address] Care Team Providers Care Car Head Liner Installer Name Role Phone None, Provider Primary Care Provider Unavailabl e Encounter Details Date Type Department Care Team (Late st Contact Info) Description 09/17/2022 Lab Requisition [facility] Pathology & Laboratory Medicine - [facility] [address] [place] [address] Cassandra Pedro, [facility] [address] [place] [address] Encounter for screening for malignant neoplasm of cervix Social History Tobacco Use Types Packs/Day Years Used Date Smoking Tobacco: Every Day Smokeless Tobacco: Never Sex and Gender Information Value Date Recorded Sex Assigned at Not on file Gender Identity Not on file Sexual Orientation Not on file documented as of this encounter Plan of Treatment Not on file documented as of this encounter Procedures Procedure Name Priority Date/Time Associated Diagnosis Comments PAP TEST Today 09/14/2022 14:50 EST documented in this encounter Results * PAP TEST (09/14/2022 14:50 EST) Specimens A. Cervix and/or Endocervix , ThinPrep Imaging System with Manual Evaluation 09/28/2022 13:46 EST [facility] Specimen Adequacy Satisfactory for Evaluation - transformation zone component absent 09/28/2022 13:46 EST [facility] General Categorization Negative for intraepithelial lesion or malignancy 09/28/2022 13:46 EST [facility] Attestation . 09/28/2022 13:46 EST [facility] at 1346 Clinical History See below 09/28/19 13:46 EST [facility] Performing Lab [facility] 09/28/2022 13:46 EST [facility] Scanned Images 09/28/2022 13:46 EST [facility] Papanicolaou smear specimen (specimen) CERVIX UTERI STRUCTURE / Unknown 09/14/2022 14:50 EST 09/18/2022 12:41 EST Cassandra JEAN [facility] PATHOLOGY ORDERABL ES [facility] [address] [place] [address] documented in this encounter Visit Diagnoses Diagnosis Encounter for screening for malignant neoplasm of cervix Screening for malignant neoplasm of the cervix documented in this encounter Additional Health Concerns Infection Onset Date Last Indicated Resolved Time R/O COVID-19 08/05/2023 08/05/2023 08/05/2023 20:0 1 EST documented as of this encounter Care Teams Car Head Liner Installer Relationship Specialty Start Date End Date None, Provider PCP - General 04/05/22 documented as of this encounter
--- OUTSIDE RECORDS SUMMARY | 2024-02-15 16:06 | XMS_ITS | Encounter Summary ---
Author Organization [facility] Address [address] [place] [address] Care Team Providers Care Blueprinting And Photocopy Supervisor Name Role Phone None, Provider Primary Care Provider Unavailabl e Reason for Visit * Reason Comments Med Change Request Encounter Details Date Type Department Care Team (Late st Contact Info) Description 01/28/2023 Refill [facility] [address] [address] Nadeen Obrien MD [address] [facility], [address] [place] [address] Med Change Request Social History Tobacco Use Types Packs/Day Years [...] Dispensed Refills Start Date End Da te multivitamin vit-iron fumarate-FA (WESTAB PLUS) 27 mg iron- 1 mg tablet tablet Take 1 Tablet by mouth daily. 90 Tablet 3 01/28/2023 07/02/2023 documented in this encounter Plan of Treatment Not on file documented as of this encounter Visit Diagnoses Not on filedocumented in this encounter Discontinued Medications Medication Sig Discontinue Reason Start Date End Da te [id number] acid ( 19) 29 mg iron- 1 mg tablet,chewable Take 1 Tablet by mouth daily. Alternate therapy 01/14/2023 01/28/2023 PNV no.95/ferrous fum/folic ac ( ORAL) Take 1 Capsule by mouth daily. Alternate therapy 01/28/2023 PNV,calcium 72-iron,carb-folic ( PLUS) 29 mg iron- 1 mg tablet Take 1 Tablet by mouth daily. 01/28/2023 01/28/2023 documented as of this encounter Care Teams Blueprinting And Photocopy Supervisor Relationship Specialty Start Date End Date None, Provider PCP - General 04/05/22 documented as of this encounter
--- OUTSIDE RECORDS SUMMARY | 2024-02-15 16:06 | XMS_ITS | Encounter Summary ---
Author Organization [facility] Address [address] [place] [address] Care Team Providers Care Commissions Manager Name Role Phone None, Provider Primary Care Provider Unavailabl e Reason for Referral * PT/OT/ST (Routine/Next Available) - Closed Specialty Diagnoses / Procedures Referred By Contbrock t Referred To Contact Rehab Therapies Diagnoses Supervision of normal first , antepartum Abdirahman Fuchs MD [address] [facility], [address] [place] [address] [facility] [address] [place] [id number] Referral ID Status Reason Start Date Expiration Date V isits Requested Visits Authorized [id number] Closed Specialty Services Required 01/14/2023 1 1 Question Answer Reason for Request: bilateral hip pain starting second trimester, limits mobility in and out of bed Comments This referral may serve as a referral to occupational therapy if appropriate. Reason for Visit * Reason Comments Initial Visit Encounter Details Date Type Department Care Team (Late st Contact Info) Description 01/14/2023 9:00 EDT Initial [facility] Women's Services - [address] [address] Geetha Mcconnell MD [address] [place] [id number] GA: 29w5d Social History Tobacco Use Types Packs/Day Years [...] Sign Reading Time Taken Comments Blood Pressure 107/61 01/14/2023 0934 EDT Pulse - - Temperature - - Respiratory Rate - - Oxygen Saturation - - Inhaled Oxygen Concentration - - Weight 107.5 kg (237 lb) 01/14/2023 0934 EDT Height 162.6 cm (5' 4) 01/14/2023 0934 EDT Body Mass Index 40.68 01/14/2023 0934 EDT documented in this encounter Functional Status Functional Status Response Date of Assess ment Are you deaf or do you have serious difficulty h earing? No 01/01/2023 documented as of this encounter Ordered Prescriptions Prescription Sig Dispensed Refills Start Date End Da te [id number] acid ( 19) 29 mg iron- 1 mg tablet,chewable Take 1 Tablet by mouth daily. 180 Tablet 2 01/14/2023 01/28/2023 documented in this encounter Progress Notes * Geetha Mcconnell MD - 01/14/2023 0900 EDT Department of Obstetrics & Gynecology [facility] Visit CC: ELIESER Valera Pt is a 27 y.o. with IUP at 29w5d by LMP of 03/27/23 c/w 6 US. Feeling well. Just moved up here from [facility]. Her and her often do a lot of traveling. Staying in a hotel. Had her first scan at [facility] and her care at [facility]. [facility] scan available in care everywhere, she has not faxed her other records yet. Swabbed GC, vaginitis, yeast two weeks ago due to increased discharge at [facility] - these results were negative per patient. Denies vaginal burning, itching PMHx: No health problems, no prescription meds PSHx: None OBHx: First GYNHx: Regular menses previously No hx STIs normal pap smears FHx: Denies mental retardation, defects, female cancers, bleeding/clotting disorders, complications with pregnancies. SHx: Drug use - none EtOH - before Smoking - quit during first tri Living situation - travels with , living in hotel Meds: None Objective BP 107/61 Ht 162.6 cm (64) Wt (!) 107.5 kg (237 lb) BMI 40.68 kg/m?? Gen: NAD Resp: no increased work of breathing Abd: Soft, NT, ND, fundal height 30cm, FHR 122 Ext: NT edema, 2+ DPP : deferred Assessment/Plan Eleni Rain is a 27 y.o. @ 29w5d by 6wk U/S. Encounter for supervision of normal first in first trimester - sending profile, HCV, urine cx - pt has not faxed records and is not sure she will be able to - TDAP today - 1hr GTT ordered - growth scan ordered, not yet scheduled - possibly qualifies for testing at 34w given BMI 40, w f/u after US at [facility] GEETHA MCCONNELL MD OBGYN PGY-1 [phone] * Abdirahman Fuchs MD - 01/14/2023 0900 EDT Attestation statement: I discussed the patient with the resident at the time of the visit. I agree with the findings and the plan of care documented in the resident's note. Abdirahman Fuchs MD 01/14/2023 13:47 documented in this encounter Miscellaneous Notes * Assessment & Plan Note - Geetha Mcconnell MD - 01/14/2023 1155 EDTAssociated Problem(s): , supervision, high-risk, third trimester - sending profile, HCV, urine cx - pt has not faxed records and is not sure she will be able to - TDAP today - 1hr GTT ordered - growth scan ordered, not yet scheduled - possibly qualifies for testing at 34w given BMI 40, w f/u after US at [facility] documented in this encounter Plan of Treatment Scheduled Referrals Name Type Priority Associated Diagnoses Order Schedule AMB CONS/FOLLOW UP PHYSICAL THERAPY Outpatient Referral Routine/Next Available Supervision of normal first , antepartum Expected: 02/13/2023 (Approximate), Expires: 01/15/2024 documented as of this encounter Procedures Procedure Name Priority Date/Time Associated Diagnosis Comments BACTERIAL CULTURE, URINE Routine 01/14/2023 10:34 EDT Supervision of normal first , antepartum documented in this encounter Results * BACTERIAL CULTURE, URINE (01/14/2023 10:34 EDT) Organism ID Less than 10,000 CFU/ml usual urogenital candace. 01/15/2023 10:40 EDT [facility] Urine URINE SPECIMEN COLLECTION, CLEAN CATCH / Unknown Urine Collect / Unknown 01/14/2023 10:34 EDT 01/14/2023 11:21 EDT Abdirahman Fuchs MD MICROBIOLOGY - GEN ERAL ORDERABLES [facility] [address] [place] [address] documented in this encounter Visit Diagnoses Diagnosis Supervision of normal first , antepartum- Primary documented in this encounter Care Teams Commissions Manager Relationship Specialty Start Date End Date None, Provider PCP - General 04/05/22 documented as of this encounter
--- OUTSIDE RECORDS SUMMARY | 2024-02-15 16:06 | XMS_ITS | Encounter Summary ---
Author Organization [facility] Address [address] [place] [address] Care Team Providers Care Christmas Tree Farm Crew Boss Name Role Phone None, Provider Primary Care Provider Unavailabl e Reason for Visit * Reason Onset Date Comments Medications Refill 01/26/2023 Encounter Details Date Type Department Care Team (Late st Contact Info) Description 01/26/2023 Telephone [facility] Women's Services - [facility] [address] [place], [place] [id number] Nadeen Mcelroy MD [address] [place], [place] [id number] Medications Refill Social History Tobacco Use Types Packs/Day Years [...] Dispensed Refills Start Date End Da te PNV,calcium 72-iron,carb-folic ( PLUS) 29 mg iron- 1 mg tablet Take 1 Tablet by mouth daily. 90 Tablet 1 01/28/2023 01/28/2023 documented in this encounter Miscellaneous Notes * Telephone Encounter - Shavonne Lainez RN - 01/29/2023 1127 EDT Another rejection fax was received regarding brand name PNV that pharmacy specifically requested. Spoke with pharmacist. They will adjust on their end, office does not need to take any further action. * Telephone Encounter - Myrna Garcia RN - 01/28/2023 0934 EDT New Rx sent with instructions that may fill with any PNV as covered by patient's insurance. LVM at pharmacy with these instructions. * Telephone Encounter - Lorena Carrillo - 01/26/2023 1334 EDT PAS Message: pre cely 19 chewable tablet is not covered under medicaid. Does it have to be chewable or can it be replaced with regular pre vitamin that is covered under medicaid? Please call. documented in this encounter Plan of Treatment Not on file documented as of this encounter Visit Diagnoses Not on filedocumented in this encounter Care Teams [employer] Crew Boss Relationship Specialty Start Date End Date None, Provider PCP - General 04/05/22 documented as of this encounter
--- OUTSIDE RECORDS SUMMARY | 2024-02-15 16:06 | XMS_ITS | Encounter Summary ---
Author Organization [facility] Address [address] [place] [address] Care Team Providers Care Forming Machine Upkeep Mechanic Helper Name Role Phone None, Provider Primary Care Provider Unavailabl e Reason for Visit * Reason Comments Medical Evaluation Arrives for exposure to black mold, states it is on the ceiling of her hotel room where she has been staying for 3 days - she felt short of breath this morning. Reports being 6.5 months , denies pregnacy related complaints. Encounter Details Date Type Department Care Team (Late st Contact Info) Description 01/07/2023 11:33 EDT - 01/07/2023 12:16 EDT Emergency [facility] Emergency Department [address] [place] [address] Discharge Disposition: Elopement w/o Notifying Staff Social History Tobacco Use Types Packs/Day Years [...] Sign Reading Time Taken Comments Blood Pressure 121/75 01/07/2023 1138 EDT Pulse 82 01/07/2023 1138 EDT Temperature 36.2 ??C (97.1 ??F) 01/07/2023 1138 EDT Respiratory Rate 18 01/07/2023 1138 EDT Oxygen Saturation 98% 01/07/2023 1138 EDT Inhaled Oxygen Concentration - - Weight 104.7 kg (230 lb 13.2 oz) 01/07/2023 1138 EDT Height 162.6 cm (5' 4) 01/07/2023 1138 EDT Body Mass Index 39.62 01/07/2023 1138 EDT documented in this encounter Functional Status [...] Discharge Disposition Disposition Code Departure Means Destination Elopement w/o Notifying Staff documented in this encounter ED Notes * Ashley Hunter RN - 01/07/2023 1215 EDT Patient has not returned into ED, will dismiss visit. * Ashley Hunter RN - 01/07/2023 1159 EDT Patient ambulatory outside with visitor, in no apparent distress/drinking red bull & talking onthe phone. documented in this encounter Plan of Treatment Not on file documented as of this encounter Visit Diagnoses Not on filedocumented in this encounter Care Teams Forming Machine Upkeep Mechanic Helper Relationship Specialty Start Date End Date None, Provider PCP - General 04/05/22 documented as of this encounter
--- OUTSIDE RECORDS SUMMARY | 2024-02-15 16:06 | XMS_ITS | Encounter Summary ---
Author Organization [facility] Address [address] [place] [address] Care Team Providers Care Director Of Recruiting Name Role Phone None, Provider Primary Care Provider Unavailabl e Encounter Details Date Type Department Care Team (Latest Contact Info) Description 01/01/2023 Travel Social History Tobacco Use Types Packs/Day [...] 13:57 EDT documented as of this encounter Functional Status Functional Status Response Date of Assess ment Are you deaf or do you have serious difficulty h earing? No 01/01/2023 documented as of this encounter Plan of Treatment Not on file documented as of this encounter Visit Diagnoses Not on filedocumented in this encounter Care Teams Director Of Recruiting Relationship Specialty Start Date End Date None, Provider PCP - General 04/05/22 documented as of this encounter
--- OUTSIDE RECORDS SUMMARY | 2024-02-15 16:06 | XMS_ITS | Encounter Summary ---
Author Organization [facility] Address [address] [place] [address] Care Team Providers Care Staff Field Engineer Name Role Phone None, Provider Primary Care Provider Unavailabl e Reason for Visit * Reason Onset Date Comments Abdominal Pain 01/28/2023 Encounter Details Date Type Department Care Team (Late st Contact Info) Description 01/28/2023 Telephone [facility] Women's Services - [facility] [address] [place] [address] Nadeen Mcelroy MD [address] [place], [place] [address] Abdominal Pain Social History Tobacco Use Types Packs/Day Years [...] Encounter - Myrna Garcia RN - 01/28/2023 0905 EDT TC from patient who reports really, really intense pain that is increasing and is not getting any better. She feels the pain near the bottom of her uterus, nothing makes it better, I was screamingand crying in pain trying to get out of bed. Patient states that she has been having pain for several days, discussed it at her last visit and was told to monitor. She is calling now because the pain has worsened; she cannot get out of bed and cannot move. She states that pain is a 10/10. Patient reports pink spotting after intercourse a few days ago, denies loss of fluid. Patient advised to come to L&D for evaluation, she agrees and will come now. Report called to L&D nursing and provider teams. * Telephone Encounter - Dana Giordano - 01/28/2023 0858 EDT Are you calling for gynecological, obstetric, or reproductive care? Obstetric Have you been seen here before? Yes If yes, who do you see (Refer to if cant remember)? [facility] Reason for Call as described by patient: Pt calling as she 'is in so much pain she cannot me her body'. She is 33 w and having a lot of pain in bottom of uterus, lower belly. PT was transferred over to [facility]. Onset, duration, location? Pain started about a month ago then pain started getting worse at several weeks. Now since US last week, pain has increased. Pain is rated 10/10, she says when she tries to get up she 'screams and cries'. If having pain, is it getting better, worse or the same? Pain is getting worse. If bleeding, soaking more than 1 maxi pad or super plus tampon an hour for more than 2 hours? No What is the best phone number for us to reach you back at? [phone] Does this number have a voicemail, is it ok to leave a detailed message? Yes Dana Giordano 01/28/2023 8:58 documented in this encounter Plan of Treatment Not on file documented as of this encounter Visit Diagnoses Not on filedocumented in this encounter Care Teams Staff Field Engineer Relationship Specialty Start Date End Date None, Provider PCP - General 04/05/22 documented as of this encounter
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
--- OUTSIDE RECORDS SUMMARY | 2024-02-15 16:06 | XMS_ITS | Encounter Summary ---
Author Organization [facility] Address [address] [place] [address] Care Team Providers Care Logistics Engineer Name Role Phone None, Provider Primary Care Provider Unavailabl e Encounter Details Date Type Department Care Team (Latest Contact Info) Description 04/20/2022 Travel Social History Tobacco Use Types Packs/Day [...] 14:49 EDT documented as of this encounter Plan of Treatment Not on file documented as of this encounter Visit Diagnoses Not on filedocumented in this encounter Additional Health Concerns Infection Onset Date Last Indicated Resolved Time R/O COVID-19 04/20/2022 04/20/2022 04/25/2022 22:1 6 EDT documented as of this encounter Care Teams Logistics Engineer Relationship Specialty Start Date End Date None, Provider PCP - General 04/05/22 documented as of this encounter
--- OUTSIDE RECORDS SUMMARY | 2024-02-15 16:06 | XMS_ITS | Encounter Summary ---
Author Organization [facility] Address [address] [place] [address] Care Team Providers Care Corporate Strategy Associate Name Role Phone None, Provider Primary Care Provider Unavailabl e Encounter Details Date Type Department Care Team (Latest Contact Info) Description 01/07/2023 Travel Social History Tobacco Use Types Packs/Day [...] on filedocumented in this encounter Care Teams Corporate Strategy Associate Relationship Specialty Start Date End Date None, Provider PCP - General 04/05/22 documented as of this encounter
--- OUTSIDE RECORDS SUMMARY | 2024-02-15 16:06 | XMS_ITS | Encounter Summary ---
Author Organization [facility] Address [address] [place] [address] Care Team Providers Care Music Pastor Name Role Phone None, Provider Primary Care Provider Unavailabl e Reason for Visit * Reason Comments Foot Pain Encounter Details Date Type Department Care Team (Late st Contact Info) Description 12/25/2022 22:12 EDT - 12/25/2022 22:34 EDT Emergency [facility] Emergency Department [address] [place] [address] Discharge Disposition: Left without being seen Social History Tobacco Use Types Packs/Day Years Used Date Smoking Tobacco: Every Day Smokeless Tobacco: Never Sex and Gender Information Value Date Recorded Sex Assigned at Not on file Gender Identity Not on file Sexual Orientation Not on file documented as of this encounter Last Filed Vital Signs Vital Sign Reading Time Taken Comments Blood Pressure 107/58 12/25/20222207 EDT Pulse 83 12/25/20222206 EDT Temperature 36.2 ??C (97.2 ??F) 12/25/20222206 EDT Respiratory Rate 18 12/25/20222206 EDT Oxygen Saturation 97% 12/25/20222206 EDT Inhaled Oxygen Concentration - - Weight - - Height - - Body Mass Index - - documented in this encounter Medications at Time [...] documented in this encounter ED Notes * Tomasa Giles RN - 12/25/20220 EDT Patient heading toward exit I have way more important things to attend to right now. I'll be back. * Tomasa Giles RN - 12/25/20227 EDT Approximately 30min ago patient was putting groceries in the car when 4 cans of ravioli fell onto dorsal aspect of R foot. Patient reports significant pain. CMS intact. No significant swelling or discoloration. documented in this encounter Plan of Treatment Not on file documented as of this encounter Visit Diagnoses Not on filedocumented in this encounter Care Teams Music Pastor Relationship Specialty Start Date End Date None, Provider PCP - General 04/05/22 documented as of this encounter
--- OUTSIDE RECORDS SUMMARY | 2024-02-15 16:06 | XMS_ITS | Encounter Summary ---
Author Organization [facility] Address [address] [place] [id number] Care Team Providers Care Parachute Accessories Attacher Name Role Phone None, Provider Primary Care Provider Unavailabl e Reason for Referral * FOOTBALL COACH (Routine/Next Available) - Authorization Not Required Specialty Diagnoses / Procedures Referred By Contac t Referred To Contact Diagnoses Supervision of normal first , antepartum Procedures US OB ROUTINE (GREATER THAN 14 WEEKS) Mamie Valencia MD [address] [place] [phone] [facility] Referral ID Status Reason Start Date Expiration Date Visits Requested Visits Authorized [id number] Authorization Not Required 01/09/2023 1 1 Reason for Visit * FOOTBALL COACH (Routine/Next Available) - Authorization Not Required Specialty Diagnoses / Procedures Referred By Contbrock t Referred To Contact Diagnoses Supervision of normal first , antepartum Procedures US OB ROUTINE (GREATER THAN 14 WEEKS) Mamie Valencia MD [address] [place] [phone] [facility] Referral ID Status Reason Start Date Expiration Date Visits Requested Visits Authorized [id number] Authorization Not Required 01/09/2023 1 1 Encounter Details Date Type Department Care Team (Latest Contact Info) Description 01/23/2023 14:15 EDT - 01/23/2023 23:59 EDT Hospital Encounter [facility] [place] [address] Supervision of normal first , antepartum Discharge Disposition: Home or Self Care Social [...] needed for Pain. 120 capsule 04/14/2022 01/28/2023 omega-3s/dha/epa/fish oil (OMEGA 3 ORAL) Take 1 Capsule by mouth daily. 07/02/2023 PNV no.95/ferrous fum/folic ac ( ORAL) Take 1 Capsule by mouth daily. 01/28/2023 [id number] acid ( 19) 29 mg iron- 1 mg tablet,chewable Take 1 Tablet by mouth daily. 180 Tablet 2 01/14/2023 01/28/2023 documented as of this encounter Discharge Disposition Disposition Code Departure Means Destination Home or Self Care documented in this encounter Plan of Treatment Not on file documented as of this encounter Procedures Procedure Name Priority Date/Time Associated Diagnosis Comments US OB ROUTINE (GREATER THAN 14 WEEKS) Routine 01/23/2023 15:23 EDT Supervision of normal first , antepartum documented in this encounter Results * US OB ROUTINE [...] (oz) ?? 15 oz EFW by: ?Hadlock ([id number]) [facility] 6.1 mm CM 11.2 mm ??>99% Nicolaides [...] normal LVOT view: normal 3-vessel view: normal 0-ckclgo-bjsgfwu view: normal Cord insertion: ?normal Stomach: ?? [...] View: Limited by maternal habitus Impression ========= [id number] Obstetrical ultrasound with and maternal evaluation This [...] EFW (oz) 15 oz EFW by: Hadlock ([id number]) [facility] 6.1 mm CM 11.2 mm >99% Nicolaides [...] normal LVOT view: normal 3-vessel view: normal 8-epyjge-qxldzwq view: normal Cord insertion: normal Stomach: normal [...] examination. View: Limited bymaternal habitus Impression ========= [id number] Obstetrical ultrasound with and maternal evaluation This [...] DATE OF SERVICE: 01/23/2023 Mamie Valencia MD IMG US OB ORDERABLES documented in this encounter Visit Diagnoses Diagnosis Supervision of normal first , antepartum documented in this encounter Care Teams Parachute Accessories Attacher Relationship Specialty Start Date End Date None, Provider PCP - General 04/05/22 documented as of this encounter
[2024-02-15 16:12] LABS: Bilirubin Negative (Negative); Blood Moderate (Negative); Clarity Clear (Clear); Glucose Negative (Negative); Ketones Negative (Negative); Leukocyte Esterase Trace (Negative); Nitrite Negative (Negative); Specific Gravity 1.015 (1.005-1.025); Urobilinogen 0.2 mg/dL (Up to 0.2)
[2024-02-15 16:25] LABS: Bacteria Rare HPF (Negative); C & S Indicated? No/Sq. Contamination; Casts Negative LPF (Negative); Crystals Negative HPF (Negative); Epithelial Cells Many HPF (Negative); Mucus Negative (Negative)
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
== END 2024-02-15 17:49 | disposition left against medical advice (07) ==
LOC: ER 16:03
PROVIDERS: Emergency Medicine; Emergency Provider Physician Assistant; PCP Student in an Organized Health Care Education/Training Program
DX: Z53.21 Procedure and treatment not carried out due to patient leaving prior to being seen by health care provider (principal)
CPT/HCPCS: 81003; 81015

== ENCOUNTER 2024-03-28 12:20 | Emergency (ER) | payer MEDICAID, SELFPAY ==
[2024-03-28] VITALS (7 sets, daily range): BP systolic 127–135; BP diastolic 61–77; PULSE 69–106; RESP 14–23; TEMP 37.3; O2SAT 98–99
--- NOTE | 2024-03-28 12:56 | W.ED.GENAD ---
Discharge Plan Disposition Patient Disposition: Home Condition: Stable Discharge Details Clinical Impression: Palpitations Primary Care Provider: Cody Galarza ED Provider: Brien Lopez Home Meds and New Rx's Prescriptions: No Action ibuprofen 600 mg tablet 600 mg PO Q8H PRN (Reason: pain) Qty: 15 0RF Discharge Instructions Instructions: Palpitations Additional Instructions: You were seen in the emergency department for your perceived seizure-like activity last night overnight, you remember the entirety of events that this is very uncommon with a seizure disorder, I think you are having some sort of panic attack or mild palpitations, please pursue this with primary care, they may want to recommend you get a heart monitor but I do not think anything emergent is going on please do not hesitate to return to the ER for any further episodes or emergent concerns. Referrals: Cody Galarza [Primary Care Provider] - HPI General Date/Time Provider Initiated Documentation: 03/28/24 12:29. 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 Quality described as woke up, stated she was mildly short of breath and felt palpitations and then began to have her whole body shake, she recalls the entire episode, denies urinary incontinence or biting her tongue, states that she fell right back asleep and this happened a couple more times throughout the night most recently at 9 AM this morning, no radiation to intoxication, current chest pain, shortness of breath, current palpitations, nausea or vomiting, diarrhea, profound dehydration, EtOH abuse. Severity is described as severe. Palliating factors include nothing specific attempted, patient back to bed. Provoking factors include nothing specific. Events leading up to the incident/Associated Symptoms: Patient has been seen with this prior but was not recommended any medication. Patient not anticoagulated. Related Data Home Medications ?Medication ?Instructions ?Recorded ?Confirmed ibuprofen 600 mg tablet 600 mg PO Q8H PRN pain #15 tabs 01/20/24 03/28/24 Previous Rx's ?Medication ?Instructions ?Recorded ibuprofen 600 mg tablet 600 mg PO Q8H PRN pain #15 tabs 01/20/24 Allergies Allergy/AdvReac Type Severity Reaction Status Date / Time amoxicillin Allergy Intermediate Skin Rash Unverified 03/28/24 12:27 General Stated Complaint: Seizure KASSANDRA: 3 Review of Systems All systems reviewed & are unremarkable except as noted in HPI and below Exam Narrative Exam Narrative: GENERAL APPEARANCE: Well-nourished, non-toxic, awake and alert, atraumatic, no acute distress. SKIN: Warm, pink, dry, intact, without rashes/lesions/ulcerations. HEAD: Normocephalic, atraumatic, normal hair distribution for gender/age. EYES: Normal conjunctiva, no exudates on lids/lashes. ENT: Nares patent, no circumoral cyanosis, no facial swelling NECK: Supple, trachea midline, painless cervical ROM. LUNGS/CHEST: Lungs CTA bilaterally, non-labored respirations, normal A/P diameter, symmetrical expansion, no chest wall deformity HEART (CV/PV): Regular rate and rhythm without murmur, no peripheral edema, no JVD. ABDOMEN: Soft, non-distended, no guarding. MSK: Normal ROM, no swelling/deformity to bilateral UEs or LEs, moving all extremities without weakness, no cyanosis, spine midline without tenderness, normal curvature. NEURO: Mental Status AAOx4 - alert to person, place, time, events No facial droop, no forehead involvement. Motor: No focal weakness - strength 5/5 in bilateral UEs and LEs, proximal and distal, symmetric. Sensory: sensation intact to light touch globally. Gait normal: patient ambulated without ataxia into ED room. PSYCH: euthymic, cooperative, pleasant, appropriate speech Course Vital Signs Vital signs: Vital Signs Temperature 37.3 C 03/28/24 12:22 Pulse 106 H 03/28/24 12:22 Respiratory Rate 16 03/28/24 12:22 Blood Pressure 135/77 03/28/24 12:22 Pulse Oximetry 98 03/28/24 12:22 Temperature 37.3 C 03/28/24 12:22 Pulse 106 H 03/28/24 12:22 Respiratory Rate 16 03/28/24 12:22 Respiratory Effort Normal 03/28/24 12:27 Blood Pressure 135/77 03/28/24 12:22 Pulse Oximetry 98 03/28/24 12:22 Pain Level 0 03/28/24 12:22 Medical Decision Making This dictation utilizes [id number] dictation software and may contain unedited grammatical errors. 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 Quality described as woke up, stated she was mildly short of breath and felt palpitations and then began to have her whole body shake, she recalls the entire episode, denies urinary incontinence or biting her tongue, states that she fell right back asleep and this happened a couple more times throughout the night most recently at 9 AM this morning, no radiation to intoxication, current chest pain, shortness of breath, current palpitations, nausea or vomiting, diarrhea, profound dehydration, EtOH abuse. Severity is described as severe. Palliating factors include nothing specific attempted, patient back to bed. Provoking factors include nothing specific. Events leading up to the incident/Associated Symptoms: Patient has been seen with this prior but was not recommended any medication. Patients' medical history: Negative, otherwise healthy.. Family and social history: Lives in an apartment complex. Pertinent exam findings / vital signs include benign physical exam, neuro intact, benign cardiac exam, benign pulmonary status. Differential / pathologies of concern include pseudoseizure, palpitations, panic attack or anxiety. Diagnostic studies of: -CBC, CMP, lactate, D-dimer, troponin I, BNP, TSH, UDS, EKG. -CBC benign, completely normal -D-dimer negative -Troponin I/BNP negative -TSH within normal limits -CMP is completely benign -UDS is negative -CT head without intracranial abnormality -EKG shows sinus rhythm with P waves followed by a narrow QRS with no ST changes of ischemia normal intervals, normal axis Interventions of: -None. ED Course/Assessment/Plan: Counseled the patient on unlikely seizure activity as she remembers the entire event I think this was likely some sort of mild arrhythmia or panic attack I think it is reasonable that the patient pursue an outpatient primary care workup for this possibly obtaining a heart monitor if this continues to happen. Strict return criteria for further episodes of palpitations with seizure-like activity. Findings not consistent with active seizure disorder, dangerous arrhythmia, ACS, PE. Disposition of palpitations. Patient verbalized understanding of the plan and return to ED criteria and engaged in shared decision making. Medical Records Medical records reviewed: Yes I reviewed the patient's medical records. Imaging Data Radiologic Study: Attestation: I personally reviewed and interpreted this imaging study as follows: Imaging: CT Scan Radiologist's impression: Exam: CT Head Without Contrast Exam date and time: 03/28/2024 2:19 PM Age: 29 years old Clinical indication: Other: Reported new seizure last night TECHNIQUE: Imaging protocol: Computed tomography of the head without contrast. Radiation optimization: All CT scans at this facility use at least one of these dose optimization techniques: automated exposure control; mA and/or kV adjustment per patient size (includes targeted exams where dose is matched to clinical indication); or iterative reconstruction. COMPARISON: CR XR CERVICAL SPINE COMP 4-5V 10/18/2023 1:20 PM FINDINGS: Brain: No midline shift. Ventricles, cisterns, and sulci are normal. No mass, acute infarct, hemorrhage, or extraaxial fluid collection. Cerebral ventricles: No ventriculomegaly. Paranasal sinuses: Visualized sinuses are unremarkable. No fluid levels. Mastoid air cells: Visualized mastoid air cells are well aerated. Bones: Unremarkable. No acute fracture. Soft tissues: Unremarkable. IMPRESSION: No acute intracranial abnormality. Dictated and Authenticated by: Cody Pina MD. Lab Data Lab results reviewed: Yes I reviewed the patient's lab results. Labs: Laboratory Tests Range/Units 03/28/24 03/28/24 13:30 14:15 WBC (4.4-10.8) 10^3/uL 9.44 RBC (3.93-5.22) 10^6/uL 4.83 Hgb (11.2-15.7) g/dL 14.1 Hct (36.0-46.0) % 43.3 MCV (80-95) fL 90 MCH (27.0-33.0) pg 29.2 MCHC (32.0-36.0) % 32.6 RDW (11.7-14.6) % 13.0 Plt Count (130-400) 10^3/uL 217 MPV (8.0-11.0) fL 10.3 Immature Gran % % 1.1 Neutrophils % % 71.8 Lymphocytes % % 17.3 Monocytes % % 6.4 Eosinophils % % 2.9 Basophils % % 0.5 Nucleated RBC % (0.0-0.3) % 0.0 Absolute Neutrophils (1.2-6.7) 10^3/uL 6.79 H Absolute Lymphocytes (1.2-3.4) 10^3/uL 1.63 Absolute Monocytes (0.1-0.8) 10^3/uL 0.60 Absolute Eosinophils (0.0-0.7) 10^3/uL 0.27 Absolute Basophils (0.0-0.2) 10^3/uL 0.05 D-Dimer (<500) ng/mlFEU 277 VBG Lactate (0.6-1.4) mmol/L 0.9 Sodium (136-145) mmol/L 139 Potassium (3.5-5.1) mmol/L 3.8 Chloride (98-107) mmol/L 106 Carbon Dioxide (21.0-32.0) mmol/L 23.1 Anion Gap (3-11) mmol/L 9.9 BUN (7-18) mg/dL 9 Creatinine (0.55-1.02) mg/dL 0.7 Est GFR (CKD-EPI 2020) (mL/min/1.73m2) 121.49 Glucose (74-106) mg/dL 91 Calcium (8.5-10.1) mg/dL 9.2 Total Bilirubin (0.2-1.0) mg/dL 0.58 AST (15-37) U/L 20 ALT (14-59) U/L 29 Alkaline Phosphatase (46-116) U/L 85 Creatine Kinase (26-192) U/L 90 Troponin I (< or =60) ng/L < 50 NT-Pro-B Natriuret Pep (<300) pg/mL 10 Total Protein (6.4-8.2) g/dL 7.6 Albumin (3.4-5.0) g/dL 3.8 TSH (0.36-3.74) uIU/mL 0.96 Urine Opiates Screen (Negative) Negative Urine Methadone Screen (Negative) Negative Ur Barbiturates Screen (Negative) Negative Ur Tricyclics Screen (Negative) Negative Ur Amphetamines Screen (Negative) Negative U Benzodiazepines Scrn (Negative) Negative Urine Cocaine Screen (Negative) Negative Ur THC Screen (Negative) Negative Quality:SDOH Health Related Social Needs: No Data to Display PFSH All Active Problems (Updated 03/28/24 @ 15:16 by Brien R Lopez, [place]) Palpitations (Acute) Social History Smoking/Tobacco Use Status: Never Smoking risk assessment performed?: Yes Alcohol Intake: current Alcohol Intake frequency: holidays/special occasions only Alcohol type: beer Drug use: Never Substance use type: does not use Housing: apartment Do you feel safe at home: Yes Do you feel safe in your relationship?: Yes PAWSS Have you Been Recently Intoxicated or Drunk Within the Last 30 days?: No Have you Ever Experienced Previous Episodes of Alcohol Withdrawal?: No Have you ever Experienced Withdrawal Seizures?: No Have you ever Experienced Delirium Tremens(DT)s?: No Have you ever undergone Alcohol Rehabilitation Treatment (i.e, inpt ot outpatient treatment programs)?: No Have you ever Experienced Blackouts?: No Have you ever Combined Alcohol with other Downers within the last 90 days?: No Have you ever Combined Alcohol with any other Substance of Abuse during the last 90 days?: No Positive Blood Alcohol level on Presentation? [PCS.BAL]: No Evidence of Increased Autonomic Activity (i.e. HR>120, tremor, sweating, agitation, nausea)?: No Result: 0
--- NOTE | 2024-03-28 13:15 | RT.EKG_ITS ---
APPROVED REPORT Exam: Resting ECG Reason for Exam: baseline/screening Patient Location: E HR:68 bpm ECG Measurements Heart Rate 68 AXIS SC 150 P 30 QRSd 84 QRS 9 QT 405 T 10 QTc 433 Conclusion Sinus rhythm...normal P axis, V-rate 60- 99 Abnormal Q suggests anterior infarct...Q >30mS in V2-V4 Narrow complex normal sinus rhythm at a rate of 68. Normal axis. Intervals within normal limits. N o ST segment abnormalities. T wave inversion in lead III. No prior for comparison. No acute injury pattern.
--- NOTE | 2024-03-28 13:15 | DI.CT_ITS ---
Exam(s) CT HEAD WO EXAM: CT HEAD WO CLINICAL HISTORY: reported new seizure last night. TECHNIQUE: Imaging Protocol: Axial computed tomography images with coronal and sagittal reformatted images were created and reviewed COMPARISON: No exams were available for comparison FINDINGS: Ventricles and Extra axial spaces: Normal in size and morphology for the patient's age. Hemorrhage: None. Cerebral parenchyma: No evidence of acute infarct or mass. Midline shift: None. Brainstem/Cerebellum: Normal. Calvarium: Normal. Visualized Paranasal sinuses:Clear. Mastoids: Clear. Soft Tissues: Unremarkable. ORBITS: Unremarkable. PITUITARY: Not enlarged. IMPRESSION: No acute intracranial process. RADIATION DOSE DELIVERED: Total DLP DATA REPOSITORY: All CT scans at this facility are submitted to the National Radiology Data Registry (NRDR) Dose Index Registry (DIR) with the [employer] (A[employer]). RADIATION OPTIMIZATION: All CT scans at this facility use at least one of these dose optimization te chniques: automated exposure control; mA and/or kV adjustment per patient size (includes targeted exa ms where dose is matched to clinical indication); or iterative reconstruction.
[2024-03-28 13:40] LABS: Absolute Basophil Count 0.05 10^3/uL (0.0-0.2); Absolute Eosinophil Count 0.27 10^3/uL (0.0-0.7); Absolute Lymphocyte Count 1.63 10^3/uL (1.2-3.4); Absolute Neutrophil Count 6.79 10^3/uL (1.2-6.7); Basophils % 0.5 %; Eosinophils % 2.9 %; HCT 43.3 % (36.0-46.0); HGB 14.1 g/dL (11.2-15.7); Immature Grans % 1.1 %; Lactate 0.9 mmol/L (0.6-1.4); Lymphocytes % 17.3 %; MCH 29.2 pg (27.0-33.0); MCHC 32.6 % (32.0-36.0); MCV 90 fL (80-95); MPV 10.3 fL (8.0-11.0); Monocytes % 6.4 %; Neutrophils % 71.8 %; Platelet Count 217 10^3/uL (130-400); RBC 4.83 10^6/uL (3.93-5.22); RDW-SD 42.6 fL; WBC 9.44 10^3/uL (4.4-10.8)
[2024-03-28 14:20] LABS: ALT 29 U/L (14-59); AST 20 U/L (15-37); Albumin 3.8 g/dL (3.4-5.0); Alkaline Phosphatase 85 U/L (46-116); Anion Gap 9.9 mmol/L (3-11); BUN 9 mg/dL (7-18); Bilirubin, Total 0.58 mg/dL (0.2-1.0); CO2 23.1 mmol/L (21.0-32.0); CREATININE 0.7 mg/dL (0.55-1.02); Calcium 9.2 mg/dL (8.5-10.1); Chloride 106 mmol/L (98-107); Creatine Kinase 90 U/L (26-192); Estimated GFR 121.49 (mL/min/1.73m2); Glucose 91 mg/dL (74-106); NT-proBNP 10 pg/mL (<300); Potassium 3.8 mmol/L (3.5-5.1); Sodium 139 mmol/L (136-145); TSH (W/Ref FT4) 0.96 uIU/mL (0.36-3.74); Total Protein 7.6 g/dL (6.4-8.2)
[2024-03-28 14:23] LABS: Troponin I < 50 ng/L (< or =60)
[2024-03-28 14:25] LABS: D-Dimer 277 ng/mlFEU (<500)
--- NOTE | 2024-03-28 14:34 | DI.VRAD_ITS ---
PROCEDURE INFORMATION: Exam: CT Head Without Contrast Exam date and time: 03/28/2024 2:19 PM Age: 29 years old Clinical indication: Other: Reported new seizure last night TECHNIQUE: Imaging protocol: Computed tomography of the head without contrast. Radiation optimization: All CT scans at this facility use at least one of these dose optimization techniques: automated exposure control; mA and/or kV adjustment per patient size (includes targeted exams where dose is matched to clinical indication); or iterative reconstruction. COMPARISON: CR XR CERVICAL SPINE COMP 4-5V 10/18/2023 1:20 PM FINDINGS: Brain: No midline shift. Ventricles, cisterns, and sulci are normal. No mass, acute infarct, hemorrhage, or extraaxial fluid collection. Cerebral ventricles: No ventriculomegaly. Paranasal sinuses: Visualized sinuses are unremarkable. No fluid levels. Mastoid air cells: Visualized mastoid air cells are well aerated. Bones: Unremarkable. No acute fracture. Soft tissues: Unremarkable. IMPRESSION: No acute intracranial abnormality. Dictated and Authenticated by: Cody Pina MD. Ordering:CHANEL Tesfaye MD
[2024-03-28 14:51] LABS: *AMPHETAMINES SCREEN URINE Negative (Negative); *BARBITURATES SCREEN URINE Negative (Negative); *BENZODIAZEPINES SCREEN URINE Negative (Negative); Cannabinoids THC Negative (Negative); Cocaine Screen,Urine Negative (Negative); METHADONE URINE SCREEN Negative (Negative); OPIATES URINE SCREEN Negative (Negative)
[2024-03-28 14:54] LABS: Tricyclic Antidepressants Negative (Negative)
== END 2024-03-28 15:24 | disposition home or self-care (01) ==
PROVIDERS: Emergency Provider Physician Assistant; PCP Student in an Organized Health Care Education/Training Program
DX: R00.2 Palpitations (principal); R07.89 Other chest pain
CPT/HCPCS: 36415; 80053; 80307; 82550; 93005; 99285; 70450; 83605; 83880; 84443; 84484; 85025; 85379; 93010; 99284

== ENCOUNTER 2024-05-13 21:12 | Outpatient (REF) | payer SELFPAY ==
[2024-05-13 21:49] LABS: Abs Immature Grans 0.08 10^3/uL (0.0-0.06); Absolute Basophil Count 0.04 10^3/uL (0.0-0.2); Absolute Eosinophil Count 0.23 10^3/uL (0.0-0.7); Absolute Lymphocyte Count 1.89 10^3/uL (1.2-3.4); Absolute Neutrophil Count 5.88 10^3/uL (1.2-6.7); Basophils % 0.5 %; Eosinophils % 2.6 %; HCT 43.2 % (36.0-46.0); HGB 14.5 g/dL (11.2-15.7); Immature Grans % 0.9 %; Lymphocytes % 21.7 %; MCHC 33.6 % (32.0-36.0); MCV 89 fL (80-95); MPV 11.2 fL (8.0-11.0); Monocytes % 6.9 %; Neutrophils % 67.4 %; Platelet Count 196 10^3/uL (130-400); RBC 4.83 10^6/uL (3.93-5.22); RDW 12.4 % (11.7-14.6); RDW-SD 40.5 fL; WBC 8.72 10^3/uL (4.4-10.8)
[2024-05-13 22:13] LABS: Anion Gap 12.7 mmol/L (3-11); BUN 14 mg/dL (7-18); CO2 22.3 mmol/L (21.0-32.0); CREATININE 0.7 mg/dL (0.55-1.02); Calcium 9.3 mg/dL (8.5-10.1); Chloride 108 mmol/L (98-107); Estimated GFR 121.49 (mL/min/1.73m2); Glucose 83 mg/dL (74-106); Potassium 4.3 mmol/L (3.5-5.1); Sodium 143 mmol/L (136-145)
== END 2024-05-13 21:13 | disposition home or self-care (01) ==
LOC: LBN 21:12
PROVIDERS: PCP Student in an Organized Health Care Education/Training Program; Visit Provider Physician Assistant Medical
DX: R42 Dizziness and giddiness (principal)
CPT/HCPCS: 80048; 84443; 85025

== ENCOUNTER 2024-05-17 22:33 | Emergency (ER) | payer SELFPAY ==
--- NOTE | 2024-05-17 22:30 | RT.EKG_ITS ---
APPROVED REPORT Exam: Resting ECG Reason for Exam: chest pain Patient Location: E HR:77 bpm ECG Measurements Heart Rate 77 AXIS WA 147 P 8 QRSd 84 QRS -2 QT 360 T -1 QTc 407 Conclusion Sinus rhythm...normal P axis, V-rate 60- 99 Sinus rhythm normal axis, normal intervals T wave inversion lead III
[2024-05-17 22:33] VITALS: BP 132/79; PULSE 85; RESP 23; TEMP 36.8; O2SAT 100
[2024-05-17 22:37] VITALS: RESP 21
[2024-05-17] MEDS: LORazepam 0.5 MG TAB PO (23:05)
[2024-05-17 23:26] LABS: Abs Immature Grans 0.09 10^3/uL (0.0-0.06); Absolute Basophil Count 0.04 10^3/uL (0.0-0.2); Absolute Eosinophil Count 0.21 10^3/uL (0.0-0.7); Absolute Lymphocyte Count 2.12 10^3/uL (1.2-3.4); Absolute Monocyte Count 0.49 10^3/uL (0.1-0.8); Absolute Neutrophil Count 4.92 10^3/uL (1.2-6.7); Basophils % 0.5 %; Eosinophils % 2.7 %; HCT 41.8 % (36.0-46.0); Immature Grans % 1.1 %; Lymphocytes % 26.9 %; MCH 29.7 pg (27.0-33.0); MCHC 33.5 % (32.0-36.0); MCV 89 fL (80-95); MPV 10.5 fL (8.0-11.0); Monocytes % 6.2 %; Neutrophils % 62.6 %; Platelet Count 208 10^3/uL (130-400); RBC 4.71 10^6/uL (3.93-5.22); RDW 12.2 % (11.7-14.6); RDW-SD 39.9 fL; WBC 7.87 10^3/uL (4.4-10.8)
[2024-05-17 23:43] LABS: ALT 30 U/L (14-59); AST 16 U/L (15-37); Albumin 3.9 g/dL (3.4-5.0); Alkaline Phosphatase 96 U/L (46-116); Anion Gap 11.1 mmol/L (3-11); BUN 8 mg/dL (7-18); Bilirubin, Total 0.52 mg/dL (0.2-1.0); CO2 24.9 mmol/L (21.0-32.0); CREATININE 0.8 mg/dL (0.55-1.02); Calcium 9.3 mg/dL (8.5-10.1); Chloride 108 mmol/L (98-107); Glucose 85 mg/dL (74-106); Potassium 3.7 mmol/L (3.5-5.1); Sodium 144 mmol/L (136-145); Total Protein 8.5 g/dL (6.4-8.2)
[2024-05-17 23:44] LABS: Troponin I < 4 ng/L (<or=51)
[2024-05-18 00:14] LABS: *AMPHETAMINES SCREEN URINE Negative (Negative); *BARBITURATES SCREEN URINE Negative (Negative); *BENZODIAZEPINES SCREEN URINE Negative (Negative); Cannabinoids THC Negative (Negative); Cocaine Screen,Urine Negative (Negative); METHADONE URINE SCREEN Negative (Negative); OPIATES URINE SCREEN Negative (Negative)
[2024-05-18 00:17] LABS: Tricyclic Antidepressants Negative (Negative)
--- NOTE | 2024-05-18 00:54 | W.ED.GENAD ---
Discharge Plan Disposition Patient Disposition: Home Condition: Good Discharge Details Chief Complaint: OD/Poison Clinical Impression: Chest pain Primary Care Provider: Cody Galarza ED Provider: Елена De Souza Discharge Instructions Instructions: Chest Pain, Adult ED Additional Instructions: Call your primary care doctor today to schedule an appointment for within the next 72 hours to followup on your visit today. Return to the emergency department for new or worsening symptoms including chest pain, shortness of breath, feeling like you are going to pass out, or if you have any other concerns. Referrals: Cody Galarza [Primary Care Provider] - [facility] General Mode of arrival: EMS. Date/Time Provider Initiated Documentation: 05/17/24 22:36. Limitations to Documentation: no limitations. Information obtained by: patient. HPI Narrative: 29yo previously healthy female presenting with concern for ingestion of 'laced edible'. About 45 minutes prior to arrival took what she believed was a THC edible from a friend. About 15 minutes later developed nausea and chest tightness, felt like she was breathing fast. Concerned it may have been laced with something like fentanyl. Currently continues with mild chest tightness and nausea. No vomiting. No shortness of breath. Otherwise in her usual state of health with no fevers, chills, rash, abdominal pain, numbness, tingling, weakness, or other concerns. [place] entirely normal prior to taking the edible. Related Data Allergies Allergy/AdvReac Type Severity Reaction Status Date / Time amoxicillin Allergy Intermediate Skin Rash Unverified 05/17/24 22:42 General Stated Complaint: OD/Poison KASSANDRA: 3 Review of Systems Narrative: see HPI Exam Narrative Exam Narrative: General: Alert, well appearing, well nourished, in no acute distress. Head: Normocephalic, atraumatic Neck: Trachea midline, ?Neck supple. ENT: ?MMM.? No oropharygeal lesions or exudate. Cardiac: ?RRR, no murmurs appreciated Resp: No respiratory distress. CTAB. Abd: ?Soft, non-distended, nontender Extremities: ?No deformities.? No peripheral edema. Neurologic: GCS 15. ? Moves all extremities freely against gravity Course Vital Signs Vital signs: Vital Signs Temperature 36.8 C 05/17/24 22:33 Pulse 85 05/17/24 22:33 Respiratory Rate 23 05/17/24 22:33 Blood Pressure 132/79 05/17/24 22:33 Pulse Oximetry 100 05/17/24 22:33 Temperature 36.8 C 05/17/24 22:33 Temperature Source Temporal Artery Scan 05/17/24 22:33 Pulse 85 05/17/24 22:33 Respiratory Rate 21 05/17/24 22:37 Respiratory Effort Normal, Non-Labored 05/18/24 00:46 Respiratory Depth Normal 05/18/24 00:46 Respiratory Pattern Normal 05/18/24 00:46 Blood Pressure 132/79 05/17/24 22:33 Blood Pressure Position Sitting 05/17/24 22:33 Pulse Oximetry 100 05/17/24 22:33 Oxygen Delivery Method Room Air 05/18/24 00:46 Oxygen Flow Rate 0 05/18/24 00:46 Pain Level 0 05/17/24 22:33 Lab/Test Results Lab/Test Results: Laboratory Tests Range/Units 05/17/24 05/17/24 23:20 23:45 WBC (4.4-10.8) 10^3/uL 7.87 RBC (3.93-5.22) 10^6/uL 4.71 Hgb (11.2-15.7) g/dL 14.0 Hct (36.0-46.0) % 41.8 MCV (80-95) fL 89 MCH (27.0-33.0) pg 29.7 MCHC (32.0-36.0) % 33.5 RDW (11.7-14.6) % 12.2 Plt Count (130-400) 10^3/uL 208 MPV (8.0-11.0) fL 10.5 Immature Gran % % 1.1 Neutrophils % % 62.6 Lymphocytes % % 26.9 Monocytes % % 6.2 Eosinophils % % 2.7 Basophils % % 0.5 Nucleated RBC % (0.0-0.3) % 0.0 Absolute Neutrophils (1.2-6.7) 10^3/uL 4.92 Absolute Lymphocytes (1.2-3.4) 10^3/uL 2.12 Absolute Monocytes (0.1-0.8) 10^3/uL 0.49 Absolute Eosinophils (0.0-0.7) 10^3/uL 0.21 Absolute Basophils (0.0-0.2) 10^3/uL 0.04 Sodium (136-145) mmol/L 144 Potassium (3.5-5.1) mmol/L 3.7 Chloride (98-107) mmol/L 108 H Carbon Dioxide (21.0-32.0) mmol/L 24.9 Anion Gap (3-11) mmol/L 11.1 H BUN (7-18) mg/dL 8 Creatinine (0.55-1.02) mg/dL 0.8 Est GFR (CKD-EPI 2020) (mL/min/1.73m2) 103.50 Glucose (74-106) mg/dL 85 Calcium (8.5-10.1) mg/dL 9.3 Magnesium (1.8-2.4) mg/dL 2.0 Total Bilirubin (0.2-1.0) mg/dL 0.52 AST (15-37) U/L 16 ALT (14-59) U/L 30 Alkaline Phosphatase (46-116) U/L 96 Troponin I (<or=51) ng/L < 4 Total Protein (6.4-8.2) g/dL 8.5 H Albumin (3.4-5.0) g/dL 3.9 Urine Opiates Screen (Negative) Negative Urine Methadone Screen (Negative) Negative Ur Barbiturates Screen (Negative) Negative Ur Tricyclics Screen (Negative) Negative Ur Amphetamines Screen (Negative) Negative U Benzodiazepines Scrn (Negative) Negative Urine Cocaine Screen (Negative) Negative Ur THC Screen (Negative) Negative Medical Decision Making 29yo previously healthy female presenting with concern for ingestion of 'laced edible'. About 45 minutes prior to arrival took what she believed was a THC edible from a friend; about 15 minutes later developed nausea and chest tightness, felt like she was breathing fast. Vital signs reassuring on arrival. Anxious on exam, clear lungs, appears well. Suspect symptoms related to ingestion; will evaluate for life threatening causes with EKG, labs. No wheezing to suggest asthma/allergy, no tachycardia or pleurtic pain or shortness of breath to suggest pulmonary embolism; PERC negative. No adventitious lung fundings to suggest pneumonia, effusion, or pneumothorax; would not get CXR. Given ativan for nausea. EKG NSR with appropriate intervals, no ST segment or T wave abnormalities to suggest occlusive [place]. Labs reviewed as below, CBC reassuring, CMP with no actionable abnormalities, troponin negative x 2, UDS negative. HEART score 0, low risk. On reassessment patient reports her symptoms have resolved and she would like to go home which is reasonable. Discharged home; discharge instructions and return precautions were reviewed with patient who verbalized understanding. All questions were answered and she is in full agreement with the plan. Lab Data Lab results reviewed: Yes I reviewed the patient's lab results. Labs: Laboratory Tests Range/Units 05/17/24 05/17/24 05/18/24 23:20 23:45 00:31 WBC (4.4-10.8) 10^3/uL 7.87 RBC (3.93-5.22) 10^6/uL 4.71 Hgb (11.2-15.7) g/dL 14.0 Hct (36.0-46.0) % 41.8 MCV (80-95) fL 89 MCH (27.0-33.0) pg 29.7 MCHC (32.0-36.0) % 33.5 RDW (11.7-14.6) % 12.2 Plt Count (130-400) 10^3/uL 208 MPV (8.0-11.0) fL 10.5 Immature Gran % % 1.1 Neutrophils % % 62.6 Lymphocytes % % 26.9 Monocytes % % 6.2 Eosinophils % % 2.7 Basophils % % 0.5 Nucleated RBC % (0.0-0.3) % 0.0 Absolute Neutrophils (1.2-6.7) 10^3/uL 4.92 Absolute Lymphocytes (1.2-3.4) 10^3/uL 2.12 Absolute Monocytes (0.1-0.8) 10^3/uL 0.49 Absolute Eosinophils (0.0-0.7) 10^3/uL 0.21 Absolute Basophils (0.0-0.2) 10^3/uL 0.04 Sodium (136-145) mmol/L 144 Potassium (3.5-5.1) mmol/L 3.7 Chloride (98-107) mmol/L 108 H Carbon Dioxide (21.0-32.0) mmol/L 24.9 Anion Gap (3-11) mmol/L 11.1 H BUN (7-18) mg/dL 8 Creatinine (0.55-1.02) mg/dL 0.8 Est GFR (CKD-EPI 2020) (mL/min/1.73m2) 103.50 Glucose (74-106) mg/dL 85 Calcium (8.5-10.1) mg/dL 9.3 Magnesium (1.8-2.4) mg/dL 2.0 Total Bilirubin (0.2-1.0) mg/dL 0.52 AST (15-37) U/L 16 ALT (14-59) U/L 30 Alkaline Phosphatase (46-116) U/L 96 Troponin I (<or=51) ng/L < 4 < 4 Total Protein (6.4-8.2) g/dL 8.5 H Albumin (3.4-5.0) g/dL 3.9 Urine Opiates Screen (Negative) Negative Urine Methadone Screen (Negative) Negative Ur Barbiturates Screen (Negative) Negative Ur Tricyclics Screen (Negative) Negative Ur Amphetamines Screen (Negative) Negative U Benzodiazepines Scrn (Negative) Negative Urine Cocaine Screen (Negative) Negative Ur THC Screen (Negative) Negative Quality:SDOH Health Related Social Needs: No Data to Display PFSH All Active Problems (Updated 05/18/24 @ 01:04 by Елена De Souza MD) Chest pain (Acute) Social History Smoking/Tobacco Use Status: Never Smoking risk assessment performed?: Yes Alcohol Intake: current Alcohol Intake frequency: a few times a month Alcohol type: beer Drug use: Occasionally Substance use type: marijuana Housing: apartment Do you feel safe at home: Yes Do you feel safe in your relationship?: Yes PAWSS Have you Been Recently Intoxicated or Drunk Within the Last 30 days?: No Have you Ever Experienced Previous Episodes of Alcohol Withdrawal?: No Have you ever Experienced Withdrawal Seizures?: No Have you ever Experienced Delirium Tremens(DT)s?: No Have you ever undergone Alcohol Rehabilitation Treatment (i.e, inpt ot outpatient treatment programs)?: No Have you ever Experienced Blackouts?: No Have you ever Combined Alcohol with other Downers within the last 90 days?: No Have you ever Combined Alcohol with any other Substance of Abuse during the last 90 days?: Yes Positive Blood Alcohol level on Presentation? [PCS.BAL]: No Evidence of Increased Autonomic Activity (i.e. HR>120, tremor, sweating, agitation, nausea)?: No Result: 2
[2024-05-18 00:56] LABS: Troponin I < 4 ng/L (<or=51)
[2024-05-18 01:21] VITALS: BP 121/66; PULSE 77; RESP 14; TEMP 36.6; O2SAT 100
[2024-05-18] MEDS: Acetaminophen 325 MG TAB 650 MG PO (01:21)
[2024-05-18 06:18] VITALS: BP 131/63; PULSE 85; RESP 16; O2SAT 96
== END 2024-05-18 06:19 | disposition home or self-care (01) ==
LOC: ER 05-18 06:24
PROVIDERS: Emergency Provider Student in an Organized Health Care Education/Training Program; PCP Student in an Organized Health Care Education/Training Program
DX: R11.0 Nausea (principal); R07.89 Other chest pain; T40.715A Adverse effect of cannabis, initial encounter; Y92.89 Other specified places as the place of occurrence of the external cause
CPT/HCPCS: 36415; 80053; 80307; 93005; 99284; 83735; 84484; 85025; 93010; 99283

== ENCOUNTER 2024-06-05 19:51 | Emergency (ER) | payer SELFPAY ==
--- NOTE | 2024-06-05 19:45 | RT.EKG_ITS ---
APPROVED REPORT Exam: Resting ECG Reason for Exam: chest pain Patient Location: E HR:95 bpm ECG Measurements Heart Rate 95 AXIS AL 145 P 28 QRSd 78 QRS 11 QT 348 T 9 QTc 438 Conclusion Sinus rhythm, rate 95 No interval abnormalities Q wave V1, V2 No STEMI
[2024-06-05 19:52] VITALS: BP 106/80; PULSE 95; RESP 18; TEMP 36.8; O2SAT 96
[2024-06-05 19:58] VITALS: RESP 18
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
[2024-06-05 20:11] LABS: Abs Immature Grans 0.09 10^3/uL (0.0-0.06); Absolute Basophil Count 0.04 10^3/uL (0.0-0.2); Absolute Eosinophil Count 0.26 10^3/uL (0.0-0.7); Absolute Lymphocyte Count 2.99 10^3/uL (1.2-3.4); Absolute Monocyte Count 0.73 10^3/uL (0.1-0.8); Absolute Neutrophil Count 6.37 10^3/uL (1.2-6.7); Basophils % 0.4 %; Eosinophils % 2.5 %; HCT 41.1 % (36.0-46.0); HGB 13.9 g/dL (11.2-15.7); Immature Grans % 0.9 %; Lymphocytes % 28.5 %; MCH 29.6 pg (27.0-33.0); MCHC 33.8 % (32.0-36.0); MCV 88 fL (80-95); MPV 10.3 fL (8.0-11.0); Neutrophils % 60.7 %; Platelet Count 224 10^3/uL (130-400); RBC 4.69 10^6/uL (3.93-5.22); RDW 12.2 % (11.7-14.6); RDW-SD 39.1 fL; WBC 10.48 10^3/uL (4.4-10.8)
[2024-06-05 20:21] LABS: INR 1.1 (0.9-1.1); Prothrombin Time 10.6 sec (9.1-11.1)
[2024-06-05] MEDS: Normal Saline - Diluent 50 ML VIAL IJ (20:21)
[2024-06-05] MEDS: Omnipaque 350 MG/ML 100 ML BTL IJ (20:21)
[2024-06-05 20:28] LABS: ALT 25 U/L (14-59); AST 17 U/L (15-37); Albumin 4.2 g/dL (3.4-5.0); Alkaline Phosphatase 96 U/L (46-116); Anion Gap 13.9 mmol/L (3-11); BUN 9 mg/dL (7-18); Bilirubin, Total 0.55 mg/dL (0.2-1.0); CO2 24.1 mmol/L (21.0-32.0); CREATININE 0.8 mg/dL (0.55-1.02); Calcium 9.6 mg/dL (8.5-10.1); Chloride 104 mmol/L (98-107); Glucose 82 mg/dL (74-106); Potassium 3.9 mmol/L (3.5-5.1); Sodium 142 mmol/L (136-145); Total Protein 8.5 g/dL (6.4-8.2)
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
[2024-06-05 21:56] VITALS: BP 137/78; PULSE 75; RESP 16; O2SAT 100
--- NOTE | 2024-06-06 08:45 | NUR.NOTE ---
Accessed Pt chart to review Pt insurance for RCT. Her insurance is showing that Pt insurance is invalid. [employer] was asked to email a RCT authorization for payment. Email to use is
== END 2024-06-05 21:58 | disposition home or self-care (01) ==
PROVIDERS: Emergency Provider Emergency Medicine; PCP Student in an Organized Health Care Education/Training Program
DX: R51.9 Headache, unspecified (principal); R42 Dizziness and giddiness; F17.210 Nicotine dependence, cigarettes, uncomplicated
CPT/HCPCS: 36415; 70496; 70498; 80053; 93005; 99285; 85025; 85610; 93010; 99284; J3490

== ENCOUNTER 2024-06-27 23:15 | Emergency (ER) | payer SELFPAY ==
[2024-06-27 23:14] VITALS: BP 115/88; PULSE 98; RESP 18; TEMP 36.9; O2SAT 96
[2024-06-27 23:20] VITALS: RESP 18
[2024-06-28] MEDS: Acetaminophen 500 MG TAB 1000 MG PO (01:28)
[2024-06-28] MEDS: Ibuprofen 800 MG TAB PO (01:28)
--- NOTE | 2024-06-28 01:51 | W.ED.GENAD ---
Discharge Plan Disposition Patient Disposition: Home Condition: Good Discharge Details Clinical Impression: Encounter for medical assessment Primary Care Provider: Cody Galarza ED Provider: Brien Vidales Home Meds and New Rx's Prescriptions: No Action No Known Home Meds Discharge Instructions Additional Instructions: At this time you do not show any clinical evidence of significant alcohol intoxication. If would like to follow-up closely with your outpatient advocates please do not hesitate to contact us and we can help facilitate that connection. If you notice any worsening of your symptoms, or any new symptoms such as vomiting, diarrhea, fever, chills, shortness of breath, chest pain, numbness, weakness, or fainting , please return immediately to the emergency department for reevaluation. Please follow up with your primary care provider as soon as possible for reassessment and reevaluation. As always, it was a pleasure participating in your medical care today. Referrals: Cody Galarza [Primary Care Provider] - HPI General Date/Time Provider Initiated Documentation: 06/27/24 23:30. HPI Narrative: 29-year-old female with a past medical history chronic headaches, depression, anxiety, ADHD and alcohol use presents today via EMS for evaluation after drinking. Patient states that she went through a recent relationship change, and began drinking. She states that she has been sober for the past year, and then started drinking about 3 days ago. Since 3 PM she states that she drank a bottle and a quarter of wine and also a single buzz ball. She admits to feeling intoxicated and tingly in her fingers and toes. She denies any other complaints. She denies any homicidal or suicidal ideations. No other modifying factors. She does state in the past she may have had withdrawal seizures, but this is never been formally diagnosed. Related Data Home Medications ?Medication ?Instructions ?Recorded ?Confirmed Unknown [No Known Home Meds] 06/05/24 06/27/24 Allergies Allergy/AdvReac Type Severity Reaction Status Date / Time amoxicillin Allergy Intermediate Skin Rash Unverified 06/27/24 23:20 General Stated Complaint: OD/Poison KASSANDRA: 3 Review of Systems All systems reviewed & are unremarkable except as noted in HPI and below Exam Narrative Exam Narrative: 1.Const: Well-nourished, Well-developed, appearing stated age 2.Eyes: PERRL, no conjunctival injection, and symmetrical lids. 3.ENT: Atraumatic external nose and ears. Moist MM. Neck: Symmetric, trachea midline, No thyromegaly. 4.CVS: +S1/S2, Peripheral pulses 2+ and equal in all extremities. Brisk capillary refill in all extremities. 5.RESP: Unlabored respiratory effort. Clear to auscultation bilaterally. No wheezes rales or rhonchi 6.GI: Soft, Nontender/Nondistended, No hepatosplenomegaly. No guarding or rebound. 7.MSK: Normocephalic/Atraumatic, Extremities w/o deformity or ttp No cyanosis or clubbing, Normal movement of all extremities 8.Skin: Warm, Dry. No rashes or lesions. 9.Neuro: wall cleaner II-XII grossly intact. Sensation grossly intact, no focal neurologic deficits. 10.Psych: (AAO) x3. Appropriate mood and affect Course Vital Signs Vital signs: Vital Signs Temperature 36.9 C 06/27/24 23:14 Pulse 98 H 06/27/24 23:14 Respiratory Rate 18 06/27/24 23:14 Blood Pressure 115/88 06/27/24 23:14 Pulse Oximetry 96 06/27/24 23:14 Temperature 36.9 C 06/27/24 23:14 Temperature Source Temporal Artery Scan 06/27/24 23:14 Pulse 98 H 06/27/24 23:14 Respiratory Rate 18 06/27/24 23:20 Respiratory Effort Normal, Non-Labored 06/27/24 23:20 Respiratory Depth Normal 06/27/24 23:20 Respiratory Pattern Normal 06/27/24 23:20 Blood Pressure 115/88 06/27/24 23:14 Blood Pressure Position Sitting 06/27/24 23:14 Pulse Oximetry 96 06/27/24 23:14 Oxygen Delivery Method Room Air 06/27/24 23:14 Oxygen Flow Rate 0 06/27/24 23:14 Pain Level 0 06/27/24 23:14 Medical Decision Making 29-year-old female with a past medical history chronic headaches, depression, anxiety, ADHD and alcohol use presents today via EMS for evaluation after drinking. Patient states that she went through a recent relationship change, and began drinking. She states that she has been sober for the past year, and then started drinking about 3 days ago. Since 3 PM she states that she drank a bottle and a quarter of wine and also a single buzz ball. She admits to feeling intoxicated and tingly in her fingers and toes. She denies any other complaints. She denies any homicidal or suicidal ideations. No other modifying factors. She does state in the past she may have had withdrawal seizures, but this is never been formally diagnosed. Exam demonstrates well-appearing female. No signs of severe or overt intoxication. No homicidal or suicidal ideations. Patient is open to receiving counseling and speaking with mental health advocate for outpatient support. We will check her alcohol level, evaluate for electrolyte abnormality, monitor closely and reassess. 1 AM Patient has refused all blood draws, and is requesting to leave. I had a long discussion with her stating that because of her history and her stating that she had drunk so much alcohol there is a concern that she could be intoxicated and thus would not be safe to leave alone. Patient states that she does not have anyone that she can call to come pick her up at this time of night. Unfortunately because of this it is not safe for her to leave unless we know that she is either completely clinically sober or objectively sober via laboratory workup. Unfortunately security does not have any breathalyzers here currently, and patient still states that she is unwilling to have any blood drawn for alcohol. She did ask if we could check her alcohol level in her urine, but I informed her that we do not have that testing capability here unfortunately. After a prolonged discussion with myself, as well as the nursing supervisor boat outfitting, patient has agreed to stay and rest here in the ED until either someone can pick her up or she demonstrates clinical sobriety. We will get her sandwich, few blankets, monitor her closely. 7 AM Patient has been reassessed. She slept well and eaten. She feels well and would like to go home. She does not want any blood work or additional evaluation. Patient appears notably clinically sober. The patient is able to speak clearly. There is no demonstration of any slurring of speech. There is evidence of clear decision making capacity. Patient is able to ambulate well without any difficulty. There are no signs of ataxia or stumbling motions. Patient stable for discharge. Patient will be given RCT ride home. I have extensively reviewed the treatment plan and discharge instructions with the patient. I have addressed all patient concerns at this time. The patient was made aware of what symptoms to monitor for that would warrant a return to the emergency department. Discussed the plan with the patient, they demonstrate verbal understanding and agreement with our assessment and plan at this time. The documentation in this chart was dictated using [employer] dictation software. Please excuse any dictation errors. Quality:SDOH Health Related Social Needs: No Data to Display PFSH All Active Problems (Updated 06/28/24 @ 03:07 by Brien Vidales DO) Encounter for medical assessment (Acute) Headache (Acute) Social History Smoking/Tobacco Use Status: Current every day Tobacco Type: cigarettes Smoking risk assessment performed?: Yes Alcohol Intake: current Alcohol Intake frequency: a few times a month Alcohol type: beer Drug use: Occasionally Substance use type: marijuana Housing: apartment Do you feel safe at home: Yes Do you feel safe in your relationship?: Yes PAWSS Have you Been Recently Intoxicated or Drunk Within the Last 30 days?: Yes Have you Ever Experienced Previous Episodes of Alcohol Withdrawal?: Yes Have you ever Experienced Withdrawal Seizures?: Yes Have you ever Experienced Delirium Tremens(DT)s?: Yes Have you ever undergone Alcohol Rehabilitation Treatment (i.e, inpt ot outpatient treatment programs)?: Yes Have you ever Experienced Blackouts?: Yes Have you ever Combined Alcohol with other Downers within the last 90 days?: Yes Have you ever Combined Alcohol with any other Substance of Abuse during the last 90 days?: Yes Positive Blood Alcohol level on Presentation? [PCS.BAL]: Yes Evidence of Increased Autonomic Activity (i.e. HR>120, tremor, sweating, agitation, nausea)?: No Result: 9
--- NOTE | 2024-06-28 07:54 | NUR.NOTE ---
patient needed a ride home to [address] [place] [address]. [facility] called, patient in chart has Medicaid, but per RCT she does not. They required an authorization form which I made out and faxed to them. Nursing Clothes Presser Rolly aware and ok'd this. Nursing Note:
== END 2024-06-28 07:59 | disposition home or self-care (01) ==
PROVIDERS: Emergency Provider Student in an Organized Health Care Education/Training Program; PCP Student in an Organized Health Care Education/Training Program
DX: F10.90 Alcohol use, unspecified, uncomplicated (principal); Z86.59 Personal history of other mental and behavioral disorders; Z86.69 Personal history of other diseases of the nervous system and sense organs; Z00.8 Encounter for other general examination
CPT/HCPCS: 80053; 82805; 99285; 80320; 85025; 99283

== ENCOUNTER 2024-07-29 13:02 | Emergency (ER) | payer MEDICAID, SELFPAY ==
[2024-07-29] VITALS (11 sets, daily range): BP systolic 127; BP diastolic 72; PULSE 75–100; RESP 15–23; TEMP 37.3; O2SAT 96–99
--- NOTE | 2024-07-29 13:18 | W.ED.GENAD ---
Discharge Plan Disposition Patient Disposition: Home Condition: Stable Discharge Details Clinical Impression: Accidental testosterone overdose Primary Care Provider: Cody Galarza ED Provider: Brien Lopez Home Meds and New Rx's Prescriptions: Continued testosterone cypionate 200 mg/mL oil 50 mg IM Q7D Patient Comments: INJECT 0.25ML (50MG TOTAL) INTO THE SHOULDER, THIGH, OR BUTTOCKS EVERY 7 DAYS. USE PRESCRIBED AMOUNT FROM EACH VIAL AND DISCARD REMAINING. Discharge Instructions Instructions: How to Give an Intramuscular Injection Additional Instructions: You were seen in the emergency department for your accidental increased dose of testosterone this week. I have consulted with poison control there is no likely adverse effect from this. You need to follow instructions on how to correctly perform an intramuscular injection. You are not supposed to be saving vials, you are only supposed to draw up 0.25 mL, once this is injected you should have no reason to think that the medicine did not go and you should not attempt another dose, please return for any emergent concerns though there is very low likelihood that anything will happen from this, you would just have a temporary increase in your testosterone commensurate with the dose, a dose of the whole vial 200 mg is what some people take normally so please try to remain calm, if you develop edema, chest pain, shortness of breath he may return to the emergency department. [facility] and timing of next weeks dose. Referrals: Cody Galarza [Primary Care Provider] - Discharge Data Discharge Date/Time-TO BE ENTERED AT DEPARTURE: 07/29/24 14:12 HPI General Date/Time Provider Initiated Documentation: 07/29/24 13:13. HPI Narrative: 29 year-old female, transitioning to male, uses he/him pronouns goes by Jimbo presents to ED today by EMS with a chief complaint of accidental possible double dose of her injectable testosterone with onset just prior to arrival. Quality described as stated was tachy when EMS showed up after a friend told her she could from this medicine, no radiation to current chest pain, fluid, cough, fever. Severity is described as mild. Palliating factors include nothing specific attempted. Provoking factors include nothing specific. Events leading up to the incident/Associated Symptoms: This was their first time using at-home IM medicines. Patient not anticoagulated. Related Data Home Medications ?Medication ?Instructions ?Recorded ?Confirmed testosterone cypionate 200 mg/mL 50 mg IM Q7D 07/29/24 07/29/24 intramuscular oil Allergies Allergy/AdvReac Type Severity Reaction Status Date / Time amoxicillin Allergy Intermediate Skin Rash Unverified 07/29/24 13:10 General Stated Complaint: OD/Poison KASSANDRA: 4 Review of Systems All systems reviewed & are unremarkable except as noted in HPI and below Exam Narrative Exam Narrative: GENERAL APPEARANCE: Well-nourished, non-toxic, awake and alert, atraumatic, no acute distress. SKIN: Warm, pink, dry, intact, without rashes/lesions/ulcerations. HEAD: Normocephalic, atraumatic, normal hair distribution for gender/age. EYES: Normal conjunctiva, no exudates on lids/lashes. ENT: Nares patent, no circumoral cyanosis, no facial swelling NECK: Supple, trachea midline, painless cervical ROM. LUNGS/CHEST: Lungs CTA bilaterally, non-labored respirations, normal A/P diameter, symmetrical expansion, no chest wall deformity HEART (CV/PV): Regular rate and rhythm without murmur, no peripheral edema, no JVD. ABDOMEN: Soft, non-distended, no guarding. MSK: Normal ROM, no swelling/deformity to bilateral UEs or LEs, moving all extremities without weakness, no cyanosis, spine midline without tenderness, normal curvature. NEURO: Mental Status AAOx4 - alert to person, place, time, events No facial droop, no forehead involvement. Motor: No focal weakness - strength 5/5 in bilateral UEs and LEs, proximal and distal, symmetric. Sensory: sensation intact to light touch globally. Gait normal: patient ambulated without ataxia into ED room. PSYCH: euthymic, cooperative, pleasant, appropriate speech Course Vital Signs Vital signs: Vital Signs Temperature 37.3 C 07/29/24 13:05 Pulse 88 07/29/24 13:05 Respiratory Rate 20 07/29/24 13:05 Blood Pressure 127/72 07/29/24 13:05 Pulse Oximetry 99 07/29/24 13:05 Temperature 37.3 C 07/29/24 13:05 Temperature Source Tympanic 07/29/24 13:05 Pulse 88 07/29/24 13:05 Respiratory Rate 20 07/29/24 13:05 Blood Pressure 127/72 07/29/24 13:05 Blood Pressure Position Sitting 07/29/24 13:05 Pulse Oximetry 99 07/29/24 13:05 Oxygen Delivery Method Room Air 07/29/24 13:05 Oxygen Flow Rate 0 07/29/24 13:05 Medical Decision Making This dictation utilizes [id number] dictation software and may contain unedited grammatical errors. 29 year-old female, transitioning to male, uses he/him pronouns goes by Jimbo presents to ED today by EMS with a chief complaint of accidental possible double dose of her injectable testosterone with onset just prior to arrival. Quality described as stated was tachy when EMS showed up after a friend told her she could from this medicine, no radiation to current chest pain, fluid, cough, fever. Severity is described as mild. Palliating factors include nothing specific attempted. Provoking factors include nothing specific. Events leading up to the incident/Associated Symptoms: This was their first time using at-home IM medicines. Patients' medical history: Negative, otherwise healthy. Family and social history: Noncontributory. Pertinent exam findings / vital signs include benign vital signs, benign cardiopulmonary exam, neuro intact. Differential / pathologies of concern include low risk medicine after discussion with poison control. Diagnostic studies of: -None. Interventions of: -Reassurance. ED Course/Assessment/Plan: Discussed low likelihood for complications with [facility] poison control, I provided reassurance to the patient that this hormone is not going to act acutely on her as her total possible accidental dose was what most patients will be on at some point, I advised her to [facility] with [facility] and return for any swelling to her legs, cough, chest pains or any other emergent concerns. Findings not consistent with dangerous overdose. Disposition of accidental testosterone overdose. Patient verbalized understanding of the plan and return to ED criteria and engaged in shared decision making. Medical Records Medical records reviewed: Yes I reviewed the patient's medical records. Quality:SDOH Health Related Social Needs: No Data to Display PFSH All Active Problems (Updated 07/29/24 @ 13:30 by JAC Barr) Accidental testosterone overdose (Acute) Social History Smoking/Tobacco Use Status: Current every day Tobacco Type: cigarettes Smoking risk assessment performed?: Yes Alcohol Intake: current Alcohol Intake frequency: a few times a month Alcohol type: beer Drug use: Occasionally Substance use type: marijuana Housing: apartment Do you feel safe at home: Yes Do you feel safe in your relationship?: Yes
[2024-07-29] MEDS: Acetaminophen 500 MG TAB 1000 MG PO (13:34)
[2024-07-29] MEDS: Ibuprofen 400 MG TAB PO (13:34)
== END 2024-07-29 14:12 | disposition home or self-care (01) ==
PROVIDERS: Emergency Provider Physician Assistant; PCP Student in an Organized Health Care Education/Training Program
DX: T38.7X1A Poisoning by androgens and anabolic congeners, accidental (unintentional), initial encounter (principal)
CPT/HCPCS: 99282; 99283

== ENCOUNTER 2024-08-28 22:03 | Outpatient (REF) | payer MEDICAID, SELFPAY ==
[2024-08-28 21:44] LABS: Bacteria Moderate HPF (Negative); C & S Indicated? C&S Done As Ordered; Casts Negative LPF (Negative); Crystals Negative HPF (Negative); Epithelial Cells Few HPF (Negative); Mucus Negative (Negative)
== END 2024-08-28 22:04 | disposition home or self-care (01) ==
LOC: LBN 22:03
PROVIDERS: PCP Student in an Organized Health Care Education/Training Program; Visit Provider Physician Assistant Medical
DX: R30.0 Dysuria (principal)
CPT/HCPCS: 81015; 87086; 87480; 87510; 87660

== ENCOUNTER 2024-11-09 14:27 | Emergency (ER) | payer MEDICAID, SELFPAY ==
[2024-11-09 14:26] VITALS: BP 122/85; PULSE 86; RESP 14; TEMP 36.8; O2SAT 96
[2024-11-09 14:37] VITALS: BP 122/85; PULSE 86; RESP 14; TEMP 36.8; O2SAT 96
[2024-11-09] MEDS: Calcium Carbonate *TUMS* 500 MG CHEW 1000 MG PO (15:00)
--- NOTE | 2024-11-09 15:03 | ED.GENADUL_ITS ---
Discharge Plan Disposition Patient Disposition: Home Condition: Stable Discharge Details Clinical Impression: Viral upper respiratory infection Primary Care Provider: Cody Galarza ED Provider: Nayely Rojo Home Meds and New Rx's Prescriptions: No Action testosterone cypionate 200 mg/mL oil 50 mg IM Q7D Patient Comments: INJECT 0.25ML (50MG TOTAL) INTO THE SHOULDER, THIGH, OR BUTTOCKS EVERY 7 DAYS. USE PRESCRIBED AMOUNT FROM EACH VIAL AND DISCARD REMAINING. Nexplanon 68 mg implant 1 implant subdermal ONCE Rx Instructions: as a single dose Discharge Instructions Instructions: Viral Upper Respiratory Infection, Adult (DC) Additional Instructions: You were seen in the emergency department today for evaluation of cough, sore throat, and fatigue most likely caused by a viral upper respiratory infection. In our department you had a full physical examination performed that was reassuring, had an x-ray that did not show any sign of pneumonia or other abnormalities in your lungs, and had a negative test for COVID, influenza, and RSV. We are not able to test for all of the viruses that can cause the symptoms that you are experiencing. It is safe for you to go home and continue to manage her symptoms with Tylenol and ibuprofen as well as good hydration and rest. Please follow-up with your primary care provider in the next few days to discuss this visit and any symptoms that change, worsen, or persist. Thank you for allowing us to be part of your care. HPI General Mode of arrival: ambulatory . Date/Time Provider Initiated Documentation: 11/09/24 14:45 . Limitations to Documentation: no limitations . Information obtained by: patient and old records reviewed . HPI Narrative: HPI: This is a 29-year-old transgender male patient who is presenting for evaluation of approximately 5 days of cough, sore throat, and subjective fever. He reports that on Saturday of this week he started to feel unwell, took a COVID test which his ex partner interpreted and reported to him as negative. States that his symptoms have progressed, he has had an ongoing cough and did have an episode of posttussive emesis a few days ago. He is felt excessively fatigued with bodyaches, and has had a subjective fever. He took Tylenol to [facility] villanueva this, last dose 1 hour ago. States that he has not had any known sick contacts. He reports that he is able to maintain his hydration, is endorsing some mild acid reflux. Exam: Gen: Awake and alert, in no apparent distress HEENT: Non-icteric sclera, posterior pharynx without erythema, exudate, or asymmetry/swelling Neck: Supple, full range of motion of the neck without meningismus Lungs: No apparent respiratory distress, normal respiratory effort. Lung sounds clear and equal bilaterally, occasional crackles most audible in the left base, clears with junky sounding cough CV: Appears well perfused, heart with regular rate and rhythm at the time of this provider's examination, no murmurs auscultated, strong distal pulses Abdomen: Non-distended MSK: Moves 4 extremities without apparent limitation in ROM Skin: Visualized skin without rashes, cyanosis. Neuro: Normal Gait, no obvious focal deficits or facial asymmetry. Speaks in full, clear sentences. Psych: Appropriate for situation. MDM: This is a 29-year-old transgender male patient presenting for evaluation of cough, sore throat, and bodyaches/fatigue. My differential includes but is not limited to viral URI, considered strep pharyngitis although there is no evidence of same on my physical examination and the patient's Centor score is low. Considered pneumonia, bronchitis. The patient is maintaining the hydration and I have a low concern for metabolic electrolyte derangement, dehydration, and kidney injury and is otherwise hemodynamically appropriate patient. We will obtain a Fluvid viral swab, as well as a chest x-ray. At this time the patient does not request any medications for pain or nausea but does request Tums for heartburn which will be provided. ED Course: Fluvid negative, chest x-ray without any abnormalities such as pneumonia identified. Workup most concerning for viral respiratory infection. Heartburn resolved with Tums. I recommended conservative management including Tylenol and ibuprofen as well as good hydration and nutrition. At this time, the patient has had a full medical evaluation and is safe for discharge to home. They are hemodynamically stable, ambulatory, and tolerating PO. They are understanding of the follow-up plan and return precautions. They left our facility without incident. Nayely Rojo MD Related Data Home Medications ?Medication ?Instructions ?Recorded ?Confirmed testosterone cypionate 200 mg/mL 50 mg IM Q7D 07/29/24 11/09/24 intramuscular oil etonogestrel 68 mg subdermal 1 implant subdermal ONCE 11/09/24 11/09/24 implant (Nexplanon) Allergies Allergy/AdvReac Type Severity Reaction Status Date / Time amoxicillin Allergy Intermediate Skin Rash Unverified 11/09/24 14:32 General Stated Complaint: GenMedical KASSANDRA: 3 Course Vital Signs Vital signs: Vital Signs Temperature 36.8 C 11/09/24 14:26 Pulse 86 11/09/24 14:26 Respiratory Rate 14 11/09/24 14:26 Blood Pressure 122/85 11/09/24 14:26 Pulse Oximetry 96 11/09/24 14:26 Temperature 36.8 C 11/09/24 14:37 Temperature Source Oral 11/09/24 14:37 Pulse 86 11/09/24 14:37 Respiratory Rate 14 11/09/24 14:37 Respiratory Effort Normal 11/09/24 15:01 Respiratory Depth Normal 11/09/24 15:01 Blood Pressure 122/85 11/09/24 14:37 Blood Pressure Position Sitting 11/09/24 14:37 Pulse Oximetry 96 11/09/24 14:37 Oxygen Delivery Method Room Air 11/09/24 14:37 Oxygen Flow Rate 0 11/09/24 14:37 Pain Level 5 11/09/24 14:37 Medical Decision Making Quality:SDOH Health Related Social Needs: No Data to Display PFSH All Active Problems (Updated 11/09/24 @ 16:00 by Nayely Rojo MD) Viral upper respiratory infection (Acute) Social History Smoking/Tobacco Use Status: Current every day Tobacco Type: cigarettes Smoking risk assessment performed?: Yes Alcohol Intake: current Alcohol Intake frequency: a few times a month Alcohol type: beer Drug use: Occasionally Substance use type: marijuana Housing: apartment Do you feel safe at home: Yes Do you feel safe in your relationship?: Yes
[2024-11-09 15:16] LABS: COVID-19 PCR Negative (Negative); Influenza A PCR Negative (Negative); Influenza B PCR Negative (Negative); RSV PCR Negative (Negative)
[2024-11-09 15:25] LABS: Source Nasopharynx
--- NOTE | 2024-11-09 15:49 | DI.RAD_ITS ---
Exam(s) XR CHEST 2V PA LATERAL EXAM: XR CHEST 2V PA LATERAL CLINICAL HISTORY: cough, fevel, eval PNA TECHNIQUE: 2D digital imaging was performed. Two views. COMPARISON: No exams were available for comparison FINDINGS: HEART: Normal size. Aorta: Not dilated. PULMONARY VASCULATURE: Normal. MEDIASTINUM: Unremarkable. LUNGS: Clear. PLEURAL SPACE: No pleural effusion or pneumothorax. BONE:Unremarkable for age. SOFT TISSUES: Unremarkable. IMPRESSION: No acute abnormality. DATA REPOSITORY: RADIATION DOSE DELIVERED:
== END 2024-11-09 16:04 | disposition home or self-care (01) ==
PROVIDERS: Emergency Provider Emergency Medicine; PCP Student in an Organized Health Care Education/Training Program
DX: J06.9 Acute upper respiratory infection, unspecified (principal)
CPT/HCPCS: 87637; 99283; 71046

== ENCOUNTER 2024-11-27 11:36 | Emergency (ER) | payer MEDICAID, SELFPAY ==
[2024-11-27 11:38] VITALS: BP 140/88; PULSE 87; RESP 16; O2SAT 98
[2024-11-27 12:07] VITALS: BP 127/78; PULSE 72; RESP 16; TEMP 35.8; O2SAT 99
[2024-11-27 12:20] LABS: Absolute Basophil Count 0.06 10^3/uL (0.0-0.2); Absolute Eosinophil Count 0.12 10^3/uL (0.0-0.7); Absolute Lymphocyte Count 1.66 10^3/uL (1.2-3.4); Absolute Neutrophil Count 5.44 10^3/uL (1.2-6.7); Basophils % 0.8 %; Eosinophils % 1.5 %; HCT 49.2 % (36.0-46.0); HGB 16.1 g/dL (11.2-15.7); Immature Grans % 1.3 %; Lymphocytes % 20.8 %; MCH 31.1 pg (27.0-33.0); MCHC 32.7 % (32.0-36.0); MCV 95 fL (80-95); MPV 10.2 fL (8.0-11.0); Monocytes % 7.5 %; Neutrophils % 68.1 %; Platelet Count 192 10^3/uL (130-400); RBC 5.18 10^6/uL (3.93-5.22); RDW 12.8 % (11.7-14.6); WBC 7.98 10^3/uL (4.4-10.8)
[2024-11-27] MEDS: Ondansetron 4 MG/2 ML VIAL IVP (12:23)
[2024-11-27] MEDS: Normal Saline 1,000 ML 1000 ML IV (12:26)
[2024-11-27 12:38] LABS: Anion Gap 9.5 mmol/L (3-11); BUN 6 mg/dL (7-18); CO2 25.5 mmol/L (21.0-32.0); CREATININE 0.8 mg/dL (0.55-1.02); Calcium 9.3 mg/dL (8.5-10.1); Chloride 105 mmol/L (98-107); Glucose 82 mg/dL (74-106); Potassium 4.1 mmol/L (3.5-5.1); Sodium 140 mmol/L (136-145)
--- NOTE | 2024-11-27 12:45 | DI.CT_ITS ---
Exam(s) CT ABDOMEN PELVIS WO EXAM: CT ABDOMEN PELVIS WO CLINICAL HISTORY: right flank pain. TECHNIQUE: Imaging Protocol: Axial computed tomography images with coronal and sagittal reformatted images were created and reviewed CONTRAST MATERIAL: Intravenous: none Oral: None COMPARISON: No exams were available for comparison FINDINGS: VISUALIZED LUNG BASES: No nodules nor pleural effusions evident. ABDOMEN: There is no ascites. LIVER: There is a focal mass in the medial aspect of the right hepatic lobe above the gallbladder fos sa which measures 4.0 cm wide by 3.3 cm AP by 5.2 cm craniocaudal. This is not a simple cyst. Canno t be further assessed without IV contrast. No other focal findings in the liver with the exception o f what is some probably fatty parenchymal replacement in the anterior aspect of the right lobe adjace nt to the inter lobar fissure. There are no significant focal findings in the left hepatic lobe.. T here are no dilated intrahepatic ducts. GALLBLADDER/BILIARY: No obvious gallbladder pathology. CBD is not dilated. PANCREAS: No evidence of pancreatic mass nor dilatation of the pancreatic duct. SPLEEN: Spleen is not enlarged. No obvious intrasplenic lesions. ADRENALS: There are no significant adrenal masses. KIDNEYS:No cysts evident. No solid renal masses. Solitary tiny punctate calculus in the right kidney . No hydronephrosis. ABDOMINAL AORTA: Abdominal aorta is not enlarged. LYMPH NODES: There is no retroperitoneal nor paraaortic adenopathy. ABDOMINAL WALL: No evidence of significant anterior abdominal wall nor inguinal hernia. GI: There is no evidence of bowel obstruction, free air, nor abscess. PELVIS: LYMPH NODES: There is no intrapelvic nor inguinal adenopathy. GI: No evidence of appendicitis.No significant sigmoid diverticular disease. URINARY BLADDER: No calculi nor obvious masses evident REPRODUCTIVE: Uterus and adnexal regions unremarkable. No free fluid in the pelvis. OSSEOUS: No significant osseous lesions. IMPRESSION: 1. There is a solitary punctate none obstructive calculus in the lower pole of the right kidney, best seen on the coronal images. There is no hydronephrosis nor hydroureter on either side and there are no radiopaque calculi evident in the nondistended urinary bladder. 2. There is a mass in the liver-right hepatic lobe measuring approximately 4 x 3.3 x 5.2 cm. This is not a simple cyst. However, it cannot be further investigated without IV contrast. Should be furth er investigated with contrast infused MRI using hemangioma protocol. Findings discussed by phone with ER physician 11/27/2024 at 2:25 p.m. RADIATION DOSE DELIVERED: 791.39mGy.cm Total DLP DATA REPOSITORY: All CT scans at this facility are submitted to the National Radiology Data Registry (NRDR) Dose Index Registry (DIR) with the [employer] (ACR). RADIATION OPTIMIZATION: All CT scans at this facility use at least one of these dose optimization te chniques: automated exposure control; mA and/or kV adjustment per patient size (includes targeted exa ms where dose is matched to clinical indication); or iterative reconstruction.
[2024-11-27 13:14] LABS: Bilirubin Negative (Negative); Blood Moderate (Negative); Clarity Sl Cloudy (Clear); Glucose Negative (Negative); Ketones Trace mg/dL (Negative); Leukocyte Esterase Moderate (Negative); Nitrite Negative (Negative); Urobilinogen 0.2 mg/dL (Up to 0.2)
--- NOTE | 2024-11-27 13:19 | ED.GENADUL_ITS ---
Discharge Plan Disposition Patient Disposition: Home Condition: Stable Discharge Details Clinical Impression: UTI (urinary tract infection), Lesion of liver Primary Care Provider: Cody Galarza ED Provider: Miguel Burroughs Home Meds and New Rx's Prescriptions: New cephalexin 500 mg capsule 500 mg PO BID 5 Days Qty: 10 0RF No Action testosterone cypionate 200 mg/mL oil 50 mg IM Q7D Patient Comments: INJECT 0.25ML (50MG TOTAL) INTO THE SHOULDER, THIGH, OR BUTTOCKS EVERY 7 DAYS. USE PRESCRIBED AMOUNT FROM EACH VIAL AND DISCARD REMAINING. Nexplanon 68 mg implant 1 implant subdermal ONCE Rx Instructions: as a single dose Discharge Instructions Instructions: Urinary Tract Infection, Adult ED Additional Instructions: You have evidence of a urinary tract infection and antibiotics were given in the emergency department additional prescription sent to the pharmacy. Please make sure to drink lots of water, you can take [id number] Pyridium as needed. You have no evidence of a symptomatic kidney stone. You do have a incidental finding on your liver that will need an outpatient MRI. Please contact your primary care provider to order this study. HPI General Date/Time Provider Initiated Documentation: 11/27/24 11:41 . Limitations to Documentation: no limitations . Information obtained by: patient . HPI Narrative: 29-year-old transgender male presents for evaluation of right flank pain. Symptoms have been ongoing throughout the day. Reports suprapubic abdominal pain, a few days of dark-colored urine and urinary frequency. Reports pain in the right side of his back. Denies any nausea or vomiting. Denies any fever. Related Data Home Medications ?Medication ?Instructions ?Recorded ?Confirmed testosterone cypionate 200 mg/mL 50 mg IM Q7D 07/29/24 11/27/24 intramuscular oil etonogestrel 68 mg subdermal 1 implant subdermal ONCE 11/09/24 11/27/24 implant (Nexplanon) cephalexin 500 mg capsule 500 mg PO BID 5 days #10 caps 11/27/24 Previous Rx's ?Medication ?Instructions ?Recorded cephalexin 500 mg capsule 500 mg PO BID 5 days #10 caps 11/27/24 Allergies Allergy/AdvReac Type Severity Reaction Status Date / Time amoxicillin Allergy Intermediate Skin Rash Unverified 11/09/24 14:32 General Stated Complaint: FlankPain KASSANDRA: 3 Exam Narrative Exam Narrative: Review of Systems: All systems reviewed & are unremarkable except as noted in HPI and below Well-developed, no acute distress NCAT RRR Unlabored respiratory effort Nondistended abdomen , mild suprapubic tenderness, R CVAT Course Vital Signs Vital signs: Vital Signs Pulse 87 11/27/24 11:38 Respiratory Rate 16 11/27/24 11:38 Blood Pressure 140/88 11/27/24 11:38 Pulse Oximetry 98 11/27/24 11:38 Temperature 35.8 C L 11/27/24 12:07 Temperature Source Temporal Artery Scan 11/27/24 12:07 Pulse 72 11/27/24 12:07 Respiratory Rate 16 11/27/24 12:07 Blood Pressure 127/78 11/27/24 12:07 Blood Pressure Position Sitting 11/27/24 11:38 Pulse Oximetry 99 11/27/24 12:07 Oxygen Delivery Method Room Air 11/27/24 11:38 Oxygen Flow Rate 0 11/27/24 11:38 Pain Level 7 11/27/24 12:07 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 Lab/Test Results Lab/Test Results: Laboratory Tests Range/Units 11/27/24 11/27/24 12:15 13:07 WBC (4.4-10.8) 10^3/uL 7.98 RBC (3.93-5.22) 10^6/uL 5.18 Hgb (11.2-15.7) g/dL 16.1 H Hct (36.0-46.0) % 49.2 H MCV (80-95) fL 95 MCH (27.0-33.0) pg 31.1 MCHC (32.0-36.0) % 32.7 RDW (11.7-14.6) % 12.8 Plt Count (130-400) 10^3/uL 192 MPV (8.0-11.0) fL 10.2 Immature Gran % % 1.3 Neutrophils % % 68.1 Lymphocytes % % 20.8 Monocytes % % 7.5 Eosinophils % % 1.5 Basophils % % 0.8 Nucleated RBC % (0.0-0.3) % 0.0 Absolute Neutrophils (1.2-6.7) 10^3/uL 5.44 Absolute Lymphocytes (1.2-3.4) 10^3/uL 1.66 Absolute Monocytes (0.1-0.8) 10^3/uL 0.60 Absolute Eosinophils (0.0-0.7) 10^3/uL 0.12 Absolute Basophils (0.0-0.2) 10^3/uL 0.06 Sodium (136-145) mmol/L 140 Potassium (3.5-5.1) mmol/L 4.1 Chloride (98-107) mmol/L 105 Carbon Dioxide (21.0-32.0) mmol/L 25.5 Anion Gap (3-11) mmol/L 9.5 BUN (7-18) mg/dL 6 L Creatinine (0.55-1.02) mg/dL 0.8 Est GFR (CKD-EPI 2020) (mL/min/1.73m2) 103.50 Glucose (74-106) mg/dL 82 Calcium (8.5-10.1) mg/dL 9.3 Urine Color (Yellow) Yellow Urine Clarity (Clear) Sl Cloudy Urine pH (5-8) 6.0 Ur Specific Hood (1.005-1.025) 1.020 Urine Protein (Neg-Trace) mg/dL Negative Urine Ketones (Negative) mg/dL Trace H Urine Blood (Negative) Moderate H Urine Nitrite (Negative) Negative Urine Bilirubin (Negative) Negative Urine Urobilinogen (Up to 0.2) mg/dL 0.2 Ur Leukocyte Esterase (Negative) Moderate H Urine Glucose (Negative) mg/dL Negative Medical Decision Making Emergent evaluation of right-sided flank pain. Initial differential includes urinary tract infection, pyelonephritis, renal stone. Patient has symptoms consistent with a UTI, no prior diagnosis of kidney stone. Plan today for symptom control, IV fluids, urinalysis as well as CT imaging to evaluate for stone. The patient also requests STI testing due to recent change in sexual partners though he is only engaged in oral sex Lab work reviewed, no leukocytosis. Renal function is normal. Urinalysis does appear to be infected. Gonorrhea and Chlamydia testing were sent. A dose of Rocephin was given in the emergency department. Given low risk for GC/CT remainder of doxy not given, since I need to treat UTI with abx. I will dc with cephalexin for that. Discussed CT findings with the radiologist, there is a punctate stone within the kidney, I do not feel that this needs emergent urologic evaluation. The CT scan is also concerning for a liver lesion. Likely hemangioma, but not consistent with simple cyst. Discussed these findings with the patient. She does have a primary care provider and the patient will contact them to schedule an outpatient MRI to further characterize this lesion. The patient states that they have been drinking excessively and is interested in receiving assistance for sobriety. 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 but she stopped using these years ago except marijuana Housing: apartment Do you feel safe at home: Yes Do you feel safe in your relationship?: Yes PAWSS Have you Been Recently Intoxicated or Drunk Within the Last 30 days?: Yes Have you Ever Experienced Previous Episodes of Alcohol Withdrawal?: Yes Have you ever Experienced Withdrawal Seizures?: No Have you ever Experienced Delirium Tremens(DT)s?: Yes Have you ever undergone Alcohol Rehabilitation Treatment (i.e, inpt ot outpatient treatment programs)?: Yes Have you ever Experienced Blackouts?: Yes Have you ever Combined Alcohol with other Downers within the last 90 days?: Yes Have you ever Combined Alcohol with any other Substance of Abuse during the last 90 days?: Yes Positive Blood Alcohol level on Presentation? [PCS.BAL]: No Evidence of Increased Autonomic Activity (i.e. HR>120, tremor, sweating, agitation, nausea)?: Yes Result: 8
[2024-11-27 13:27] LABS: Bacteria Moderate HPF (Negative); Crystals Negative HPF (Negative); Epithelial Cells Moderate HPF (Negative)
[2024-11-27 13:28] LABS: C & S Indicated? No/Sq. Contamination; Casts Negative LPF (Negative); Mucus Trace (Negative)
[2024-11-27] MEDS: Acetaminophen 500 MG TAB 1000 MG PO (13:29)
[2024-11-27] MEDS: cefTRIAXone 1 GM/50 ML BAG IVPB (14:07)
[2024-11-27 15:36] VITALS: BP 129/81; PULSE 78; RESP 16
[2024-11-30 12:09] LABS: Chlamydia Result Negative (Negative); GC Result Negative (Negative)
== END 2024-11-27 15:52 | disposition home or self-care (01) ==
PROVIDERS: Emergency Provider Emergency Medicine; PCP Student in an Organized Health Care Education/Training Program
DX: N39.0 Urinary tract infection, site not specified (principal); K76.9 Liver disease, unspecified; R31.9 Hematuria, unspecified
CPT/HCPCS: 99284; 99283; 81025; 96375; 80048; 87491; 87591; 96361; 96365; 74176; 81003; 81015; 85025; J0696; J1885; J2405

== ENCOUNTER 2024-12-05 16:50 | Emergency (ER) | payer MEDICAID, SELFPAY ==
[2024-12-05 16:55] VITALS: BP 136/90; PULSE 79; RESP 18; TEMP 37.3; O2SAT 98
--- NOTE | 2024-12-05 17:15 | RT.EKG_ITS ---
APPROVED REPORT Exam: Resting ECG Reason for Exam: epigastric pain Patient Location: E HR:80 bpm ECG Measurements Heart Rate 80 AXIS MA 139 P 19 QRSd 84 QRS 10 QT 356 T 8 QTc 412 Conclusion Sinus rhythm...normal P axis, V-rate 60- 99 Abnormal Q suggests anterior infarct...Q >30mS in V2-V4
--- NOTE | 2024-12-05 17:15 | DI.CT_ITS ---
Exam(s) CT ABDOMEN PELVIS W EXAM: CT ABDOMEN PELVIS W CLINICAL HISTORY: liver lesion. TECHNIQUE: Imaging Protocol: Axial computed tomography images with coronal and sagittal reformatted images were created and reviewed CONTRAST MATERIAL: Intravenous: Omnipaque 350 Contrast volume:100 ml Oral: no COMPARISON: CT CT ABDOMEN PELVIS WO from 11/27/2024 FINDINGS: ABDOMEN and PELVIS: Lung Bases: No acute findings. Liver: Normal density. Focal area of decreased attenuation which appears fatty attenuation, in the me dial left lobe near the justine hepatis measuring 4.5 cm. Vessels course through the lesion and is puja ogeneous. There is no central or peripheral enhancement. There is a smaller lesion is noted near th e falciform ligament, also with fatty attenuation. These lesions both likely represent focal fat. Gallbladder and biliary tract: No radiodense calculus. No wall thickening or pericholecystic fluid. No biliary dilation. Pancreas: Normal density. No abnormal calcifications or inflammatory process. No evidence of mass. Spleen: Normal. Kidneys: Normal size, contour and axis. No radiodense stones. No obstructive uropathy. No suspicious masses seen. Adrenal glands: No masses seen. Vasculature: Abdominal aorta non-dilated. Soft tissues: Small amount of fat at the umbilicus. Bladder: No gross wall thickening. No calculi.No focal mass. Bowel: No obstruction. No bowel wall thickening. Appendix normal. Peritoneal cavity: No ascites. No focal collection. No mesenteric inflammatory response. No free air . Bones: Unremarkable for age. Reproductive organs: Unremarkable. Lymph nodes: No pathologically enlarged lymph nodes. IMPRESSION:: Two lesions with fatty attenuation in the liver likely represent areas of focal fat. M RI could be performed for further evaluation. No acute abnormality in the abdomen or pelvis. RADIATION DOSE DELIVERED: Total DLP DATA REPOSITORY: All CT scans at this facility are submitted to the National Radiology Data Registry (NRDR) Dose Index Registry (DIR) with the [employer] (ACR). RADIATION OPTIMIZATION: All CT scans at this facility use at least one of these dose optimization te chniques: automated exposure control; mA and/or kV adjustment per patient size (includes targeted exa ms where dose is matched to clinical indication); or iterative reconstruction.
[2024-12-05] MEDS: Normal Saline 1,000 ML 1000 ML IV (18:09)
[2024-12-05 18:12] LABS: Abs Immature Grans 0.15 10^3/uL (0.0-0.06); Absolute Basophil Count 0.09 10^3/uL (0.0-0.2); Absolute Eosinophil Count 0.15 10^3/uL (0.0-0.7); Absolute Lymphocyte Count 1.76 10^3/uL (1.2-3.4); Absolute Neutrophil Count 12.19 10^3/uL (1.2-6.7); Basophils % 0.6 %; HCT 51.3 % (36.0-46.0); HGB 16.8 g/dL (11.2-15.7); Lymphocytes % 11.5 %; MCH 31.2 pg (27.0-33.0); MCHC 32.7 % (32.0-36.0); MCV 95 fL (80-95); MPV 10.4 fL (8.0-11.0); Monocytes % 6.3 %; Neutrophils % 79.6 %; Platelet Count 198 10^3/uL (130-400); RBC 5.38 10^6/uL (3.93-5.22); RDW 12.5 % (11.7-14.6); RDW-SD 43.9 fL; WBC 15.31 10^3/uL (4.4-10.8)
[2024-12-05 18:17] LABS: Bilirubin Small (Negative); Blood Small (Negative); Clarity Clear (Clear); Glucose Negative (Negative); Ketones Negative (Negative); Leukocyte Esterase Small (Negative); Nitrite Negative (Negative); Specific Gravity >= 1.030 (1.005-1.025); Urobilinogen 0.2 mg/dL (Up to 0.2); pH 6.5 (5-8)
[2024-12-05 18:22] LABS: Absolute Monocyte Count 0.96 10^3/uL (0.1-0.8); Magnesium 1.9 mg/dL (1.8-2.4)
[2024-12-05 18:24] LABS: Bacteria Few HPF (Negative); C & S Indicated? Yes; Casts Negative LPF (Negative); Crystals Negative HPF (Negative); Epithelial Cells Few HPF (Negative); Mucus Trace (Negative)
[2024-12-05] MEDS: Prochlorperazine 10 MG/2 ML VIAL IVP (18:24)
[2024-12-05] MEDS: Famotidine 20 MG/2 ML VIAL IVP (18:24)
[2024-12-05] MEDS: ACETAMINOPHEN 500 MG/50 ML BAG 200 MG IVPB (18:24)
[2024-12-05 18:34] LABS: ALT 95 U/L (14-59); AST 53 U/L (15-37); Alkaline Phosphatase 103 U/L (46-116); Anion Gap 7.4 mmol/L (3-11); BUN 8 mg/dL (7-18); Bilirubin, Total 1.8 mg/dL (0.2-1.0); CO2 28.6 mmol/L (21.0-32.0); CREATININE 0.9 mg/dL (0.55-1.02); Calcium 9.6 mg/dL (8.5-10.1); Chloride 103 mmol/L (98-107); Estimated GFR 89.86 (mL/min/1.73m2); Glucose 87 mg/dL (74-106); Lipase 27 U/L (<78); Potassium 3.9 mmol/L (3.5-5.1); Sodium 139 mmol/L (136-145); Total Protein 8.4 g/dL (6.4-8.2)
[2024-12-05] MEDS: Omnipaque 350 MG/ML 100 ML BTL IJ (18:36)
[2024-12-05] MEDS: Normal Saline - Diluent 50 ML VIAL IJ (18:37)
[2024-12-05] MEDS: Ketorolac 15 MG/ML VIAL 7.5 MG IVP (19:29)
--- NOTE | 2024-12-05 20:03 | DI.VRAD_ITS ---
PROCEDURE INFORMATION: Exam: CT Abdomen And Pelvis With Contrast Exam date and time: 12/05/2024 6:37 PM Age: 29 years old Clinical indication: Condition or disease; Liver condition; Liver lesion TECHNIQUE: Imaging protocol: Computed tomography of the abdomen and pelvis with contrast. COMPARISON: CT ABDOMEN PELVIS WO 11/27/2024 1:40 PM FINDINGS: Lungs: No concerning finding. Liver: Liver morphology with prominent left and caudate lobe raises concern for fibrosis. No definite nodularity of the liver margin. Hypoattenuating focus at the anterior margin of segment 4 likely represents normal variant focal fatty infiltration. A hypodense focus measuring up to 4.5 cm in posterior segment 4 with slightly lobular circumscribed margins, traversing vessel and soft tissue attenuation of approximately 37 Hounsfield units is indeterminate. No definite peripheral puddling or discontinuation nodular enhancement. No fat attenuation. Characterization is limited on single portal venous phase exam. The aorta is unremarkable. Gallbladder and biliary ducts: The gallbladder is unremarkable. No biliary ductal dilatation. Pancreas: The pancreas is unremarkable. Spleen: The spleen is unremarkable. Adrenal glands: The adrenal glands are unremarkable. Kidneys and ureters: No hydronephrosis or nephrolithiasis. Stomach and bowel: No evidence of bowel obstruction. No pericolonic inflammatory stranding. Appendix: Normal appendix Intraperitoneal space: Unremarkable. No free air. No significant fluid collection. Vasculature: Lymph nodes: Unremarkable. No enlarged lymph nodes. Urinary bladder: Urinary bladder is incompletely distended may be mildly thick-walled relative to degree of distension. Reproductive: Unremarkable as visualized. Bones/joints: Unremarkable. No acute fracture. Soft tissues: Tiny fat containing umbilical hernia. IMPRESSION: Liver morphology suggest hepatic fibrosis. Hypoattenuating focus adjacent to the falciform ligament is likely focal fat. A 4.5 cm hypodense segment 4 lesion is indeterminate and incompletely characterized on single portal venous phase exam. This does not demonstrate imaging characteristics of a typical hemangioma, focal fat, perfusion artifact, adenoma, FNH or HCC. Advise follow-up liver mass protocol MRI with dynamic postcontrast sequences. Dictated and Authenticated by: Heydi Martines MD. Orderin Adrianna Chavira MD
[2024-12-05] MEDS: Prochlorperazine 10 MG TAB PO ×2 (20:26→20:27)
[2024-12-05] MEDS: Cefpodoxime 200 MG TAB PO (20:28)
[2024-12-05 20:36] VITALS: BP 126/84; PULSE 69; RESP 18; TEMP 36.8; O2SAT 96
--- NOTE | 2024-12-05 21:13 | ED.GENADUL_ITS ---
Discharge Plan Disposition Patient Disposition: Home Discharge Details Clinical Impression: UTI (urinary tract infection), Elevated liver function tests, Liver mass Primary Care Provider: Cody Galarza ED Provider: Cait Rodas Home Meds and New Rx's Prescriptions: New cefpodoxime 200 mg Tablet 200 mg PO BID Qty: 10 0RF cefpodoxime 200 mg tablet 200 mg PO BID Qty: 10 0RF Rx Instructions: must administer with a meal/food Continued testosterone cypionate 200 mg/mL oil 50 mg IM Q7D Patient Comments: INJECT 0.25ML (50MG TOTAL) INTO THE SHOULDER, THIGH, OR BUTTOCKS EVERY 7 DAYS. USE PRESCRIBED AMOUNT FROM EACH VIAL AND DISCARD REMAINING. Nexplanon 68 mg implant 1 implant subdermal ONCE Rx Instructions: as a single dose cephalexin 500 mg capsule 500 mg PO BID Patient Comments: TAKE ONE CAPSULE BY MOUTH TWICE A DAY FOR 5 DAYS Discharge Instructions Instructions: Urinary tract infection - Discharge instructions Additional Instructions: Take antibiotic as prescribed Yogurt daily while on antibiotic Have your liver enzymes rechecked by your primary care physician You will need an MRI of your abdomen to fully evaluate the liver mass and follow-up as indicated after MRI, your primary care physician can order this test for you Compazine as needed for nausea and vomiting Take Pepcid daily for the next week to see if it helps with some of your discomfort Referrals: Cody Galarza [Primary Care Provider] - 2 days Discharge Data Discharge Date/Time-TO BE ENTERED AT DEPARTURE: 12/05/24 22:39 HPI General Date/Time Provider Initiated Documentation: 12/05/24 17:07 . HPI Narrative: 29-year-old transgender male with alcoholism presents with left flank pain, urinary symptoms, nausea, and vomiting. No chest pain, shortness of breath, or known trauma. Related Data Home Medications ?Medication ?Instructions ?Recorded ?Confirmed testosterone cypionate 200 mg/mL 50 mg IM Q7D 07/29/24 12/05/24 intramuscular oil etonogestrel 68 mg subdermal 1 implant subdermal ONCE 11/09/24 12/05/24 implant (Nexplanon) cefpodoxime 200 mg tablet 200 mg PO BID #10 tabs 12/05/24 cefpodoxime 200 mg tablet 200 mg PO BID #10 tabs 12/05/24 cephalexin 500 mg capsule 500 mg PO BID 12/05/24 12/05/24 Previous Rx's ?Medication ?Instructions ?Recorded cefpodoxime 200 mg tablet 200 mg PO BID #10 tabs 12/05/24 cefpodoxime 200 mg tablet 200 mg PO BID #10 tabs 12/05/24 Allergies Allergy/AdvReac Type Severity Reaction Status Date / Time amoxicillin Allergy Intermediate Skin Rash Unverified 12/05/24 16:57 General Stated Complaint: ETOHWithdr KASSANDRA: 2 Exam Narrative Exam Narrative: General Appearance: Normal. Vital signs: Within normal limits. HEENT: Within normal limits. Respiratory: Within normal limits. Gastrointestinal: Tenderness in left flank, left upper quadrant, and mild epigastric tenderness. Skin: Warm and dry, no rash. Neurological: Normal. Course Vital Signs Vital signs: Vital Signs Temperature 37.3 C 12/05/24 16:55 Pulse 79 12/05/24 16:55 Respiratory Rate 18 12/05/24 16:55 Blood Pressure 136/90 12/05/24 16:55 Pulse Oximetry 98 12/05/24 16:55 Temperature 36.8 C 12/05/24 20:36 Temperature Source Oral 12/05/24 16:55 Pulse 69 12/05/24 20:36 Respiratory Rate 18 12/05/24 20:36 Respiratory Pattern Normal 12/05/24 17:00 Blood Pressure 126/84 12/05/24 20:36 Blood Pressure Position Sitting 12/05/24 16:55 Pulse Oximetry 96 12/05/24 20:36 Oxygen Delivery Method Room Air 12/05/24 16:55 Oxygen Flow Rate 0 12/05/24 16:55 Lab/Test Results Lab/Test Results: 12/05/24 17:55 Urine - Reflex from Ua Urine Culture - Pending Laboratory Tests Range/Units 12/05/24 17:55 WBC (4.4-10.8) 10^3/uL 15.31 H RBC (3.93-5.22) 10^6/uL 5.38 H Hgb (11.2-15.7) g/dL 16.8 H Hct (36.0-46.0) % 51.3 H MCV (80-95) fL 95 MCH (27.0-33.0) pg 31.2 MCHC (32.0-36.0) % 32.7 RDW (11.7-14.6) % 12.5 Plt Count (130-400) 10^3/uL 198 MPV (8.0-11.0) fL 10.4 Immature Gran % % 1.0 Neutrophils % % 79.6 Lymphocytes % % 11.5 Monocytes % % 6.3 Eosinophils % % 1.0 Basophils % % 0.6 Nucleated RBC % (0.0-0.3) % 0.0 Absolute Neutrophils (1.2-6.7) 10^3/uL 12.19 H Absolute Lymphocytes (1.2-3.4) 10^3/uL 1.76 Absolute Monocytes (0.1-0.8) 10^3/uL 0.96 H Absolute Eosinophils (0.0-0.7) 10^3/uL 0.15 Absolute Basophils (0.0-0.2) 10^3/uL 0.09 Sodium (136-145) mmol/L 139 Potassium (3.5-5.1) mmol/L 3.9 Chloride (98-107) mmol/L 103 Carbon Dioxide (21.0-32.0) mmol/L 28.6 Anion Gap (3-11) mmol/L 7.4 BUN (7-18) mg/dL 8 Creatinine (0.55-1.02) mg/dL 0.9 Est GFR (CKD-EPI 2020) (mL/min/1.73m2) 89.86 Glucose (74-106) mg/dL 87 Calcium (8.5-10.1) mg/dL 9.6 Magnesium (1.8-2.4) mg/dL 1.9 Total Bilirubin (0.2-1.0) mg/dL 1.8 H AST (15-37) U/L 53 H ALT (14-59) U/L 95 H Alkaline Phosphatase (46-116) U/L 103 Total Protein (6.4-8.2) g/dL 8.4 H Albumin (3.4-5.0) g/dL 4.0 Lipase (<78) U/L 27 Urine Color (Yellow) Yellow Urine Clarity (Clear) Clear Urine pH (5-8) 6.5 Ur Specific [place] (1.005-1.025) >= 1.030 H Urine Protein (Neg-Trace) mg/dL Trace Urine Ketones (Negative) mg/dL Negative Urine Blood (Negative) Small H Urine Nitrite (Negative) Negative Urine Bilirubin (Negative) Small H Urine Urobilinogen (Up to 0.2) mg/dL 0.2 Ur Leukocyte Esterase (Negative) Small H Urine RBC (0-2) HPF 3-5 H Urine WBC (0-5) HPF 10-20 H Ur Epithelial Cells (Negative) HPF Few Urine Crystals (Negative) HPF Negative Urine Bacteria (Negative) HPF Few Urine Casts (Negative) LPF Negative Urine Mucus (Negative) Trace Ur Culture Indicated? Yes Urine Glucose (Negative) mg/dL Negative Medical Decision Making Laboratory: Mild leukocytosis, AST 53, ALT 95, bilirubin 1.8. Urinalysis: 10-20 WBCs, few bacteria, positive leukocyte esterase. Imaging: CT abdomen/pelvis shows right liver mass, no abscess. EKG: No acute abnormality. Initial Assessment: 29-year-old female transitioning to male with history of alcoholism, presenting with left flank pain, urinary symptoms, nausea, and vomiting. Denies chest pain, shortness of breath, or known trauma. Differential Diagnosis: - Urinary tract infection: Considered due to urinary symptoms, flank pain, urinalysis showing 10-20 white blood cells, few bacteria, and positive leukocyte esterase. Plan to treat with cefpodoxime for 5 days. - Liver mass: Detected on CT abdomen and pelvis. Radiologist requests MRI for further evaluation. No evidence of obvious abscess. Refer to PCP. ED Course: - EKG without acute abnormality. - Diagnostic labs show mild leukocytosis, AST 53, ALT 95, bilirubin 1.8. - Urinalysis: 10-20 white blood cells, few bacteria, positive leukocyte esterase. - CT abdomen and pelvis: Right liver mass, no abscess. - Treatment: Cefpodoxime for 5 days, Compazine for discomfort, supportive care with Motrin and Tylenol. - Return precautions reviewed, patient expressed understanding. Final Assessment: Patient treated for urinary tract infection with cefpodoxime, supportive care for discomfort, and referred for further evaluation of liver mass. Return precautions reviewed. Clinical Impression: - Urinary tract infection - Right liver mass - Alcoholism Disposition: - Follow-Up: Refer to PCP for MRI evaluation of liver mass. Follow up with [facility] [place] [facility] for alcohol use history. Patient Education: Return precautions reviewed, patient expressed understanding. MDM Components Evaluation: - Number of Differential Diagnoses or Management Options: Urinary tract infection, liver mass. - Amount and Complexity of Data Reviewed: EKG, diagnostic labs, urinalysis, CT abdomen and pelvis. - Risk of Complication and Morbidity or Mortality: Potential complications from untreated urinary tract infection and liver mass requiring further evaluation. Quality:SDOH Health Related Social Needs: No Data to Display PFSH All Active Problems (Updated 12/05/24 @ 21:54 by JAC Trujillo) Abdominal pain (Acute) Liver mass (Acute) Elevated liver function tests (Acute) Lesion of liver (Acute) UTI (urinary tract infection) (Acute) Viral upper respiratory infection (Acute) Social History Smoking/Tobacco Use Status: Current every day Tobacco Type: cigarettes Smoking risk assessment performed?: Yes Alcohol Intake: former Drug use: Never Substance use type: marijuana, crack/cocaine and methamphetamine Details: patient state she has history of using substances crack, crystal methamphetamines. but she stopped using these years ago except marijuana Housing: apartment Do you feel safe at home: Yes Do you feel safe in your relationship?: Yes PAWSS Have you Been Recently Intoxicated or Drunk Within the Last 30 days?: Yes Have you Ever Experienced Previous Episodes of Alcohol Withdrawal?: Yes Have you ever Experienced Withdrawal Seizures?: Yes Have you ever Experienced Delirium Tremens(DT)s?: Yes Have you ever undergone Alcohol Rehabilitation Treatment (i.e, inpt ot outpatient treatment programs)?: No Have you ever Experienced Blackouts?: No Have you ever Combined Alcohol with other Downers within the last 90 days?: No Have you ever Combined Alcohol with any other Substance of Abuse during the last 90 days?: No Positive Blood Alcohol level on Presentation? [PCS.BAL]: No Result: 4
--- NOTE | 2024-12-06 09:42 | NUR.NOTE ---
Nursing Note: Received call from Pharmacy verifying medication orders as they received two different antibiotic orders. Dr. Gomez verified the order is for the Cefpodoxine.
== END 2024-12-05 22:39 | disposition home or self-care (01) ==
PROVIDERS: Emergency Provider Physician Assistant; PCP Student in an Organized Health Care Education/Training Program
DX: N39.0 Urinary tract infection, site not specified (principal); R79.89 Other specified abnormal findings of blood chemistry; R16.0 Hepatomegaly, not elsewhere classified; F10.20 Alcohol dependence, uncomplicated; F17.210 Nicotine dependence, cigarettes, uncomplicated
CPT/HCPCS: 36415; 80053; 83690; 93005; 96365; 96375; 99285; 74177; 81003; 81015; 83735; 85025; 87086; 93010; J0131; J0780; J1885; J3490

== ENCOUNTER 2024-12-05 21:40 | Emergency (ER) | payer MEDICAID, SELFPAY ==
[2024-12-05 21:46] VITALS: BP 132/71; PULSE 70; RESP 18; TEMP 36.8; O2SAT 98
[2024-12-05 21:48] VITALS: BP 132/71; PULSE 70; RESP 18; TEMP 36.8; O2SAT 97
[2024-12-05] MEDS: Cyclobenzaprine 10 MG TAB PO (21:56)
[2024-12-05] MEDS: Ketorolac 15 MG/ML VIAL 7.5 MG IM (21:57)
[2024-12-05 22:01] VITALS: RESP 18
--- NOTE | 2024-12-05 22:01 | ED.GENADUL_ITS ---
Discharge Plan Disposition Patient Disposition: Home Condition: Stable Discharge Details Clinical Impression: Abdominal pain Primary Care Provider: Cody Galarza ED Provider: Cait Rodas Home Meds and New Rx's Prescriptions: Continued testosterone cypionate 200 mg/mL oil 50 mg IM Q7D Patient Comments: INJECT 0.25ML (50MG TOTAL) INTO THE SHOULDER, THIGH, OR BUTTOCKS EVERY 7 DAYS. USE PRESCRIBED AMOUNT FROM EACH VIAL AND DISCARD REMAINING. Nexplanon 68 mg implant 1 implant subdermal ONCE Rx Instructions: as a single dose cephalexin 500 mg capsule 500 mg PO BID Patient Comments: TAKE ONE CAPSULE BY MOUTH TWICE A DAY FOR 5 DAYS cefpodoxime 200 mg Tablet 200 mg PO BID Qty: 10 0RF cefpodoxime 200 mg tablet 200 mg PO BID Qty: 10 0RF Rx Instructions: must administer with a meal/food HPI General Date/Time Provider Initiated Documentation: 12/05/24 21:41 . HPI Narrative: 29-year-old female transitioning to male on testosterone and progesterone presents with left flank pain radiating to the neck. Pain worsened while waiting for a ride home after discharge. Related Data Home Medications ?Medication ?Instructions ?Recorded ?Confirmed testosterone cypionate 200 mg/mL 50 mg IM Q7D 07/29/24 12/05/24 intramuscular oil etonogestrel 68 mg subdermal 1 implant subdermal ONCE 11/09/24 12/05/24 implant (Nexplanon) cefpodoxime 200 mg tablet 200 mg PO BID #10 tabs 12/05/24 cefpodoxime 200 mg tablet 200 mg PO BID #10 tabs 12/05/24 cephalexin 500 mg capsule 500 mg PO BID 12/05/24 12/05/24 Previous Rx's ?Medication ?Instructions ?Recorded cefpodoxime 200 mg tablet 200 mg PO BID #10 tabs 12/05/24 cefpodoxime 200 mg tablet 200 mg PO BID #10 tabs 12/05/24 Allergies Allergy/AdvReac Type Severity Reaction Status Date / Time amoxicillin Allergy Intermediate Skin Rash Unverified 12/05/24 16:57 General Stated Complaint: Abd Prob KASSANDRA: 3 Exam Narrative Exam Narrative: General Appearance: Alert and oriented, no acute distress. Vital signs: Within normal limits. HEENT: Within normal limits. Respiratory: Lungs clear to auscultation. Cardiovascular: Regular cardiac rate and rhythm. Back, Musculoskeletal: No reproducible tenderness. Skin: Warm and dry, no rash. Neurological: Normal. Course Vital Signs Vital signs: Vital Signs Temperature 36.8 C 12/05/24 21:46 Pulse 70 12/05/24 21:46 Respiratory Rate 18 12/05/24 21:46 Blood Pressure 132/71 12/05/24 21:46 Pulse Oximetry 98 12/05/24 21:46 Temperature 36.8 C 12/05/24 21:48 Temperature Source Oral 12/05/24 21:48 Pulse 70 12/05/24 21:48 Respiratory Rate 18 12/05/24 21:48 Blood Pressure 132/71 12/05/24 21:48 Pulse Oximetry 97 12/05/24 21:48 Pain Level 9 12/05/24 21:46 Medical Decision Making Labs and diagnostic exam from prior showed no acute abnormality. Initial Assessment: 29-year-old female transitioning to male on testosterone and progesterone presents with left flank pain radiating to neck. Patient alert and oriented, no acute distress. Lungs clear to auscultation. Cardiac rate, rhythm regular. No reproducible tenderness. Reviewed labs and diagnostic exam from prior visit, no acute abnormality. Differential Diagnosis: - Pulmonary embolism: Considered but unlikely due to stable vitals, no hypoxia, no tachypnea, no tachycardia, clear lung auscultation. ED Course: - Administered Flexeril. - Administered Toradol 7.5 mg. Final Assessment: Left flank pain managed with Flexeril and Toradol. PE unlikely due to stable vitals and clear lung auscultation. Continue current medication regimen for UTI. Clinical Impression: - Left flank pain Disposition: - Discharge: Patient discharged home. - Follow-Up: Advised follow-up with PCP. Patient Education: Reviewed return precautions; patient demonstrated understanding. MDM Components Evaluation: - Number of Differential Diagnoses or Management Options: Pulmonary embolism. - Amount and Complexity of Data Reviewed: Reviewed labs and diagnostic exam from prior visit. - Risk of Complication and Morbidity or Mortality: Low risk due to stable vitals and clear lung auscultation. Quality:SDOH Health Related Social Needs: No Data to Display PFSH All Active Problems (Updated 12/05/24 @ 21:54 by JAC Trujillo) Abdominal pain (Acute) Liver mass (Acute) Elevated liver function tests (Acute) Lesion of liver (Acute) UTI (urinary tract infection) (Acute) Viral upper respiratory infection (Acute) Social History Smoking/Tobacco Use Status: Current every day Tobacco Type: cigarettes Smoking risk assessment performed?: Yes Alcohol Intake: former Drug use: Never Substance use type: marijuana, crack/cocaine and methamphetamine Details: patient state she has history of using substances crack, crystal methamphetamines. but she stopped using these years ago except marijuana Housing: apartment Do you feel safe at home: Yes Do you feel safe in your relationship?: Yes PAWSS Have you Been Recently Intoxicated or Drunk Within the Last 30 days?: Yes Have you Ever Experienced Previous Episodes of Alcohol Withdrawal?: Yes Have you ever Experienced Withdrawal Seizures?: Yes Have you ever Experienced Delirium Tremens(DT)s?: Yes Have you ever undergone Alcohol Rehabilitation Treatment (i.e, inpt ot outpatient treatment programs)?: No Have you ever Experienced Blackouts?: Yes Have you ever Combined Alcohol with other Downers within the last 90 days?: Unable to Obtain Have you ever Combined Alcohol with any other Substance of Abuse during the last 90 days?: Unable to Obtain Positive Blood Alcohol level on Presentation? [PCS.BAL]: Unable to Obtain Evidence of Increased Autonomic Activity (i.e. HR>120, tremor, sweating, agitation, nausea)?: No Result: 5
== END 2024-12-05 22:02 | disposition home or self-care (01) ==
PROVIDERS: Emergency Provider Physician Assistant; PCP Student in an Organized Health Care Education/Training Program
DX: R10.9 Unspecified abdominal pain (principal)
CPT/HCPCS: 96372; 99283; J1885

== ENCOUNTER 2024-12-29 04:33 | Emergency (ER) | payer MEDICAID, SELFPAY ==
[2024-12-29] VITALS (25 sets, daily range): BP systolic 119–152; BP diastolic 67–100; PULSE 66–97; RESP 16; TEMP 36.1; O2SAT 94–99
--- NOTE | 2024-12-29 04:29 | ED.GENADUL_ITS ---
Discharge Plan Disposition Patient Disposition: Home Condition: Good Discharge Details Clinical Impression: Anxious reaction Primary Care Provider: Cody Galarza ED Provider: Gerald Shah [place] Meds and New Rx's Prescriptions: Continued testosterone cypionate 200 mg/mL oil 50 mg IM Q7D Patient Comments: INJECT 0.25ML (50MG TOTAL) INTO THE SHOULDER, THIGH, OR BUTTOCKS EVERY 7 DAYS . USE PRESCRIBED AMOUNT FROM EACH VIAL AND DISCARD REMAINING. Nexplanon 68 mg implant 1 implant subdermal ONCE Rx Instructions: as a single dose Discharge Instructions Additional Instructions: Suspect that the combination of excessive alcohol and caffeine use over the course of the day resulted in some anxiety and hyperventilation. Your vital signs and exam are reassuring and your nausea and anxious feeling resolved with the low dose of prochlorperazine. Would rest and take it easy over the course of today, drink plenty of water to hydrate. Follow-up with primary care as needed. Return to ED for any chest pain, increasing shortness of breath, syncope, other concerns. Referrals: Cody Galarza [Primary Care Provider] - [facility] General Mode of arrival: EMS . Date/Time Provider Initiated Documentation: 12/29/24 04:39 . Limitations to Documentation: no limitations . Information obtained by: patient, RN notes reviewed and old records reviewed . HPI Narrative: Patient presenting to ED from home by ambulance with complaint of not feeling w ell. Patient reports consuming a large amount of alcohol over the course of the last 24 hours as well as drinking iced coffee to stay awake. States that when finally went to bed early this morning, felt like he could not breathe, developed tingling in hands and feet. Reports but has not vomited. Denies any abdominal pain. Feels some upper left thoracic pain with deep breathing but currently not short of breath and denies any injuries. Related Data Home Medications ?Medication ?Instructions ?Recorded ?Confirmed testosterone cypionate 200 mg/mL 50 mg IM Q7D 07/29/24 12/29/24 intramuscular oil etonogestrel 68 mg subdermal 1 implant subdermal ONCE 11/09/24 12/29/24 implant (Nexplanon) Allergies Allergy/AdvReac Type Severity Reaction Status Date / Time amoxicillin Allergy Intermediate Skin Rash Unverified 12/29/24 04:35 General KASSANDRA: 3 Exam Narrative Exam Narrative: Const: NAD. VS per triage. HEENT: NC/AT. Normal facial exam. Neck: Supple. Trachea midline. Lungs: Normal respiratory effort. Lungs are clear. Cor: RRR without murmur. Good radial pulses. GI: Soft/ND/NT. Neuro: A+O x 3. Normal speech, mentation. Cranial nerves II - XII grossly intact. No gross motor or sensory deficit. Medical Decision Making Patient presenting to ED after consuming large amount of alcohol over the course of the last 24 hours as well as caffeine. [place] like he was going to . Reports having tingling in the hands and feet suggesting hyperventilation and anxiety. Arrives here with normal mental status and clear speech. Initial heart rate and blood pressure little elevated but has come down to normal. Oxygen saturations are normal. Lungs are clear and equal. Does complain of left lower thoracic pleuritic pain but PERCs out and does not require testing for PE. Reports being nauseated. Suspect the combination of alcohol and caffeine has triggered some anxiety. Will give a low-dose of prochlorperazine which should help with the nausea as well as the anxious feelings that are occurring. Will observe for short period of time but does not at this time require any imaging or labs. Patient has been resting comfortably and feels much better after prochlorperazine. Vital signs completely normal. Patient reassured. May follow-up with primary care as needed. Return to ED for any syncope, chest pain, shortness of breath, other concerns. PFSH All Active Problems (Updated 12/29/24 @ 05:55 by Gerald Shah MD) Anxious reaction (Acute) Abdominal pain (Acute) Liver mass (Acute) Elevated liver function tests (Acute) Social History Smoking/Tobacco Use Status: Current every day Tobacco Type: cigarettes Smoking risk assessment performed?: Yes Alcohol Intake: current Alcohol Intake frequency: 3 or more drinks per day Alcohol type: beer, wine and hard liquor Drug use: Never Substance use type: marijuana, crack/cocaine and methamphetamine Details: patient state she has history of using substances crack, crystal methamphetamines. but she stopped using these years ago except marijuana Housing: apartment Do you feel safe at home: Yes Do you feel safe in your relationship?: Yes
[2024-12-29] MEDS: Prochlorperazine 10 MG/2 ML VIAL 5 MG IVP (04:46)
== END 2024-12-29 06:40 | disposition home or self-care (01) ==
PROVIDERS: Emergency Provider Emergency Medicine; PCP Student in an Organized Health Care Education/Training Program
DX: F41.1 Generalized anxiety disorder (principal); R11.0 Nausea
CPT/HCPCS: 99283; 99284; 96374; J0780

== ENCOUNTER 2025-01-17 02:46 | Emergency (ER) | payer MEDICAID, SELFPAY ==
[2025-01-17 02:29] VITALS: BP 117/76; PULSE 70; RESP 16; TEMP 37.1; O2SAT 96
--- NOTE | 2025-01-17 02:45 | DI.RAD_ITS ---
Exam(s) XR ELBOW RT COMPLETE EXAM: XR ELBOW RT COMPLETE CLINICAL HISTORY: right elbow pain and swelling post fall. TECHNIQUE: 2D digital imaging was performed. COMPARISON: No exams were available for comparison FINDINGS: 3 views There is no evidence of obvious fracture nor dislocation but there does appear to be a joint effusion with elevation both anterior posterior fat pads. There is no swelling of the olecranon bursa. No radiopaque foreign bodies. IMPRESSION: Although there are no obvious fractures, the presence of the joint effusion described above indicates that there is probably an occult fracture given the setting of trauma. Recommend repeat imaging in 1 week. DATA REPOSITORY: RADIATION DOSE DELIVERED:
--- NOTE | 2025-01-17 02:45 | DI.RAD_ITS ---
Exam(s) XR WRIST RT COMPLETE EXAM: XR WRIST RT COMPLETE CLINICAL HISTORY: right wrist pain post FOOSH. TECHNIQUE: 2D digital imaging was performed. COMPARISON: No exams were available for comparison FINDINGS: 3 views No evidence of fracture nor dislocation nor significant ulnar variance. Scaphoid and scapholunate distance are normal. Bone density normal. No osseous lesions. No degenerative changes. No radiopaque foreign bodies. IMPRESSION: No significant osseous findings in the right wrist DATA REPOSITORY: RADIATION DOSE DELIVERED:
--- NOTE | 2025-01-17 02:45 | DI.RAD_ITS ---
Exam(s) XR ANKLE LT COMPLETE EXAM: XR ANKLE LT COMPLETE CLINICAL HISTORY: inversion injury, left ankle pain and swelling. TECHNIQUE: 2D digital imaging was performed. COMPARISON: No exams were available for comparison FINDINGS: 3 views There is prominent swelling over the ankle predominately lateral aspect. No evidence fracture nor widening the ankle mortise. Talar dome unremarkable. Incidentally noted is subtle suggestion of osseous tarsal coalition. IMPRESSION: Soft tissue swelling but no obvious fractures. 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 DATA REPOSITORY: RADIATION DOSE DELIVERED:
[2025-01-17] MEDS: Ketorolac 15 MG/ML VIAL IM (03:10)
[2025-01-17] MEDS: Acetaminophen 500 MG TAB 1000 MG PO (03:10)
--- NOTE | 2025-01-17 03:40 | W.ED.GENAD ---
Discharge Plan Disposition Patient Disposition: Home Condition: Good Discharge Details Clinical Impression: Ankle sprain, Effusion of elbow, Fall Primary Care Provider: Cody Galarza ED Provider: Елена De Souza Home Meds and New Rx's Prescriptions: Continued testosterone cypionate 200 mg/mL oil 50 mg IM Q7D Patient Comments: INJECT 0.25ML (50MG TOTAL) INTO THE SHOULDER, THIGH, OR BUTTOCKS EVERY 7 DAYS. USE PRESCRIBED AMOUNT FROM EACH VIAL AND DISCARD REMAINING. Nexplanon 68 mg implant 1 implant subdermal ONCE Rx Instructions: as a single dose Discharge Instructions Instructions: Swollen Joints, Ankle Sprain ED Additional Instructions: Tylenol and ibuprofen over the counter for pain; follow the directions on the bottle. ERIBERTO wrap to left ankle and right elbow. You can put weight on your left foot as tolerated; use the crutches if you need them. Call your primary care doctor in the morning to schedule an appointment for next week to follow up on your visit here. Not all broken bones are visible on xray right way so if you are still having a lot of pain you may need repeat xrays. Return to the emergency department for new or worsening symptoms including new/severe pain, numbness or tingling, or if you have any other concerns. HPI General Mode of arrival: EMS. Date/Time Provider Initiated Documentation: 01/17/25 02:57. Limitations to Documentation: no limitations. Information obtained by: patient and EMS. HPI Narrative: 29yo presenting via EMS for ankle and elbow pain. Around 10pm yesterday tripped on the sidewalk and fell forward, twisting his left ankle and landing with his arms outstretched. Able to walk (albeit with limp) after the event. Since then has had increasing left ankle pain and swelling as well as pain in his left hand and right elbow and wrist. Unable to walk currently. No head strike of LOC. No numbness, tingling, or weakness. Otherwise in his usual state of health. Related Data Home Medications ?Medication ?Instructions ?Recorded ?Confirmed testosterone cypionate 200 mg/mL 50 mg IM Q7D 07/29/24 01/17/25 intramuscular oil etonogestrel 68 mg subdermal 1 implant subdermal ONCE 11/09/24 01/17/25 implant (Nexplanon) Allergies Allergy/AdvReac Type Severity Reaction Status Date / Time amoxicillin Allergy Intermediate Skin Rash Unverified 01/17/25 02:42 General Stated Complaint: Orthopedic KASSANDRA: 4 Review of Systems Narrative: see HPI Exam Narrative Exam Narrative: General: Alert, well appearing, well nourished, in no acute distress. Head: Normocephalic, atraumatic Neck: Trachea midline, ?Neck supple. Cardiac: ?No cyanosis. Resp: No respiratory distress. Speaking in full sentences. Neurologic: GCS 15. ? Moves all extremities against gravity Extremities: ? RLE: nml LLE: Swelling and tenderness to lateral malleolus. No bony tenderness to midfoot. Pain with passive ROM, greatest with eversion. Sensation intact throughout, good DP pulse, and brisk capillary refill all digits. LUE: No pain with ROM at shoulder. No bony tenderness at shoulder, elbow, forearm, wrist, or hand. Mild pain with ROM at wrist. Tenderness to palpation of thenar eminence and soft tissues of palm. Sensation intact throughout, good radial and ulnar pulse, and brisk capillary refill all digits. RUE: No pain with ROM at shoulder and no bony tenderness. Tender to palpation of elbow and very painful with passive ROM. Pain with ROM at wrist, some bony tenderness medially. No scaphoid tenderness. no bony tenderness in hand. Sensation intact throughout, good radial and ulnar pulse, and brisk capillary refill all digits. Course Vital Signs Vital signs: Vital Signs Temperature 37.1 C 01/17/25 02:29 Pulse 70 01/17/25 02:29 Respiratory Rate 16 01/17/25 02:29 Blood Pressure 117/76 01/17/25 02:29 Pulse Oximetry 96 01/17/25 02:29 Temperature 37.1 C 01/17/25 02:29 Temperature Source Oral 01/17/25 02:29 Pulse 70 01/17/25 02:29 Respiratory Rate 16 01/17/25 02:29 Blood Pressure 117/76 01/17/25 02:29 Blood Pressure Position Sitting 01/17/25 02:29 Pulse Oximetry 96 01/17/25 02:29 Oxygen Delivery Method Room Air 01/17/25 02:29 Oxygen Flow Rate 0 01/17/25 02:29 Pain Level 9 01/17/25 02:34 Medical Decision Making 29yo presenting via EMS for ankle and elbow pain after fall. Vital signs reassuring. Swelling and tenderness and left medial malleolus, bony tenderness at right wrist and elbow. No scaphoid tenderness. Normal neurovascular exam. Not concerned for nerve or arterial injury. Given tylenol and toradol for pain. Plain films reviewed with no displaced fractures on my view; radiology reads below. L ankle: IMPRESSION: Marked lateral malleolar soft tissue swelling without underlying bony injury. If pain persists, consider repeat imaging in 5-7 days to exclude occult fracture. R wrist: IMPRESSION: 1. Probable vascular groove through the scaphoid body although nondisplaced fracture could be considered in the differential. Please correlate with snuffbox tenderness. Of note, there is no joint effusion to corroborate fracture. If pain persists, consider repeat imaging in 5-7 days to exclude occult fracture R elbow: IMPRESSION: Joint effusion without definite underlying bony injury visualized. Findings are suspicious for soft tissue or occult bony injury. On reassessment patient with improved pain. Able to actively range (albeit with discomfort) all joints; elbow remains most painful though and he is unable to fully flex 2/t pain. Remains free of snuffbox tenderness at right wrist and he is able to range this wrist freely. Will apply ERIBERTO wrap to left ankle and right elbow and provide crutches. Advised tylenol and ibuprofen at home. Possibility of occult fracture was reviewed with patient and the importance of following up with PCP next week was stressed, including the possibility of needing further imaging. He verbalized understanding of this. Discharged home; discharge instructions and return precautions were reviewed with patient who verbalized understanding. All questions were answered and he is in full agreement with the plan. Imaging Data Radiologic Study: Imaging: X-Ray [facility] All Active Problems (Updated 01/17/25 @ 04:10 by Елена De Souza MD) Fall (Acute) Effusion of elbow (Acute) Ankle sprain (Acute) Anxious reaction (Acute) Social History Smoking/Tobacco Use Status: Current every day Tobacco Type: cigarettes Smoking risk assessment performed?: Yes Alcohol Intake: current Alcohol Intake frequency: 3 or more drinks per day Alcohol type: beer, wine and hard liquor Drug use: Occasionally Substance use type: marijuana Details: patient state she has history of using substances crack, crystal methamphetamines. but she stopped using these years ago except marijuana 01/07/25 Housing: apartment Do you feel safe at home: Yes Do you feel safe in your relationship?: Yes PAWSS Have you Been Recently Intoxicated or Drunk Within the Last 30 days?: Yes Have you Ever Experienced Previous Episodes of Alcohol Withdrawal?: Yes Have you ever Experienced Withdrawal Seizures?: Yes Have you ever Experienced Delirium Tremens(DT)s?: Yes Have you ever undergone Alcohol Rehabilitation Treatment (i.e, inpt ot outpatient treatment programs)?: Yes Have you ever Experienced Blackouts?: Yes Have you ever Combined Alcohol with other Downers within the last 90 days?: No Have you ever Combined Alcohol with any other Substance of Abuse during the last 90 days?: No Positive Blood Alcohol level on Presentation? [PCS.BAL]: Yes Evidence of Increased Autonomic Activity (i.e. HR>120, tremor, sweating, agitation, nausea)?: No Result: 7
--- NOTE | 2025-01-17 03:49 | DI.VRAD_ITS ---
PROCEDURE INFORMATION: Exam: XR Right Elbow Exam date and time: 01/17/2025 3:29 AM Age: 29 years old Clinical indication: Injury or trauma; Blunt trauma (contusions or hematomas); Injury details: Right elbow pain and swelling post fall TECHNIQUE: Imaging protocol: Radiologic exam of the right elbow. Views: 3 or more views. COMPARISON: CR XR WRIST RT COMPLETE 01/17/2025 3:27 AM FINDINGS: Bones/joints: There is displacement of both the anterior and posterior fat pad suggesting large joint effusion. No acute fracture or dislocation. No suspicious bony lesions. Soft tissues: Normal. IMPRESSION: Joint effusion without definite underlying bony injury visualized. Findings are suspicious for soft tissue or occult bony injury. If pain persists, consider repeat imaging in 5-7 days to exclude occult fracture. Dictated and Authenticated by: Claire Waller MD. Orderin Ap Christiansen MD
--- NOTE | 2025-01-17 03:52 | DI.VRAD_ITS ---
PROCEDURE INFORMATION: Exam: XR Right Wrist Exam date and time: 01/17/2025 3:27 AM Age: 29 years old Clinical indication: Injury or trauma; Fall; Blunt trauma (contusions or hematomas); Injury details: Right wrist pain post foosh TECHNIQUE: Imaging protocol: Radiologic exam of the right wrist. Views: 3 or more views. COMPARISON: No relevant prior studies available. FINDINGS: Bones/joints: No displaced fracture or dislocation. A subtle radiolucency through the scaphoid body does not extend to the cortex and likely represents a vascular groove; however nondisplaced fracture can not be entirely excluded. No elevation of the pronator fat pad to suggest joint effusion. Soft tissues: Normal. IMPRESSION: 1. Probable vascular groove through the scaphoid body although nondisplaced fracture could be considered in the differential. Please correlate with snuffbox tenderness. Of note, there is no joint effusion to corroborate fracture. If pain persists, consider repeat imaging in 5-7 days to exclude occult fracture. Dictated and Authenticated by: Claire Waller MD. Orderin Ap Christiansen MD
--- NOTE | 2025-01-17 03:54 | DI.VRAD_ITS ---
PROCEDURE INFORMATION: Exam: XR Left Ankle Exam date and time: 01/17/2025 3:21 AM Age: 29 years old Clinical indication: Injury or trauma; Fall; Blunt trauma; Injury details: Inversion injury, left ankle pain and swelling TECHNIQUE: Imaging protocol: Radiologic exam of the left ankle. Views: 3 or more views. COMPARISON: No relevant prior studies available. FINDINGS: Bones/joints: There is marked lateral malleolar soft tissue swelling. No acute fracture or dislocation. There is a small joint effusion. No suspicious bony lesions. IMPRESSION: Marked lateral malleolar soft tissue swelling without underlying bony injury. If pain persists, consider repeat imaging in 5-7 days to exclude occult fracture. Dictated and Authenticated by: Claire Waller MD. Orderin Ap Christiansen MD
== END 2025-01-17 04:31 | disposition home or self-care (01) ==
PROVIDERS: Emergency Provider Student in an Organized Health Care Education/Training Program; PCP Student in an Organized Health Care Education/Training Program
DX: S93.402A Sprain of unspecified ligament of left ankle, initial encounter (principal); M25.421 Effusion, right elbow; W10.1XXA Fall (on)(from) sidewalk curb, initial encounter
CPT/HCPCS: 99283; 99284; 96372; 73080; 73110; 73610; J1885

== ENCOUNTER 2025-03-10 23:44 | Emergency (ER) | payer MEDICAID, SELFPAY ==
[2025-03-10 23:45] VITALS: BP 136/97; PULSE 102; RESP 20; O2SAT 97
[2025-03-11 00:12] LABS: Abs Immature Grans 0.15 10^3/uL (0.0-0.06); HCT 52.9 % (36.0-46.0); HGB 18.0 g/dL (11.2-15.7); Immature Grans % 1.8 %; MCH 31.5 pg (27.0-33.0); MCHC 34.0 % (32.0-36.0); MCV 93 fL (80-95); MPV 10.0 fL (8.0-11.0); Platelet Count 204 10^3/uL (130-400); RBC 5.72 10^6/uL (3.93-5.22); RDW 13.1 % (11.7-14.6); RDW-SD 44.3 fL; WBC 8.37 10^3/uL (4.4-10.8)
[2025-03-11 00:26] LABS: INR 1.1 (0.9-1.1); PTT Activated 24.7 sec (20.6-30.2); Prothrombin Time 10.7 sec (9.1-11.1)
[2025-03-11 00:28] LABS: ALT 75 U/L (14-59); AST 40 U/L (15-37); Albumin 4.2 g/dL (3.4-5.0); Alkaline Phosphatase 93 U/L (46-116); Anion Gap 13.0 mmol/L (3-11); BUN 3 mg/dL (7-18); Bilirubin, Total 1.2 mg/dL (0.2-1.0); CO2 24.0 mmol/L (21.0-32.0); Calcium 9.0 mg/dL (8.5-10.1); Chloride 105 mmol/L (98-107); Estimated GFR 120.74 (mL/min/1.73m2); Glucose 87 mg/dL (74-106); Potassium 3.5 mmol/L (3.5-5.1); Sodium 142 mmol/L (136-145); Total Protein 8.5 g/dL (6.4-8.2)
[2025-03-11] MEDS: Lactated Ringers 1,000 ML 1000 ML IV (00:30)
--- NOTE | 2025-03-11 00:37 | ED.GENADUL_ITS ---
Discharge Plan Disposition Patient Disposition: Home Condition: Good Discharge Details Clinical Impression: Alcohol intoxication Primary Care Provider: Cody Galarza ED Provider: Brien Vidales Home Meds and New Rx's Prescriptions: No Action testosterone cypionate 200 mg/mL oil 50 mg IM Q7D Patient Comments: INJECT 0.25ML (50MG TOTAL) INTO THE SHOULDER, THIGH, OR BUTTOCKS EVERY 7 DAYS. USE PRESCRIBED AMOUNT FROM EACH VIAL AND DISCARD REMAINING. Nexplanon 68 mg implant 1 implant subdermal ONCE Rx Instructions: as a single dose Discharge Instructions Instructions: Alcohol use - when is drinking a problem? Additional Instructions: At this time. Laboratory workup is stable. Your liver function remains stable. Please follow-up closely with your outpatient recovery coaches for support and assistance with alcohol. If you notice any worsening of your symptoms, or any new symptoms such as vomiting, diarrhea, fever, chills, shortness of breath, chest pain, numbness, weakness, or fainting , please return immediately to the emergency department for reevaluation. Please follow up with your primary care provider as soon as possible for reassessment and reevaluation. As always, it was a pleasure participating in your medical care today. Referrals: Cody Galarza [Primary Care Provider, Medicine] HPI General Date/Time Provider Initiated Documentation: 03/10/25 23:46 . 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 Patient states that he has been going through multiple social stressors recently. The patient's ex- recently reached out to him with notably negative comments, the patient's ex-boyfriend recently reached out with notably negative comments. Patient has been drinking more as of late, and has not been able to get control of the drinking. Tonight the patient had 5 natty daddy's, a wine mini, and a half a pint of fireball. Patient wanted to make sure tonight that I did not drink too much. Patient denies any suicidal ideations, at this time states that he does not necessarily want help. Hhe has no other complaints at this time. Related Data Home Medications ?Medication ?Instructions ?Recorded ?Confirmed testosterone cypionate 200 mg/mL 50 mg IM Q7D 07/29/24 01/17/25 intramuscular oil etonogestrel 68 mg subdermal 1 implant subdermal ONCE 11/09/24 01/17/25 implant (Nexplanon) Allergies Allergy/AdvReac Type Severity Reaction Status Date / Time amoxicillin Allergy Intermediate Skin Rash Unverified 01/17/25 02:42 General Stated Complaint: ETOHWithdr KASSANDRA: 3 Exam Narrative Exam Narrative: 1.Const: Well-nourished, Well-developed, appearing stated age 2.Eyes: PERRL, no conjunctival injection, and symmetrical lids. 3.ENT: Atraumatic external nose and ears. Moist MM. Neck: Symmetric, trachea midline, No thyromegaly. 4.CVS: +S1/S2, Peripheral pulses 2+ and equal in all extremities. Brisk capillary refill in all extremities. 5.RESP: Unlabored respiratory effort. Clear to auscultation bilaterally. No wheezes rales or rhonchi 6.GI: Soft, Nontender/Nondistended, No hepatosplenomegaly. No guarding or rebound. 7.MSK: Normocephalic/Atraumatic, Extremities w/o deformity or ttp No cyanosis or clubbing, Normal movement of all extremities 8.Skin: Warm, Dry. No rashes or lesions. 9.Neuro: surface grinding machine hand II-XII grossly intact. Sensation grossly intact, no focal neurologic deficits. Mildly intoxicated 10.Psych: (AAO) x3. Appropriate mood and affect Course Vital Signs Vital signs: Vital Signs Pulse 102 H 03/10/25 23:45 Respiratory Rate 03/10/25 23:45 Blood Pressure 136/97 H 03/10/25 23:45 Pulse Oximetry 97 03/10/25 23:45 Pulse 102 H 03/10/25 23:45 Respiratory Rate 20 03/10/25 23:45 Blood Pressure 136/97 H 03/10/25 23:45 Blood Pressure Position Sitting 03/10/25 23:45 Pulse Oximetry 97 03/10/25 23:45 Oxygen Delivery Method Room Air 03/10/25 23:45 Oxygen Flow Rate 0 03/10/25 23:45 Lab/Test Results Lab/Test Results: Laboratory Tests Range/Units 03/10/25 23:58 WBC (4.4-10.8) 10^3/uL 8.37 RBC (3.93-5.22) 10^6/uL 5.72 H Hgb (11.2-15.7) g/dL 18.0 H Hct (36.0-46.0) % 52.9 H MCV (80-95) fL 93 MCH (27.0-33.0) pg 31.5 MCHC (32.0-36.0) % 34.0 RDW (11.7-14.6) % 13.1 Plt Count (130-400) 10^3/uL 204 MPV (8.0-11.0) fL 10.0 Immature Gran % % 1.8 Neutrophils % % 58.3 Lymphocytes % % 29.5 Monocytes % % 7.3 Eosinophils % % 2.3 Basophils % % 0.8 Nucleated RBC % (0.0-0.3) % 0.0 Absolute Neutrophils (1.2-6.7) 10^3/uL 4.88 Absolute Lymphocytes (1.2-3.4) 10^3/uL 2.47 Absolute Monocytes (0.1-0.8) 10^3/uL 0.61 Absolute Eosinophils (0.0-0.7) 10^3/uL 0.19 Absolute Basophils (0.0-0.2) 10^3/uL 0.07 PT (9.1-11.1) sec 10.7 INR (0.9-1.1) 1.1 APTT (20.6-30.2) sec 24.7 Sodium (136-145) mmol/L 142 Potassium (3.5-5.1) mmol/L 3.5 Chloride (98-107) mmol/L 105 Carbon Dioxide (21.0-32.0) mmol/L 24.0 Anion Gap (3-11) mmol/L 13.0 H BUN (7-18) mg/dL 3 L Creatinine (0.55-1.02) mg/dL 0.7 Est GFR (CKD-EPI 2020) (mL/min/1.73m2) 120.74 Glucose (74-106) mg/dL 87 Calcium (8.5-10.1) mg/dL 9.0 Total Bilirubin (0.2-1.0) mg/dL 1.2 H AST (15-37) U/L 40 H ALT (14-59) U/L 75 H Alkaline Phosphatase (46-116) U/L 93 Total Protein (6.4-8.2) g/dL 8.5 H Albumin (3.4-5.0) g/dL 4.2 Ethyl Alcohol (<10) mg/dL 142.6 H Medical Decision Making 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 Patient states that he has been going through multiple social stressors recently. The patient's ex- recently reached out to him with notably negative comments, the patient's ex-boyfriend recently reached out with notably negative comments. Patient has been drinking more as of late, and has not been able to get control of the drinking. Tonight the patient had 5 natty daddy's, a wine mini, and a half a pint of fireball. Patient wanted to make sure tonight that I did not drink too much. Patient denies any suicidal ideations, at this time states that he does not necessarily want help. he has no other complaints at this time. Physical exam demonstrates a well-appearing patient. Mildly intoxicated. Vital signs stable. I had a long discussion with the patient, and after discussion of the symptomatology, the patient was willing to speak with the assistant golf coach. Will reach out to them, rehydrate, check the patient's labs and alcohol status, monitor closely and reassess. 4 AM Patient patient has been observed here in the ED for over 4 hours, patient otherwise looks well. No signs of intoxication at this time. The patient is able to speak clearly. There is no demonstration of any slurring of speech. There is evidence of clear decision making capacity. Patient is able to ambulate well without any difficulty. There are no signs of ataxia or stumbling motions. Unfortunately the recovery coaches did not respond to our multiple calls. Patient is asking to leave. Patient denies any homicidal or suicidal ideations. Patient does not want any additional resources at this time. Patient otherwise feels well. Laboratory workup has returned and is unremarkable. Patient did receive liter of IV fluids and remains hemodynamically stable. Transaminases remain stable compared to baseline. Patient will be discharged home. I have extensively reviewed the treatment plan and discharge instructions with the patient. I have addressed all patient concerns at this time. The patient was made aware of what symptoms to monitor for that would warrant a return to the emergency department. Discussed the plan with the patient, they demonstrate verbal understanding and agreement with our assessment and plan at this time. The documentation in this chart was dictated using [employer] dictation software. Please excuse any dictation errors. PFSH All Active Problems (Updated 03/11/25 @ 03:52 by Brien Vidales DO) Alcohol intoxication (Acute) Social History Smoking/Tobacco Use Status: Current every day Tobacco Type: cigarettes Smoking risk assessment performed?: Yes Alcohol Intake: current Alcohol Intake frequency: 3 or more drinks per day Alcohol type: beer, wine and hard liquor Drug use: Occasionally Substance use type: marijuana Details: patient state she has history of using substances crack, crystal methamphetamines. but she stopped using these years ago except marijuana 01/07/25 Housing: apartment Do you feel safe at home: Yes Do you feel safe in your relationship?: Yes PAWSS Have you Been Recently Intoxicated or Drunk Within the Last 30 days?: Yes Have you Ever Experienced Previous Episodes of Alcohol Withdrawal?: No Have you ever Experienced Withdrawal Seizures?: No Have you ever Experienced Delirium Tremens(DT)s?: No Have you ever undergone Alcohol Rehabilitation Treatment (i.e, inpt ot outpatient treatment programs)?: No Have you ever Experienced Blackouts?: Yes Have you ever Combined Alcohol with other Downers within the last 90 days?: No Have you ever Combined Alcohol with any other Substance of Abuse during the last 90 days?: No Positive Blood Alcohol level on Presentation? [PCS.BAL]: No Evidence of Increased Autonomic Activity (i.e. HR>120, tremor, sweating, agitation, nausea)?: Yes Result: 3
[2025-03-11 03:36] VITALS: BP 149/87; PULSE 93; RESP 16
[2025-03-11 05:11] VITALS: BP 147/81; PULSE 77; RESP 16; O2SAT 97
== END 2025-03-11 05:21 | disposition home or self-care (01) ==
PROVIDERS: Emergency Provider Student in an Organized Health Care Education/Training Program; PCP Student in an Organized Health Care Education/Training Program
DX: F10.939 Alcohol use, unspecified with withdrawal, unspecified (principal)
CPT/HCPCS: 80053; 96360; 99284; 80320; 85025; 85610; 85730; 99283

== ENCOUNTER 2025-03-11 06:59 | Emergency (ER) | payer MEDICAID, SELFPAY ==
[2025-03-11] VITALS (61 sets, daily range): BP systolic 100–136; BP diastolic 43–96; PULSE 71–101; RESP 12–25; TEMP 37; O2SAT 95–99
--- NOTE | 2025-03-11 07:02 | ED.GENADUL_ITS ---
Discharge Plan Disposition Patient Disposition: Home Discharge Details Clinical Impression: Alcohol withdrawal Primary Care Provider: Cody Galarza ED Provider: Marques Gomez Home Meds and New Rx's Prescriptions: New chlordiazepoxide HCl 25 mg capsule 25 mg PO Q6H PRNQty: 15 0RF Rx Instructions: Day 1: 50mg q6h Day 2: 25mg q6h Day 3: 25mg q12h Day 4: 25mg at night (Rx fifteen 25mg tabs) naltrexone 50 mg tablet 50 mg PO DAILY Qty: 30 0RF Continued testosterone cypionate 200 mg/mL oil 50 mg IM Q7D Patient Comments: INJECT 0.25ML (50MG TOTAL) INTO THE SHOULDER, THIGH, OR BUTTOCKS EVERY 7 DAYS. USE PRESCRIBED AMOUNT FROM EACH VIAL AND DISCARD REMAINING. Nexplanon 68 mg implant 1 implant subdermal ONCE Rx Instructions: as a single dose Discharge Instructions Instructions: Alcohol Use Disorder (DC) Additional Instructions: You are seen in the emergency department for your withdrawal from alcohol. Please take this taper of medications as directed. Please do not drink. You have a follow-up appointment tomorrow at 9:[address] Barnett at [facility]. Please also take this naltrexone as directed. Please follow up with the college sports coach. Please return to the emergency department if you begin vomiting and do not stop or if you have any other concerns. Discharge Data Discharge Date/Time-TO BE ENTERED AT DEPARTURE: 03/11/25 12:38 HPI General Date/Time Provider Initiated Documentation: 03/11/25 07:02 . HPI Narrative: MDM Patient is an overall well-appearing normothermic and not tachycardic patient with concern for early detoxification for which patient will receive ch lordiazepoxide given no hypertension nor tachycardia nor tongue fasciculations. Patient is not altered to suggest anticholinergic toxicity. Patient had a CIWA score of 2. No pressured speech to suggest psychosis. No head strike to suggest increased risk for intracranial hemorrhage and no indication for CT head. No shortness of breath to suggest PE. No chest pain to suggest ACS. Patient denies vomiting. I did not feel patient required laboratory assessment as patient had had labs performed less than 8 hours ago. Patient is not diaphoretic and does not have dilated pupils so my suspicion is low for sympathomimetic toxidrome. No pinpoint pupils to suggest opiate toxidrome so no indication for naloxone reversal. I left a message for Alanna Samuel at her from [facility] to discuss outpatient options for detoxification. Patient denies suicidal and homicidal ideation. 12:11 PM I spoke with supply chain systems manager at [facility] who arranged a primary care follow-up appointment for patient with Dr. Barnett at 9:[address] Jackson also evaluated the patient in the ED. He agreed the patient was appropriate for outpatient management. He also advised adding naltrexone in addition to chlordiazepoxide taper. leadership coach met with the patient and will follow-up as an outpatient. Cassia from care management met with the patient. Patient had a CIWA score of 3. HPI This is a patient with a history of alcohol use disorder presenting with symptoms related to prolonged alcohol consumption. The patient reports a recent episode of binge drinking, consuming alcohol latrell nuously for approximately 30 hours with minimal sleep. This prolonged alcohol intake led to feelings of discomfort and shortness of breath when lying down. The patient is seeking assistance today, as advised by the primary care physician, who suggested detoxification. The patient reported a history of seizures during periods of abstinence from alcohol. This episode occurred once last summer at home. Patient reportedly maintained awareness about this episode. The patient has never required intubation. The patient attempts to avoid withdrawal symptoms by maintaining a steady intake of alcohol. Over a span of 38 hours, the patient consumed a mini bottle of wine, 9 Natty Daddys, and half a pint of Fireball, among other beverages that the patient cannot recall. Despite this, the patient experienced difficulty sleeping due to stress. The patient is not currently experiencing any chest pain or breathing difficulties. The patient is uncertain about previous use of chlorazal dioxide. The patient expresses a desire for supervised detoxification, as the patient is uncomfortable with self-detoxification and has never undergone detoxification before. Exam General: Well-appearing in no acute distress speaking in complete sentences. Head: Normocephalic, atraumatic. Eye:[Pupils equal, round reactive to light.] Extraocular eye movements intact. No conjunctival injection. No scleral icterus. Ear, nose, mouth, throat: Grossly normal inspection. Normal voice, handling secretions normally. No tongue fasciculations. Neck: Trachea midline. Cardiovascular: Well-perfused distal extremities. Regular rate and rhythm. Respiratory: Nonlabored respiration. Clear lungs bilaterally. Gastrointestinal: Nondistended abdomen. Musculoskeletal: No edema. Moving all 4 extremities spontaneously. Skin: Normal for age and race, grossly normal temperature and turgor. No acute rash. Neurologic: Alert and appropriate, no apparent acute deficits. GCS 15. Psychiatric: Mood and manner are appropriate. Grooming and personal hygiene are appropriate. Related Data Home Medications ?Medication ?Instructions ?Recorded ?Confirmed testosterone cypionate 200 mg/mL 50 mg IM Q7D 07/29/24 03/11/25 intramuscular oil etonogestrel 68 mg subdermal 1 implant subdermal ONCE 11/09/24 03/11/25 implant (Nexplanon) chlordiazepoxide HCl 25 mg capsule 25 mg PO Q6H PRN #1 5 caps 03/11/25 naltrexone 50 mg tablet 50 mg PO DAILY #30 tabs 02/26 Previous Rx's ?Medication ?Instructions ?Recorded chlordiazepoxide HCl 25 mg capsule 25 mg PO Q6H PRN #1 5 caps 03/11/25 naltrexone 50 mg tablet 50 mg PO DAILY #30 tabs 02/26 Allergies Allergy/AdvReac Type Severity Reaction Status Date / Time amoxicillin Allergy Intermediate Skin Rash Unverified 01/17/25 02:42 General KASSANDRA: 3 PFSH All Active Problems (Updated 03/11/25 @ 12:46 by Marques Jackson) Alcohol use disorder (Acute) Alcohol withdrawal (Acute) Alcohol intoxication (Acute) Social History Smoking/Tobacco Use Status: Current every day Tobacco Type: cigarettes Smoking risk assessment performed?: Yes Alcohol Intake: current Alcohol Intake frequency: 3 or more drinks per day Alcohol type: beer, wine and hard liquor Drug use: Occasionally Substance use type: marijuana Details: patient state she has history of using substances crack, crystal methamphetamines. but she stopped using these years ago except marijuana 01/07/25 Housing: apartment Do you feel safe at home: Yes Do you feel safe in your relationship?: Yes
[2025-03-11] MEDS: chlordiazePOXIDE 25 MG CAP 50 MG PO (07:45)
[2025-03-11] MEDS: Normal Saline 1,000 ML 1000 ML IV (07:58)
--- NOTE | 2025-03-11 12:32 | PDOC.CMPRO ---
Date of service: 03/11/25 Time of Service: 12:32 Care Management Progress Note Progress Note Text Progress Note Text: CM was called to the ED by the provider to schedule [facility] transportation for Jimbo; Transportation for f/u appointment and home with stop at RX needed. A PCP appointment was made for 03/12/25 at 9:30 a.m. [facility] will pick Jimbo up in a private car and transport to pharmacy and home today, as coordinated by CM. Per [facility], under Jimbo's [employer] benefit, he will need to utilize [facility] shuttle for his appointment and should plan accordingly. CM communicated this with the ED desk who was agreeable to communicating this information with the patient. Social Determinants of Health Screening Will the Patient Participate in the Screening?: Declined to provide
--- NOTE | 2025-03-11 12:37 | W.MEDCONSULT ---
Date of service: 03/11/25 Time of Service: 11:10 Assessment and Plan Assessment and plan (1) Alcohol withdrawal: Status: Acute Assessment and plan: I reassured Jimbo that given his overall health and response to Librium here, he would likely do well with scheduled taper protocol with chlordiazepoxide. The reported seizure history does not sound like alcohol withdrawal seizure. ED will work with care management to make sure Jimbo can get his scripts and get home today. (2) Alcohol use disorder: Status: Acute Assessment and plan: We reviewed options and supports. - encouraged to call rehabs to consider placement for treatment - encouraged to follow up with his therapist and with recovery center for meetings - encouraged to ask for help removing alcohool from the apartment before he is left alone. - discussed medical options, Dr. Sanchez ordering naltrexone History of Present Illness History of Present Illness Chief Complaint: alcohl use Narrative: 30 yo trans male presenting requesting detox. Reports continuous binge drinking for the past year. Initially evaluated and discharged overnight, went right to drinking, upon return asking for help with detox. She had discussed with PCP Michell who told her she would likely be admitted because she reported a seizure in setting of alcohol withdrawl in the past. This event that happened last year described as waking at night not being able to control her body, but no LOC so not typical of withdrawal seizure. Dr. Sanchez treated with a dose of chlordiazepoxide and she slept and anxiety much improved, and he felt inpatient detox not indicated. Jimbo was anxious about goint home. Right now feeling anxious again. No n/v or abnormal movements here. H/o inpatient rehab in early 20s in [place]. Moved to [place] 2 years ago. Recently lost job at [employer] due to EtOH. Has appartment. Knows people at recovery center, has therapist, but hasn't been following up. PFSH All Active Problems (Updated 03/11/25 @ 12:46 by Marques Jackson) Alcohol use disorder (Acute) Alcohol withdrawal (Acute) Alcohol intoxication (Acute) Social History Smoking/Tobacco Use Status: Current every day Tobacco Type: cigarettes Smoking risk assessment performed?: Yes Alcohol Intake: current Alcohol Intake frequency: 3 or more drinks per day Alcohol type: beer, wine and hard liquor Drug use: Occasionally Substance use type: marijuana Details: patient state she has history of using substances crack, crystal methamphetamines. but she stopped using these years ago except marijuana 01/07/25 Housing: apartment Do you feel safe at home: Yes Do you feel safe in your relationship?: Yes Exam Narrative Exam Narrative: GEN: Alert and oriented x 4, pleasant and cooperative, gives linear history. No acute distress at rest. HEENT: Head atraumatic. Conjunctiva clear, no icterus. EOMI. LUNGS: normal effort CV: RRR nondistended. No masses. NEURO: Normal movement of 4 extremities. Normal speech and coordination. No tremor PSYCH: Mildly anxious mood and affect, normal thought process Results Last Vital Signs Temp 37.0 C 03/11/25 07:33 Pulse 84 03/11/25 12:26 Resp 22 03/11/25 12:26 BP 122/63 03/11/25 12:26 Pulse Ox 99 03/11/25 12:26
== END 2025-03-11 12:38 | disposition home or self-care (01) ==
PROVIDERS: Emergency Provider Emergency Medicine; PCP Student in an Organized Health Care Education/Training Program
DX: F10.130 Alcohol abuse with withdrawal, uncomplicated (principal); F17.210 Nicotine dependence, cigarettes, uncomplicated
CPT/HCPCS: 00123; 99283

== ENCOUNTER 2025-03-12 13:51 | Emergency (ER) | payer MEDICAID, SELFPAY ==
[2025-03-12 13:54] VITALS: BP 149/90; PULSE 98; RESP 16; TEMP 37.3; O2SAT 96
--- NOTE | 2025-03-12 14:15 | W.ED.GENAD ---
Discharge Plan Disposition Patient Disposition: Against Medical Advice Condition: Stable Discharge Details Clinical Impression: Alcohol use disorder Primary Care Provider: Cody Galarza ED Provider: Brien Lopez Home Meds and New Rx's Prescriptions: Continued testosterone cypionate 200 mg/mL oil 50 mg IM Q7D Patient Comments: INJECT 0.25ML (50MG TOTAL) INTO THE SHOULDER, THIGH, OR BUTTOCKS EVERY 7 DAYS. USE PRESCRIBED AMOUNT FROM EACH VIAL AND DISCARD REMAINING. Nexplanon 68 mg implant 1 implant subdermal ONCE Rx Instructions: as a single dose naltrexone 50 mg tablet 50 mg PO DAILY Qty: 30 0RF Held chlordiazepoxide HCl 25 mg capsule 25 mg PO Q6H PRNQty: 15 0RF Hold Instructions: Resume on 03/12/25. Please stop taking this medicine if you are unwilling to stop drinking. Rx Instructions: Day 1: 50mg q6h Day 2: 25mg q6h Day 3: 25mg q12h Day 4: 25mg at night (Rx fifteen 25mg tabs) Discharge Instructions Instructions: Alcohol Use Disorder ED Additional Instructions: You were seen in the emergency department for unclear reasons, you have been on Librium from prior ER visits, off of alcohol and chose to drink one fourth of a tall natural lite today. He said he felt off earlier today after ingesting a beer this morning. Vitals are stable, oxygen is 98% on room air there is no tachycardia. Librium can take anywhere from 1 to 6 days to leave your system, it is never recommended to drink on benzodiazepines. You state that you do not want detox, that he wants to go drink, you are not currently intoxicated you are not elucidating or symptomatic at this time, you state that you are not drinking to harm yourself, I would recommend against drinking as there is no telling how much alcohol he could take mixing with the Librium you have been on to cause negative outcomes. You acknowledged these risks of possible coma and , declined [facility] evaluation and pipe recovery specialist consult and wished to be discharged to return when you want detox. Please return for Emergent concerns. Referrals: Cody Galarza [Primary Care Provider, Medicine] Discharge Data Discharge Date/Time-TO BE ENTERED AT DEPARTURE: 03/12/25 14:34 HPI General Date/Time Provider Initiated Documentation: 03/12/25 13:52. HPI Narrative: 30 year-old biological female- goes by Jimbo and uses he/him pronouns presents to ED today by EMS with a chief complaint of requesting something that will get the Librium out of his system, so he can continue drinking- was seen multiple times over the last 24-48 hours for ETOH related issues and has had a few outpatient doses of librium taper- but drank 1-4/th of a large Natural Lite can this morning with some nausea afterwards. Quality described as felt off after drinking 1/4th beer, questions whether it's from Librium- states that they don't think they can do detox at home, and that they do not really want to stop drinking currently- they deny suicidal ideations or thoughts of harming self or others, no radiation to active vomiting, delerium tremens, altered mentation, acute intoxication, psychotic / tangential speech. Severity is described as unable to quantify. Palliating factors include nothing specific. Provoking factors include nothing specific. Patient not anticoagulated. Related Data Home Medications ?Medication ?Instructions ?Recorded ?Confirmed testosterone cypionate 200 mg/mL 50 mg IM Q7D 07/29/24 03/12/25 intramuscular oil etonogestrel 68 mg subdermal 1 implant subdermal ONCE 11/09/24 03/12/25 implant (Nexplanon) chlordiazepoxide HCl 25 mg capsule 25 mg PO Q6H PRN #15 caps 03/11/25 03/12/25 Held on 03/12/25. Instructions: Resume on 03/12/25. Please stop taking this medicine if you are unwilling to stop drinking. naltrexone 50 mg tablet 50 mg PO DAILY #30 tabs 03/11/25 03/12/25 Previous Rx's ?Medication ?Instructions ?Recorded chlordiazepoxide HCl 25 mg capsule 25 mg PO Q6H PRN #15 caps 03/11/25 Held on 03/12/25. Instructions: Resume on 03/12/25. Please stop taking this medicine if you are unwilling to stop drinking. naltrexone 50 mg tablet 50 mg PO DAILY #30 tabs 03/11/25 Allergies Allergy/AdvReac Type Severity Reaction Status Date / Time amoxicillin Allergy Intermediate Skin Rash Unverified 03/12/25 13:56 General Stated Complaint: ETOHWithdr KASSANDRA: 3 Review of Systems All systems reviewed & are unremarkable except as noted in HPI and below Exam Narrative Exam Narrative: GENERAL APPEARANCE: Well-nourished, non-toxic, awake and alert, atraumatic, no acute distress. SKIN: Warm, pink, dry, intact, without rashes/lesions/ulcerations. HEAD: Normocephalic, atraumatic, normal hair distribution for gender/age. EYES: Normal conjunctiva, no exudates on lids/lashes. ENT: Nares patent, no circumoral cyanosis, no facial swelling NECK: Supple, trachea midline, painless cervical ROM. LUNGS/CHEST: Non-labored respirations, normal A/P diameter, symmetrical expansion, no chest wall deformity HEART (CV/PV): Regular rate, R radial pulse 2+, no peripheral edema, no JVD. ABDOMEN: Soft, non-distended, no guarding. MSK: Normal ROM, no swelling/deformity to bilateral UEs or LEs, moving all extremities without weakness, no cyanosis, spine midline without tenderness, normal curvature. NEURO: Mental Status AAOx4 - alert to person, place, time, events No facial droop, no forehead involvement. Motor: No focal weakness - strength 5/5 in bilateral UEs and LEs, proximal and distal, symmetric. Sensory: sensation intact to light touch globally. Gait normal: patient ambulated without ataxia into ED room. PSYCH: dysthymic, cooperative, pleasant, appropriate speech, nonpsychotic, nonsuicidal Course Vital Signs Vital signs: Vital Signs Temperature 37.3 C 03/12/25 13:54 Pulse 98 H 03/12/25 13:54 Respiratory Rate 16 03/12/25 13:54 Blood Pressure 149/90 H 03/12/25 13:54 Pulse Oximetry 96 03/12/25 13:54 Temperature 37.3 C 03/12/25 13:54 Temperature Source Oral 03/12/25 13:54 Pulse 98 H 03/12/25 13:54 Respiratory Rate 16 03/12/25 13:54 Blood Pressure 149/90 H 03/12/25 13:54 Blood Pressure Position Sitting 03/12/25 13:54 Pulse Oximetry 96 03/12/25 13:54 Oxygen Delivery Method Room Air 03/12/25 13:54 Oxygen Flow Rate 0 03/12/25 13:54 Pain Level 0 03/12/25 13:54 Medical Decision Making This dictation utilizes [id number] dictation software and may contain unedited grammatical errors. 30 year-old biological female- goes by Jimbo and uses he/him pronouns presents to ED today by EMS with a chief complaint of requesting something that will get the Librium out of his system, so he can continue drinking- was seen multiple times over the last 24-48 hours for ETOH related issues and has had a few outpatient doses of librium taper- but drank 1-4/th of a large Natural Lite can this morning with some nausea afterwards. Quality described as felt off after drinking 1/4th beer, questions whether it's from Librium- states that they don't think they can do detox at home, and that they do not really want to stop drinking currently- they deny suicidal ideations or thoughts of harming self or others, no radiation to active vomiting, delerium tremens, altered mentation, acute intoxication, psychotic / tangential speech. Severity is described as unable to quantify. Palliating factors include nothing specific. Provoking factors include nothing specific. Patients' medical history: Alcohol use disorder. Family and social history: States in the past has been drinking heavily for years now of at least a 12 pack, denies other drug use. Pertinent exam findings / vital signs include mentating at baseline, nonsuicidal, nontangential or hurried speech, no delirium tremens, benign cardiopulmonary status. Differential / pathologies of concern include alcohol use disorder. Diagnostic studies of: - None patient wished to leave AGAINST MEDICAL ADVICE. Interventions of: - None, stated that time is the only thing that could metabolize the Librium in her system that it likely would not feel very good to drink on this medication. ED Course/Assessment/Plan: 30-year-old biological female who goes by Jimbo, uses he/him pronouns presents for multiple times in multiple days for alcohol use disorder, was placed on Librium couple days ago and drank one fourth of a tall boy natty dadstephanie earlier this morning and felt not well afterwards, he is concerned his desire to keep drinking, states that he does not want detox and does not want to follow-up with pipe recovery specialist and that he wants to be given a medicine that will clear his system of benzodiazepines so he can drink. He states this is not possible, I offered [facility] evaluation and pipe recovery specialist consult and inpatient detox patient declined all of these, I stated that there was no way to know the outcome of drinking on this medication but there is no acute danger with his vitals being stable hours after ingestion with normal cardiac, normotensive, afebrile, 96% to 98% room air, no delirium tremens on presentation. Patient was signed out AGAINST MEDICAL ADVICE as he no longer wished to pursue any treatment now did not include persistently benzodiazepines discharged out of with strict return criteria for any emergent concerns. Findings not consistent with alcohol withdrawal, acute intoxication, psychosis or suicidality. Disposition of Alcohol Use Disorder. Patient verbalized understanding of the plan and return to ED criteria and engaged in shared decision making. Medical Records Medical records reviewed: Yes I reviewed the patient's medical records. PFSH All Active Problems (Updated 03/13/25 @ 19:10 by Jessi Castillo) Alcohol use disorder (Acute) Alcohol use disorder (Acute) Alcohol withdrawal (Acute) Alcohol intoxication (Acute) Social History Smoking/Tobacco Use Status: Current every day Tobacco Type: cigarettes Smoking risk assessment performed?: Yes Alcohol Intake: current Alcohol Intake frequency: 3 or more drinks per day Alcohol type: beer Drug use: Occasionally Substance use type: marijuana Details: patient state she has history of using substances crack, crystal methamphetamines. but she stopped using these years ago except marijuana 01/07/25 Housing: apartment Do you feel safe at home: Yes Do you feel safe in your relationship?: Yes
== END 2025-03-12 14:34 | disposition left against medical advice (07) ==
PROVIDERS: Emergency Provider Physician Assistant; PCP Student in an Organized Health Care Education/Training Program
DX: F10.90 Alcohol use, unspecified, uncomplicated (principal); Z53.29 Procedure and treatment not carried out because of patient's decision for other reasons
CPT/HCPCS: 99283; 99282

== ENCOUNTER 2025-03-13 17:25 | Emergency (ER) | payer MEDICAID, SELFPAY ==
[2025-03-13 17:28] VITALS: BP 124/78; PULSE 100; RESP 18; TEMP 36.9; O2SAT 97
--- NOTE | 2025-03-13 17:56 | ED.GENADUL_ITS ---
Discharge Plan Disposition Patient Disposition: Home Discharge Details Clinical Impression: Alcohol use disorder Primary Care Provider: Cody Galarza ED Provider: Jessi Ulloa Home Meds and New Rx's Prescriptions: No Action testosterone cypionate 200 mg/mL oil 50 mg IM Q7D Patient Comments: INJECT 0.25ML (50MG TOTAL) INTO THE SHOULDER, THIGH, OR BUTTOCKS EVERY 7 DAYS. USE PRESCRIBED AMOUNT FROM EACH VIAL AND DISCARD REMAINING. Nexplanon 68 mg implant 1 implant subdermal ONCE Rx Instructions: as a single dose chlordiazepoxide HCl 25 mg capsule 25 mg PO Q6H PRNQty: 15 0RF Rx Instructions: Day 1: 50mg q6h Day 2: 25mg q6h Day 3: 25mg q12h Day 4: 25mg at night (Rx fifteen 25mg tabs) naltrexone 50 mg tablet 50 mg PO DAILY Qty: 30 0RF Discharge Instructions Additional Instructions: I recommend staying in close contact with your girls swimming coach as discussed Your workup today was reassuring. Your vital signs remained stable and your blood work had no concerning changes I recommend that you store your Librium in a safe place, preferably giving it to a trusted friend or bring it to a pharmacy for safe disposal. It can be very dangerous if you take this while drinking alcohol. I recommend that you consider taking naltrexone prescribed. This is meant to decrease the urge to drink and help you reduce your alcohol intake. It will not cause you to become violently ill like other medications such as Antabuse would, so it should be well-tolerated even if you do drink. It is recommended that you do not drink while on this medication, however, as it is designed to help you decrease your drinking by reducing cravings and the buzz associated with alcohol. Return to emergency care if you have any thoughts of self-harm, have uncontr ollable vomiting/abdominal pain, or if you are very worried and need to be rechecked again immediately Referrals: [facility] [Outside] Cody Galarza [Primary Care Provider, Medicine] Discharge Data Discharge Date/Time-TO BE ENTERED AT DEPARTURE: 03/13/25 19:11 HPI General Date/Time Provider Initiated Documentation: 03/13/25 17:27 . HPI Narrative: Jimbo is a 30-year-old trans male who presents to the emergency department for evaluation of fatigue and to request alcohol detox. Had been abstaining from alcohol while on Librium (03/10), last dose yesterday morning. Consumed alcohol last night and today. Desires further detoxification, but is not interested in rehab. 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 Drinking began over a year ago during difficult period with ex-, initially intended for a day but continued. Consumes large quantities, up to 15 tall boys/day. Today, had two drinks due to drowsiness after stopping Librium. Feels different, more drowsy, woke up drowsy before drinking. In contact with acetone recovery worker since last visit, visited recovery center yesterday, discussed plan to utilize recovery center in [facility]. Reluctant to attend AA meetings on weekends due to tension with ex-. Has not taken naltrexone as planned to drink and did not want to feel sick. Never undergone detoxification, not abstained for significant period this year. Experiences withdrawal symptoms: tremors, irritability, anxiety, sweats, drowsiness, insomnia, body aches. Had seizure last summer while actively drinking, no seizures since; the seizures were not associated with alcohol withdrawal. Denies signs of recent illness such as fever/chills, congestion, sore throat, cough, chest pain, vomiting, change in p.o. intake, abdominal pain, change in bowel or bladder function, unusual vaginal discharge. Denies self-harm or thoughts of harming self or others, hallucinations. Uses marijuana, no other hard drugs, no history of IV drug use. Has counselor, missed appointments due to alcoholism. Lost job due to drinking. Related Data Home Medications ?Medication ?Instructions ?Recorded ?Confirmed testosterone cypionate 200 mg/mL 50 mg IM Q7D 07/29/24 03/12/25 intramuscular oil etonogestrel 68 mg subdermal 1 implant subdermal ONCE 11/09/24 03/12/25 implant (Nexplanon) chlordiazepoxide HCl 25 mg capsule 25 mg PO Q6H PRN #1 5 caps 03/11/25 03/12/25 Held on 03/12/25. Instructions: Resume on 03/12/25. Please stop taking this medicine if you are unwilling to stop drinking. naltrexone 50 mg tablet 50 mg PO DAILY #30 tabs 02/2603/12/25 Previous Rx's ?Medication ?Instructions ?Recorded chlordiazepoxide HCl 25 mg capsule 25 mg PO Q6H PRN #1 5 caps 03/11/25 Held on 03/12/25. Instructions: Resume on 03/12/25. Please stop taking this medicine if you are unwilling to stop drinking. naltrexone 50 mg tablet 50 mg PO DAILY #30 tabs 02/26 Allergies Allergy/AdvReac Type Severity Reaction Status Date / Time amoxicillin Allergy Intermediate Skin Rash Unverified 03/12/25 13:56 General Stated Complaint: ETOHWithdr KASSANDRA: 3 Exam Narrative Exam Narrative: General Appearance: Normal. Anxious appearing Vital signs: Within normal limits, mild tachycardia Respiratory: Easy work of breathing, lungs clear to auscultation bilaterally. Cardiovascular: Heart sounds normal. GI: Abdomen is soft, nondistended, nontender to palpation Skin: Warm and dry, no rash. Psychiatric: Normal. Course Vital Signs Vital signs: Vital Signs Temperature 36.9 C 03/13/25 17:28 Pulse 100 H 03/13/25 17:28 Respiratory Rate 18 03/13/25 17:28 Blood Pressure 124/78 03/13/25 17:28 Pulse Oximetry 97 03/13/25 17:28 Temperature 36.9 C 03/13/25 17:28 Temperature Source Oral 03/13/25 17:28 Pulse 100 H 03/13/25 17:28 Respiratory Rate 18 03/13/25 17:28 Respiratory Pattern Normal 03/13/25 17:35 Blood Pressure 124/78 03/13/25 17:28 Blood Pressure Position Sitting 03/13/25 17:28 Pulse Oximetry 97 03/13/25 17:28 Oxygen Delivery Method Room Air 03/13/25 17:28 Oxygen Flow Rate 0 03/13/25 17:28 Pain Level 0 03/13/25 17:28 Medical Decision Making Initial Assessment: 30-year-old trans male with significant alcohol use disorder, presenting with anxiety History and presentation consistent with alcohol use disorder. Patient has history of mild withdrawal symptoms, no history of DTs or seizures associated with alcohol use. This is his third visit to the emergency department in 3 days for concern of alcohol use. He reports that he is interested in detoxification, but is not interested in rehab or consistent follow-up afterwards. CIWA score 6. ED Course: - Jimbo chatted with his acetone recovery worker Jed. He voices that he is comfortable going home as long as he is medically cleared. He is agreeable with following up with [facility] -Baseline labs ordered, CBC, CMP all unchanged from previous. Ethyl alcohol 68. Clinical Impression: - Alcohol Use Disorder - Anxiety Disposition: - Discharge home. He will remain in close contact with [facility]. Reviewed discharge instructions with patient, including naltrexone use, importance of follow-up with acetone recovery worker, and red flags indicate need for return to emergency care - I did discuss risks associated with use of Librium while on alcohol, patient says that he is agreeable with trying to leave his medication in a safe place so that he cannot access it to get high. Recommend disposal of medication with a pharmacy to reduce risks. I did also encourage use of naltrexone, which patient had voiced reluctance to use, because he intends to keep drinking. Patient consented to the use of TONI PFSH All Active Problems (Updated 03/13/25 @ 19:10 by Jessi Castillo) Alcohol use disorder (Acute) Alcohol use disorder (Acute) Alcohol withdrawal (Acute) Alcohol intoxication (Acute) Social History Smoking/Tobacco Use Status: Current every day Tobacco Type: cigarettes Smoking risk assessment performed?: Yes Alcohol Intake: current Alcohol Intake frequency: 3 or more drinks per day Alcohol type: beer Drug use: Occasionally Substance use type: marijuana Details: patient state she has history of using substances crack, crystal methamphetamines. but she stopped using these years ago except marijuana 01/07/25 Housing: apartment Do you feel safe at home: Yes Do you feel safe in your relationship?: Yes PAWSS Have you Been Recently Intoxicated or Drunk Within the Last 30 days?: Yes Have you Ever Experienced Previous Episodes of Alcohol Withdrawal?: Yes Have you ever Experienced Withdrawal Seizures?: No Have you ever Experienced Delirium Tremens(DT)s?: Yes Have you ever undergone Alcohol Rehabilitation Treatment (i.e, inpt ot outpatien t treatment programs)?: No Have you ever Experienced Blackouts?: Yes Have you ever Combined Alcohol with other Downers within the last 90 days?: Yes Have you ever Combined Alcohol with any other Substance of Abuse during the last 90 days?: Yes Positive Blood Alcohol level on Presentation? [PCS.BAL]: Yes Evidence of Increased Autonomic Activity (i.e. HR>120, tremor, sweating, agitation, nausea)?: Yes Result: 8
[2025-03-13 18:23] LABS: Abs Immature Grans 0.13 10^3/uL (0.0-0.06); HCT 49.6 % (36.0-46.0); HGB 16.7 g/dL (11.2-15.7); Immature Grans % 1.7 %; MCH 31.6 pg (27.0-33.0); MCHC 33.7 % (32.0-36.0); MCV 94 fL (80-95); MPV 10.1 fL (8.0-11.0); Platelet Count 187 10^3/uL (130-400); RBC 5.29 10^6/uL (3.93-5.22); RDW 13.0 % (11.7-14.6); RDW-SD 45.1 fL; WBC 7.68 10^3/uL (4.4-10.8)
[2025-03-13 18:35] LABS: ALT 60 U/L (14-59); AST 27 U/L (15-37); Albumin 3.8 g/dL (3.4-5.0); Alkaline Phosphatase 81 U/L (46-116); Anion Gap 11.3 mmol/L (3-11); BUN 6 mg/dL (7-18); Bilirubin, Total 1.2 mg/dL (0.2-1.0); CO2 25.7 mmol/L (21.0-32.0); Calcium 9.0 mg/dL (8.5-10.1); Chloride 106 mmol/L (98-107); Estimated GFR 102.86 (mL/min/1.73m2); Glucose 87 mg/dL (74-106); Potassium 3.8 mmol/L (3.5-5.1); Sodium 143 mmol/L (136-145); Total Protein 7.8 g/dL (6.4-8.2)
== END 2025-03-13 19:11 | disposition home or self-care (01) ==
PROVIDERS: Emergency Provider Nurse Practitioner Family; PCP Student in an Organized Health Care Education/Training Program
DX: F10.90 Alcohol use, unspecified, uncomplicated (principal)
CPT/HCPCS: 99283 ×2; 80053; 80320; 85025

== ENCOUNTER 2025-03-24 15:08 | Emergency (ER) | payer MEDICAID, SELFPAY ==
[2025-03-24 14:57] VITALS: BP 119/81; PULSE 105; RESP 18; TEMP 36.4; O2SAT 95
[2025-03-24 16:00] VITALS: BP 119/81; PULSE 105; RESP 18; TEMP 36.4; O2SAT 95
--- NOTE | 2025-03-24 16:07 | W.ED.GENAD ---
Discharge Plan Disposition Patient Disposition: Against Medical Advice Condition: Stable Discharge Details Clinical Impression: Alcohol use disorder Primary Care Provider: Cody Galarza ED Provider: Nayely Rojo Home Meds and New Rx's Prescriptions: No Action testosterone cypionate 200 mg/mL oil 50 mg IM Q7D Patient Comments: INJECT 0.25ML (50MG TOTAL) INTO THE SHOULDER, THIGH, OR BUTTOCKS EVERY 7 DAYS. USE PRESCRIBED AMOUNT FROM EACH VIAL AND DISCARD REMAINING. Nexplanon 68 mg implant 1 implant subdermal ONCE Rx Instructions: as a single dose chlordiazepoxide HCl 25 mg capsule 25 mg PO Q6H PRNQty: 15 0RF Rx Instructions: Day 1: 50mg q6h Day 2: 25mg q6h Day 3: 25mg q12h Day 4: 25mg at night (Rx fifteen 25mg tabs) naltrexone 50 mg tablet 50 mg PO DAILY Qty: 30 0RF Discharge Instructions Instructions: Alcohol Use Disorder (DC) Additional Instructions: You were seen in the emergency department today for evaluation of alcohol use disorder requesting resources for assistance in maintaining sobriety. In our department you had a full physical examination performed and met with a member of the recovery team. At this time you are desiring to leave the hospital before laboratory studies and are not desiring to have any sort of intervention or admission for treatment of your alcohol withdrawal symptoms. You are always welcome to return to the emergency department for reevaluation if you change your mind or your symptoms worsen. Please follow-up with your primary care provider in the next few days to discuss this visit and any symptoms that change, worsen, or persist. Thank you for allowing us to be part of your care. Discharge Data Discharge Date/Time-TO BE ENTERED AT DEPARTURE: 03/24/25 16:32 HPI General Mode of arrival: EMS. Date/Time Provider Initiated Documentation: 03/24/25 15:09. Limitations to Documentation: no limitations. Information obtained by: patient, EMS and old records reviewed. HPI Narrative: This is a 30-year-old transgender male patient with history of alcohol use disorder, fatty liver disease, presenting for evaluation of alcohol intoxication and concern about his liver. The patient reports that he has been drinking fairly heavily, he typically will drink 4-10 tall boys of beer, 8%, per day. He has a history of alcohol withdrawal, typically shakes, though he did have a reported seizure earlier in the summer. He states that he at this time is not feeling very motivated to quit, has been working with the recovery coaches, and states that he does not feel safe taking him medications to stop drinking at home because he would not be able to avoid alcohol while using them. The patient states that his last drink was just prior to arrival, he states that he summoned EMS and then went back inside to have another beer He states that he feels very concerned because he has history of fatty liver disease and knows that alcohol is not good for his liver. Specifically, he is concerned about cirrhosis. Otherwise the patient reports that he is in his normal state of health, is not experiencing any suicidal or homicidal ideation. He does vape nicotine, and has a safe place to reside. Related Data Home Medications ?Medication ?Instructions ?Recorded ?Confirmed testosterone cypionate 200 mg/mL 50 mg IM Q7D 07/29/24 03/24/25 intramuscular oil etonogestrel 68 mg subdermal 1 implant subdermal ONCE 11/09/24 03/24/25 implant (Nexplanon) chlordiazepoxide HCl 25 mg capsule 25 mg PO Q6H PRN #15 caps 03/11/25 03/24/25 Held on 03/12/25. Instructions: Resume on 03/12/25. Please stop taking this medicine if you are unwilling to stop drinking. naltrexone 50 mg tablet 50 mg PO DAILY #30 tabs 03/11/25 03/24/25 Held on 03/24/25. Instructions: Pt Stopped/Never Started Previous Rx's ?Medication ?Instructions ?Recorded chlordiazepoxide HCl 25 mg capsule 25 mg PO Q6H PRN #15 caps 03/11/25 Held on 03/12/25. Instructions: Resume on 03/12/25. Please stop taking this medicine if you are unwilling to stop drinking. naltrexone 50 mg tablet 50 mg PO DAILY #30 tabs 03/11/25 Held on 03/24/25. Instructions: Pt Stopped/Never Started Allergies Allergy/AdvReac Type Severity Reaction Status Date / Time amoxicillin Allergy Intermediate Skin Rash Unverified 03/24/25 15:03 General Stated Complaint: GenMedical KASSANDRA: 3 Exam Narrative Exam Narrative: Gen: Awake and alert, in no apparent distress HEENT: Non-icteric sclera Neck: Supple Lungs: No apparent respiratory distress, normal respiratory effort. CV: Appears well perfused, heart with regular rate and rhythm, strong distal pulses Abdomen: Non-distended, soft, nontender to palpation without rigidity, rebound, or guarding MSK: Moves 4 extremities without apparent limitation in ROM Skin: Visualized skin without rashes, cyanosis. Neuro: Normal Gait, no obvious focal deficits or facial asymmetry. Speaks in full, clear sentences. No tremors Psych: Appropriate for situation, no suicidal or homicidal ideation. Course Vital Signs Vital signs: Vital Signs Temperature 36.4 C L 03/24/25 14:57 Pulse 105 H 03/24/25 14:57 Respiratory Rate 18 03/24/25 14:57 Blood Pressure 119/81 03/24/25 14:57 Pulse Oximetry 95 03/24/25 14:57 Temperature 36.4 C L 03/24/25 14:57 Temperature Source Temporal Artery Scan 03/24/25 14:57 Pulse 105 H 03/24/25 14:57 Respiratory Rate 18 03/24/25 14:57 Blood Pressure 119/81 03/24/25 14:57 Pulse Oximetry 95 03/24/25 14:57 Oxygen Delivery Method Room Air 03/24/25 14:57 Oxygen Flow Rate 0 03/24/25 14:57 Pain Level 0 03/24/25 14:57 Medical Decision Making This is a 30-year-old transgender male patient presenting for evaluation of alcohol use disorder and concerned about liver damage. Differential includes but is not limited to acute intoxication, the patient at this time is not experiencing withdrawal symptoms, denies comorbid psychiatric complaints. I considered metabolic and electrolyte derangements, anemia, liver injury, kidney injury. Consider dehydration and poor nutrition. We will obtain laboratory studies to include CBC, CMP, magnesium, ethanol, and we will reach out to the recovery coaches. If the patient was amenable, he does meet criteria for admission for medically supervised withdrawal given his history of alcohol withdrawal seizures. -The monomer recovery supervisor met with the patient, who states that he does not want to stop drinking at this time, he has been connected with resources and at this time is precontemplative regarding his sobriety journey. He was encouraged to continue to reach out for help, and reassured that whenever he is ready there will be resources to help him along the way. The patient states that he does not want to have any laboratory studies drawn, and just wants to leave the hospital. We completed an AMA form together, the patient has the capacity to make this decision, demonstrates understanding of the risks and benefits, and does not have any evidence of severe intoxication which would affect his ability to refuse care. I recommended that he follow-up with his outpatient providers for laboratory evaluation, or return to the emergency department at any time for reevaluation. The patient was ambulatory, hemodynamically appropriate, and left our facility AGAINST MEDICAL ADVICE. Nayely Rojo MD [facility] All Active Problems (Updated 03/24/25 @ 19:22 by Nayely Rojo MD) Abnormal transaminases (Acute) Alcohol use disorder (Acute) Alcohol use disorder (Acute) Alcohol withdrawal (Acute) Alcohol intoxication (Acute) Social History Smoking/Tobacco Use Status: Current every day Tobacco Type: cigarettes Smoking risk assessment performed?: Yes Alcohol Intake: current Alcohol Intake frequency: 3 or more drinks per day Alcohol type: beer Drug use: Occasionally Substance use type: marijuana Details: patient state she has history of using substances crack, crystal methamphetamines. but she stopped using these years ago except marijuana 01/07/25 Housing: apartment Do you feel safe at home: Yes Do you feel safe in your relationship?: Yes PAWSS Have you Been Recently Intoxicated or Drunk Within the Last 30 days?: Yes Have you Ever Experienced Previous Episodes of Alcohol Withdrawal?: Yes Have you ever Experienced Withdrawal Seizures?: Yes Have you ever Experienced Delirium Tremens(DT)s?: No Have you ever undergone Alcohol Rehabilitation Treatment (i.e, inpt ot outpatient treatment programs)?: Yes Have you ever Experienced Blackouts?: Yes Have you ever Combined Alcohol with other Downers within the last 90 days?: Yes Have you ever Combined Alcohol with any other Substance of Abuse during the last 90 days?: Yes Positive Blood Alcohol level on Presentation? [PCS.BAL]: Yes Evidence of Increased Autonomic Activity (i.e. HR>120, tremor, sweating, agitation, nausea)?: No Result: 8
[2025-03-24 16:29] VITALS: RESP 18
[2025-03-24 16:30] VITALS: BP 120/80; PULSE 95; RESP 20; TEMP 36.7; O2SAT 100
== END 2025-03-24 16:32 | disposition left against medical advice (07) ==
PROVIDERS: Emergency Provider Emergency Medicine; PCP Student in an Organized Health Care Education/Training Program
DX: F10.90 Alcohol use, unspecified, uncomplicated; Z53.29 Procedure and treatment not carried out because of patient's decision for other reasons; Z87.19 Personal history of other diseases of the digestive system
CPT/HCPCS: 99283; 99282; 80053; 80320; 83735; 85025

== ENCOUNTER 2025-03-24 17:27 | Emergency (ER) | payer MEDICAID, SELFPAY ==
[2025-03-24 17:29] VITALS: BP 113/77; PULSE 91; RESP 18; TEMP 36.6; O2SAT 98
--- NOTE | 2025-03-24 18:01 | W.ED.GENAD ---
Discharge Plan Disposition Patient Disposition: Home Condition: Stable Discharge Details Clinical Impression: Alcohol use disorder, Abnormal transaminases Primary Care Provider: Cody Galarza ED Provider: Nayely Rojo Recommendations for Follow Up Recommended tests to be ordered by follow up provider: LFTs 2 weeks Home Meds and New Rx's Prescriptions: No Action testosterone cypionate 200 mg/mL oil 50 mg IM Q7D Patient Comments: INJECT 0.25ML (50MG TOTAL) INTO THE SHOULDER, THIGH, OR BUTTOCKS EVERY 7 DAYS. USE PRESCRIBED AMOUNT FROM EACH VIAL AND DISCARD REMAINING. Nexplanon 68 mg implant 1 implant subdermal ONCE Rx Instructions: as a single dose chlordiazepoxide HCl 25 mg capsule 25 mg PO Q6H PRNQty: 15 0RF Rx Instructions: Day 1: 50mg q6h Day 2: 25mg q6h Day 3: 25mg q12h Day 4: 25mg at night (Rx fifteen 25mg tabs) naltrexone 50 mg tablet 50 mg PO DAILY Qty: 30 0RF Discharge Instructions Instructions: Alcohol Use Disorder ED Additional Instructions: You were seen in the emergency department today for evaluation of your alcohol use disorder, and for a check of your labs due to your history of fatty liver disease. In department a full physical examination performed, and had laboratory studies that show an elevation in your liver enzymes slightly above where you typically are. I do not see that you have any problems with the synthetic function of your liver, which can be seen in patients with advanced cirrhosis. However, given your history of fatty liver disease and your alcohol use you are at high risk for damage to your liver. I recommend that you continue to work with the recovery coaches to talk about cessation of alcohol, and follow-up with your primary care in the next week to have your laboratory studies redrawn. Please follow-up with your primary care provider in the next few days to discuss this visit and any symptoms that change, worsen, or persist. Thank you for allowing us to be part of your care. HPI General Mode of arrival: ambulatory. Date/Time Provider Initiated Documentation: 03/24/25 17:42. Limitations to Documentation: no limitations. Information obtained by: patient and old records reviewed. HPI Narrative: This is a 30-year-old transgender male patient Re-presenting for evaluation in the setting of concern of liver damage and alcohol use disorder. Of note, the patient was seen just prior to presentation, had an evaluation by the assistant cross country coach and signed out AGAINST MEDICAL ADVICE prior to laboratory workup. He returns for reevaluation because he is unable to get his RCT ride home covered due to his AMA status. He has not had any change in his history or complaints since his most recent evaluation. States that he has not changed his mind about wanting to go home and continue drinking, and is not interested in detox resources at this time. Related Data Home Medications ?Medication ?Instructions ?Recorded ?Confirmed testosterone cypionate 200 mg/mL 50 mg IM Q7D 07/29/24 03/24/25 intramuscular oil etonogestrel 68 mg subdermal 1 implant subdermal ONCE 11/09/24 03/24/25 implant (Nexplanon) chlordiazepoxide HCl 25 mg capsule 25 mg PO Q6H PRN #15 caps 03/11/25 03/24/25 Held on 03/12/25. Instructions: Resume on 03/12/25. Please stop taking this medicine if you are unwilling to stop drinking. naltrexone 50 mg tablet 50 mg PO DAILY #30 tabs 03/11/25 03/24/25 Held on 03/24/25. Instructions: Pt Stopped/Never Started Previous Rx's ?Medication ?Instructions ?Recorded chlordiazepoxide HCl 25 mg capsule 25 mg PO Q6H PRN #15 caps 03/11/25 Held on 03/12/25. Instructions: Resume on 03/12/25. Please stop taking this medicine if you are unwilling to stop drinking. naltrexone 50 mg tablet 50 mg PO DAILY #30 tabs 03/11/25 Held on 03/24/25. Instructions: Pt Stopped/Never Started Allergies Allergy/AdvReac Type Severity Reaction Status Date / Time amoxicillin Allergy Intermediate Skin Rash Unverified 03/24/25 15:03 General Stated Complaint: GenMedical KASSANDRA: 4 Exam Narrative Exam Narrative: Gen: Awake and alert, in no apparent distress HEENT: Non-icteric sclera Neck: Supple Lungs: No apparent respiratory distress, normal respiratory effort. CV: Appears well perfused, heart with regular rate and rhythm, strong distal pulses Abdomen: Non-distended MSK: Moves 4 extremities without apparent limitation in ROM Skin: Visualized skin without rashes, cyanosis. Neuro: Normal Gait, no obvious focal deficits or facial asymmetry. Speaks in full, clear sentences. No tremors Psych: Appropriate for situation. Course Vital Signs Vital signs: Vital Signs Temperature 36.6 C 03/24/25 17:29 Pulse 91 H 03/24/25 17: Respiratory Rate 18 03/24/25 17: Blood Pressure 113/77 03/24/25 17:29 Pulse Oximetry 98 03/24/25 17:29 Temperature 36.6 C 03/24/25 17: Temperature Source Temporal Artery Scan 03/24/25 17: Pulse 91 H 03/24/25 17: Respiratory Rate 18 03/24/25 17: Blood Pressure 113/77 03/24/25 17:29 Pulse Oximetry 98 03/24/25 17: Oxygen Delivery Method Room Air 03/24/25 17: Oxygen Flow Rate 0 03/24/25 17: Pain Level 0 03/24/25 17:29 Medical Decision Making This is a 30-year-old transgender male patient presenting for evaluation for alcohol use disorder and a history of fatty disease. My differential includes but is not limited to alcohol use disorder, acute intoxication, I note no evidence of alcohol withdrawal at this time. Considered metabolic derangement, kidney and liver injury, anemia. We will obtain laboratory studies to include CBC, CMP, magnesium, and ethanol level. -I reviewed the patient's laboratory studies, which note no leukocytosis, the patient does have a slightly elevated hemoglobin to 17.3 which is not out of the range of normal for this patient and is likely due to exogenous testosterone use. No thrombocytopenia. Chemistry panel without evidence of electrolyte derangement or dehydration, no kidney dysfunction noted. He does have an elevated bilirubin to 1.4, and an increase in his baseline transaminitis with an AST of 71 and an ALT of 129. No decrease in his albumin to significantly increase my concern for liver failure and loss of synthetic function. Ethanol modestly elevated at 40. I shared these findings with the patient, and counseled him on the need to follow-up with his primary care provider for liver enzyme reevaluation, and counseled him that the use of excessive alcohol could certainly be worsening his underlying liver pathologies. However, at this time I do not see a concerning hemodynamic or physical examination that would warrant advanced imaging or admission to the hospital. At this time, the patient has had a full medical evaluation and is safe for discharge to home. They are hemodynamically stable, ambulatory, and tolerating PO. They are understanding of the follow-up plan and return precautions. They left our facility without incident. Nayely Rojo MD [facility] All Active Problems (Updated 03/24/25 @ 19:22 by Nayely Rojo MD) Abnormal transaminases (Acute) Alcohol use disorder (Acute) Alcohol use disorder (Acute) Alcohol withdrawal (Acute) Alcohol intoxication (Acute) Social History Smoking/Tobacco Use Status: Current every day Tobacco Type: cigarettes Smoking risk assessment performed?: Yes Alcohol Intake: current Alcohol Intake frequency: 3 or more drinks per day Alcohol type: beer Drug use: Occasionally Substance use type: marijuana Details: patient state she has history of using substances crack, crystal methamphetamines. but she stopped using these years ago except marijuana 01/07/25 Housing: apartment Do you feel safe at home: Yes Do you feel safe in your relationship?: Yes PAWSS Have you Been Recently Intoxicated or Drunk Within the Last 30 days?: Yes Have you Ever Experienced Previous Episodes of Alcohol Withdrawal?: Yes Have you ever Experienced Withdrawal Seizures?: No Have you ever Experienced Delirium Tremens(DT)s?: No Have you ever undergone Alcohol Rehabilitation Treatment (i.e, inpt ot outpatient treatment programs)?: Yes Have you ever Experienced Blackouts?: Yes Have you ever Combined Alcohol with other Downers within the last 90 days?: Yes Have you ever Combined Alcohol with any other Substance of Abuse during the last 90 days?: Yes Positive Blood Alcohol level on Presentation? [PCS.BAL]: Yes Evidence of Increased Autonomic Activity (i.e. HR>120, tremor, sweating, agitation, nausea)?: No Result: 7
[2025-03-24 18:31] VITALS: RESP 18
[2025-03-24 18:33] LABS: Abs Immature Grans 0.16 10^3/uL (0.0-0.06); HCT 51.1 % (36.0-46.0); HGB 17.3 g/dL (11.2-15.7); Immature Grans % 2.2 %; MCH 31.6 pg (27.0-33.0); MCHC 33.9 % (32.0-36.0); MCV 93 fL (80-95); MPV 10.3 fL (8.0-11.0); Platelet Count 200 10^3/uL (130-400); RBC 5.48 10^6/uL (3.93-5.22); RDW 12.4 % (11.7-14.6); RDW-SD 42.9 fL; WBC 7.44 10^3/uL (4.4-10.8)
[2025-03-24 18:49] LABS: ALT 129 U/L (14-59); AST 71 U/L (15-37); Albumin 4.0 g/dL (3.4-5.0); Alkaline Phosphatase 89 U/L (46-116); Anion Gap 12.8 mmol/L (3-11); BUN 5 mg/dL (7-18); Bilirubin, Total 1.4 mg/dL (0.2-1.0); CO2 23.2 mmol/L (21.0-32.0); Calcium 9.2 mg/dL (8.5-10.1); Chloride 104 mmol/L (98-107); Estimated GFR 125.31 (mL/min/1.73m2); Glucose 76 mg/dL (74-106); Magnesium 2.2 mg/dL (1.8-2.4); Potassium 3.9 mmol/L (3.5-5.1); Sodium 140 mmol/L (136-145); Total Protein 8.1 g/dL (6.4-8.2)
[2025-03-24 19:18] VITALS: BP 133/80; PULSE 82; RESP 16; O2SAT 98
[2025-03-24 19:31] VITALS: BP 133/80; PULSE 82; RESP 16; TEMP 36.7; O2SAT 97
== END 2025-03-24 19:33 | disposition home or self-care (01) ==
PROVIDERS: Emergency Provider Emergency Medicine; PCP Student in an Organized Health Care Education/Training Program
DX: R74.8 Abnormal levels of other serum enzymes (principal); F10.90 Alcohol use, unspecified, uncomplicated; Z87.19 Personal history of other diseases of the digestive system
CPT/HCPCS: 99283; 99282; 80053; 80320; 83735; 85025

== ENCOUNTER 2025-05-06 15:16 | Emergency (ER) | payer MEDICAID, SELFPAY ==
[2025-05-06 15:17] VITALS: BP 136/93; PULSE 90; RESP 20; TEMP 36.9; O2SAT 96
[2025-05-06 16:10] LABS: Abs Immature Grans 0.13 10^3/uL (0.0-0.06); HCT 51.4 % (36.0-46.0); HGB 17.6 g/dL (11.2-15.7); Immature Grans % 2.0 %; MCH 32.0 pg (27.0-33.0); MCHC 34.2 % (32.0-36.0); MCV 94 fL (80-95); MPV 9.8 fL (8.0-11.0); Platelet Count 167 10^3/uL (130-400); RBC 5.50 10^6/uL (3.93-5.22); RDW 12.7 % (11.7-14.6); RDW-SD 43.8 fL; WBC 6.65 10^3/uL (4.4-10.8)
--- NOTE | 2025-05-06 16:17 | W.ED.GENAD ---
Discharge Plan Disposition Patient Disposition: Home Condition: Stable Discharge Details Clinical Impression: Alcohol use disorder, Elevated transaminase level, UTI (urinary tract infection) Primary Care Provider: Cody Galarza ED Provider: Nayely Rojo Home Meds and New Rx's Prescriptions: New cephalexin 500 mg capsule 500 mg PO QID 6 Days Qty: 24 0RF No Action testosterone cypionate 200 mg/mL oil 50 mg IM Q7D Patient Comments: INJECT 0.25ML (50MG TOTAL) INTO THE SHOULDER, THIGH, OR BUTTOCKS EVERY 7 DAYS. USE PRESCRIBED AMOUNT FROM EACH VIAL AND DISCARD REMAINING. Nexplanon 68 mg implant 1 implant subdermal ONCE Rx Instructions: as a single dose chlordiazepoxide HCl 25 mg capsule 25 mg PO Q6H PRNQty: 15 0RF Rx Instructions: Day 1: 50mg q6h Day 2: 25mg q6h Day 3: 25mg q12h Day 4: 25mg at night (Rx fifteen 25mg tabs) naltrexone 50 mg tablet 50 mg PO DAILY Qty: 30 0RF Discharge Instructions Instructions: Alcohol Use Disorder (DC), Urinary Tract Infection, Adult ED Additional Instructions: You were seen in the emergency department today for evaluation of your alcohol use disorder. In our department a full physical examination performed, had laboratory studies that were largely reassuring, though your liver enzymes remain slightly elevated, similar to how they were on your last check. With your history of fatty liver disease and alcohol use, it is essential that you follow-up with your primary care provider by calling their clinic tomorrow. They may recommend imaging studies such as MRI or ultrasound, and we will certainly want to recheck your laboratory studies to ensure that your levels are returning to normal. You had some evidence of urinary tract infection on your urine, and will be started on antibiotics. Please take all of this medication until it is gone, even if you start to feel better. Your urine was sent for culture, if it grows a bacteria that is not sensitive to the antibiotic cephalexin that we started you on, we will contact you to provide you an alternative medication. You met with a member of the recovery coaches and were observed in the emergency department and did not have evidence of severe alcohol withdrawal. However, you certainly would benefit from some outpatient support, and I encourage you strongly to reach out to the inpatient facility in [place] that you have an opportunity to attend. Please follow-up with your primary care provider in the next few days to discuss this visit and any symptoms that change, worsen, or persist. Thank you for allowing us to be part of your care. HPI General Mode of arrival: EMS. Date/Time Provider Initiated Documentation: 05/06/25 15:22. Limitations to Documentation: no limitations. Information obtained by: patient and old records reviewed. HPI Narrative: This is a 30-year-old transgender male patient presenting for evaluation for anxiety and alcohol use disorder. The patient reports that he has been on an alcohol flor. He states that he is drinking as many tallboy's as I physically can per day, last drink approximately 1 hour prior to arrival. The patient reports that he has a history of shakiness with withdrawal, has had a seizure in the past, unclear if it was related to alcohol withdrawal. He states that he feels quite anxious regarding his drinking, and is interested in being evaluated to ensure that his liver disease is not worsening. He has a history of fatty liver disease, was recommended to get an MRI but did not get it because he was nervous about the MRI machine injuring him. The patient is working with a community mental health organization in [place], and they have the opportunity to do a 7-day voluntary inpatient program. He has been hesitant in the past to utilize medications for alcohol withdrawal symptoms in the outpatient environment given his difficulty in abstaining from alcohol while taking them. Denies suicidal or homicidal ideations. Endorses nicotine use, occasional marijuana, otherwise no illicit substance use. Related Data Home Medications ?Medication ?Instructions ?Recorded ?Confirmed testosterone cypionate 200 mg/mL 50 mg IM Q7D 07/29/24 05/06/25 intramuscular oil etonogestrel 68 mg subdermal 1 implant subdermal ONCE 11/09/24 05/06/25 implant (Nexplanon) chlordiazepoxide HCl 25 mg capsule 25 mg PO Q6H PRN #15 caps 03/11/25 05/06/25 naltrexone 50 mg tablet 50 mg PO DAILY #30 tabs 03/11/25 05/06/25 cephalexin 500 mg capsule 500 mg PO QID 6 days #24 caps 05/06/25 Previous Rx's ?Medication ?Instructions ?Recorded chlordiazepoxide HCl 25 mg capsule 25 mg PO Q6H PRN #15 caps 03/11/25 naltrexone 50 mg tablet 50 mg PO DAILY #30 tabs 03/11/25 cephalexin 500 mg capsule 500 mg PO QID 6 days #24 caps 05/06/25 Allergies Allergy/AdvReac Type Severity Reaction Status Date / Time amoxicillin Allergy Intermediate Skin Rash Unverified 05/06/25 15:21 General Stated Complaint: ETOHWithdr KASSANDRA: 3 Exam Narrative Exam Narrative: Gen: Awake and alert, in no apparent distress HEENT: Non-icteric sclera Neck: Supple Lungs: No apparent respiratory distress, normal respiratory effort. CV: Appears well perfused. Heart with regular rate and rhythm, strong distal pulses Abdomen: Non-distended, soft, nontender without rigidity, rebound, or guarding MSK: Moves 4 extremities without apparent limitation in ROM Skin: Visualized skin without rashes, cyanosis. Neuro: Normal Gait, no obvious focal deficits or facial asymmetry. Speaks in full, clear sentences. Psych: Appropriate for situation, endorsing ruminating thoughts, denies suicidal and homicidal ideation. Forward thinking, linear thought process, goal directed Course Vital Signs Vital signs: Vital Signs Temperature 36.9 C 05/06/25 15:17 Pulse 90 05/06/25 15:17 Respiratory Rate 20 05/06/25 15:17 Blood Pressure 136/93 H 05/06/25 15:17 Pulse Oximetry 96 05/06/25 15:17 Temperature 36.9 C 05/06/25 15:17 Pulse 90 05/06/25 15:17 Respiratory Rate 20 05/06/25 15:17 Respiratory Pattern Normal 05/06/25 15:37 Blood Pressure 136/93 H 05/06/25 15:17 Blood Pressure Position Sitting 05/06/25 15:17 Pulse Oximetry 96 05/06/25 15:17 Oxygen Delivery Method Room Air 05/06/25 15:17 Oxygen Flow Rate 0 05/06/25 15:17 Lab/Test Results Lab/Test Results: Laboratory Tests Range/Units 05/06/25 16:04 WBC (4.4-10.8) 10^3/uL 6.65 RBC (3.93-5.22) 10^6/uL 5.50 H Hgb (11.2-15.7) g/dL 17.6 H Hct (36.0-46.0) % 51.4 H MCV (80-95) fL 94 MCH (27.0-33.0) pg 32.0 MCHC (32.0-36.0) % 34.2 RDW (11.7-14.6) % 12.7 Plt Count (130-400) 10^3/uL 167 MPV (8.0-11.0) fL 9.8 Immature Gran % % 2.0 Neutrophils % % 57.6 Lymphocytes % % 28.0 Monocytes % % 8.6 Eosinophils % % 2.4 Basophils % % 1.4 Nucleated RBC % (0.0-0.3) % 0.0 Absolute Neutrophils (1.2-6.7) 10^3/uL 3.84 Absolute Lymphocytes (1.2-3.4) 10^3/uL 1.86 Absolute Monocytes (0.1-0.8) 10^3/uL 0.57 Absolute Eosinophils (0.0-0.7) 10^3/uL 0.16 Absolute Basophils (0.0-0.2) 10^3/uL 0.09 Medical Decision Making This is a 30-year-old transgender male patient presenting for evaluation of alcohol use disorder, anxiety. Differential includes but is not limited to alcohol intoxication, the patient is not currently exhibiting any symptoms such as tremors, tachycardia, and has recently drank alcohol, making acute alcohol withdrawal less likely. No suicidal or homicidal ideation at this time though certainly primary psychiatric disturbance was considered. Considered metabolic electrolyte derangement, kidney injury, liver disease (patient does have a history of fatty liver disease and transaminitis. Today, the patient's goal is evaluation of his liver disease in the setting of his recent alcohol flor, and he is amenable to discussing outpatient sobriety resources with the assistant cross country coach. I do not see an indication at this time to move forward with treatment for alcohol withdrawal given the lack of withdrawal symptoms at this time. We will obtain labs to include CBC, CMP, magnesium, lipase, urinalysis, and UDS. - I reviewed the patient's laboratory studies, which showed no leukocytosis, anemia, or thrombocytopenia. Chemistry panel without electrolyte derangements, evidence of kidney dysfunction, baseline transaminitis actually slightly improved from most recent studies. No lipase elevation. Initial urinalysis was frankly contaminated, with bacteria and positive nitrates appreciated. I discussed this finding with the patient, who does endorse some occasional flank pain, has a history of urinary tract infections and is concerned for same. A new clean-catch was obtained, which does continue to show bacteria and positive nitrates. For this reason we will provide the patient with a course of cephalexin per his preference, as he has tolerated this medication well in the past. The urine was sent for culture and he will be contacted with any changes that need to be made to the course of antibiotics. The patient was observed in the emergency department, had an ethanol of 77 on arrival, and did not develop any symptoms concerning for severe alcohol withdrawal which would require admission. As discussed on previous visits, the patient is not confident that he could completely abstain from drinking in the home environment and does not have a strong support network who could facilitate safe administration of medication such as Librium, so we will hold on any prescriptions for benzodiazepines at this time. The patient met with the assistant cross country coach and was provided with numerous outpatient resources, and at this time, the patient has had a full medical evaluation and is safe for discharge to home. They are hemodynamically stable, ambulatory, and tolerating PO. They are understanding of the follow-up plan and return precautions. They left our facility without incident. Nayely Rojo MD [facility] All Active Problems (Updated 05/06/25 @ 17:46 by Nayely Rojo MD) UTI (urinary tract infection) (Acute) Elevated transaminase level (Acute) Alcohol use disorder (Acute) Social History Smoking/Tobacco Use Status: Current every day Tobacco Type: cigarettes Smoking risk assessment performed?: Yes Alcohol Intake: current Alcohol Intake frequency: 3 or more drinks per day Alcohol type: beer Drug use: Occasionally Substance use type: marijuana Details: patient state she has history of using substances crack, crystal methamphetamines. but she stopped using these years ago except marijuana 01/07/25 Housing: apartment Do you feel safe at home: Yes Do you feel safe in your relationship?: Yes PAWSS Have you Been Recently Intoxicated or Drunk Within the Last 30 days?: Yes Have you Ever Experienced Previous Episodes of Alcohol Withdrawal?: Yes Have you ever Experienced Withdrawal Seizures?: Yes Have you ever Experienced Delirium Tremens(DT)s?: No Have you ever undergone Alcohol Rehabilitation Treatment (i.e, inpt ot outpatient treatment programs)?: Yes Have you ever Experienced Blackouts?: Yes Have you ever Combined Alcohol with other Downers within the last 90 days?: No Have you ever Combined Alcohol with any other Substance of Abuse during the last 90 days?: Yes Positive Blood Alcohol level on Presentation? [PCS.BAL]: Yes Evidence of Increased Autonomic Activity (i.e. HR>120, tremor, sweating, agitation, nausea)?: No Result: 8
[2025-05-06 16:26] LABS: Glucose Negative (Negative)
[2025-05-06 16:33] LABS: RBC 0-2 HPF (0-2)
[2025-05-06 16:33] LABS: ALT 94 U/L (14-59); AST 53 U/L (15-37); Albumin 3.8 g/dL (3.4-5.0); Alkaline Phosphatase 97 U/L (46-116); Anion Gap 11.8 mmol/L (3-11); BUN 3 mg/dL (7-18); Bilirubin, Total 0.9 mg/dL (0.2-1.0); CO2 23.2 mmol/L (21.0-32.0); Calcium 8.6 mg/dL (8.5-10.1); Chloride 104 mmol/L (98-107); Estimated GFR 120.74 (mL/min/1.73m2); Glucose 89 mg/dL (74-106); Lipase 31 U/L (<78); Magnesium 2.1 mg/dL (1.8-2.4); Potassium 3.9 mmol/L (3.5-5.1); Sodium 139 mmol/L (136-145); Total Protein 8.1 g/dL (6.4-8.2)
[2025-05-06 16:39] LABS: Cannabinoids THC Negative (Negative); METHADONE URINE SCREEN Negative (Negative)
[2025-05-06 17:17] LABS: Glucose Negative (Negative)
[2025-05-06 17:22] LABS: C & S Indicated? No; RBC Negative HPF (0-2)
[2025-05-06] MEDS: Cephalexin 500 MG CAP, 4 CAPS/BTL PO (17:52)
[2025-05-06 17:59] VITALS: BP 133/70; PULSE 70; RESP 16; O2SAT 94
--- NOTE | 2025-05-08 08:30 | NUR.NOTE ---
Accessed Pt chart to document antibiotics given to Pt for this visit, on the Specimen Report. Report was given to providers.
== END 2025-05-06 18:01 | disposition home or self-care (01) ==
PROVIDERS: Emergency Provider Emergency Medicine; PCP Student in an Organized Health Care Education/Training Program
DX: N39.0 Urinary tract infection, site not specified (principal); R74.01 Elevation of levels of liver transaminase levels; F10.90 Alcohol use, unspecified, uncomplicated
CPT/HCPCS: 99283 ×2; 80053; 80307; 83690; 87077; 80320; 81003; 81015; 83735; 85025; 87086; 87186

== ENCOUNTER 2025-05-10 07:01 | Emergency (ER) | payer MEDICAID, SELFPAY ==
--- NOTE | 2025-05-10 07:00 | RT.EKG_ITS ---
APPROVED REPORT Exam: Resting ECG Reason for Exam: lightheadedness Patient Location: E HR:70 bpm ECG Measurements Heart Rate 70 AXIS NE 148 P 30 QRSd 84 QRS -2 QT 390 T 4 QTc 421 Conclusion Sinus rhythm, rate 70 No interval abnormalities No STEMI Q wave and T wave inversion III, V1, unchanges from priors
[2025-05-10 07:11] VITALS: BP 145/85; PULSE 60; RESP 16; TEMP 36.8; O2SAT 96
--- NOTE | 2025-05-10 07:13 | W.ED.GENAD ---
Discharge Plan Disposition Patient Disposition: Home Condition: Stable Discharge Details Clinical Impression: Acute epigastric pain, Elevated transaminase level Primary Care Provider: Cody Galarza ED Provider: Nayely Rojo Home Meds and New Rx's Prescriptions: No Action testosterone cypionate 200 mg/mL oil 50 mg IM Q7D Patient Comments: INJECT 0.25ML (50MG TOTAL) INTO THE SHOULDER, THIGH, OR BUTTOCKS EVERY 7 DAYS. USE PRESCRIBED AMOUNT FROM EACH VIAL AND DISCARD REMAINING. Nexplanon 68 mg implant 1 implant subdermal ONCE Rx Instructions: as a single dose naltrexone 50 mg tablet 50 mg PO DAILY Qty: 30 0RF cephalexin 500 mg capsule 500 mg PO QID 6 Days Qty: 24 0RF Discharge Instructions Instructions: Abdominal Pain, Adult ED Additional Instructions: You were seen in the emergency department today for evaluation of pain in your epigastric area, poor hydration, and intermittent headaches. In our department you had a full physical examination performed, had laboratory studies that were reassuring, and specifically showed no evidence of pancreatitis, electrolyte abnormalities, or other severe changes. Your liver enzymes are slightly improved compared to your priors. As we discussed, it is important that we increase your intake of oral fluids that are not alcohol. You received IV fluids today to good effect. You can continue to use Tylenol and ibuprofen as needed for management of headache. We discussed the utility of CT scans, ultimately we held off on advanced imaging at this time. You need to contact your pharmacy to have your antibiotic delivered, I do recommend that you take that course of antibiotics for your urinary tract infection as prescribed. I do recommend that you continue that medication until it is gone, even if you start to feel better. You contacted your primary care provider to schedule a follow-up appointment, and should keep this visit and follow instructions from your outpatient provider. Your appointment is scheduled for June 02, which is a Saturday. Thank you for allowing us to be part of your care. HPI General Mode of arrival: EMS. Date/Time Provider Initiated Documentation: 05/10/25 07:11. Limitations to Documentation: no limitations. Information obtained by: patient, EMS and old records reviewed. HPI Narrative: This is a 30-year-old transgender male patient with a past medical history significant for fatty liver disease, presenting for evaluation of multiple medical complaints. The patient reports that he has been experiencing over the last several days intermittent stabbing headaches that seem to come and go, has not taken any medications in the outpatient environment for this condition and does not have a headache at this time. He reports that the headache seems to occur in many different areas of his head, including the top and the temples. No vision changes reported, states that he has had intermittent lightheadedness which he attributes to severe dehydration due to his alcohol consumption. States that he was able to consume some Pedialyte over the weekend, which improved his symptoms slightly. The patient summoned EMS this morning because he was experiencing abdominal pain that seems to wander around, first in his left upper quadrant, now in his epigastric and right upper quadrant region. States that this pain resolved before the ambulance crew got there, but returned on arrival to our hospital. Does not report any active nausea. 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 Related Data Home Medications ?Medication ?Instructions ?Recorded ?Confirmed testosterone cypionate 200 mg/mL 50 mg IM Q7D 07/29/24 05/10/25 intramuscular oil etonogestrel 68 mg subdermal 1 implant subdermal ONCE 11/09/24 05/10/25 implant (Nexplanon) naltrexone 50 mg tablet 50 mg PO DAILY #30 tabs 03/11/25 05/10/25 cephalexin 500 mg capsule 500 mg PO QID 6 days #24 caps 05/06/25 05/10/25 Previous Rx's ?Medication ?Instructions ?Recorded naltrexone 50 mg tablet 50 mg PO DAILY #30 tabs 03/11/25 cephalexin 500 mg capsule 500 mg PO QID 6 days #24 caps 05/06/25 Allergies Allergy/AdvReac Type Severity Reaction Status Date / Time amoxicillin Allergy Intermediate Skin Rash Unverified 05/10/25 07:50 General KASSANDRA: 3 Exam Narrative Exam Narrative: Gen: awake and alert, in no apparent distress. Appears well nourished. HEENT: PERRL, EOMs full and without nystagmus. External ears and nose normal, mucous membranes moist. Neck: Supple, full range of motion, no observable masses Lungs: No increased work of breathing, lung sounds clear and equal bilaterally without wheezes, rhonchi, or rales. CV: Heart with regular rate and rhythm, no murmurs auscultated. Strong and symmetrical radial pulses. Abdomen: Soft, nondistended, tender to palpation in the epigastric region without rigidity or guarding. MSK: No joint swelling, no redness. Full ROM without limitation, no external traumatic findings. Skin: No rashes or lesions to visualized skin. Normal color, warm, and dry. Neuro: Cranial nerves II-XII intact and symmetrical bilaterally. 5/5 strength in all muscle groups x4 extremities. No sensory deficits. Ambulates with steady gait. Psych: Appropriate for situation. Medical Decision Making This is a 30-year-old transgender male patient presenting for evaluation of lightheadedness, intermittent migratory abdominal pain, and headaches. My differential includes, but is not limited to, gastritis/PUD, gastroenteritis, pancreatitis, cholecystitis and gallbladder pathology, hepatitis, appendicitis, diverticulitis, small bowel obstruction. Considered urinary pathology including UTI, nephrolithiasis. Considered mesenteric ischemia, aortic pathology, though this is less concerning based on the patient's history and physical exam. Considered ectopic , PID/TOA, ovarian cyst, ovarian torsion. Considered metabolic and electrolyte derangements, dehydration. Regarding the headaches, I am reassured by the transient nature, and considered primary headache disorders including migraine, tension headache, cluster headache. No neurodeficits or thunderclap quality to the headaches to suggest subarachnoid hemorrhage, and the neuroexam is suggestive against mass effect. We will obtain an EKG to evaluate for arrhythmia given the patient's report of lightheadedness. I will provide the patient with a dose of ibuprofen (requested specifically in lieu of Tylenol) and a liter of IV fluids. We will obtain labs to include CBC, CMP, magnesium, lipase, urinalysis, and urine screen. Given the patient's history of excessive alcohol use, the epigastric pain it is reasonable to proceed with CT of the abdomen and pelvis to evaluate for intra-abdominal pathologies. I had an extended shared decision-making conversation with the patient regarding the utility of CT imaging of the head, which the patient does request, and at this time I do not feel like the diagnostic benefit of additional advanced imaging in this patient who is currently pain-free with an intact neuro examination outweighs the risks of excessive imaging in this young person. Certainly we will continue to monitor. - Ultimately, the patient ended up refusing CT scan when brought over to the radiology suite, which I do not feel is unreasonable given the generally benign evaluation. I independently interpreted the laboratory studies, which show no significant leukocytosis, anemia, or thrombocytopenia. The chemistry panel is without evidence of electrolyte abnormality, kidney dysfunction, or new or worsening liver injury. The transaminitis previously noted is actually improving compared to priors. Lipase is low, urinalysis remains nitrite positive, with many bacteria and the patient contacted the pharmacy while in the emergency department and his antibiotics will be sent to his home today. He was counseled to take all of this medication until it was gone, even if he started to feel better. On reevaluation the patient has had significant improvement in his symptoms, and he attributes a great number of the symptoms he experienced today to dehydration. I did assist the patient in contacting his primary care provider to schedule a follow-up appointment and counseled him on increasing oral hydration and decreasing alcohol intake. At this time, the patient has had a full medical evaluation and is safe for discharge to home. They are hemodynamically stable, ambulatory, and tolerating PO. They are understanding of the follow-up plan and return precautions. They left our facility without incident. Nayely Rojo MD [facility] All Active Problems (Updated 05/10/25 @ 08:53 by Nayely Rojo MD) Acute epigastric pain (Acute) UTI (urinary tract infection) (Acute) Elevated transaminase level (Acute) Alcohol use disorder (Acute) Social History Smoking/Tobacco Use Status: Current every day Tobacco Type: cigarettes Smoking risk assessment performed?: Yes Alcohol Intake: current Alcohol Intake frequency: 3 or more drinks per day Alcohol type: beer Drug use: Occasionally Substance use type: marijuana Details: patient state she has history of using substances crack, crystal methamphetamines. but she stopped using these years ago except marijuana 01/07/25 Housing: apartment Do you feel safe at home: Yes Do you feel safe in your relationship?: Yes
[2025-05-10] MEDS: Ibuprofen 600 MG TAB PO (07:48)
[2025-05-10 07:50] LABS: Abs Immature Grans 0.12 10^3/uL (0.0-0.06); HCT 50.7 % (36.0-46.0); HGB 17.4 g/dL (11.2-15.7); Immature Grans % 1.6 %; MCH 32.5 pg (27.0-33.0); MCHC 34.3 % (32.0-36.0); MCV 95 fL (80-95); MPV 9.8 fL (8.0-11.0); Platelet Count 154 10^3/uL (130-400); RBC 5.36 10^6/uL (3.93-5.22); RDW 12.9 % (11.7-14.6); RDW-SD 44.8 fL; WBC 7.55 10^3/uL (4.4-10.8)
[2025-05-10 07:53] LABS: Glucose Negative (Negative)
[2025-05-10 08:02] LABS: C & S Indicated? Yes; RBC Negative HPF (0-2); WBC 0-2 HPF (0-5)
[2025-05-10 08:05] LABS: ALT 70 U/L (14-59); AST 35 U/L (15-37); Albumin 3.7 g/dL (3.4-5.0); Alkaline Phosphatase 90 U/L (46-116); Anion Gap 7.0 mmol/L (3-11); BUN 5 mg/dL (7-18); Bilirubin, Total 0.7 mg/dL (0.2-1.0); CO2 27.0 mmol/L (21.0-32.0); Calcium 8.4 mg/dL (8.5-10.1); Chloride 103 mmol/L (98-107); Estimated GFR 102.86 (mL/min/1.73m2); Glucose 93 mg/dL (74-106); Lipase 35 U/L (<78); Magnesium 2.1 mg/dL (1.8-2.4); Potassium 4.0 mmol/L (3.5-5.1); Sodium 137 mmol/L (136-145); Total Protein 7.6 g/dL (6.4-8.2)
[2025-05-10] MEDS: Lactated Ringers 1,000 ML 1000 ML IV (08:11)
[2025-05-10 09:29] VITALS: BP 135/66; PULSE 74; RESP 16; O2SAT 98
--- NOTE | 2025-05-13 08:37 | NUR.NOTE ---
Accessed Pt chart to see if Pt was prescribed an antibiotic during the visit. Pt was not. This was documented on the Specimen Report and given to the providers.
--- NOTE | 2025-05-13 08:45 | W.ED.FU ---
Date of service: 05/13/25 Time of Service: 08:45 Follow Up Plan: I received a final urine culture result for this patient, which grew greater than 100,000 colonies of E. coli, which are susceptible to the Keflex that was prescribed to this patient on his second to last ED visit. 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 As long as he is taking this medication, no change to the treatment plan is required. I attempted to reach the patient on both of the phone numbers listed in his chart, neither of which were set up to leave a voice message. There are no family members or other next of kin available for contact. Will attempt to call back at another time. Nayely Rojo MD
== END 2025-05-10 09:30 | disposition home or self-care (01) ==
PROVIDERS: Emergency Provider Emergency Medicine; PCP Student in an Organized Health Care Education/Training Program
DX: R10.13 Epigastric pain (principal); R74.01 Elevation of levels of liver transaminase levels; R51.9 Headache, unspecified
CPT/HCPCS: 36415; 80053; 81025; 83690; 87077; 93005; 96360; 99284; 81003; 81015; 83735; 85025; 87086; 87186; 93010; 99283

== ENCOUNTER 2025-05-23 23:40 | Emergency (ER) | payer MEDICAID, SELFPAY ==
[2025-05-23 23:41] VITALS: BP 140/84; PULSE 100; RESP 16; TEMP 36.8; O2SAT 99
--- NOTE | 2025-05-23 23:53 | ED.GENADUL_ITS ---
Discharge Plan Disposition Patient Disposition: Home Condition: Good Discharge Details Clinical Impression: Acute anxiety Primary Care Provider: Cody Galarza ED Provider: Gerald Shah Meds and New Rx's Prescriptions: Continued testosterone cypionate 200 mg/mL oil 50 mg IM Q7D Patient Comments: INJECT 0.25ML (50MG TOTAL) INTO THE SHOULDER, THIGH, OR BUTTOCKS EVERY 7 DAYS. USE PRESCRIBED AMOUNT FROM EACH VIAL AND DISCARD REMAINING. Nexplanon 68 mg implant 1 implant subdermal ONCE Rx Instructions: as a single dose Discharge Instructions Additional Instructions: You were seen in the ED for concern of potential opiate ingestion. Your exam, vitals and urine drug screen are reassuring and you improved in the ED with oral fluids and time. Return to ED with any mental status changes, vomiting, syncope, other concerns. HPI General Mode of arrival: EMS . Date/Time Provider Initiated Documentation: 05/23/25 23:53 . Limitations to Documentation: no limitations . Information obtained by: patient, RN notes reviewed and old records reviewed . HPI Narrative: Patient presents to ED after using someone friend's vape and now feeling anxious, not well. Concerned that potentially inhaled something other than nicotine. Patient has also had a fair amount of alcohol tonight as well. Denies any pain, vomiting, trouble breathing. Feels anxious and paranoid, just not right. Related Data Home Medications ?Medication ?Instructions ?Recorded ?Confirmed testosterone cypionate 200 mg/mL 50 mg IM Q7D 07/29/24 05/23/25 intramuscular oil etonogestrel 68 mg subdermal 1 implant subdermal ONCE 11/09/24 05/23/25 implant (Nexplanon) Allergies Allergy/AdvReac Type Severity Reaction Status Date / Time amoxicillin Allergy Intermediate Skin Rash Unverified 05/23/25 23:50 General Stated Complaint: GenMedical KASSANDRA: 4 Exam Narrative Exam Narrative: Const: NAD. VS per triage. HEENT: NC/AT. Normal facial exam. Eyes: PERRL and EOMI Neck: Supple. Trachea midline. Lungs: Normal respiratory effort. Lungs are clear. Cor: RRR without murmur. Good radial pulses. Neuro: A+O x 3. Normal speech, mentation, gait. Cranial nerves II - XII grossly intact. No gross motor or sensory deficit. Course Vital Signs Vital signs: Vital Signs Temperature 98.3 F 05/23/25 23:41 Pulse 100 H 05/23/25 23:41 Respiratory Rate 16 05/23/25 23:41 Blood Pressure 140/84 05/23/25 23:41 Pulse Oximetry 99 05/23/25 23:41 Temperature 98.3 F 05/23/25 23:41 Temperature Source Tympanic 05/23/25 23:41 Pulse 100 H 05/23/25 23:41 Respiratory Rate 16 05/23/25 23:41 Blood Pressure 140/84 05/23/25 23:41 Blood Pressure Position Supine 05/23/25 23:41 Pulse Oximetry 99 05/23/25 23:41 Oxygen Delivery Method Room Air 05/23/25 23:41 Oxygen Flow Rate 0 05/23/25 23:41 Medical Decision Making Patient presenting to the ED with concern for inhalation of unknown substance after using a friend's vape. Patient concerned that potentially has been exposed to opiates. Patient confirms alcohol use tonight. Pupils are large and reactive, vitals good, speech and mentation normal. Doubt inhalation/ingestion of opiates or other illicit. Offered to obtain urine drug screen and observe here for a while. Patient given po fluids. Urine drug screen all negative. Patient feeling better. Remains coherent, clear speech and steady gait, walking to the bathroom without difficulty. Patient is clinically sober, feels improved and reassured. Plan discharge home. Return precautions provided. Lab Data Lab results reviewed: Yes I reviewed the patient's lab results. Lab results narrative: see [facility] All Active Problems (Updated 05/24/25 @ 01:51 by Gerald Shah MD) Acute anxiety (Acute) Acute epigastric pain (Acute) UTI (urinary tract infection) (Acute) Elevated transaminase level (Acute) Alcohol use disorder (Acute) Social History Smoking/Tobacco Use Status: Current every day Tobacco Type: cigarettes Smoking risk assessment performed?: Yes Alcohol Intake: current Alcohol Intake frequency: 3 or more drinks per day Alcohol type: beer Drug use: Occasionally Substance use type: marijuana Details: patient state she has history of using substances crack, crystal methamphetamines. but she stopped using these years ago except marijuana 01/07/25 Housing: apartment Do you feel safe at home: Yes Do you feel safe in your relationship?: Yes
[2025-05-23 23:55] VITALS: RESP 16
[2025-05-24 01:15] VITALS: BP 136/80; PULSE 94; RESP 16; O2SAT 98
[2025-05-24 01:16] LABS: Cannabinoids THC Negative (Negative); METHADONE URINE SCREEN Negative (Negative)
[2025-05-24 04:40] VITALS: BP 130/78; PULSE 90; RESP 16; O2SAT 98
== END 2025-05-24 05:04 | disposition home or self-care (01) ==
PROVIDERS: Emergency Provider Emergency Medicine; PCP Student in an Organized Health Care Education/Training Program
DX: F41.9 Anxiety disorder, unspecified (principal); F10.90 Alcohol use, unspecified, uncomplicated
CPT/HCPCS: 99283; 99282; 80307

== ENCOUNTER 2025-05-27 09:42 | Emergency (ER) | payer MEDICAID, SELFPAY ==
[2025-05-27 09:40] VITALS: BP 167/102; PULSE 85; RESP 15; TEMP 36.6; O2SAT 98
[2025-05-27] MEDS: Lidocaine 2% Viscous 1 ML Solution 5 ML PO (10:20)
--- NOTE | 2025-05-30 11:45 | ED.GENADUL_ITS ---
Discharge Plan Disposition Patient Disposition: Home Condition: Stable Discharge Details Clinical Impression: Abrasion of esophagus Primary Care Provider: Cody Galarza ED Provider: Cait Rodas Home Meds and New Rx's Prescriptions: Continued testosterone cypionate 200 mg/mL oil 50 mg IM Q7D Patient Comments: INJECT 0.25ML (50MG TOTAL) INTO THE SHOULDER, THIGH, OR BUTTOCKS EVERY 7 DAYS. USE PRESCRIBED AMOUNT FROM EACH VIAL AND DISCARD REMAINING. Nexplanon 68 mg implant 1 implant subdermal ONCE Rx Instructions: as a single dose Discharge Instructions Additional Instructions: Clear liquid diet, try to stay away from citrus, salty foods and any firm foods such as chips and pretzels Soup, mashed potatoes, mac & cheese, juice, popsicles entire throat feels improved You likely have a scratch to your esophagus Please follow-up with your PCP if he still symptoms in 2 to 3 days or return earlier should new concerns arise Referrals: Cody Galarza [Primary Care Provider, Medicine] Discharge Data Discharge Date/Time-TO BE ENTERED AT DEPARTURE: 05/27/25 13:40 HPI General Date/Time Provider Initiated Documentation: 05/27/25 09:59 . HPI Narrative: Marco Antonio presents with a report of concern for esophageal food bolus. He states he ate some Ramen just prior to arrival that was dry and feels it may be lodged in his throat. He denies any chest pain or shortness of breath. He has been able to maintain secretions. Denies any additional complaints at this time. Related Data Home Medications ?Medication ?Instructions ?Recorded ?Confirmed testosterone cypionate 200 mg/mL 50 mg IM Q7D 07/29/24 05/27/25 intramuscular oil etonogestrel 68 mg subdermal 1 implant subdermal ONCE 11/09/24 05/27/25 implant (Nexplanon) Allergies Allergy/AdvReac Type Severity Reaction Status Date / Time amoxicillin Allergy Intermediate Skin Rash Unverified 05/27/25 12:42 General Stated Complaint: ForeignBody KASSANDRA: 5 Exam Narrative Exam Narrative: Normal phonation, alert, oriented, maintaining secretions lungs clear to auscultation, no visible sign of foreign body no stridor Course Vital Signs Vital signs: Vital Signs Temperature 36.6 C 05/27/25 09:40 Pulse 85 05/27/25 09:40 Respiratory Rate 15 05/27/25 09:40 Blood Pressure 167/102 H 05/27/25 09:40 Pulse Oximetry 98 05/27/25 09:40 Temperature 36.6 C 05/27/25 09:40 Temperature Source Oral 05/27/25 09:40 Pulse 85 05/27/25 09:40 Respiratory Rate 15 05/27/25 09:40 Respiratory Effort Normal, Non-Labored 05/27/25 10:04 Respiratory Pattern Normal 05/27/25 10:04 Blood Pressure 167/102 H 05/27/25 09:40 Blood Pressure Position Sitting 05/27/25 09:40 Pulse Oximetry 98 05/27/25 09:40 Oxygen Delivery Method Room Air 05/27/25 09:40 Oxygen Flow Rate 0 05/27/25 09:40 Pain Level 6 05/27/25 09:40 Medical Decision Making Assessment and plan: Patient without any obvious foreign body, he was given some hot chocolate and able to drink the entire cup. There was no vomiting but patient states he still has some pain. I suspect he has an esophageal abrasion from the coarseness of the Ramen. There is no indication for EGD necessity at this time. He is encouraged to follow-up with primary care physician. Still complaining of some mild discomfort so I did give him some viscous lidocaine which she tolerated well. Return precautions reviewed soft foods and regular fluids encouraged. PFSH All Active Problems (Updated 05/27/25 @ 10:04 by JAC Trujillo) Abrasion of esophagus (Acute) Acute anxiety (Acute) Acute epigastric pain (Acute) UTI (urinary tract infection) (Acute) Elevated transaminase level (Acute) Alcohol use disorder (Acute) Social History Smoking/Tobacco Use Status: Current every day Tobacco Type: cigarettes Smoking risk assessment performed?: Yes Alcohol Intake: current Alcohol Intake frequency: 3 or more drinks per day Alcohol type: beer Drug use: Occasionally Substance use type: marijuana Details: patient state she has history of using substances crack, crystal methamphetamines. but she stopped using these years ago except marijuana 01/07/25 Housing: apartment Do you feel safe at home: Yes Do you feel safe in your relationship?: Yes PAWSS Have you Been Recently Intoxicated or Drunk Within the Last 30 days?: Yes Have you Ever Experienced Previous Episodes of Alcohol Withdrawal?: Yes Have you ever Experienced Withdrawal Seizures?: Yes Have you ever Experienced Delirium Tremens(DT)s?: Yes Have you ever undergone Alcohol Rehabilitation Treatment (i.e, inpt ot outpatient treatment programs)?: Yes Have you ever Experienced Blackouts?: Yes Have you ever Combined Alcohol with other Downers within the last 90 days?: No Have you ever Combined Alcohol with any other Substance of Abuse during the last 90 days?: No Result: 6
== END 2025-05-27 13:40 | disposition home or self-care (01) ==
PROVIDERS: Emergency Provider Physician Assistant; PCP Student in an Organized Health Care Education/Training Program
DX: R09.A2 Foreign body sensation, throat (principal)
CPT/HCPCS: 99283 ×2

== ENCOUNTER 2025-05-27 12:45 | Emergency (ER) | payer MEDICAID, SELFPAY ==
[2025-05-27 12:38] VITALS: BP 137/98; PULSE 84; RESP 15; TEMP 36.9; O2SAT 97
--- NOTE | 2025-05-27 13:19 | ED.GENADUL_ITS ---
Discharge Plan Discharge Details Chief Complaint: Recheck Primary Care Provider: Cody Galarza ED Provider: Marques Gomez Home Meds and New Rx's Prescriptions: No Action testosterone cypionate 200 mg/mL oil 50 mg IM Q7D Patient Comments: INJECT 0.25ML (50MG TOTAL) INTO THE SHOULDER, THIGH, OR BUTTOCKS EVERY 7 DAYS. USE PRESCRIBED AMOUNT FROM EACH VIAL AND DISCARD REMAINING. Nexplanon 68 mg implant 1 implant subdermal ONCE Rx Instructions: as a single dose HPI General Date/Time Provider Initiated Documentation: 05/27/25 13:00 . HPI Narrative: MDM There is a quite well-appearing normothermic and not tachycardic 30-year-old patient with foreign body sensation for which patient will undergo x-ray and screening ECG. Patient handling secretions so I am not suspicious for retained airway foreign body. No chest pain to suggest ACS. No obvious intraoral le sions. Clear equal breath sounds so doubt pneumothorax in the absence of trauma. In the event that there is a component of nausea we will treat with ondansetron. Will order screening twelve-lead ECG given esophageal discomfort. My suspicion is low for ACS in the absence of chest pain based on the patient's age and well appearance I did not order troponin. It is certainly possible that the patient could have an esophageal foreign body. After labs and x-ray will attempt p.o. trial and reassess. 4:57 PM Late charting due to patient care. Patient elected to withdraw consent for care. Patient ambulated out of the emergency department. Patient did not have an IV in place at the time. HPI This is a patient with a history of obsessive-compulsive disorder (OCD) presenting with a sensation of a foreign body lodged in the throat. The patient reports experiencing a sensation of something lodged in the throat, which began after consuming ramen. They have tried various home remedies, including drinking water and Pepsi, to alleviate the sensation, but these efforts have been unsuccessful. They also attempted to dislodge the perceived foreign body by inducing vomiting, which they acknowledge was a dangerous move. The patient is experiencing difficulty swallowing and increasing dizziness, which was particularly noticeable during a walk with friends earlier today. Their symptoms have progressively worsened, leading them to seek medical attention. They were previously seen by another provider who administered hot chocolate and lidocaine, but these interventions did not provide relief. The patient decided to call an ambulance for the second time due to worsening dizziness. Exam General: Well-appearing in no acute distress speaking in complete sentences. Head: Normocephalic, atraumatic. Eye: Extraocular eye movements intact. No conjunctival injection. No scleral icterus. Ear, nose, mouth, throat: Grossly normal inspection. Normal voice, handling secretions normally. No signs of intraoral trauma. Neck: Trachea midline. Cardiovascular: Well-perfused distal extremities. Respiratory: Nonlabored respiration. Gastrointestinal: Nondistended abdomen. Musculoskeletal: No edema. Moving all 4 extremities spontaneously. Skin: Normal for age and race, grossly normal temperature and turgor. No acute rash. Neurologic: Alert and appropriate, no apparent acute deficits. Psychiatric: Mood and manner are appropriate. Grooming and personal hygiene are appropriate. Related Data Home Medications ?Medication ?Instructions ?Recorded ?Confirmed testosterone cypionate 200 mg/mL 50 mg IM Q7D 07/29/24 05/27/25 intramuscular oil etonogestrel 68 mg subdermal 1 implant subdermal ONCE 11/09/24 05/27/25 implant (Nexplanon) Allergies Allergy/AdvReac Type Severity Reaction Status Date / Time amoxicillin Allergy Intermediate Skin Rash Unverified 05/27/25 12:42 General Stated Complaint: Recheck KASSANDRA: 5 Course Vital Signs Vital signs: Vital Signs Temperature 36.9 C 05/27/25 12:38 Pulse 84 05/27/25 12:38 Respiratory Rate 15 05/27/25 12:38 Blood Pressure 137/98 H 05/27/25 12:38 Pulse Oximetry 97 05/27/25 12:38 Temperature 36.9 C 05/27/25 12:38 Pulse 84 05/27/25 12:38 Respiratory Rate 15 05/27/25 12:38 Blood Pressure 137/98 H 05/27/25 12:38 Blood Pressure Position Sitting 05/27/25 12:38 Pulse Oximetry 97 05/27/25 12:38 Oxygen Delivery Method Room Air 05/27/25 12:38 Oxygen Flow Rate 0 05/27/25 12:38 PFSH All Active Problems (Updated 05/27/25 @ 10:04 by JAC Trujillo) Abrasion of esophagus (Acute) Acute anxiety (Acute) Acute epigastric pain (Acute) UTI (urinary tract infection) (Acute) Elevated transaminase level (Acute) Alcohol use disorder (Acute) Social History Smoking/Tobacco Use Status: Current every day Tobacco Type: cigarettes Smoking risk assessment performed?: Yes Alcohol Intake: current Alcohol Intake frequency: 3 or more drinks per day Alcohol type: beer Drug use: Occasionally Substance use type: marijuana Details: patient state she has history of using substances crack, crystal methamphetamines. but she stopped using these years ago except marijuana 01/07/25 Housing: apartment Do you feel safe at home: Yes Do you feel safe in your relationship?: Yes
--- NOTE | 2025-06-03 07:51 | NUR.NOTE ---
Access chart to reconcile EKG orders with EKG's in [facility]. No EKG found in [facility], order cancelled in [facility]. Nursing Note:
== END 2025-05-27 13:42 | disposition left against medical advice (07) ==
LOC: ER 12:55
PROVIDERS: Emergency Provider Emergency Medicine; PCP Student in an Organized Health Care Education/Training Program
DX: S27.818A Other injury of esophagus (thoracic part), initial encounter (principal); X58.XXXA Exposure to other specified factors, initial encounter
CPT/HCPCS: 80048; 99283; 85025

== ENCOUNTER 2025-07-03 23:35 | Emergency (ER) | payer MEDICAID, SELFPAY ==
[2025-07-03 23:34] VITALS: BP 153/99; PULSE 106; RESP 20; TEMP 37; O2SAT 96
--- NOTE | 2025-07-04 00:02 | ED.GENADUL_ITS ---
Discharge Plan Disposition Patient Disposition: Home Condition: Good Discharge Details Clinical Impression: Alcohol intoxication Primary Care Provider: Cody Galarza ED Provider: Елена De Souza Home Meds and New Rx's Prescriptions: Continued testosterone cypionate 200 mg/mL oil 50 mg IM Q7D Patient Comments: INJECT 0.25ML (50MG TOTAL) INTO THE SHOULDER, THIGH, OR BUTTOCKS EVERY 7 DAYS. USE PRESCRIBED AMOUNT FROM EACH VIAL AND DISCARD REMAINING. Nexplanon 68 mg implant 1 implant subdermal ONCE Rx Instructions: as a single dose Discharge Instructions Instructions: Alcohol Use Disorder ED, Alcohol Intoxication ED Additional Instructions: Call your primary care doctor in the morning to schedule an appointment for within one week to followup on your visit here. At that appointment please discuss your alcohol use and your liver enzymes which are high here today. Please also mention that your hemoglobin (blood count) is high which can be related to testosterone. Suddenly stopping drinking can lead to withdrawal, seizures, and . If you would like to stop drinking please seek out medical assistance for detox. Return to the emergency department for new or worsening symptoms. Stand Alone Forms: Portal Information HPI General Mode of arrival: EMS . Date/Time Provider Initiated Documentation: 07/04/25 00:02 . Limitations to Documentation: no limitations . Information obtained by: patient . HPI Narrative: 30yo FTM individual presenting with concern for alcohol poisoning. Is a daily drinker. Today drank more than usual 4-5 large natty daddies starting around 4pm, unsure when they stopped drinking (thinks maybe around 9pm?). Input the amount into chat GPT and was told may have a DOV content of over 200 and at risk for severe alcohol poisoning and and so called 911. Does feel somewhat 'tipsy', otherwise denies symptoms. No nausea, vomiting, passing out, chest pain, or other concerns. When they have stopped drinking in the past have had tremors and withdrawal symptoms; never been admitted to the hospital for alcohol withdrawal/seizures/DT's. Otherwise in their usual state of health. Related Data Home Medications ?Medication ?Instructions ?Recorded ?Confirmed testosterone cypionate 200 mg/mL 50 mg IM Q7D 07/29/24 07/03/25 intramuscular oil etonogestrel 68 mg subdermal 1 implant subdermal ONCE 11/09/24 07/03/25 implant (Nexplanon) Allergies Allergy/AdvReac Type Severity Reaction Status Date / Time amoxicillin Allergy Intermediate Skin Rash Unverified 07/03/25 23:44 General Stated Complaint: ETOHWithdr KASSANDRA: 3 Review of Systems Narrative: see HPI Exam Narrative Exam Narrative: General: Alert, well appearing, well nourished, in no acute distress. Clinically mildly intoxicated. Head: Normocephalic, atraumatic Neck: Trachea midline, ?Neck supple. ENT: ?MMM.? Cardiac: ?RRR, no murmurs appreciated Resp: No respiratory distress. Speaking in full sentences. Abd: ?Soft, non-distended, nontender Extremities: ?No deformities.? No peripheral edema. Neurologic: GCS 15. ? Moves all extremities freely against gravity Psych: Calm, cooperative.? Well groomed.? Mood nervous, affect congruent.? Speech slightly fast with normal volume, rythym and tone. Easily interruptible. Linear and goal directed.? Denies SI/HI/AH/VH. ? Does not appear to be responding to internal stimuli. Course Vital Signs Vital signs: Vital Signs Temperature 37.0 C 07/03/25 23:34 Pulse 106 H 07/03/25 23:34 Respiratory Rate 20 07/03/25 23:34 Blood Pressure 153/99 H 07/03/25 23:34 Pulse Oximetry 96 07/03/25 23:34 Temperature 37.0 C 07/03/25 23:34 Pulse 106 H 07/03/25 23:34 Respiratory Rate 20 07/03/25 23:34 Respiratory Pattern Normal 07/03/25 23:55 Blood Pressure 153/99 H 07/03/25 23:34 Blood Pressure Position Sitting 07/03/25 23:34 Pulse Oximetry 96 07/03/25 23:34 Oxygen Delivery Method Room Air 07/03/25 23:34 Oxygen Flow Rate 0 07/03/25 23:34 Medical Decision Making 30yo FTM individual presenting with concern for alcohol poisoning. Is a daily drinker; today drank more than usual and input the amount into chat GPT and was told they may be at risk for severe alcohol poisoning and was advised to go the emergency department so they called 911. Feels 'tipsy', no other symptoms. Vital signs and physical exam reassuring on arrival, mild clinical intoxication. No respiratory depression or somonlence. Discussed with patient observation alone vs labs and elected for labs. ETOH 106 consistent with heavy drinking today. CBC & CMP with no actionable abnormalities. Bilirubin AST/ALT are elevated but this appears to be somewhat chronic on [facility] record review (though worse than baseline) and no RUQ pain or N/V. No indication for imaging. Observed in the ED for 4 hours after which patient reported feeling improved and requested discharge home. I reviewed with them the risks of ETOH abuse as well as the risks of alcohol withdrawal. They are not interested in pursuing detox at this time. Discharged home; discharge instructions and return precautions were reviewed with patient who verbalized understanding. All questions were answered and they are in full agreement with the plan. Lab Data Lab results reviewed: Yes I reviewed the patient's lab results. Labs: Laboratory Tests Range/Units 07/04/25 00:35 WBC (4.4-10.8) 10^3/uL 9.31 RBC (3.93-5.22) 10^6/uL 5.53 H Hgb (11.2-15.7) g/dL 18.3 H Hct (36.0-46.0) % 52.5 H MCV (80-95) fL 95 MCH (27.0-33.0) pg 33.1 H MCHC (32.0-36.0) % 34.9 RDW (11.7-14.6) % 11.9 Plt Count (130-400) 10^3/uL 206 MPV (8.0-11.0) fL 9.9 Immature Gran % % 2.9 Neutrophils % % 62.9 Lymphocytes % % 24.6 Monocytes % % 6.3 Eosinophils % % 1.9 Basophils % % 1.4 Nucleated RBC % (0.0-0.3) % 0.0 Absolute Neutrophils (1.2-6.7) 10^3/uL 5.85 Absolute Lymphocytes (1.2-3.4) 10^3/uL 2.29 Absolute Monocytes (0.1-0.8) 10^3/uL 0.59 Absolute Eosinophils (0.0-0.7) 10^3/uL 0.18 Absolute Basophils (0.0-0.2) 10^3/uL 0.13 Sodium (136-145) mmol/L 141 Potassium (3.5-5.1) mmol/L 3.9 Chloride (98-107) mmol/L 107 Carbon Dioxide (20.0-31.0) mmol/L 24.0 Anion Gap (3-11) mmol/L 10 BUN (9-23) mg/dL 6 L Creatinine (0.55-1.02) mg/dL 0.68 Est GFR (CKD-EPI 2020) (mL/min/1.73m2) 102.77 Glucose (74-106) mg/dL 80 Calcium (8.3-10.6) mg/dL 9.7 Magnesium (1.6-2.6) mg/dL 2.3 Total Bilirubin (0.2-1.2) mg/dL 1.30 H AST (<34) U/L 121 H ALT (10-49) U/L 172 H Alkaline Phosphatase (46-116) U/L 81 Total Protein (5.7-8.2) g/dL 9.3 H Albumin (3.2-5.0) g/dL 5.1 H Serum HCG, Qual Negative Ethyl Alcohol (<3) mg/dL 106.2 H PFSH All Active Problems (Updated 07/04/25 @ 03:52 by Елена De Souza MD) Alcohol intoxication (Acute) Alcohol use disorder (Acute) Social History Smoking/Tobacco Use Status: Current every day Tobacco Type: cigarettes Smoking risk assessment performed?: Yes Alcohol Intake: current Alcohol Intake frequency: 3 or more drinks per day Alcohol type: beer Drug use: Daily Substance use type: marijuana Details: patient state she has history of using substances crack, crystal methamphetamines. but she stopped using these years ago except marijuana 01/07/25 Housing: apartment Do you feel safe at home: Yes Do you feel safe in your relationship?: Yes
[2025-07-04] MEDS: Normal Saline 1,000 ML 150 ML IV (00:39)
[2025-07-04 00:46] LABS: Abs Immature Grans 0.27 10^3/uL (0.0-0.06); HCT 52.5 % (36.0-46.0); HGB 18.3 g/dL (11.2-15.7); Immature Grans % 2.9 %; MCH 33.1 pg (27.0-33.0); MCHC 34.9 % (32.0-36.0); MCV 95 fL (80-95); MPV 9.9 fL (8.0-11.0); Platelet Count 206 10^3/uL (130-400); RBC 5.53 10^6/uL (3.93-5.22); RDW 11.9 % (11.7-14.6); RDW-SD 42.1 fL; WBC 9.31 10^3/uL (4.4-10.8)
[2025-07-04 01:00] LABS: HCG Qual (Serum) Negative
[2025-07-04 01:06] LABS: Magnesium 2.3 mg/dL (1.6-2.6)
[2025-07-04 01:07] LABS: ALT 172 U/L (10-49); AST 121 U/L (<34); Albumin 5.1 g/dL (3.2-5.0); Alkaline Phosphatase 81 U/L (46-116); Anion Gap 10 mmol/L (3-11); BUN 6 mg/dL (9-23); Bilirubin, Total 1.30 mg/dL (0.2-1.2); CO2 24.0 mmol/L (20.0-31.0); Calcium 9.7 mg/dL (8.3-10.6); Chloride 107 mmol/L (98-107); Glucose 80 mg/dL (74-106); Potassium 3.9 mmol/L (3.5-5.1); Sodium 141 mmol/L (136-145); Total Protein 9.3 g/dL (5.7-8.2)
[2025-07-04 04:04] VITALS: BP 145/86; PULSE 78; RESP 16; TEMP 35.5; O2SAT 96
--- NOTE | 2025-07-04 06:19 | NUR.NOTE ---
Nursing Note:in chart to organize ride with [facility]
== END 2025-07-04 04:17 | disposition home or self-care (01) ==
PROVIDERS: Emergency Provider Student in an Organized Health Care Education/Training Program; PCP Student in an Organized Health Care Education/Training Program
DX: F10.929 Alcohol use, unspecified with intoxication, unspecified (principal)
CPT/HCPCS: 80053; 96360; 96361; 99284; 80320; 83735; 84703; 85025; 99283